=== PATIENT | female | born 1995 | race Caucasian/White ===

== ENCOUNTER 2019-04-30 20:29 | Emergency (ER) | payer OTHER, SELFPAY ==
[2019-04-30 20:30] VITALS: BP 142/99; PULSE 90; RESP 18; TEMP 36.8; O2SAT 100; BMI 36.8
--- NOTE | 2019-04-30 20:47 | RAD_ITS ---
STUDY: X-RAY - PELVIS AND LEFT HIP REASON FOR EXAM: Female, 23 years old. Left-sided pain. TECHNIQUE: 3 views of the pelvis and hip. COMPARISON: None. FINDINGS: No visible fracture. No osseous destruction. Alignment anatomic. No significant degenerative changes. Soft tissues unremarkable. RAD/HIP, UNI W/ Pelvis 2-3 Views IMPRESSION: No acute osseous abnormality. Electronically Signed: Jamie Burns, at 21:17 EDT Tel , Service support ,
--- NOTE | 2019-04-30 20:47 | ED.VIS.GEN ---
History of Present Illness Chief Complaint: Lower Extremity Injury Informant: Patient Onset: Yesterday Context: Sudden Onset Timing: Continuous Quality: Burning, tearing, pulling aching sensation Location: Left lower back, greater trochanteric bursa region and anterior lateral thi Current Severity: Mild Maximum Severity: Moderate Worsened by: Walking, movement Relieved by: Nothing Associated Symptoms: Chills Narrative: Patient is a 23-year-old female who presents with a tearing, pulling burning pain that is predominantly in the area of the left greater trochanteric bursa and radiates anteriorly to the knee. There is also pain left lower back. She denies bowel bladder dysfunction. She denies saddle anesthesia. Denies buckling of her knees going up or down steps. She denies foot drop. She did get a flu shot this past Friday. She has no other symptoms or complaints Patient denies problems with balance. She denies falling. She states her right lower extremity is weaker than her left. Prior similar symptoms: No Recent Illness/Hospitalization: No - Past Medical History (1) No significant past medical history Status: Acute Past Medical History - Allergies and Home Meds Allergies/Adverse Reactions: Allergies lisinopril Allergy (Verified 04/30/19 20:32) Other orange Allergy (Verified 04/30/19 20:32) Angioedema Primary Care Physician: NOT,DEFINED [NON-STAFF] - Past Medical History: None Surgical History: no surgical history Lives: With Family Smoking Status: Never smoker Alcohol: None Review of Systems General: Reports: Chills. Denies: Fever, Malaise, Subjective, Sweats, Weight loss, - ENT: Denies: Bilateral ear pain, Rhinorrhea, Sore throat Cardiovascular: Denies: Chest pain, Palpitations Respiratory: Denies: Dyspnea, Cough, Dyspnea on exertion Gastrointestinal: Denies: Abdominal pain, Nausea, Vomiting, Diarrhea Musculoskeletal: Reports: Extremity Pain. Denies: Myalgias, Arthralgias, Neck pain, Back pain, Swelling Skin: Denies: Rash, Wounds Neurological: Denies: Headache, Weakness, Parasthesia, Numbness Hematologic: Denies: Easy bruising, Easy bleeding Physical Exam Vital Signs/Narrative: Vital Signs Temp Pulse Resp BP Pulse Ox 04/30/19 20:30 98.2 F 90 18 142/99 H 100 Inital Vital Signs reviewed: Yes General: Well nourished, Well developed, Obese, No Acute Distress Head: Normocephalic, Atraumatic Eyes: Perrl, EOMI. Negative for: Pale conjunctiva, Scleral icterus ENT: Moist mucous membranes, No rhinorrhea Neck: Supple, Nontender, No lymphadenopathy, No JVD Cardiovascular: Regular rate, Regular rhythm, No murmurs, Normal S1, Normal S2 Respiratory: No distress, CTA bilaterally, Chest nontender Rectal: Deferred Back: Normal Inspection, -. Negative for: Nontender - There is tenderness near the posterior iliac spine on the left. There is no pain the patient the pelvis., CVA tenderness, Spinal tenderness Extremities: No edema, Tenderness - Straight leg test is negative. Femoral stretch test is negative. Patella and ankle reflexes are 2+ and symmetric. DP and PT pulses are symmetric.. Negative for: Nontender Skin: Normal color, No rash Neurological: Alert, Oriented x3, Cranial nerves II-XII grossly intact, Normal Strength, Normal Sensation, Normal DTR - There is no clonus or Babinski sign., Normal Gait - Gait was observed there is no foot drop. Able to walk on her heels and toes. Is able to perform a 1 legged squat without bracing herself for balance purposes. Psychological: Normal affect, Normal Mood Diagnostic/Tx/Re-eval Chest X-Ray - ED: Read by ED Physician, - - Three-view x-ray of the left hip was obtained. There is no abnormality of the pelvis. There is no abnormality of the acetabular joint. There is no other Dasha noted of the femoral head, femoral neck or greater/lesser stroke. There is no arthritic changes noted. - Medical Decision Making With complaint of pain described as burning need to consider L3 radicular pain however with a negative femoral stretch no neurologic findings and pain only to the knee and not distal doubt cause. This may represent a greater trochanteric bursitis. There may also be arthritic changes in the hip. And specifically osteoarthritis. Need to entertain possibility of autoimmune specifically polymyalgia rheumatica however with her symptoms being unilateral this would not be a consideration. Also doubt thyroid disease since symptoms are unilateral and there is no associated weakness. Patient was prescribed oral analgesic and referred to PCP for follow-up. ED Disposition - Plan for ED Patient: Disposition: Home or Assisted Living Diagnosis: Left hip pain Prescriptions: Naproxen [Naprosyn] 500 mg PO BID #14 tab Prescription Printed Hydrocodone Bitart/Apap 5-325 [[place] 5MG-325MG] 1 tab PO Q6H PRN PRN 3 Days #10 tab PRN Reason: Pain Prescription Printed Referrals: NOT,DEFINED [NON-STAFF] - Mercedez Campbell, [STAFF PHYSICIAN] - 5-7 Days Additional Instructions: Since you do not have a physician you were referred to Dr. Mercedez Campbell
--- NOTE | 2019-04-30 21:12 | ED.VISSUMM ---
- ER Visit Summary Date of Service: 04/30/19 Chief Complaint: [] History of Present Illness: The patient is a 23 F [] Physical Examination: [] Test Results: [] Emergency Department Course and Treatment: [] Treatment Plan: [] Disposition: [] Impression: [] This note was generated with [employer] dictation software. It may contain incorrect words, spelling, and punctuation that were not noted in review of the chart prior to signing ED Disposition - Plan for ED Patient: Disposition: Home or Assisted Living Diagnosis: Left hip pain Instructions: Bursitis Prescriptions: Naproxen [Naprosyn] 500 mg PO BID #14 tab Prescription Printed Hydrocodone Bitart/Apap 5-325 [[place] 5MG-325MG] 1 tab PO Q6H PRN PRN 3 Days #10 tab PRN Reason: Pain Prescription Printed Referrals: Mercedez Campbell DO [STAFF PHYSICIAN] - 5-7 Days NOT,DEFINED [NON-STAFF] - Additional Instructions: Since you do not have a physician you were referred to Dr. Mercedez Campbell
[2019-04-30 21:16] VITALS: BP 138/74; PULSE 75; RESP 16; O2SAT 98
== END 2019-04-30 21:17 | disposition home or self-care (01) ==
PROVIDERS: Emergency Provider Emergency Medicine; Family Provider Family Medicine; PCP Family Medicine
DX: M25.552 Pain in left hip (principal)
CPT/HCPCS: 73502; 99282

== ENCOUNTER 2019-07-10 00:16 | Emergency (ER) | payer OTHER, SELFPAY ==
[2019-07-10] VITALS (7 sets, daily range): BP systolic 117–142; BP diastolic 71–75; PULSE 82–95; RESP 14–18; TEMP 36.4; O2SAT 97–100; BMI 38.1
[2019-07-10 01:04] LABS: Absolute Neutrophil Count 3.4 X10^3/uL (2.0-7.7); Basophil# 0.05 X10^3/uL; Basophil% 0.6 % (0-1); Eosinophil# 0.11 X10^3/uL; Eosinophils% 1.4 % (0-5); Hematocrit 39.4 % (37-47); Hemoglobin 13.4 g/dL (12.0-15.0); Lymphocyte % 46.6 % (19-41); Mean Corpuscular Hgb 31.8 pg (27.0-32.0); Mean Corpuscular Volume 93.4 fL (81-99); Mean Platelet Vol. 12.2 fl (6.2-12.0); Monocyte# 0.53 X10^3/uL; Monocyte% 6.9 % (0-10); NRBC Flagged by Analyzer 0 % (0-5); Neutrophil # 3.42 X10^3/uL (2.7-7.7); Neutrophil % 44.4 % (47-70); Platelet Count 211 K/mm3 (150-450); RBC Distribution Width CV 11.7 % (11.6-14.6); RBC Distribution Width SD 39.7 fl (35.1-43.9); Red Blood Count 4.22 M/mm3 (4.2-5.4); White Blood Count 7.7 K/mm3 (4.4-11.0)
[2019-07-10 01:14] LABS: Amphetamine Urine VISTA NEGATIVE (<1000 ng/mL); Barbiturate Urine VISTA NEGATIVE (< 200 ng/mL); Benzodiazepine Urine VISTA NEGATIVE (< 200 ng/mL); Cocaine Urine VISTA NEGATIVE (< 300 ng/mL); Ecstacy Urine VISTA NEGATIVE (< 500 ng/mL); Methadone Urine VISTA NEGATIVE (< 300 ng/mL); PCP Urine VISTA NEGATIVE (< 25 ng/mL); THC Urine VISTA NEGATIVE (< 50 ng/mL); Vista UDS pH Range 6
[2019-07-10 01:15] LABS: Internal QC Validated? YES +Cl - CLEAR BKGD; Pregnancy, Serum, hCG Quali. NEGATIVE Negative
[2019-07-10 01:19] LABS: Anion Gap 6 (5-15); BUN 13 mg/dL (7-18); BUN/Creat Ratio 20.6 RATIO (10-20); Chloride 109 mmol/L (98-107); Creatinine, Serum 0.63 mg/dL (0.55-1.02); EST Glomerular Filtration Rate 125 mL/min (>60); Est Glom Filt Rate - Afr Amer 151 mL/min (>60); Estimated Creatinine Clearance 120.95 ml/min; Glucose 147 mg/dL (74-106); Potassium 3.3 mmol/L (3.5-5.1); Sodium Level 142 mmol/L (136-145)
[2019-07-10 01:23] LABS: Alcohol, Blood (Medical)-Serum < 3.0 mg/dL
--- NOTE | 2019-07-10 01:38 | ED.DCSUM_ITS ---
- ER Visit Summary Date of Service: 07/10/19 Chief Complaint: Anxiety History of Present Illness: The patient is a 24 F presenting with anxiety. Patient states that she had what she believes was a panic attack earlier today. She is in the process of studying for finals. She does not know of any other increase stress in her life. She denies suicidal thoughts or plan. She states at the end of her finals her doctor is going to wean her off Zoloft and start her on a new medication. This medication has not been started yet. She talked to crisis and was advised to come to the ED. Physical Examination: Vitals are stable. Patient is afebrile. Alert no acute distress. HEENT exam is unremarkable. Neck is supple. Lungs are clear and equal bilaterally. Heart is regular rate and rhythm. Abdomen is soft nontender nondistended. Extremities are unremarkable. Skin is warm and dry. No focal neurologic deficit. Anxious, denies suicidal ideation or homicidal ideation Remainder of exam is unremarkable. Emergency Department Course and Treatment: CBC, chemistries unremarkable. hCG negative. Tox and alcohol are negative. Discussed with counseling center for evaluation. Disposition: Per counseling center Impression: Anxiety This note was generated with [employer] dictation software. It may contain incorrect words, spelling, and punctuation that were not noted in review of the chart paula or to signing ED Disposition - Plan for ED Patient: Referrals: Danya Mcnally DO [Primary Care Provider] -
--- NOTE | 2019-07-10 07:32 | ED.DEP ---
ED Disposition - Plan for ED Patient: Instructions: Anxiety Reaction Referrals: Danya Mcnally DO [Primary Care Provider] - Counseling,Center [GROUP OF PHYSICIANS] -
== END 2019-07-10 07:55 | disposition home or self-care (01) ==
LOC: ED 00:40
PROVIDERS: Emergency Provider Emergency Medicine; Family Provider Family Medicine; PCP Family Medicine
DX: F41.9 Anxiety disorder, unspecified (principal)
CPT/HCPCS: 36415; 80048; 80307; 80320; 84703; 85025; 99284; G0480

== ENCOUNTER 2019-11-30 19:42 | Emergency (ER) | payer OTHER, SELFPAY ==
[2019-07-10 00:17] VITALS: BMI 38.1
[2019-11-30 19:43] VITALS: BP 136/95; PULSE 118; RESP 20; TEMP 37.3; O2SAT 99; BMI 37.2
[2019-11-30] MEDS: Acetaminophen 500 MG Tablet 1000 MG PO (20:31)
--- NOTE | 2019-11-30 20:36 | RAD_ITS ---
STUDY: X-RAY CHEST REASON FOR EXAM: Female, 24 years old. fever, cold symptoms TECHNIQUE: AP portable COMPARISON: None. FINDINGS: The lungs are clear and expanded. There is no demonstrated pleural abnormality. Normal size heart. Normal mediastinum and clari. Normal visualized pulmonary arteries. Normal visualized aortic arch and descending thoracic aorta. Dorsal spine demonstrates scoliosis possibly due to muscle spasm Normal visualized ribs, clavicles, and shoulders. There is no demonstrated abnormality of the visualized soft tissue structures of the upper abdomen. RAD/Chest 1 View (Portable) IMPRESSION: No acute cardiopulmonary pathology Electronically Signed: Rebel Lawrence MD at 20:57 EDT , Service support ,
[2019-11-30 20:37] LABS: Absolute Lymphocyte Count 2.76 X10^3/uL (0.83-4.51); Absolute Neutrophil Count 4.9 X10^3/uL (2.0-7.7); Basophil# 0.06 X10^3/uL; Basophil% 0.7 % (0-1); Eosinophil# 0.06 X10^3/uL; Eosinophils% 0.7 % (0-5); Hematocrit 43.6 % (37-47); Hemoglobin 14.8 g/dL (12.0-15.0); Lymphocyte # 2.76 X10^3/ul (4.0); Lymphocyte % 32.8 % (19-41); Mean Corp Hgb Conc 33.9 g/dL (32-36); Mean Corpuscular Hgb 31.6 pg (27.0-32.0); Mean Platelet Vol. 11.8 fl (6.2-12.0); Monocyte# 0.64 X10^3/uL; Monocyte% 7.6 % (0-10); NRBC Flagged by Analyzer 0 % (0-5); Neutrophil # 4.87 X10^3/uL (2.7-7.7); Platelet Count 250 K/mm3 (150-450); RBC Distribution Width CV 11.6 % (11.6-14.6); RBC Distribution Width SD 38.9 fl (35.1-43.9); Red Blood Count 4.69 M/mm3 (4.2-5.4); White Blood Count 8.4 K/mm3 (4.4-11.0)
[2019-11-30 20:49] LABS: Red Blood Cells-Urine 0 SEEN /hpf (0-5)
[2019-11-30 20:50] LABS: Color, Urine Yellow (Yellow); Glucose, Dipstick Normal (Normal); Ketone-Dipstick 50 mg/dl (Negative); Leukocyte Esterase-Dipstick 100 /ul (Negative); Nitrite-Dipstick Negative (Negative); Occult Blood-Urine Negative /ul (Negative); Protein-Dipstick 15 mg/dl (Negative); Urine Bilirubin Dipstick Negative (Negative); Urine Clarity Cloudy (Clear); Urine Urobilinogen Normal (Normal)
[2019-11-30 20:53] LABS: AST(SGOT) 12 U/L (15-37); Alanine Aminotransfer ALT/SGPT 19 U/L (13-56); Albumin, Serum 3.8 g/dL (3.2-5.0); Alkaline Phosphatase 108 U/L (45-117); Anion Gap 8 (5-15); BUN 10 mg/dL (7-18); BUN/Creat Ratio 15.2 RATIO (10-20); Calcium,Total 9.2 mg/dL (8.5-10.1); Chloride 108 mmol/L (98-107); Creatinine, Serum 0.66 mg/dL (0.55-1.02); EST Glomerular Filtration Rate 119 mL/min (>60); Est Glom Filt Rate - Afr Amer 144 mL/min (>60); Estimated Creatinine Clearance 115.45 ml/min; Glucose 89 mg/dL (74-106); Lipase 65 U/L (73-393); Potassium 3.1 mmol/L (3.5-5.1); Protein, Total 7.8 g/dL (6.4-8.2); Sodium Level 140 mmol/L (136-145)
[2019-11-30 20:57] LABS: Mucous, Urine 3+ /hpf (<or=2+)
[2019-11-30 20:58] LABS: Bacteria 2+ /hpf (None Seen); White Blood Cells 0-5 SEEN /hpf (0-5)
[2019-11-30 21:00] LABS: Squamous Epithelial Cells - UA 5-10 SEEN /hpf (5-10)
--- NOTE | 2019-11-30 21:14 | ED.DCSUM_ITS ---
- ER Visit Summary Date of Service: 11/30/19 Chief Complaint: Fever, cough, sore throat History of Present Illness: The patient is a 24 F who presents with fever, cough, and sore throat that is been getting worse over the past 4 days. Patient states this is gradually gotten worse. Patient states her temperature is 100.2 at home. Patient admits to some shortness of breath and cough. Patient admits to some abdominal pain, nausea, and vomiting. Patient also admits to some back pain. Patient denies any dysuria or hematuria. Patient admits to a mild headache. Patient denies any sick contacts. Patient denies any exposures to anyone diagnosed with COVID-19. Physical Examination: Vital signs are stable except for mild tachycardia of 118. Patient is afebrile. Patient is in no acute distress. Oral mucosa is pink and moist. Oropharynx shows some mild erythema. Neck is supple. Trachea is midline. There is no JVD noted. Heart was regular rate and rhythm. Lungs are clear and equal bilaterally. Abdomen is soft. Bowel sounds are normal. There is no tenderness. There is no rebound or guarding noted. Skin is warm dry. Cranial nerves II through XII are intact. There are no focal motor or sensory deficits noted. Extremities are intact. There is no calf tenderness or edema. Test Results: CBC, comprehensive metabolic profile, and lipase were obtained and were essentially within normal limits. Urinalysis does not show any evidence of urinary tract infection. Potable chest x-ray was obtained. There is no acute cardiopulmonary process. This was interpreted by the radiologist and reviewed by myself. Emergency Department Course and Treatment: She was given a dose of Tylenol here. Patient was feeling better on reevaluation. Patient was advised that this most likely a viral upper respiratory infection. Patient was instructed to quarantine herself until she follows up with her primary care physician. Patient was advised that she does not meet testing for COVID-19 at this time. Patient was instructed to return if worse in any way. Patient understood and was agreeable with the plan. All questions were answered. Disposition: Discharge home Impression: Viral upper respiratory infection This note was generated with [employer] dictation software. It may contain incorrect words, spelling, and punctuation that were not noted in review of the chart prior to signing ED Disposition - Plan for ED Patient: Disposition: Home or Assisted Living Diagnosis: Viral upper respiratory infection Instructions: ED URI Viral Referrals: Danya Mcnally DO [Primary Care Provider] - 5-7 Days
[2019-11-30 22:54] VITALS: BP 126/97; PULSE 92; RESP 18; TEMP 37.3; O2SAT 97
== END 2019-11-30 22:55 | disposition home or self-care (01) ==
PROVIDERS: Emergency Provider Emergency Medicine; PCP Family Medicine
DX: J06.9 Acute upper respiratory infection, unspecified (principal); I10 Essential (primary) hypertension; J45.909 Unspecified asthma, uncomplicated
CPT/HCPCS: 71045; 80053; 81001; 83690; 85025; 87804; 87807; 87880; 99284; A4216

== ENCOUNTER 2020-01-08 22:44 | Emergency (ER) | payer OTHER, SELFPAY ==
[2020-01-08 22:44] VITALS: BP 142/98; PULSE 100; RESP 15; TEMP 36.9; O2SAT 98; BMI 36.3
--- NOTE | 2020-01-08 23:19 | ED.VIS.GI ---
History of Present Illness Chief Complaint: Abd Pain Informant: Patient - Abdominal Pain/Flank Pain Onset: Today Context: Gradual Onset Timing: Continuous Quality: Aching Location: Epigastric - without radiation Current Severity: Mild Maximum Severity: Mild Worsened by: - - unknown Relieved by: - - nothing - Nausea/Vomiting/Emesis GI Symptom: Nausea, Vomiting Onset: Weeks - 2 Quality: Nonbilious - but looked green only the last time I vomited today; I called the nurse line and told them that, so they said I needed to be seen. Severity: Moderate - several times per day, most days, occasionally becomes cyclical for 10-20 minutes - Diarrhea/Melena/Hematochezia GI Symptom: Diarrhea. Negative for: Melena, Hematochezia Onset: Weeks - 2 Stool Quality: Loose Severity: Mild Episodes: 3 - per day Associated Symptoms: Negative for: Dysuria, Frequency, Hematuria, Urgency Narrative: Patient states she has had some of the symptoms in the past, and tells me that I was diagnosed with a cold. For the past 2 weeks she has had vomiting and diarrhea. She developed some epigastric discomfort only today. She has had no prior abdominal surgeries. She states since it was green-robin colored today, she was advised to come to the ER for evaluation since it is the weekend. She has not seen her doctor about the symptoms yet in the past 2 weeks. She denies any fevers. No chest pain, cough, dysuria, urinary frequency, she denies . - Past Medical History (1) Hypertension Status: Chronic (2) Hyperlipidemia Status: Chronic (3) Depression Status: Chronic (4) Anxiety Status: Chronic (5) Asthma Status: Chronic Past Medical History - Allergies and Home Meds Allergies/Adverse Reactions: Allergies lisinopril Allergy (Verified 01/08/20 22:47) Other orange Allergy (Verified 01/08/20 22:47) Angioedema Primary Care Physician: Danya Mcnally DO [Primary Care Provider] - Surgical History: no surgical history Smoking Status: Never smoker Review of Systems General: Denies: Chills, Fever, Sweats Eyes: Denies: Visual changes - bilaterally, Diplopia ENT: Denies: Rhinorrhea, Sore throat Cardiovascular: Denies: Chest pain, Palpitations Respiratory: Denies: Dyspnea, Cough, Dyspnea on exertion Gastrointestinal: Reports: Abdominal pain, Nausea, Vomiting, Diarrhea. Denies: Melena, Hematochezia Genitourinary: Denies: Dysuria, Hematuria, Frequency Musculoskeletal: Denies: Neck pain, Back pain, Swelling, Extremity Pain Skin: Denies: Rash, Wounds Neurological: Denies: Headache, Weakness, Numbness Physical Exam Vital Signs/Narrative: Vital Signs Temp Pulse Resp BP Pulse Ox 01/08/20 22:44 98.5 F 100 15 142/98 H 98 Inital Vital Signs reviewed: Yes General: Well nourished, Well developed, Obese, No Acute Distress - Well-appearing. Head: Normocephalic, Atraumatic Eyes: Perrl, EOMI ENT: Moist mucous membranes, No rhinorrhea Neck: Supple, Nontender Cardiovascular: Regular rate, Regular rhythm, No murmurs Respiratory: No distress, CTA bilaterally, Chest nontender Abdomen: Soft, Nondistended, Normal bowel sounds, No masses, Tender - Mild, epigastrium only. Negative for: Guarding, Rebound tenderness, Ceron's sign Back: Nontender, Normal Inspection. Negative for: CVA tenderness Extremities: Nontender, No edema. Negative for: Calf Tenderness Skin: Normal color, No rash, No Trauma Neurological: Alert, Oriented x3, Cranial nerves II-XII grossly intact, Normal Strength, Normal Sensation, Normal Gait Psychological: Normal affect, Normal Mood Diagnostic/Tx/Re-eval Laboratory Results 01/08/20 01/08/20 01/08/20 23:05 23:35 23:35 WBC 7.2 RBC 4.41 Hgb 13.9 Hct 42.2 MCV 95.7 MCH 31.5 MCHC 32.9 RDW Std Deviation 41.6 RDW Coeff of Alex 11.9 Plt Count 236 MPV 12.5 H Immature Gran % (Auto) 0.100 Neut % (Auto) 50.1 Lymph % (Auto) 38.6 [place] % (Auto) 9.7 Eos % (Auto) 0.8 Baso % (Auto) 0.7 Absolute Neuts (auto) 3.6 Absolute Lymphs (auto) 2.76 Nucleated RBC % 0 Sodium 143 Potassium 4.2 Chloride 111 H Carbon Dioxide 25.0 Anion Gap 7 BUN 9 Creatinine 0.61 Estim Creat Clear Calc 124.92 Est GFR (MDRD) Af Amer 156 Est GFR (MDRD) Non-Af 129 BUN/Creatinine Ratio 14.7 Glucose 102 Calcium 9.1 Total Bilirubin 0.40 AST 20 ALT 16 Alkaline Phosphatase 97 Total Protein 7.0 Albumin 3.4 Globulin 3.6 Albumin/Globulin Ratio 0.9 Lipase 64 L Urine Test Negative - Medical Decision Making After Reglan and a GI cocktail, patient feels much better is drinking fluids without difficulty, and her discomfort is resolved. I do not think she has a bowel obstruction or needs a CT scan tonight. Her labs are unremarkable. Her urinalysis specimen was provided to us over 1.5 hours ago but the lab still has not returned a result although her is negative. I will watch for this, I think it results are unlikely to change my treatment for her, which is a PPI, antiemetic, and outpatient follow-up. She is comfortable with that plan. ED Disposition - Plan for ED Patient: Disposition: Home or Assisted Living Diagnosis: Nausea vomiting and diarrhea, Epigastric pain Instructions: ED Epigastric Pain [facility], ED Vomiting and Diarrhea Nonspecific Adult Prescriptions: proMETHazine tablet [Phenergan] 25 mg PO Q6H PRN PRN #10 tab PRN Reason: Nausea Transmission Status: Pending to [facility] Pantoprazole Sodium [Protonix] 40 mg PO DAILY #30 tab Transmission Status: Pending to [facility] Referrals: Danya Mcnally DO [Primary Care Provider] - 3-5 Days if not improving
[2020-01-08] MEDS: 0.9% Normal Saline 1,000 ML 1000 ML IV (23:37)
[2020-01-08] MEDS: Mag Hydrox/Al Hydrox/Simeth 30 ML UDC PO (23:47)
[2020-01-08] MEDS: Dicyclomine 10 MG Capsule 20 MG PO (23:48)
[2020-01-08] MEDS: Metoclopramide 10 MG/2 ML Vial 5 MG IV (23:48)
[2020-01-09 00:01] LABS: Mucous, Urine 0 SEEN /hpf (<or=2+); Red Blood Cells-Urine 0 SEEN /hpf (0-5)
[2020-01-09 00:08] LABS: Absolute Lymphocyte Count 2.76 X10^3/uL (0.83-4.51); Absolute Neutrophil Count 3.6 X10^3/uL (2.0-7.7); Basophil# 0.05 X10^3/uL; Basophil% 0.7 % (0-1); Eosinophil# 0.06 X10^3/uL; Eosinophils% 0.8 % (0-5); Hematocrit 42.2 % (37-47); Hemoglobin 13.9 g/dL (12.0-15.0); Lymphocyte # 2.76 X10^3/ul (4.0); Lymphocyte % 38.6 % (19-41); Mean Corp Hgb Conc 32.9 g/dL (32-36); Mean Corpuscular Hgb 31.5 pg (27.0-32.0); Mean Corpuscular Volume 95.7 fL (81-99); Mean Platelet Vol. 12.5 fl (6.2-12.0); Monocyte# 0.69 X10^3/uL; Monocyte% 9.7 % (0-10); NRBC Flagged by Analyzer 0 % (0-5); Neutrophil # 3.58 X10^3/uL (2.7-7.7); Neutrophil % 50.1 % (47-70); Platelet Count 236 K/mm3 (150-450); RBC Distribution Width CV 11.9 % (11.6-14.6); RBC Distribution Width SD 41.6 fl (35.1-43.9); Red Blood Count 4.41 M/mm3 (4.2-5.4); White Blood Count 7.2 K/mm3 (4.4-11.0)
[2020-01-09 00:28] LABS: Internal QC Validated? YES +Cl - CLEAR BKGD; Pregnancy, Urine Negative Negative
[2020-01-09 00:39] LABS: Color, Urine Yellow (Yellow); Glucose, Dipstick Normal (Normal); Ketone-Dipstick Negative (Negative); Leukocyte Esterase-Dipstick 25 /ul (Negative); Nitrite-Dipstick Negative (Negative); Occult Blood-Urine Negative /ul (Negative); Protein-Dipstick 15 mg/dl (Negative); Urine Bilirubin Dipstick Negative (Negative); Urine Clarity Sl. Cloudy (Clear); Urine Urobilinogen Normal (Normal); Urine pH 6.5 (5.0 - 8.0)
[2020-01-09 00:40] LABS: ALB/GLOB Ratio 0.9 RATIO (0.9-2.4); AST(SGOT) 20 U/L (15-37); Alanine Aminotransfer ALT/SGPT 16 U/L (13-56); Albumin, Serum 3.4 g/dL (3.2-5.0); Alkaline Phosphatase 97 U/L (45-117); Anion Gap 7 (5-15); BUN 9 mg/dL (7-18); BUN/Creat Ratio 14.7 RATIO (10-20); Calcium,Total 9.1 mg/dL (8.5-10.1); Chloride 111 mmol/L (98-107); Creatinine, Serum 0.61 mg/dL (0.55-1.02); EST Glomerular Filtration Rate 129 mL/min (>60); Est Glom Filt Rate - Afr Amer 156 mL/min (>60); Estimated Creatinine Clearance 124.92 ml/min; Globulin 3.6 g/dL (2.2-4.2); Glucose 102 mg/dL (74-106); Lipase 64 U/L (73-393); Potassium 4.2 mmol/L (3.5-5.1); Sodium Level 143 mmol/L (136-145)
[2020-01-09 01:00] VITALS: BP 145/93; PULSE 67; RESP 18; O2SAT 95
[2020-01-09 01:03] LABS: Bacteria 2+ /hpf (None Seen); Squamous Epithelial Cells - UA 0-5 SEEN /hpf (5-10); White Blood Cells 0-5 SEEN /hpf (0-5)
[2020-01-09] MEDS: Pantoprazole Sodium 40 MG Tablet PO (01:06)
== END 2020-01-09 01:10 | disposition home or self-care (01) ==
PROVIDERS: Emergency Provider Emergency Medicine; PCP Family Medicine
DX: R10.13 Epigastric pain (principal); R11.2 Nausea with vomiting, unspecified; R19.7 Diarrhea, unspecified; E66.9 Obesity, unspecified; I10 Essential (primary) hypertension; E78.5 Hyperlipidemia, unspecified; F32.9 Major depressive disorder, single episode, unspecified; F41.9 Anxiety disorder, unspecified; J45.909 Unspecified asthma, uncomplicated; Z79.899 Other long term (current) drug therapy
CPT/HCPCS: 80053; 81001; 81025; 83690; 85025; 96360; 99285; J7030; A4216

== ENCOUNTER → 2020-01-31 15:24 | Outpatient (CLI) | payer OTHER, SELFPAY ==
[2020-01-08 22:44] VITALS: BMI 36.3
[2020-01-31 17:59] LABS: CRP 7.44 mg/L (0.0-3.0)
[2020-02-02 16:08] LABS: Endomysial Antibody IgA Negative (Negative); Immunoglobulin A 64 mg/dL (87-352)
[2020-02-05 17:46] LABS: t-Transglutaminase IgA <2 U/mL (0-3)
== END ==
PROVIDERS: PCP Family Medicine; Referring Provider Internal Medicine Gastroenterology; Visit Provider Internal Medicine Gastroenterology
DX: R19.7 Diarrhea, unspecified (principal)
CPT/HCPCS: 36415; 82784; 83516; 86140; 86255

== ENCOUNTER → 2020-02-07 09:41 | Outpatient (CLI) | payer OTHER, SELFPAY ==
[2020-01-08 22:44] VITALS: BMI 36.3
== END ==
PROVIDERS: PCP Family Medicine; Referring Provider Internal Medicine Gastroenterology; Visit Provider Internal Medicine Gastroenterology
DX: Z11.59 Encounter for screening for other viral diseases (principal)
CPT/HCPCS: 87635; G2023; U0003

== ENCOUNTER → 2020-02-08 14:07 | Outpatient (CLI) | payer OTHER, SELFPAY | PROVIDERS: PCP Family Medicine; Referring Provider Internal Medicine Gastroenterology; Visit Provider Internal Medicine Gastroenterology | DX: R19.7 Diarrhea, unspecified (principal) | CPT/HCPCS: 36415; 83516 ==

== ENCOUNTER → 2020-02-16 09:56 | Outpatient (CLI) | payer OTHER, SELFPAY ==
--- NOTE | 2020-02-16 09:59 | US_ITS ---
STUDY: ABDOMINAL ULTRASOUND REASON FOR EXAM: Female, 24 years old. ABD PAIN WITH VOMITING AND NAUSEA TECHNIQUE: Transabdominal ultrasound was performed with real-time and static bowie scale imaging. TECHNICAL QUALITY: Adequate. COMPARISON: None. FINDINGS: Liver: The liver measures 17.4 cm. There is increased echogenicity consistent with fatty infiltration. The bile ducts are within normal limits. There is hepatic color flow. The direction of portal flow is hepatopetal. There is no demonstrated mass lesion. Portal vein measurement: Gallbladder: Normal distended gallbladder. The gallbladder wall measures 2 mm. There is a negative sonographic Ceron''s sign. There is no pericholecystic fluid. There are no gallstones. Common Bile Duct (C.B.D.): The common bile duct measures 3 mm. Pancreas: Normal size of the head, body and tail of the pancreas. There is normal echogenicity of the pancreas. There is no demonstrated pancreatic mass or cyst. Spleen: Normal size of the spleen. The spleen measures 10.6 cm. Right Kidney: Normal size of the right kidney. The right kidney measures 12.1 x 4.2 x 4.5 cm. Normal renal cortex. The right cortex measures 1.5 cm. There is no demonstrated renal mass or cyst. There is no right hydronephrosis, there is a 7 mm hyperechogenicity, likely nonobstructing stone.. Left Kidney: Normal size of the left kidney. The left kidney measures 11.1 x 5.1 x 5.0 cm. Normal renal cortex. The left cortex measures 1.7 cm. There is no demonstrated renal mass or cyst. There is no left hydronephrosis. Aorta: Tapers normally I.V.C.: The IVC is patent. There is no ascites. US/Abdomen Complete IMPRESSION: Fatty infiltration of the liver, no discrete lesion Likely nonobstructing right nephrolithiasis Electronically Signed: Evangelista Lynne MD at 10:59 EDT , Service support ,
== END ==
PROVIDERS: PCP Family Medicine; Referring Provider Internal Medicine Gastroenterology; Visit Provider Internal Medicine Gastroenterology
DX: R11.2 Nausea with vomiting, unspecified (principal); R10.9 Unspecified abdominal pain
CPT/HCPCS: 76700

== ENCOUNTER 2020-06-16 16:04 | Emergency (ER) | payer MEDICAID, SELFPAY ==
[2020-06-16 16:05] VITALS: BP 140/99; PULSE 109; RESP 16; TEMP 36.3; O2SAT 99; BMI 34.3
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
[2020-06-16 17:08] VITALS: PULSE 99; RESP 16; O2SAT 98
== END 2020-06-16 17:00 | disposition home or self-care (01) ==
LOC: ED 16:45
PROVIDERS: Emergency Provider Physician Assistant; PCP Family Medicine
DX: S09.90XA Unspecified injury of head, initial encounter (principal); E78.5 Hyperlipidemia, unspecified; W19.XXXA Unspecified fall, initial encounter
CPT/HCPCS: 70450; 99282

== ENCOUNTER 2020-07-25 13:30 | Outpatient (RCR) | payer OTHER, MEDICAID, SELFPAY | END 2020-08-03 23:59 | LOC: NS 13:30 | PROVIDERS: PCP Family Medicine; Visit Provider Family Medicine | DX: Z71.3 Dietary counseling and surveillance (principal); K31.84 Gastroparesis; R11.15 Cyclical vomiting syndrome unrelated to migraine | CPT/HCPCS: 97802 ==

== ENCOUNTER 2020-08-04 20:01 | Emergency (ER) | payer MEDICAID, SELFPAY ==
[2020-08-04 20:02] VITALS: BP 148/90; PULSE 131; RESP 18; TEMP 36.3; O2SAT 98; BMI 34.0
--- NOTE | 2020-08-04 20:28 | EKG12_ITS ---
Test Reason : [facility] [place] Blood Pressure : / mmHG Vent. Rate : 114 BPM Atrial Rate : 114 BPM P-R Int : 138 ms QRS Dur : 090 ms QT Int : 356 ms P-R-T Axes : 047 033 044 degrees QTc Int : 490 ms Sinus tachycardia Otherwise normal ECG Confirmed by ANOOP WATT, EMELI ([id number]), newspaper managing editor LINDA MCCORMACK ([id number]) on 08/07/2020 8:57:16 AM Referred By: Confirmed By:EMELI DAVALOS MD
--- NOTE | 2020-08-04 20:31 | ED.VIS.GEN ---
History of Present Illness Chief Complaint: Suicidal Informant: Patient, Family Narrative: 25-year-old female with a history of bipolar disorder states that she has had a bad couple weeks. She states that she recently graduated from college and has school loan debt. Today she went into work and found coverage as she was not doing well from a mental health standpoint. She states that her boss yelled at her. She talked to crisis and it calmed herself down. Unfortunately she began to have suicidal ideation without plan and was referred to the emergency department by crisis. She denies any current drug or alcohol use. She does not cut. - Past Medical History (1) Anxiety Status: Chronic (2) Asthma Status: Chronic (3) Depression Status: Chronic (4) Hyperlipidemia Status: Chronic (5) Hypertension Status: Chronic Past Medical History - Allergies and Home Meds Allergies/Adverse Reactions: Allergies lisinopril Allergy (Verified 08/04/20 20:05) Other orange Allergy (Verified 08/04/20 20:05) Angioedema Primary Care Physician: Danya Mcnally DO [Primary Care Provider] - Past Medical History: - - Bipolar disorder Surgical History: no surgical history Lives: With Family Smoking Status: Never smoker Drugs: None Review of Systems General: Denies: Chills, Fever, Sweats Eyes: Denies: Visual changes - bilaterally, Diplopia ENT: Denies: Rhinorrhea, Sore throat Cardiovascular: Denies: Chest pain, Palpitations Respiratory: Denies: Dyspnea, Cough, Dyspnea on exertion Gastrointestinal: Denies: Abdominal pain, Nausea, Vomiting, Diarrhea, Melena, Hematochezia Genitourinary: Denies: Dysuria, Hematuria, Frequency Musculoskeletal: Denies: Back pain, Extremity Pain Skin: Denies: Rash, Wounds Neurological: Denies: Headache, Weakness, Numbness Psych: Reports: Depression, Anxiety, Suicidal thoughts, Suicidal ideations Physical Exam Vital Signs/Narrative: Vital Signs Temp Pulse Resp BP Pulse Ox 08/04/20 20:02 97.3 F L 131 H 18 148/90 H 98 Inital Vital Signs reviewed: Yes General: Well nourished, Well developed, No Acute Distress Head: Normocephalic, Atraumatic Eyes: Perrl, EOMI ENT: Moist mucous membranes, No rhinorrhea Neck: Supple, Nontender Cardiovascular: Regular rate, Regular rhythm, No murmurs Respiratory: No distress, CTA bilaterally, Chest nontender Abdomen: Soft, Nontender, Nondistended, Normal bowel sounds Back: Nontender, Normal Inspection Extremities: Nontender, No edema Skin: Normal color, No rash Neurological: Alert, Oriented x3, Cranial nerves II-XII grossly intact, Normal Strength, Normal Sensation Psychological: Depressed, - - Patient admits to suicidal ideation Diagnostic/Tx/Re-eval Laboratory Last Values WBC 11.3 K/mm3 (4.4-11.0) H 08/04/20 20:45 RBC 4.36 M/mm3 (4.2-5.4) 08/04/20 20:45 Hgb 14.1 g/dL (12.0-15.0) 08/04/20 20:45 Hct 40.9 % (37-47) 08/04/20 20:45 MCV 93.8 fL (81-99) 08/04/20 20:45 MCH 32.3 pg (27.0-32.0) H 08/04/20 20:45 MCHC 34.5 g/dL (32-36) 08/04/20 20:45 RDW Std Deviation 40.2 fl (35.1-43.9) 08/04/20 20:45 RDW Coeff of Alex 11.6 % (11.6-14.6) 08/04/20 20:45 Plt Count 241 K/mm3 (150-450) 08/04/20 20:45 MPV 12.1 fl (6.2-12.0) H 08/04/20 20:45 Immature Gran % (Auto) 0.400 % (0.0-0.9) 08/04/20 20:45 Neut % (Auto) 62.0 % (47-70) 08/04/20 20:45 Lymph % (Auto) 29.5 % (19-41) 08/04/20 20:45 [place] % (Auto) 6.4 % (0-10) 08/04/20 20:45 Eos % (Auto) 1.0 % (0-5) 08/04/20 20:45 Baso % (Auto) 0.7 % (0-1) 08/04/20 20:45 Absolute Neuts (auto) 7.0 X10^3/uL (2.0-7.7) 08/04/20 20:45 Absolute Lymphs (auto) 3.34 X10^3/uL (0.83-4.51) 08/04/20 20:45 Nucleated RBC % 0 % (0-5) 08/04/20 20:45 Sodium 141 mmol/L (136-145) 08/04/20 20:45 Potassium 3.5 mmol/L (3.5-5.1) 08/04/20 20:45 Chloride 109 mmol/L (98-107) H 08/04/20 20:45 Carbon Dioxide 25.0 mmol/L (21.0-32.0) 08/04/20 20:45 Anion Gap 7 (5-15) 08/04/20 20:45 BUN 10 mg/dL (7-18) 08/04/20 20:45 Creatinine 0.65 mg/dL (0.55-1.02) 08/04/20 20:45 Estim Creat Clear Calc 116.24 ml/min 08/04/20 20:45 Est GFR (MDRD) Af Amer 145 mL/min (>60) 08/04/20 20:45 Est GFR (MDRD) Non-Af 120 mL/min (>60) 08/04/20 20:45 BUN/Creatinine Ratio 15.4 RATIO (10-20) 08/04/20 20:45 Glucose 121 mg/dL (74-106) H 08/04/20 20:45 Calcium 9.2 mg/dL (8.5-10.1) 08/04/20 20:45 Total Bilirubin 0.40 mg/dL (0.20-1.00) 08/04/20 20:45 AST 7 U/L (15-37) L 08/04/20 20:45 ALT 13 U/L (13-56) 08/04/20 20:45 Alkaline Phosphatase 128 U/L (45-117) H 08/04/20 20:45 Total Protein 7.5 g/dL (6.4-8.2) 08/04/20 20:45 Albumin 3.7 g/dL (3.2-5.0) 08/04/20 20:45 Globulin 3.8 g/dL (2.2-4.2) 08/04/20 20:45 Albumin/Globulin Ratio 1.0 RATIO (0.9-2.4) 08/04/20 20:45 Serum , Qual NEGATIVE Negative 08/04/20 20:45 Urine Opiates Screen NEGATIVE (< 300 ng/mL) 08/04/20 20:17 Urine Methadone Screen NEGATIVE (< 300 ng/mL) 08/04/20 20:17 Ur Barbiturates Screen NEGATIVE (< 200 ng/mL) 08/04/20 20:17 Ur Phencyclidine Scrn NEGATIVE (< 25 ng/mL) 08/04/20 20:17 Ur Amphetamines Screen NEGATIVE (<1000 ng/mL) 08/04/20 20:17 U Methamphetamin-MDMA POSITIVE (< 500 ng/mL) H 08/04/20 20:17 U Benzodiazepines Scrn NEGATIVE (< 200 ng/mL) 08/04/20 20:17 [place] < 0.20 mmol/L (0.60-1.20) L 08/04/20 20:45 Urine Cocaine Screen NEGATIVE (< 300 ng/mL) 08/04/20 20:17 U Cannabinoids Screen NEGATIVE (< 50 ng/mL) 08/04/20 20:17 Ur Drug Screen Comment 08/04/20 20:17 Ethyl Alcohol < 3.0 mg/dL 08/04/20 20:45 - EKG Initial EKG Interpretation: Sinus Rhythm - EKG demonstrates a sinus tachycardia at a rate of 114. Normal intervals. No ectopy or concerning features of ACS noted - Medical Decision Making Patient was medically cleared. Covid test negative. She has been previously assessed by crisis tonight. It is our recommendation that the patient be hospitalized for psychiatric evaluation and treatment. ED Disposition - Plan for ED Patient: Disposition: Psychiatric Hospital or Unit Diagnosis: Bipolar disorder, Suicidal ideation Referrals: Danya Mcnally DO [Primary Care Provider] -
[2020-08-04 20:55] LABS: Absolute Lymphocyte Count 3.34 X10^3/uL (0.83-4.51); Basophil# 0.08 X10^3/uL; Basophil% 0.7 % (0-1); Eosinophil# 0.11 X10^3/uL; Hematocrit 40.9 % (37-47); Hemoglobin 14.1 g/dL (12.0-15.0); Lymphocyte # 3.34 X10^3/ul (4.0); Lymphocyte % 29.5 % (19-41); Mean Corp Hgb Conc 34.5 g/dL (32-36); Mean Corpuscular Hgb 32.3 pg (27.0-32.0); Mean Corpuscular Volume 93.8 fL (81-99); Mean Platelet Vol. 12.1 fl (6.2-12.0); Monocyte# 0.73 X10^3/uL; Monocyte% 6.4 % (0-10); NRBC Flagged by Analyzer 0 % (0-5); Neutrophil # 7.02 X10^3/uL (2.7-7.7); Platelet Count 241 K/mm3 (150-450); RBC Distribution Width CV 11.6 % (11.6-14.6); RBC Distribution Width SD 40.2 fl (35.1-43.9); Red Blood Count 4.36 M/mm3 (4.2-5.4); White Blood Count 11.3 K/mm3 (4.4-11.0)
[2020-08-04 21:02] VITALS: RESP 18
[2020-08-04 21:10] LABS: Internal QC Validated? YES +Cl - CLEAR BKGD; Pregnancy, Serum, hCG Quali. NEGATIVE Negative
[2020-08-04 21:11] LABS: AST(SGOT) 7 U/L (15-37); Alanine Aminotransfer ALT/SGPT 13 U/L (13-56); Albumin, Serum 3.7 g/dL (3.2-5.0); Alkaline Phosphatase 128 U/L (45-117); Anion Gap 7 (5-15); BUN 10 mg/dL (7-18); BUN/Creat Ratio 15.4 RATIO (10-20); Calcium,Total 9.2 mg/dL (8.5-10.1); Chloride 109 mmol/L (98-107); Creatinine, Serum 0.65 mg/dL (0.55-1.02); EST Glomerular Filtration Rate 120 mL/min (>60); Est Glom Filt Rate - Afr Amer 145 mL/min (>60); Estimated Creatinine Clearance 116.24 ml/min; Globulin 3.8 g/dL (2.2-4.2); Glucose 121 mg/dL (74-106); Potassium 3.5 mmol/L (3.5-5.1); Protein, Total 7.5 g/dL (6.4-8.2); Sodium Level 141 mmol/L (136-145)
[2020-08-04 21:24] LABS: Amphetamine Urine VISTA NEGATIVE (<1000 ng/mL); Barbiturate Urine VISTA NEGATIVE (< 200 ng/mL); Benzodiazepine Urine VISTA NEGATIVE (< 200 ng/mL); Cocaine Urine VISTA NEGATIVE (< 300 ng/mL); Ecstacy Urine VISTA POSITIVE (< 500 ng/mL); Methadone Urine VISTA NEGATIVE (< 300 ng/mL); PCP Urine VISTA NEGATIVE (< 25 ng/mL); THC Urine VISTA NEGATIVE (< 50 ng/mL); Vista UDS pH Range 5
[2020-08-04 21:31] LABS: Alcohol, Blood (Medical)-Serum < 3.0 mg/dL
[2020-08-04 22:32] LABS: Lithium < 0.20 mmol/L (0.60-1.20)
[2020-08-05 01:22] VITALS: RESP 16
[2020-08-05 02:00] VITALS: RESP 18
[2020-08-05 03:00] VITALS: RESP 16
--- NOTE | 2020-08-05 03:18 | ED.RN ---
patient has been referred to [facility]
--- NOTE | 2020-08-05 03:57 | NURSING ---
ACCEPTED TO [facility] [id number] [facility] [phone] REPORT
[2020-08-05 04:00] VITALS: RESP 14
[2020-08-05 06:00] VITALS: RESP 16
[2020-08-05 06:51] VITALS: BP 128/81; PULSE 97; RESP 15; TEMP 36.3; O2SAT 100
== END 2020-08-05 07:09 ==
PROVIDERS: Emergency Provider Emergency Medicine; PCP Family Medicine
DX: F31.9 Bipolar disorder, unspecified (principal); R45.851 Suicidal ideations
CPT/HCPCS: 80053; 80178; 80307; 82077; 84703; 85025; 87426; 93005; 99285

== ENCOUNTER 2020-08-29 11:02 | Outpatient (RCR) | payer MEDICAID, SELFPAY | END 2020-09-03 23:59 | LOC: NS 11:02 | PROVIDERS: PCP Family Medicine; Visit Provider Family Medicine | DX: Z71.3 Dietary counseling and surveillance (principal); K31.84 Gastroparesis; R11.15 Cyclical vomiting syndrome unrelated to migraine | CPT/HCPCS: 97803 ==

== ENCOUNTER 2020-09-26 11:17 | Outpatient (RCR) | payer MEDICAID, SELFPAY | END 2020-10-01 23:59 | LOC: NS 11:17 | PROVIDERS: PCP Family Medicine; Visit Provider Family Medicine | DX: Z71.3 Dietary counseling and surveillance (principal); K31.84 Gastroparesis; R11.15 Cyclical vomiting syndrome unrelated to migraine | CPT/HCPCS: 97803 ==

== ENCOUNTER 2020-10-10 13:56 | Outpatient (RCR) | payer MEDICAID, SELFPAY | END 2020-10-10 16:51 | disposition home or self-care (01) | LOC: NS 13:56 | PROVIDERS: PCP Family Medicine; Visit Provider Family Medicine | DX: Z71.3 Dietary counseling and surveillance (principal); K31.84 Gastroparesis; R11.15 Cyclical vomiting syndrome unrelated to migraine | CPT/HCPCS: 97803 ==

== ENCOUNTER 2020-10-13 08:07 | Outpatient (RCR) | payer MEDICAID, SELFPAY ==
[2020-10-13] MEDS: COVID-19 VACC, MRNA(PFIZER)/PF 30 MCG/0.3 ML SYRINGE IM (13:06)
[2020-11-03] MEDS: COVID-19 VACC, MRNA(PFIZER)/PF 30 MCG/0.3 ML SYRINGE IM (13:03)
== END 2021-01-09 23:59 ==
LOC: IMMUN 08:07
PROVIDERS: PCP Family Medicine; Visit Provider Family Medicine
DX: Z23 Encounter for immunization (principal)
CPT/HCPCS: 0001A; 0002A; 91300

== ENCOUNTER 2021-01-23 16:55 | Emergency (ER) | payer MEDICAID, SELFPAY ==
[2021-01-23 16:56] VITALS: BP 123/89; PULSE 98; PULSE 99; RESP 18; TEMP 36.7; O2SAT 98; BMI 35.2
--- NOTE | 2021-01-23 17:46 | EKG12_ITS ---
Test Reason : FLANK PAIN Blood Pressure : / mmHG Vent. Rate : 089 BPM Atrial Rate : 089 BPM P-R Int : 142 ms QRS Dur : 096 ms QT Int : 396 ms P-R-T Axes : 048 032 016 degrees QTc Int : 481 ms Normal sinus rhythm Prolonged QT Abnormal ECG Confirmed by OCTAVIANO WATT, MARCELLUS ([id number]), editor map LINDA MCCORMACK ([id number]) on 01/25/2021 12:30:11 PM Referred By: VIRGIL Confirmed By:MARCELLUS BRUMFIELD MD
--- NOTE | 2021-01-23 17:46 | EDS_ITS ---
HPI History of Present Illness Chief Complaint: Flank Pain Narrative Narrative: Patient presenting saying that she has felt her heart beating fast for the last week off and on, and in addition she had a single episode of a nonbloody black tarry stool today without eating any Pepto-Bismol or iron supplementation other than a multivitamin that she has been taking for the last 2 or 3 years, some mild lower abdominal discomfort, bilateral kidney pain, and she tried to give us a urine specimen here and she needs to go however she was unable to. [facility] Medical History (Updated 01/23/21 @ 19:[address] Arturo Whalen MD) Anxiety Asthma Bipolar disorder Depression Hypertension Home Medications atorvastatin 10 mg PO DAILY 04/30/19 [History Last Taken Unknown] losartan 50 mg PO DAILY 04/30/19 [History Last Taken Unknown] montelukast 10 mg PO DAILY 04/30/19 [History Last Taken Unknown] norethindrone-ethin estradiol 1 tab PO DAILY 04/30/19 [History Last Taken Unknown] omega-3 fatty acids-fish oil 1 ea PO DAILY 04/30/19 [History Last Taken Unknown] melatonin 3 mg PO QHS 07/10/19 [History Last Taken Unknown] bupropion HCl 75 mg DAILY 11/30/19 [History Last Taken Unknown] lamotrigine 200 mg PO DAILY 11/30/19 [History Last Taken Unknown] lurasidone 60 mg DAILY 11/30/19 [History Last Taken Unknown] pantoprazole 40 mg PO DAILY #30 tab 01/09/20 [Rx Last Taken Unknown] promethazine 25 mg PO Q6H PRN PRN #10 tab 01/09/20 [Rx Last Taken Unknown] lithium carbonate 300 mg PO DAILY 06/16/20 [History Last Taken Unknown] Allergy/AdvReac Type Severity Reaction Status Date / Time lisinopril Allergy Other Verified 08/04/20 20:05 orange Allergy Angioedema Verified 08/04/20 20:05 Social History Smoking Status: Never smoker ROS ROS ED Constitutional Constitutional ED: Denies chills or fever(s) Eyes Eyes: Denies change in vision or diplopia ENT ENT ED: Denies rhinorrhea or sore throat Cardiovascular Cardiovascular: Reports as per HPI and racing heartbeat; Denies chest pain Respiratory/Chest Respiratory/Chest: Denies cough or dyspnea Gastrointestinal Gastrointestinal: Reports abdominal pain and melena; Denies diarrhea, nausea or vomiting Genitourinary Genitourinary ED: Reports as per HPI; Denies dysuria, flank pain or hematuria Musculoskeletal Musculoskeletal: Reports back pain; Denies neck pain Integumentary Denies abscess or rash Neurologic Neurologic: Denies headache(s), paresthesias or weakness Psychiatric Psychiatric: Denies anxiety or suicidal thoughts EXAM Physical Exam Const Vital Signs: 01/23/21 16:56 01/23/21 17:17 Temperature 98.1 F Temperature Source Temporal Pulse Rate 99 Respiratory Rate 18 Respiratory Effort Normal Non-Labored Blood Pressure 123/89 H Blood Pressure Mean 100 Pulse Ox 98 Oxygen Delivery Method Room Air Positive well nourished, well developed and obese General Appearance ED: well developed and NAD Nutritional Appearance: obese HEENT Reports moist mucous membranes normocephalic and atraumatic Eyes PERRL and EOMs intact bilaterally Neck full ROM and supple Resp normal respiratory effort and clear to auscultation bilaterally Cardio regular rate, regular rhythm and no murmurs GI non-tender and non-distended Auscultation: normoactive bowel sounds Palpation: soft Back/Spine no CVA tenderness Back/Spine Narrative: Mild bilateral lumbosacral paraspinal tenderness. Normal inspection. General Back: other FROM Extremity normal to inspection General Extremety ED: Negative for edema, pulses abnormal or tenderness General Extremity: Negative for edema or pulses abnormal Neuro oriented x3, CN's II-XII intact bilaterally and no sensory deficits noted Sensorium / Orientation: awake and alert Motor Exam: strength 5/5 throughout Skin no rashes or lesions noted and no wounds MDM MDM MDM Narrative Medical decision making narrative: I did a rectal exam, the patient was resistant to the digital rectal exam, so it was limited but she consented to allowing it. There was no specimen, I sent what I had to the lab anyway and it returned negative. Furthermore her BUN is normal and she is not anemic, so I reassured her she very unlikely has an acute upper GI bleed especially without any nausea or vomiting. She was advised to take [id number] H2 saadia and follow-up if she has continued black stools which may have simply been related to something that she ate. Her EKG is normal, and her urinalysis is normal after she was able to urinate without any difficulty. With regards to her back pain, I reassured her that it is not kidney pain, her pain is much lower than where her kidneys are, and reproducible with superficial palpation of the paraspinal musculature. Supportive care advised. Patient was reassured, we discussed reasons to return. Lab Data Attestation: I reviewed the patient's lab results. Labs: Laboratory Results - last 24 hr 01/23/21 01/23/21 01/23/21 18:03 18:03 18:25 WBC 6.9 RBC 4.72 Hgb 14.8 Hct 47.0 MCV 99.6 H MCH 31.4 MCHC 31.5 L RDW Std Deviation 42.0 RDW Coeff of Alex 11.5 L Plt Count TNP MPV 12.5 H Immature Gran % (Auto) 0.100 Neut % (Auto) 55.0 Lymph % (Auto) 32.5 [place] % (Auto) 9.6 Eos % (Auto) 1.6 Baso % (Auto) 1.2 H Absolute Neuts (auto) 3.8 Absolute Lymphs (auto) 2.24 Nucleated RBC % 0 Differential Comment SEE COMMENT Platelet Estimate ADEQUATE RBC Morphology N CHROM Anisocytosis 1+ Macrocytosis 1+ Sodium 142 Potassium 3.7 Chloride 111 H Carbon Dioxide 23.0 Anion Gap 8 BUN 11 Creatinine 0.75 Estim Creat Clear Calc 100.74 Est GFR (MDRD) Af Amer 122 Est GFR (MDRD) Non-Af 101 BUN/Creatinine Ratio 14.6 Glucose 118 H Calcium 9.1 Urine Color Yellow Urine Clarity Clear Urine pH 6.5 Ur Specific [place] 1.015 Urine Protein 15 H Urine Glucose (UA) Normal Urine Ketones Negative Urine Occult Blood Negative Urine Nitrite Negative Urine Bilirubin Negative Urine Urobilinogen Normal Ur Leukocyte Esterase 25 H Urine RBC 0 SEEN Urine WBC 0-5 SEEN Ur Squamous Epith Cells 0-5 SEEN Urine Bacteria 1+ Urine Mucus RARE EKG Initial EKG: Attestation: I personally reviewed and interpreted this EKG as follows: Interpretation: Sinus Rhythm and No Acute Injury Pattern Comments: Normal except for prolonged QTc interval Prior EKG tracings: available for review Prior: Unchanged Discharge Plan Triage Chief Complaint: Flank Pain ED Provider: Arturo Whalen Dx/Rx/DC Orders Clinical Impression: Musculoskeletal back pain, Black stool, Palpitations Instructions: ED Back Pain (Acute or Chronic), ED Palpitations Prescriptions: No Action losartan 50 MG tablet 50 mg PO DAILY RF: 0 atorvastatin 10 MG tablet 10 mg PO DAILY RF: 0 montelukast 10 MG tablet 10 mg PO DAILY RF: 0 norethindrone-ethin estradiol 1 EACH tablet 1 tab PO DAILY RF: 0 omega-3 fatty acids-fish oil 1 EACH capsule,delayed release(DR/EC) 1 ea PO DAILY RF: 0 melatonin 3 MG capsule 3 mg PO QHS RF: 0 lamotrigine 25 MG tablet 200 mg PO DAILY RF: 0 bupropion HCl 75 MG tablet 75 mg DAILY RF: 0 lurasidone 60 mg tablet 60 mg DAILY RF: 0 pantoprazole 40 MG tablet 40 mg PO DAILY Qty: 30 RF: 0 promethazine 25 MG tablet 25 mg PO Q6H PRN PRN (Reason: Nausea) Qty: 10 RF: 0 lithium carbonate 300 MG tablet 300 mg PO DAILY RF: 0 Primary Care Provider: Danya Mcnally Referrals: Danya Mcnally DO [Primary Care Provider] - 3-5 Days if not improving Disposition Disposition: Home, Self Care
[2021-01-23 18:14] LABS: Absolute Lymphocyte Count 2.24 X10^3/uL (0.83-4.51); Absolute Neutrophil Count 3.8 X10^3/uL (2.0-7.7); Basophil# 0.08 X10^3/uL; Basophil% 1.2 % (0-1); Eosinophil# 0.11 X10^3/uL; Eosinophils% 1.6 % (0-5); Hemoglobin 14.8 g/dL (12.0-15.0); Lymphocyte # 2.24 X10^3/ul (0.83-4.51); Lymphocyte % 32.5 % (19-41); Mean Corp Hgb Conc 31.5 g/dL (32-36); Mean Corpuscular Hgb 31.4 pg (27.0-32.0); Mean Corpuscular Volume 99.6 fL (81-99); Mean Platelet Vol. 12.5 fl (6.2-12.0); Monocyte# 0.66 X10^3/uL; Monocyte% 9.6 % (0-10); NRBC Flagged by Analyzer 0 % (0-5); Neutrophil # 3.79 X10^3/uL (2.7-7.7); POSITIVE COUNT YES; RBC Distribution Width CV 11.5 % (11.6-14.6); Red Blood Count 4.72 M/mm3 (4.2-5.4); White Blood Count 6.9 K/mm3 (4.4-11.0)
[2021-01-23 18:27] LABS: Differential Indicated SCAN CRITERIA MET
[2021-01-23 18:32] LABS: Red Blood Cells-Urine 0 SEEN /hpf (0-5)
[2021-01-23 18:36] LABS: Anion Gap 8 (5-15); BUN 11 mg/dL (7-18); BUN/Creat Ratio 14.6 RATIO (10-20); Calcium,Total 9.1 mg/dL (8.5-10.1); Chloride 111 mmol/L (98-107); Creatinine, Serum 0.75 mg/dL (0.55-1.02); EST Glomerular Filtration Rate 101 mL/min (>60); Est Glom Filt Rate - Afr Amer 122 mL/min (>60); Estimated Creatinine Clearance 100.74 ml/min; Glucose 118 mg/dL (74-106); Potassium 3.7 mmol/L (3.5-5.1); Sodium Level 142 mmol/L (136-145)
[2021-01-23 18:40] LABS: Color, Urine Yellow (Yellow); Glucose, Dipstick Normal (Normal); Ketone-Dipstick Negative (Negative); Leukocyte Esterase-Dipstick 25 /ul (Negative); Nitrite-Dipstick Negative (Negative); Occult Blood-Urine Negative /ul (Negative); Protein-Dipstick 15 mg/dl (Negative); Specific Gravity, Urine 1.015 (1.002-1.030); Urine Bilirubin Dipstick Negative (Negative); Urine Clarity Clear (Clear); Urine Urobilinogen Normal (Normal); Urine pH 6.5 (5.0 - 8.0)
[2021-01-23 18:45] LABS: Anisocytosis 1+; Macrocytosis 1+; Platelet Estimate ADEQUATE (ADEQ); Red Cell Morphology N CHROM NORMAL (NORM C&C)
[2021-01-23 18:48] LABS: Bacteria 1+ /hpf (None Seen); Mucous, Urine RARE /hpf (<or=2+); Squamous Epithelial Cells - UA 0-5 SEEN /hpf (5-10); White Blood Cells 0-5 SEEN /hpf (0-5)
== END 2021-01-23 19:22 | disposition home or self-care (01) ==
PROVIDERS: Emergency Provider Emergency Medicine; PCP Family Medicine
DX: M54.9 Dorsalgia, unspecified (principal); K92.1 Melena; R00.2 Palpitations; E66.9 Obesity, unspecified
CPT/HCPCS: 80048; 81001; 82274; 85025; 93005; 99283

== ENCOUNTER 2021-08-03 08:57 | Emergency (ER) | payer MEDICAID, SELFPAY ==
[2021-08-03 08:59] VITALS: BP 117/83; PULSE 94; RESP 16; TEMP 35.8; O2SAT 99; BMI 30.7
--- NOTE | 2021-08-03 09:34 | EX.ED.DYSGE1 ---
HPI History of Present Illness Chief Complaint: Confusion Detail of Chief Complaint: Fatigue and confusion and not feeling well for about a week Informant: patient and parent Narrative Narrative: Patient presents to the emergency department with multiple vague complaints. Patient states that she has been feeling fatigued for about a week. Father states that she looks pale all and has had history of anemia. Patient just finished her menstrual period last week. She is slow to answer at times and today she spoke to a nurse but could not remember the conversation. Patient denies any change in medications. She is not had a fever. She denies cough. She denies abdominal pain. She denies urinary symptoms. She is not felt this way before. Prior similar symptoms: No PFSH PFSH Medical History (Updated 08/03/21 @ 14:[address] Boo Antunez, ) Anxiety Asthma Bipolar disorder Depression Hypertension Home Medications atorvastatin 10 mg PO DAILY 04/30/19 [History Last Taken Unknown] losartan 50 mg PO DAILY 04/30/19 [History Last Taken Unknown] montelukast 10 mg PO DAILY 04/30/19 [History Last Taken Unknown] norethindrone-ethin estradiol 1 tab PO DAILY 04/30/19 [History Last Taken Unknown] omega-3 fatty acids-fish oil 1 ea PO DAILY 04/30/19 [History Last Taken Unknown] melatonin 3 mg PO QHS 07/10/19 [History Last Taken Unknown] bupropion HCl 75 mg DAILY 11/30/19 [History Last Taken Unknown] lamotrigine 200 mg PO DAILY 11/30/19 [History Last Taken Unknown] lurasidone 60 mg DAILY 11/30/19 [History Last Taken Unknown] pantoprazole 40 mg PO DAILY #30 tab 01/09/20 [Rx Last Taken Unknown] promethazine 25 mg PO Q6H PRN PRN #10 tab 01/09/20 [Rx Last Taken Unknown] lithium carbonate 300 mg PO DAILY 06/16/20 [History Last Taken Unknown] Allergy/AdvReac Type Severity Reaction Status Date / Time lisinopril Allergy Other Verified 08/03/21 09:03 orange Allergy Angioedema Verified 08/03/21 09:03 Social History Smoking Status: Never smoker ROS ROS ED ROS Narrative Confusion Constitutional Constitutional ED: Reports systems reviewed and no addt'l complaints, except as documented; Denies body ache(s), change in weight or chills Eyes Eyes: Denies acute decrease in peripheral vision, change in vision, double vision or loss of vision ENT ENT ED: Reports none; Denies ear pain, lip swelling, loss taste/smell, neck pain, otalgia or sore throat Cardiovascular Cardiovascular: Reports none; Denies abdominal pain, chest pain with activity, leg edema, lightheadedness, palpitations, rapid heart rate or syncope Respiratory/Chest Respiratory/Chest: Reports none; Denies change in mental status, dry cough, dyspnea, hemoptysis, shortness of breath at rest or shortness of breath with exertion Gastrointestinal Gastrointestinal: Reports none; Denies abdominal pain, change in stool character, diarrhea, hematemesis, hematochezia, melena, rectal bleeding or vomiting Genitourinary Genitourinary ED: Reports none; Denies abdominal discomfort, anuria, dysuria, genital pain or polyuria Musculoskeletal Musculoskeletal: Reports none; Denies arthralgias, back pain, difficulty walking, extremity pain, muscle weakness or myalgias Integumentary Reports none; Denies abscess or rash Neurologic Neurologic: Reports none and weakness; Denies abnormal gait, confusion, focal weakness, frequent falls, headache(s), loss of vision, numbness, paresthesias, radicular pain or vertigo Psychiatric Psychiatric: Reports systems reviewed and no addt'l complaints, except as documented and none; Denies behavioral changes, confusion, difficulty concentrating, hallucinations, suicidal ideation, tactile hallucinations or visual hallucinations Endocrine Endocrinology: Denies none, cold intolerance, excessive sweating, fatigue or heat intolerance Hematologic/Lymphatic Hematologic/Lymphatic: Reports none; Denies anemia, easy bleeding or easy bruising Allergic/Immunologic Allergic/Immunologic ED: Denies as per HPI, none, lip swelling, mouth swelling, throat swelling, tongue swelling or hives EXAM Physical Exam Const Vital Signs: 08/03/21 08:59 08/03/21 13:39 Temperature 96.5 F L Temperature Source Temporal Pulse Rate 94 84 Respiratory Rate 16 14 Blood Pressure 117/83 H 100/64 Blood Pressure Mean 94 76 Pulse Ox 99 99 Oxygen Delivery Method Room Air Room Air Positive well nourished and well developed General Appearance ED: well developed and NAD HEENT Reports TM's clear and moist mucous membranes normocephalic and atraumatic; Negative for trauma or tenderness Tympanic Membrane ED: Yes TM's clear Eyes PERRL and EOMs intact bilaterally General Eye ED: Negative for pale conjunctiva or scleral icterus Neck no lymphadenopathy, supple and no JVD General: Negative for tenderness Chest Wall inspection of chest normal and palpation of chest normal Chest: Negative for tenderness Resp normal respiratory effort and clear to auscultation bilaterally Effort and Inspection: Negative for respiratory distress or pain with movement Auscultation: Negative for rhonchi, wheezes or diminished lung sounds Cardio regular rate, regular rhythm, S1 normal heart sound, S2 normal heart sound and no murmurs Peripheral Pulses: pulses 2+ throughout GI normal to inspection, nondistended, normoactive bowel sounds, soft to palpation, non-tender, non-distended and no masses Back/Spine no CVA tenderness and no thoracic nor lumbar tenderness Extremity normal to inspection General Extremety ED: Negative for edema General Extremity: Negative for edema Neuro oriented x3, CN's II-XII intact bilaterally, no sensory deficits noted and gait normal Sensorium / Orientation: awake, alert, oriented to person, oriented to place and oriented to time Motor Exam: strength 5/5 throughout and strength abnormal Psych mental status grossly normal Skin no rashes or lesions noted and no wounds MDM MDM MDM Narrative Medical decision making narrative: IV line established on arrival. Patient labs unremarkable. [place] level was unremarkable. COVID-19 test was negative. Etiology of patient's fatigue and symptoms unclear. Father states that she had been working 2 jobs up until a week or 2 ago. Patient has been under increased stress. Patient advised to follow-up with her primary care physician 3 to 5 days. Lab Data Attestation: I reviewed the patient's lab results. Labs: Laboratory Results - last 24 hr 08/03/21 08/03/21 08/03/21 09:39 09:39 09:51 WBC 6.2 RBC 4.40 Hgb 14.0 Hct 41.8 MCV 95.0 MCH 31.8 MCHC 33.5 RDW Std Deviation 38.9 RDW Coeff of Alex 11.1 L Plt Count 234 MPV 11.7 Immature Gran % (Auto) 0.200 Neut % (Auto) 52.4 Lymph % (Auto) 36.5 [place] % (Auto) 7.6 Eos % (Auto) 2.3 Baso % (Auto) 1.0 Absolute Neuts (auto) 3.2 Absolute Lymphs (auto) 2.25 Nucleated RBC % 0 Sodium Potassium Chloride Carbon Dioxide Anion Gap BUN Creatinine Estim Creat Clear Calc Est GFR (MDRD) Af Amer Est GFR (MDRD) Non-Af BUN/Creatinine Ratio Glucose Calcium Total Bilirubin AST ALT Alkaline Phosphatase Total Protein Albumin Globulin Albumin/Globulin Ratio Serum , Qual Urine Color Yellow Urine Clarity Clear Urine pH 7.0 Ur Specific [place] 1.010 Urine Protein Negative Urine Glucose (UA) Normal Urine Ketones Negative Urine Occult Blood Negative Urine Nitrite Negative Urine Bilirubin Negative Urine Urobilinogen Normal Ur Leukocyte Esterase Negative Urine RBC 0 SEEN Urine WBC 0 SEEN Ur Squamous Epith Cells 0-5 SEEN Urine Bacteria RARE Urine Mucus 0 SEEN Urine Opiates Screen NEGATIVE Urine Methadone Screen NEGATIVE Ur Barbiturates Screen NEGATIVE Ur Phencyclidine Scrn NEGATIVE Ur Amphetamines Screen NEGATIVE U Methamphetamin-MDMA NEGATIVE U Benzodiazepines Scrn NEGATIVE [place] Urine Cocaine Screen NEGATIVE U Cannabinoids Screen NEGATIVE Ur Drug Screen Comment 08/03/21 08/03/21 08/03/21 09:51 09:51 13:30 WBC RBC Hgb Hct MCV MCH MCHC RDW Std Deviation RDW Coeff of Alex Plt Count MPV Immature Gran % (Auto) Neut % (Auto) Lymph % (Auto) [place] % (Auto) Eos % (Auto) Baso % (Auto) Absolute Neuts (auto) Absolute Lymphs (auto) Nucleated RBC % Sodium 141 Potassium 4.0 Chloride 109 H Carbon Dioxide 27.0 Anion Gap 5 BUN 13 Creatinine 0.60 Estim Creat Clear Calc 130.10 Est GFR (MDRD) Af Amer 157 Est GFR (MDRD) Non-Af 130 BUN/Creatinine Ratio 21.6 H Glucose 97 Calcium 9.2 Total Bilirubin 0.60 AST 10 L ALT 16 Alkaline Phosphatase 105 Total Protein 6.8 Albumin 3.4 Globulin 3.4 Albumin/Globulin Ratio 1.0 Serum , Qual NEGATIVE Urine Color Urine Clarity Urine pH Ur Specific [place] Urine Protein Urine Glucose (UA) Urine Ketones Urine Occult Blood Urine Nitrite Urine Bilirubin Urine Urobilinogen Ur Leukocyte Esterase Urine RBC Urine WBC Ur Squamous Epith Cells Urine Bacteria Urine Mucus Urine Opiates Screen Urine Methadone Screen Ur Barbiturates Screen Ur Phencyclidine Scrn Ur Amphetamines Screen U Methamphetamin-MDMA U Benzodiazepines Scrn [place] 0.40 L Urine Cocaine Screen U Cannabinoids Screen Ur Drug Screen Comment Discharge Plan Triage Chief Complaint: Confusion ED Provider: Ungur,Remus Dx/Rx/DC Orders Clinical Impression: Weakness Instructions: ED Weakness (Uncertain Cause) Prescriptions: No Action losartan 50 MG tablet 50 mg PO DAILY RF: 0 atorvastatin 10 MG tablet 10 mg PO DAILY RF: 0 montelukast 10 MG tablet 10 mg PO DAILY RF: 0 norethindrone-ethin estradiol 1 EACH tablet 1 tab PO DAILY RF: 0 omega-3 fatty acids-fish oil 1 EACH capsule,delayed release(DR/EC) 1 ea PO DAILY RF: 0 melatonin 3 MG capsule 3 mg PO QHS RF: 0 lamotrigine 25 MG tablet 200 mg PO DAILY RF: 0 bupropion HCl 75 MG tablet 75 mg DAILY RF: 0 lurasidone 60 mg tablet 60 mg DAILY RF: 0 pantoprazole 40 MG tablet 40 mg PO DAILY Qty: 30 RF: 0 promethazine 25 MG tablet 25 mg PO Q6H PRN PRN (Reason: Nausea) Qty: 10 RF: 0 lithium carbonate 300 MG tablet 300 mg PO DAILY RF: 0 Primary Care Provider: Danya Mcnally Referrals: Danya Mcnally DO [Primary Care Provider] - 5-7 Days Disposition Disposition: Home, Self Care
[2021-08-03 09:53] LABS: Mucous, Urine 0 SEEN /hpf (<or=2+); Red Blood Cells-Urine 0 SEEN /hpf (0-5); White Blood Cells 0 SEEN /hpf (0-5)
[2021-08-03] MEDS: 0.9% Normal Saline 1,000 ML 1000 ML IV (09:58)
[2021-08-03 10:00] LABS: Color, Urine Yellow (Yellow); Glucose, Dipstick Normal (Normal); Ketone-Dipstick Negative (Negative); Leukocyte Esterase-Dipstick Negative /ul (Negative); Nitrite-Dipstick Negative (Negative); Occult Blood-Urine Negative /ul (Negative); Protein-Dipstick Negative (Negative); Urine Bilirubin Dipstick Negative (Negative); Urine Clarity Clear (Clear); Urine Urobilinogen Normal (Normal)
[2021-08-03 10:02] LABS: Absolute Lymphocyte Count 2.25 X10^3/uL (0.83-4.51); Absolute Neutrophil Count 3.2 X10^3/uL (2.0-7.7); Basophil# 0.06 X10^3/uL; Eosinophil# 0.14 X10^3/uL; Eosinophils% 2.3 % (0-5); Hematocrit 41.8 % (37-47); Lymphocyte # 2.25 X10^3/ul (0.83-4.51); Lymphocyte % 36.5 % (19-41); Mean Corp Hgb Conc 33.5 g/dL (32-36); Mean Corpuscular Hgb 31.8 pg (27.0-32.0); Mean Platelet Vol. 11.7 fl (6.2-12.0); Monocyte# 0.47 X10^3/uL; Monocyte% 7.6 % (0-10); NRBC Flagged by Analyzer 0 % (0-5); Neutrophil # 3.24 X10^3/uL (2.7-7.7); Neutrophil % 52.4 % (47-70); Platelet Count 234 K/mm3 (150-450); RBC Distribution Width CV 11.1 % (11.6-14.6); RBC Distribution Width SD 38.9 fl (35.1-43.9); White Blood Count 6.2 K/mm3 (4.4-11.0)
[2021-08-03 10:06] LABS: Bacteria RARE /hpf (None Seen); Squamous Epithelial Cells - UA 0-5 SEEN /hpf (5-10)
[2021-08-03 10:11] LABS: Internal QC Validated? YES +Cl - CLEAR BKGD; Pregnancy, Serum, hCG Quali. NEGATIVE Negative
[2021-08-03 10:13] LABS: Amphetamine Urine VISTA NEGATIVE (<1000 ng/mL); Barbiturate Urine VISTA NEGATIVE (< 200 ng/mL); Benzodiazepine Urine VISTA NEGATIVE (< 200 ng/mL); Cocaine Urine VISTA NEGATIVE (< 300 ng/mL); Ecstacy Urine VISTA NEGATIVE (< 500 ng/mL); Methadone Urine VISTA NEGATIVE (< 300 ng/mL); PCP Urine VISTA NEGATIVE (< 25 ng/mL); THC Urine VISTA NEGATIVE (< 50 ng/mL); Vista UDS pH Range 7
[2021-08-03 10:19] LABS: AST(SGOT) 10 U/L (15-37); Alanine Aminotransfer ALT/SGPT 16 U/L (13-56); Albumin, Serum 3.4 g/dL (3.2-5.0); Alkaline Phosphatase 105 U/L (45-117); Anion Gap 5 (5-15); BUN 13 mg/dL (7-18); BUN/Creat Ratio 21.6 RATIO (10-20); Calcium,Total 9.2 mg/dL (8.5-10.1); Chloride 109 mmol/L (98-107); EST Glomerular Filtration Rate 130 mL/min (>60); Est Glom Filt Rate - Afr Amer 157 mL/min (>60); Globulin 3.4 g/dL (2.2-4.2); Glucose 97 mg/dL (74-106); Protein, Total 6.8 g/dL (6.4-8.2); Sodium Level 141 mmol/L (136-145)
[2021-08-03 13:39] VITALS: BP 100/64; PULSE 84; RESP 14; O2SAT 99
== END 2021-08-03 14:20 | disposition home or self-care (01) ==
PROVIDERS: Emergency Provider Emergency Medicine; PCP Family Medicine
DX: R53.1 Weakness (principal); R41.0 Disorientation, unspecified; R53.83 Other fatigue; I10 Essential (primary) hypertension; F41.9 Anxiety disorder, unspecified; F31.9 Bipolar disorder, unspecified; J45.909 Unspecified asthma, uncomplicated; Z79.899 Other long term (current) drug therapy
CPT/HCPCS: 80053; 80178; 80307; 81001; 84703; 85025; 87426; 96360; 96361; 99283; J7030; A4216

== ENCOUNTER 2021-12-17 21:40 | Emergency (ER) | payer MEDICAID, SELFPAY ==
[2021-12-17 21:40] VITALS: BP 135/95; PULSE 92; RESP 15; TEMP 36.3; O2SAT 100; BMI 33.5
[2021-12-17 21:42] VITALS: BP 135/95; PULSE 92; RESP 15; TEMP 36.3; O2SAT 100
[2021-12-17 22:00] VITALS: BP 136/118; BP 139/94; BP 147/105; PULSE 107; PULSE 88; PULSE 94
--- NOTE | 2021-12-17 22:15 | EKG12_ITS ---
Test Reason : SYNCOPE Blood Pressure : / mmHG Vent. Rate : 088 BPM Atrial Rate : 088 BPM P-R Int : 136 ms QRS Dur : 094 ms QT Int : 448 ms P-R-T Axes : 043 014 010 degrees QTc Int : 542 ms Normal sinus rhythm Nonspecific ST and T wave abnormality Abnormal ECG Confirmed by OCTAVIANO WATT, MARCELLUS ([id number]), subeditor LINDA MCCORMACK ([id number]) on 12/19/2021 10:41:51 AM Referred By: TITO Confirmed By:MARCELLUS BRUMFIELD MD
--- NOTE | 2021-12-17 22:16 | EX.ED.DYSGE1 ---
HPI History of Present Illness Chief Complaint: Syncope Informant: patient Narrative Narrative: Patient is a 26 year old female with history of gastroparesis, anxiety, depression, hypertension and hyperlipidemia presenting after syncopal episode. Patient states she was getting out of the car and felt lightheaded. She tried to walk to her mother and then passed out. She came to quickly. No report of any seizure activity. Patient states he had another syncopal episode on , 4 days ago. At that time she was feeling lightheaded had been feeling well all day and then passed out while she was at work. Patient states she is had intermittent episodes of syncope for the past 10 years. She actually just had a 48-hour heart monitor that was returned on Friday, 2 days ago. She has not received those results. In addition she did have blood work last week but again she has not received those results. Patient admits to some mild left leg pain associated with her fall on but denies any leg swelling. Denies any chest pain or shortness of breath. Denies any history of DVT or PE but is on control pills. Does report family history of blood clots. No family history of sudden cardiac or heart problems at a young age. Her father reports that the patient's paternal grandfather had valve replacement in the 50s. No other complaints at this time. [facility] Medical History Anxiety Asthma Bipolar disorder Depression Hypertension Home Medications atorvastatin [Lipitor] 20 mg PO DAILY 04/30/19 [History Last Taken Unknown] losartan [Cozaar] 25 mg PO DAILY 04/30/19 [History Last Taken Unknown] montelukast [Singulair] 10 mg PO DAILY 04/30/19 [History Last Taken Unknown] norethindrone-ethin estradiol 1 tab PO DAILY 04/30/19 [History Last Taken Unknown] omega-3 fatty acids-fish oil 1 ea PO DAILY 04/30/19 [History Last Taken Unknown] melatonin 3 mg PO QHS 07/10/19 [History Last Taken Unknown] bupropion HCl 75 mg DAILY 11/30/19 [History Last Taken Unknown] lamotrigine [Lamictal] 200 mg PO DAILY 11/30/19 [History Last Taken Unknown] lurasidone [Latuda] 60 mg PO DAILY 11/30/19 [History Last Taken Unknown] promethazine 25 mg PO Q6H PRN PRN #10 tab 01/09/20 [Rx Last Taken Unknown] lithium carbonate 300 mg PO DAILY 06/16/20 [History Last Taken Unknown] pantoprazole [Protonix] 40 mg PO DAILY 12/17/21 [History Last Taken Unknown] Allergy/AdvReac Type Severity Reaction Status Date / Time lisinopril Allergy Other Verified 12/17/21 21:42 orange Allergy Angioedema Verified 12/17/21 21:42 Social History Smoking Status: Never smoker ROS ROS ED Review of Systems ROS Unobtainable: other Details: Syncope, lightheaded Constitutional Constitutional ED: Denies chills or fever(s) Eyes Eyes: Denies blurry vision or change in vision ENT ENT ED: Denies sore throat Cardiovascular Cardiovascular: Denies chest pain Respiratory/Chest Respiratory/Chest: Denies cough or dyspnea Gastrointestinal Gastrointestinal: Denies abdominal pain, diarrhea or vomiting Genitourinary Genitourinary ED: Denies dysuria or hematuria Musculoskeletal Musculoskeletal: Reports other Details: left leg pain ; Denies arthralgias or myalgias Integumentary Denies rash Neurologic Neurologic: Denies headache(s) or weakness EXAM Physical Exam Const Vital Signs: 12/17/21 21:40 12/17/21 21:42 12/17/21 21:51 Temperature 97.3 F L 97.3 F L Temperature Source Temporal Temporal Pulse Rate 92 92 Pulse Rate [Lying] Pulse Rate [Sitting (for 1 minute prior to obtaining)] Pulse Rate [Standing (for 1 minute prior to obtaining)] Respiratory Rate 15 15 Respiratory Pattern Normal Blood Pressure 135/95 H 135/95 H Blood Pressure [Lying] Blood Pressure [Sitting (for 1 minute prior to obtaining)] Blood Pressure [Standing (for 1 minute prior to obtaining)] Blood Pressure Mean 108 108 Blood Pressure Mean [Lying] Blood Pressure Mean [Sitting (for 1 minute prior to obtaining)] Blood Pressure Mean [Standing (for 1 minute prior to obtaining)] Pulse Ox 100 100 Oxygen Delivery Method Room Air Room Air 12/17/21 22:00 12/18/21 00:32 Temperature Temperature Source Pulse Rate 104 H Pulse Rate [Lying] 88 Pulse Rate [Sitting (for 1 minute prior to obtaining)] 94 Pulse Rate [Standing (for 1 minute prior to obtaining)] 107 H Respiratory Rate Respiratory Pattern Blood Pressure 123/87 H Blood Pressure [Lying] 139/94 H Blood Pressure [Sitting (for 1 minute prior to obtaining)] 147/105 H Blood Pressure [Standing (for 1 minute prior to obtaining)] 136/118 H Blood Pressure Mean Blood Pressure Mean [Lying] 109 Blood Pressure Mean [Sitting (for 1 minute prior to obtaining)] 119 Blood Pressure Mean [Standing (for 1 minute prior to obtaining)] 124 Pulse Ox Oxygen Delivery Method Positive well nourished and well developed General Appearance ED: well developed and NAD HEENT Reports moist mucous membranes Negative for trauma or tenderness Eyes PERRL and EOMs intact bilaterally Neck no lymphadenopathy, supple and no JVD Chest Wall inspection of chest normal Resp normal respiratory effort and clear to auscultation bilaterally Cardio regular rate, regular rhythm and no murmurs GI normal to inspection, nondistended, normoactive bowel sounds Neuro oriented x3 and CN's II-XII intact bilaterally Sensorium / Orientation: alert Motor Exam: Negative for general weakness Psych mental status grossly normal Skin no rashes or lesions noted Skin Narrative: Very superficial abrasion to the left lateral calf, no bleeding associated with it MDM MDM MDM Narrative Medical decision making narrative: Patient evaluated after syncopal episode. She has ongoing history of syncope was had increased episodes this week. Patient is intermittently tachycardic and is on control but otherwise does not have any risk for PE. D-dimer is obtained which is normal. EKG shows nonspecific T wave changes but is not consistent with any type of arrhythmia/conduction delay or pericarditis. CBC is normal. BMP shows a mildly low potassium of 3.2. Urinalysis is most consistent with contamination. [place] level is mildly elevated at 1.40. Urine test is negative. Patient is informed of lithium level and will follow up with her psychiatrist for this. She is given IV fluids. On repeat evaluation she states she feels better. Orthostatics are negative. Exact cause of her syncope is not clear however patient has close outpatient follow-up and if she does have a Holter monitor. I do not think she requires admission at this time. Patient and father agreeable with this plan of care. Patient discharged home in stable condition and is given return precautions. Lab Data Labs: Laboratory Results - last 24 hr 05/16/22 05/16/22 05/16/22 21:58 21:58 21:58 WBC 8.1 RBC 4.60 Hgb 14.8 Hct 43.1 MCV 93.7 MCH 32.2 H MCHC 34.3 RDW Std Deviation 40.4 RDW Coeff of Alex 11.8 Plt Count 257 MPV 12.1 H Immature Gran % (Auto) 0.100 Neut % (Auto) 39.1 L Lymph % (Auto) 48.7 H [place] % (Auto) 9.1 Eos % (Auto) 2.1 Baso % (Auto) 0.9 Absolute Neuts (auto) 3.2 Absolute Lymphs (auto) 3.94 Nucleated RBC % 0 D-Dimer Quant (PE/DVT) < 0.27 L Sodium 141 Potassium 3.2 L Chloride 108 H Carbon Dioxide 23.0 Anion Gap 10 BUN 11 Creatinine 0.64 Estim Creat Clear Calc 117.04 Est GFR (MDRD) Af Amer 145 Est GFR (MDRD) Non-Af 120 BUN/Creatinine Ratio 17.1 Glucose 101 Calcium 9.1 Urine Color Urine Clarity Urine pH Ur Specific [place] Urine Protein Urine Glucose (UA) Urine Ketones Urine Occult Blood Urine Nitrite Urine Bilirubin Urine Urobilinogen Ur Leukocyte Esterase Urine RBC Urine WBC Ur Squamous Epith Cells Urine Bacteria Urine Mucus Urine Test [place] 12/17/21 12/17/21 12/17/21 21:58 22:30 22:30 WBC RBC Hgb Hct MCV MCH MCHC RDW Std Deviation RDW Coeff of Alex Plt Count MPV Immature Gran % (Auto) Neut % (Auto) Lymph % (Auto) [place] % (Auto) Eos % (Auto) Baso % (Auto) Absolute Neuts (auto) Absolute Lymphs (auto) Nucleated RBC % D-Dimer Quant (PE/DVT) Sodium Potassium Chloride Carbon Dioxide Anion Gap BUN Creatinine Estim Creat Clear Calc Est GFR (MDRD) Af Amer Est GFR (MDRD) Non-Af BUN/Creatinine Ratio Glucose Calcium Urine Color Yellow Urine Clarity Sl. Cloudy Urine pH 6.0 Ur Specific [place] 1.020 Urine Protein 30 H Urine Glucose (UA) Normal Urine Ketones Negative Urine Occult Blood 25 H Urine Nitrite Negative Urine Bilirubin Negative Urine Urobilinogen 1 H Ur Leukocyte Esterase 25 H Urine RBC 0-5 SEEN Urine WBC 0-5 SEEN Ur Squamous Epith Cells 0-5 SEEN Urine Bacteria 2+ Urine Mucus 0 SEEN Urine Test Negative [place] 1.40 H* Rhythm Strip Rhythm Strip: Sinus Rhythm Rate: 88 Ectopy: None EKG Initial EKG: Attestation: I personally reviewed and interpreted this EKG as follows: Interpretation: Sinus Rhythm Comments: Normal sinus rhythm rate of 88 Normal axis Normal MS and QRS Prolonged QTC Nonspecific T wave changes Prior EKG tracings: available for review Prior: Unchanged Discharge Plan Triage Chief Complaint: Syncope ED Provider: Cuca Beckford Dx/Rx/DC Orders Clinical Impression: Syncope, High lithium level Instructions: ED Fainting, Uncertain Cause Prescriptions: No Action losartan [Cozaar] 50 MG tablet 25 mg PO DAILY RF: 0 atorvastatin [Lipitor] 10 MG tablet 20 mg PO DAILY RF: 0 montelukast [Singulair] 10 MG tablet 10 mg PO DAILY RF: 0 norethindrone-ethin estradiol 1 EACH tablet 1 tab PO DAILY RF: 0 omega-3 fatty acids-fish oil 1 EACH capsule,delayed release(DR/EC) 1 ea PO DAILY RF: 0 melatonin 3 MG capsule 3 mg PO QHS RF: 0 lamotrigine [Lamictal] 25 MG tablet 200 mg PO DAILY RF: 0 bupropion HCl 75 MG tablet 75 mg DAILY RF: 0 Latuda 60 mg tablet 60 mg PO DAILY RF: 0 promethazine 25 MG tablet 25 mg PO Q6H PRN PRN (Reason: Nausea) Qty: 10 RF: 0 lithium carbonate 300 MG tablet 300 mg PO DAILY RF: 0 pantoprazole [Protonix] 40 MG tablet,delayed release (DR/EC) 40 mg PO DAILY RF: 0 Primary Care Provider: Danya Mcnally Referrals: Danya Mcnally DO [Primary Care Provider] - Activity Restrictions/Additional Instructions: Your lithium level today is 1.4. Please discuss this with your doctor that prescribes your lithium. Disposition Disposition: Home, Self Care Discharge Date/Time: 12/18/21 00:33
[2021-12-17] MEDS: 0.9% Normal Saline 1,000 ML 1000 ML IV (22:30)
[2021-12-17 22:51] LABS: Mucous, Urine 0 SEEN /hpf (<or=2+)
[2021-12-17 22:57] LABS: Absolute Lymphocyte Count 3.94 X10^3/uL (0.83-4.51); Absolute Neutrophil Count 3.2 X10^3/uL (2.0-7.7); Basophil# 0.07 X10^3/uL; Basophil% 0.9 % (0-1); Eosinophil# 0.17 X10^3/uL; Eosinophils% 2.1 % (0-5); Hematocrit 43.1 % (37-47); Hemoglobin 14.8 g/dL (12.0-15.0); Lymphocyte # 3.94 X10^3/ul (0.83-4.51); Lymphocyte % 48.7 % (19-41); Mean Corp Hgb Conc 34.3 g/dL (32-36); Mean Corpuscular Hgb 32.2 pg (27.0-32.0); Mean Corpuscular Volume 93.7 fL (81-99); Mean Platelet Vol. 12.1 fl (6.2-12.0); Monocyte# 0.74 X10^3/uL; Monocyte% 9.1 % (0-10); NRBC Flagged by Analyzer 0 % (0-5); Neutrophil # 3.16 X10^3/uL (2.7-7.7); Neutrophil % 39.1 % (47-70); Platelet Count 257 K/mm3 (150-450); RBC Distribution Width CV 11.8 % (11.6-14.6); RBC Distribution Width SD 40.4 fl (35.1-43.9); White Blood Count 8.1 K/mm3 (4.4-11.0)
[2021-12-17 23:07] LABS: Anion Gap 10 (5-15); BUN 11 mg/dL (7-18); BUN/Creat Ratio 17.1 RATIO (10-20); Calcium,Total 9.1 mg/dL (8.5-10.1); Chloride 108 mmol/L (98-107); Creatinine, Serum 0.64 mg/dL (0.55-1.02); EST Glomerular Filtration Rate 120 mL/min (>60); Est Glom Filt Rate - Afr Amer 145 mL/min (>60); Estimated Creatinine Clearance 117.04 ml/min; Glucose 101 mg/dL (74-106); Potassium 3.2 mmol/L (3.5-5.1); Sodium Level 141 mmol/L (136-145)
[2021-12-17 23:15] LABS: Color, Urine Yellow (Yellow); Glucose, Dipstick Normal (Normal); Ketone-Dipstick Negative (Negative); Leukocyte Esterase-Dipstick 25 /ul (Negative); Nitrite-Dipstick Negative (Negative); Occult Blood-Urine 25 /ul (Negative); Protein-Dipstick 30 mg/dl (Negative); Urine Bilirubin Dipstick Negative (Negative); Urine Clarity Sl. Cloudy (Clear); Urine Urobilinogen 1 mg/dl (Normal)
[2021-12-17 23:16] LABS: D-Dimer Quantitative (DVT/PE) < 0.27 FEU/ug/m (0.27-0.49)
[2021-12-17 23:16] LABS: Internal QC Validated? YES +Cl - CLEAR BKGD; Pregnancy, Urine Negative Negative
[2021-12-17 23:31] LABS: Red Blood Cells-Urine 0-5 SEEN /hpf (0-5); Squamous Epithelial Cells - UA 0-5 SEEN /hpf (5-10); White Blood Cells 0-5 SEEN /hpf (0-5)
[2021-12-17 23:32] LABS: Bacteria 2+ /hpf (None Seen)
[2021-12-18 00:32] VITALS: BP 123/87; PULSE 104
== END 2021-12-18 00:33 | disposition home or self-care (01) ==
PROVIDERS: Emergency Provider Emergency Medicine; PCP Family Medicine; Visit Provider Emergency Medicine
DX: R55 Syncope and collapse (principal); F41.9 Anxiety disorder, unspecified; I10 Essential (primary) hypertension; Z79.899 Other long term (current) drug therapy
CPT/HCPCS: 80048; 80178; 81001; 81025; 85025; 85379; 93005; 96360; 99283; J7030; A4216

== ENCOUNTER 2022-11-24 19:27 | Emergency (ER) | payer MEDICAID, SELFPAY ==
[2022-11-24 19:28] VITALS: BP 143/117; PULSE 97; RESP 15; TEMP 36.6; O2SAT 100; BMI 34.1
--- NOTE | 2022-11-24 19:39 | CT_ITS ---
INDICATION: Pain EXAMINATION: CT Abdomen And Pelvis W/O Contrast Injection TECHNIQUE: Helically acquired images were obtained of the abdomen and pelvis without the use of IV contrast. A radiation dose optimization technique was used for this scan. Oral contrast: None. COMPARISON: None FINDINGS: Evaluation of the solid organs and vascular structures is limited without intravenous contrast. Visualized lung bases: Unremarkable Liver: Unremarkable Gallbladder: Unremarkable Spleen: Unremarkable Pancreas: Unremarkable Adrenal Glands: Unremarkable Kidneys: 4 mm obstructing stone in the proximal right ureter with associated mild right hydroureteronephrosis. Vasculature: Unremarkable GI Tract: Unremarkable Lymphadenopathy: None Peritoneum: No ascites. Bladder: Unremarkable Reproductive organs: Unremarkable Bones/Soft tissues: No suspicious osseous or soft tissue lesions CT/Abdomen/Pelvis without Cont IMPRESSION: 4 mm obstructing stone in the proximal right ureter with associated mild right hydroureteronephrosis. Electronically Signed: Ahsan Pantoja MD at 20:52 EDT ,
--- NOTE | 2022-11-24 19:40 | EDS_ITS ---
HPI HPI - GI History of Present Illness Chief Complaint: Abd Pain Detail of Chief Complaint: Right flank pain. Informant: patient and parent Abdominal Pain/Flank Pain Onset: Days Timing: Intermittent Quality: Aching Location: Right Flank Current Severity: Mild Maximum Severity: Moderate Worsened by: Nothing Relieved by: Nothing Nausea/Vomiting/Emesis GI Symptom: Positive for Nausea Onset: Month(s) Diarrhea/Melena/Hematochezia GI Symptom: Negative for Diarrhea, Melena or Hematochezia Associated Symptoms Associated Symptoms: Negative for Dysuria, Frequency, Hematuria or Urgency Narrative Narrative: 27-year-old female history of hypertension anxiety and depression. No prior abdominal or back surgeries. Also history of gastroparesis. States on evening she started having right flank pain took Tylenol and improved. Is been intermittent since then. Denies vomiting or diarrhea. She has constant nausea from her gastroparesis. Family tested her for COVID twice and both were negative. She denies any dysuria or hematuria. She denies any fever. She denies any back injury or trauma and no pain with movement. Prior similar symptoms: No Recent Illness/Hospitalization: No PFSH PFSH Medical History Anxiety Asthma Bipolar disorder Depression Hypertension Home Medications atorvastatin 10 mg tablet (Lipitor) 20 mg PO DAILY 04/30/19 [History Last Taken Unknown] losartan 50 mg tablet (Cozaar) 25 mg PO DAILY 04/30/19 [History Last Taken Unknown] montelukast 10 mg tablet (Singulair) 10 mg PO DAILY 04/30/19 [History Last Taken Unknown] norethindrone 1 mg-ethinyl estradiol 35 mcg tablet 1 tab PO DAILY 04/30/19 [History Last Taken Unknown] omega-3 fatty acids-fish oil 684 mg-1,200 mg capsule,delayed release 1 ea PO DAILY 04/30/19 [History Last Taken Unknown] melatonin 3 mg capsule 3 mg PO QHS 07/10/19 [History Last Taken Unknown] bupropion HCl 75 mg tablet 75 mg DAILY 11/30/19 [History Last Taken Unknown] lamotrigine 25 mg tablet (Lamictal) 200 mg PO DAILY 11/30/19 [History Last Taken Unknown] lurasidone 60 mg tablet (Latuda) 60 mg PO DAILY 11/30/19 [History Last Taken Unknown] promethazine 25 mg tablet 25 mg PO Q6H PRN PRN Nausea #10 tabs 01/09/20 [Rx Last Taken Unknown] lithium carbonate 300 mg tablet 300 mg PO DAILY 06/16/20 [History Last Taken Unknown] pantoprazole 40 mg tablet,delayed release (Protonix) 40 mg PO DAILY 12/17/21 [History Last Taken Unknown] ketorolac 10 mg tablet 10 mg PO Q6H PRN pain 3 days #10 tabs 11/24/22 [Rx Last Taken Unknown] Allergy/AdvReac Type Severity Reaction Status Date / Time lisinopril Allergy Other Verified 11/24/22 19:34 midodrine Allergy Hives Verified 11/24/22 19:34 orange Allergy Angioedema Verified 11/24/22 19:34 Social History Smoking Status: Never smoker ROS ROS ED ROS Narrative Right flank pain. Chronic nausea. Review of Systems ROS Unobtainable: Denies due to encephalopathy Constitutional Constitutional ED: Denies chills or fever(s) ENT ENT ED: Denies ear pain Cardiovascular Cardiovascular: Denies chest pain Respiratory/Chest Respiratory/Chest: Denies cough or dyspnea Gastrointestinal Gastrointestinal: Reports abdominal pain and nausea; Denies constipation, diarrhea, melena or vomiting Genitourinary Genitourinary ED: Denies dysuria or hematuria Musculoskeletal Musculoskeletal: Reports back pain; Denies arthralgias Integumentary Denies abscess Neurologic Neurologic: Denies headache(s) Psychiatric Psychiatric: Denies anxiety Endocrine Endocrinology: Denies polydipsia or polyphagia Hematologic/Lymphatic Hematologic/Lymphatic: Denies easy bleeding Allergic/Immunologic Allergic/Immunologic ED: Denies mouth swelling EXAM Physical Exam Narrative Exam Narrative: 27-year-old female no acute distress. Sitting upright in bed. Father bedside. Vital signs are stable. Afebrile. Initial blood pressure is elevated 143/117 be rechecked. H EENT exam unremarkable. Neck nontender no lymphadenopathy. Lungs clear to auscultation. Heart regular rhythm no murmur. Chest wall nontender. Abdomen soft, nontender, nondistended, normal bowel sounds no peritoneal signs. Absolutely no reproducible abdominal tenderness. Right upper and right lower quadrants are unremarkable. Back nontender. No reproducible back tenderness or any pain with movement. Moves all 4 extremities. Normal motor strength and sensation. Neurologically awake and alert with no acute neurological findings. Const Vital Signs: 11/24/22 19:28 Temperature 97.9 F Temperature Source Temporal Pulse Rate 97 Respiratory Rate 15 Blood Pressure 143/117 H Blood Pressure Mean 125 Pulse Ox 100 Oxygen Delivery Method Room Air Positive well nourished and well developed; Negative for cachectic, contractures or unkempt General Appearance ED: well developed and NAD; Negative for unkempt, cachectic, contractures or pallor Nutritional Appearance: Negative for cachectic HEENT Reports moist mucous membranes normocephalic and atraumatic; Negative for trauma or tenderness Eyes PERRL and EOMs intact bilaterally General Eye ED: Negative for pale conjunctiva Neck no lymphadenopathy, supple and no JVD General: Negative for tenderness Carotids: Negative for other Lymph Lymphatic: Negative for other Resp normal respiratory effort and clear to auscultation bilaterally Effort and Inspection: Negative for respiratory distress Auscultation: Negative for rales, rhonchi or wheezes Cardio regular rate, regular rhythm, S1 normal heart sound, S2 normal heart sound and no murmurs Rate: Negative for bradycardia or tachycardic Rhythm: Negative for abnormal rhythm GI non-tender, non-distended and no masses Inspection: Negative for abdominal distention Auscultation: normoactive bowel sounds Palpation: soft; Negative for tender or guarding Back/Spine no CVA tenderness General Back: Negative for CVA tenderness Cervical Spine: Negative for cervical spine tenderness Thoracic Spine / Upper Back: Negative for thoracic spinal tenderness Lumbar Spine / Lower Back: Negative for lumbar spinal tenderness Coccyx: Negative for other Extremity full ROM General Extremety ED: Negative for edema General Extremity: Negative for edema Neuro CN's II-XII intact bilaterally, moves all extremities and no sensory deficits noted Sensorium / Orientation: alert, oriented to person, oriented to place and oriented to time; Negative for orientation impaired or confused Motor Exam: strength 5/5 throughout Psych mental status grossly normal and thought process normal Appearance: Negative for unkempt Attitude: No agitated Mood & Affect: Negative for depressed, anxious or tearful Skin no wounds General Skin Exam: Negative for jaundice or pallor Lesions: no lesions Rashes: no rashes Trauma: Negative for abrasion Nails: Negative for discolored MDM MDM MDM Narrative Medical decision making narrative: He [id number] female with right flank pain. Benign exam. No reproducible pain. Differential would include kidney stone, UTI versus other etiologies. I do not think is musculoskeletal because not reproducible nor does get worse with movement. I do not think it is her appendix or gallbladder because her abdomen is completely nontender. CAT scan and labs are pending. She will be given IV Toradol for pain. She did not want a thing for nausea. Repeat exam doing well at 8:49 PM. and 9 PM. Pain resolved with Toradol alone. Patient be discharged home. She requested the Toradol because she thought it worked better than her [id number] medications. They know to return if intractable pain, intractable vomiting or fever or feeling worse. No urine culture was sent. History & Record Review Discussion w/independent historian: Patient and Family Additional record(s) reviewed:: Prior inpatient record, Prior outpatient record, Prior ED visit, Prior labs and Other Lab Data Attestation: I reviewed the patient's lab results. Lab results narrative: CBC normal. White count 8.9. H&H 14 and 43. Platelets 268. Chemistries potassium 3.0. Gap of 3. Normal BUN and creatinine. Liver enzymes are unremarkable. Serum test negative. Urinalysis 5-10 white cells. 2+ bacteria. No red cells. No nitrites. Urine culture sent. Not treated. CT flank shows a 4 mm right proximal third ureter stone with hydroureter nephrosis. Labs: Laboratory Results - last 24 hr 11/24/22 11/24/22 11/24/22 19:50 19:50 19:50 WBC 8.9 RBC 4.63 Hgb 14.5 Hct 43.8 MCV 94.6 MCH 31.3 MCHC 33.1 RDW Std Deviation 42.5 RDW Coeff of Alex 12.2 Plt Count 268 MPV 11.9 Immature Gran % (Auto) 0.100 Neut % (Auto) 44.8 L Lymph % (Auto) 42.2 H [place] % (Auto) 10.8 H Eos % (Auto) 1.2 Baso % (Auto) 0.9 Absolute Neuts (auto) 4.0 Absolute Lymphs (auto) 3.75 Nucleated RBC % 0 Sodium 140 Potassium 3.0 L Chloride 111 H Carbon Dioxide 26.0 Anion Gap 3 L BUN 9 Creatinine 0.71 Estim Creat Clear Calc 104.60 Est GFR (MDRD) Af Amer 128 Est GFR (MDRD) Non-Af 106 BUN/Creatinine Ratio 12.6 Glucose 102 Calcium 9.1 Total Bilirubin 0.30 AST 12 L ALT 19 Alkaline Phosphatase 118 H Total Protein 7.4 Albumin 3.5 Globulin 3.9 Albumin/Globulin Ratio 0.9 Serum , Qual NEGATIVE Urine Color Urine Clarity Urine pH Ur Specific [place] Urine Protein Urine Glucose (UA) Urine Ketones Urine Occult Blood Urine Nitrite Urine Bilirubin Urine Urobilinogen Ur Leukocyte Esterase Urine RBC Urine WBC Ur Squamous Epith Cells Urine Bacteria Urine Mucus 11/24/22 19:50 WBC RBC Hgb Hct MCV MCH MCHC RDW Std Deviation RDW Coeff of Alex Plt Count MPV Immature Gran % (Auto) Neut % (Auto) Lymph % (Auto) [place] % (Auto) Eos % (Auto) Baso % (Auto) Absolute Neuts (auto) Absolute Lymphs (auto) Nucleated RBC % Sodium Potassium Chloride Carbon Dioxide Anion Gap BUN Creatinine Estim Creat Clear Calc Est GFR (MDRD) Af Amer Est GFR (MDRD) Non-Af BUN/Creatinine Ratio Glucose Calcium Total Bilirubin AST ALT Alkaline Phosphatase Total Protein Albumin Globulin Albumin/Globulin Ratio Serum , Qual Urine Color Yellow Urine Clarity Clear Urine pH 6.0 Ur Specific [place] 1.020 Urine Protein 15 H Urine Glucose (UA) Normal Urine Ketones Negative Urine Occult Blood 25 H Urine Nitrite Negative Urine Bilirubin Negative Urine Urobilinogen Normal Ur Leukocyte Esterase 100 H Urine RBC 0 SEEN Urine WBC 5-10 SEEN Ur Squamous Epith Cells 0-5 SEEN Urine Bacteria 2+ Urine Mucus 0 SEEN Radiography Diagnostic Testing: Clinical Impression(s) from Imaging Studies Abdomen/Pelvis CT 11/24/22 19:39 IMPRESSION: 4 mm obstructing stone in the proximal right ureter with associated mild right hydroureteronephrosis. Electronically Signed: Ahsan Pantoja MD at 20:52 EDT , Discharge Plan Triage Chief Complaint: Abd Pain ED Provider: Umberto Ruvalcaba Dx/Rx/DC Orders Clinical Impression: Acute right flank pain, Kidney stone on right side Instructions: ED Kidney Stone w/ Colic Prescriptions: New ketorolac 10 mg tablet 10 mg PO Q6H PRN (Reason: pain) 3 Days Qty: 10 0RF No Action losartan [Cozaar] 50 MG tablet 25 mg PO DAILY Label Comments: TAKE 2 TABLETS BY MOUTH ONCE DAILY atorvastatin [Lipitor] 10 MG tablet 20 mg PO DAILY montelukast [Singulair] 10 MG tablet 10 mg PO DAILY norethindrone-ethin estradiol 1 EACH tablet 1 tab PO DAILY Label Comments: TAKE 1 TABLET BY MOUTH EVERY DAY omega-3 fatty acids-fish oil 1 EACH capsule,delayed release(DR/EC) 1 ea PO DAILY melatonin 3 MG capsule 3 mg PO QHS lamotrigine [Lamictal] 25 MG tablet 200 mg PO DAILY bupropion HCl 75 MG tablet 75 mg DAILY Latuda 60 mg tablet 60 mg PO DAILY Label Comments: Take 1 Tablet By Oral Route 1 time per day with food (at least 350 calories) promethazine 25 MG tablet 25 mg PO Q6H PRN PRN (Reason: Nausea) Qty: 10 0RF lithium carbonate 300 MG tablet 300 mg PO DAILY pantoprazole [Protonix] 40 MG tablet,delayed release (DR/EC) 40 mg PO DAILY Primary Care Provider: Danya Mcnally Referrals: Danya Mcnally, [Primary Care Provider] - 1 Week if not improving Activity Restrictions/Additional Instructions: Toradol for pain. If you are not having any pain you do not to take it. May also use Tylenol with it. Plenty of fluids to help flush out the stone. Return if intractable pain, intractable vomiting, fever or feeling worse. The stone is 4 mm and should pass. Disposition Disposition: Home, Self Care
[2022-11-24 19:55] LABS: Absolute Lymphocyte Count 3.75 X10^3/uL (0.83-4.51); Basophil# 0.08 X10^3/uL; Basophil% 0.9 % (0-1); Eosinophil# 0.11 X10^3/uL; Eosinophils% 1.2 % (0-5); Hematocrit 43.8 % (37-47); Hemoglobin 14.5 g/dL (12.0-15.0); Lymphocyte # 3.75 X10^3/ul (0.83-4.51); Lymphocyte % 42.2 % (19-41); Mean Corp Hgb Conc 33.1 g/dL (32-36); Mean Corpuscular Hgb 31.3 pg (27.0-32.0); Mean Corpuscular Volume 94.6 fL (81-99); Mean Platelet Vol. 11.9 fl (6.2-12.0); Monocyte# 0.96 X10^3/uL; Monocyte% 10.8 % (0-10); Mucous, Urine 0 SEEN /hpf (<or=2+); NRBC Flagged by Analyzer 0 % (0-5); Neutrophil # 3.98 X10^3/uL (2.7-7.7); Neutrophil % 44.8 % (47-70); Platelet Count 268 K/mm3 (150-450); RBC Distribution Width CV 12.2 % (11.6-14.6); RBC Distribution Width SD 42.5 fl (35.1-43.9); Red Blood Cells-Urine 0 SEEN /hpf (0-5); Red Blood Count 4.63 M/mm3 (4.2-5.4); White Blood Count 8.9 K/mm3 (4.4-11.0)
[2022-11-24 19:58] LABS: Color, Urine Yellow (Yellow); Glucose, Dipstick Normal (Normal); Ketone-Dipstick Negative (Negative); Leukocyte Esterase-Dipstick 100 /ul (Negative); Nitrite-Dipstick Negative (Negative); Occult Blood-Urine 25 /ul (Negative); Protein-Dipstick 15 mg/dl (Negative); Urine Bilirubin Dipstick Negative (Negative); Urine Clarity Clear (Clear); Urine Urobilinogen Normal (Normal)
[2022-11-24 20:05] LABS: Internal QC Validated? YES +Cl - CLEAR BKGD; Pregnancy, Serum, hCG Quali. NEGATIVE Negative
[2022-11-24 20:12] LABS: ALB/GLOB Ratio 0.9 RATIO (0.9-2.4); AST(SGOT) 12 U/L (15-37); Alanine Aminotransfer ALT/SGPT 19 U/L (13-56); Albumin, Serum 3.5 g/dL (3.2-5.0); Alkaline Phosphatase 118 U/L (45-117); Anion Gap 3 (5-15); BUN 9 mg/dL (7-18); BUN/Creat Ratio 12.6 RATIO (10-20); Calcium,Total 9.1 mg/dL (8.5-10.1); Chloride 111 mmol/L (98-107); Creatinine, Serum 0.71 mg/dL (0.55-1.02); EST Glomerular Filtration Rate 106 mL/min (>60); Est Glom Filt Rate - Afr Amer 128 mL/min (>60); Globulin 3.9 g/dL (2.2-4.2); Glucose 102 mg/dL (74-106); Protein, Total 7.4 g/dL (6.4-8.2); Sodium Level 140 mmol/L (136-145)
[2022-11-24] MEDS: Ketorolac 30 MG/ML Syringe IV (20:18)
[2022-11-24 20:19] LABS: White Blood Cells 5-10 SEEN /hpf (0-5)
[2022-11-24 20:20] LABS: Bacteria 2+ /hpf (None Seen); Squamous Epithelial Cells - UA 0-5 SEEN /hpf (5-10)
== END 2022-11-24 21:30 | disposition home or self-care (01) ==
PROVIDERS: Emergency Provider Emergency Medicine; PCP Family Medicine; Visit Provider Emergency Medicine
DX: R10.9 Unspecified abdominal pain (principal); N13.2 Hydronephrosis with renal and ureteral calculous obstruction
CPT/HCPCS: 74176; 80053; 81001; 84703; 85025; 87077; 87086; 87088; 87186; 96374; 99282; A4216

== ENCOUNTER 2022-12-01 21:38 | Emergency (ER) | payer MEDICAID, SELFPAY ==
[2022-12-01 21:39] VITALS: BP 141/111; PULSE 93; RESP 15; TEMP 36.8; O2SAT 100; BMI 34.0
--- NOTE | 2022-12-01 22:06 | EDS_ITS ---
HPI HPI - GI History of Present Illness Chief Complaint: Abd Pain Informant: patient Nausea/Vomiting/Emesis GI Symptom: Positive for Nausea Associated Symptoms Associated Symptoms: Positive for Hematuria (Briefly 3 days ago but none since); Negative for Dysuria Narrative Narrative: Patient has a kidney stone she was diagnosed with 1 week ago here, she was having pain in her right side/flank, and no urinary symptoms except for some mild hematuria couple days ago that was brief and just wants. No fevers or chills. She had a urinalysis that showed some white cells, the culture came back showing infection and she recently was prescribed amoxicillin based on that, she is taking that. In the last several hours, she states the pain is moved from her right flank down to the right groin, and she has a sensation after she urinates that she still needs to go and it is not going away. She denies any other new symptoms. [facility] Medical History (Updated 12/01/22 @ 22:[address] Arturo Whalen MD) Anxiety Asthma Bipolar disorder Depression Hypertension Kidney stone Home Medications atorvastatin 10 mg tablet (Lipitor) 20 mg PO DAILY 04/30/19 [History Last Taken Unknown] losartan 50 mg tablet (Cozaar) 25 mg PO DAILY 04/30/19 [History Last Taken Unknown] montelukast 10 mg tablet (Singulair) 10 mg PO DAILY 04/30/19 [History Last Taken Unknown] norethindrone 1 mg-ethinyl estradiol 35 mcg tablet 1 tab PO DAILY 04/30/19 [History Last Taken Unknown] omega-3 fatty acids-fish oil 684 mg-1,200 mg capsule,delayed release 1 ea PO DAILY 04/30/19 [History Last Taken Unknown] melatonin 3 mg capsule 3 mg PO QHS 07/10/19 [History Last Taken Unknown] bupropion HCl 75 mg tablet 75 mg DAILY 11/30/19 [History Last Taken Unknown] lamotrigine 25 mg tablet (Lamictal) 200 mg PO DAILY 11/30/19 [History Last Taken Unknown] lurasidone 60 mg tablet (Latuda) 60 mg PO DAILY 11/30/19 [History Last Taken Unknown] promethazine 25 mg tablet 25 mg PO Q6H PRN PRN Nausea #10 tabs 01/09/20 [Rx Last Taken Unknown] lithium carbonate 300 mg tablet 300 mg PO DAILY 06/16/20 [History Last Taken Unknown] pantoprazole 40 mg tablet,delayed release (Protonix) 40 mg PO DAILY 12/17/21 [History Last Taken Unknown] ketorolac 10 mg tablet 10 mg PO Q6H PRN pain 3 days #10 tabs 11/24/22 [Rx Last Taken Unknown] amoxicillin 500 mg tablet 500 mg PO TID #21 tabs 11/30/22 [Rx Last Taken Unknown] Allergy/AdvReac Type Severity Reaction Status Date / Time lisinopril Allergy Other Verified 12/01/22 21:42 midodrine Allergy Hives Verified 12/01/22 21:42 orange Allergy Angioedema Verified 12/01/22 21:42 Social History Smoking Status: Never smoker ROS ROS ED Constitutional Constitutional ED: Denies chills or fever(s) Eyes Eyes: Denies change in vision or diplopia ENT ENT ED: Denies rhinorrhea or sore throat Cardiovascular Cardiovascular: Denies chest pain or palpitations Respiratory/Chest Respiratory/Chest: Denies cough or dyspnea Gastrointestinal Gastrointestinal: Reports abdominal pain; Denies diarrhea, nausea or vomiting Genitourinary Genitourinary ED: Reports as per HPI; Denies dysuria or hematuria Musculoskeletal Musculoskeletal: Reports back pain; Denies neck pain Integumentary Denies abscess or rash Neurologic Neurologic: Denies headache(s), paresthesias or weakness Psychiatric Psychiatric: Denies anxiety or suicidal thoughts EXAM Physical Exam Const Vital Signs: 12/01/22 21:39 Temperature 98.2 F Temperature Source Temporal Pulse Rate 93 Respiratory Rate 15 Blood Pressure 141/111 H Blood Pressure Mean 121 Pulse Ox 100 Oxygen Delivery Method Room Air Positive well nourished, well developed and obese General Appearance ED: well developed and NAD Nutritional Appearance: obese HEENT Reports moist mucous membranes normocephalic and atraumatic Eyes PERRL and EOMs intact bilaterally Neck full ROM and supple Resp normal respiratory effort and clear to auscultation bilaterally Cardio regular rate, regular rhythm and no murmurs GI non-tender and non-distended Auscultation: normoactive bowel sounds Palpation: soft Back/Spine no CVA tenderness General Back: other FROM Extremity normal to inspection General Extremety ED: Negative for edema, pulses abnormal or tenderness General Extremity: Negative for edema or pulses abnormal Neuro oriented x3, CN's II-XII intact bilaterally and no sensory deficits noted Sensorium / Orientation: awake and alert Motor Exam: strength 5/5 throughout Skin no rashes or lesions noted and no wounds MDM MDM MDM Narrative Medical decision making narrative: Patient urinated about 60 mL, I had nursing do a bladder scan, there was a trace amount of urine left. This is all consistent with symptoms of a stone that is now UVJ, her stone is probably just progressing down the ureter. She is controlling her symptoms with Toradol and antiemetic at home, and she is not needing any acute symptom control right now. Expectant management indicated. Given more urine strainers to use at home, we strain her urine here but no stone passed. Lab Data Attestation: I reviewed the patient's lab results. Labs: Laboratory Results - last 24 hr 12/01/22 22:17 Urine Color Yellow Urine Clarity Sl. Cloudy Urine pH 5.0 Ur Specific [place] 1.025 Urine Protein 30 H Urine Glucose (UA) Normal Urine Ketones 5 H Urine Occult Blood 250 H Urine Nitrite Negative Urine Bilirubin Negative Urine Urobilinogen Normal Ur Leukocyte Esterase 25 H Urine RBC 10-25 SEEN Urine WBC 0-5 SEEN Ur Squamous Epith Cells 0-5 SEEN Amorphous Sediment 1+ URATE Urine Bacteria 0 SEEN Urine Mucus 0 SEEN Discharge Plan Triage Chief Complaint: Abd Pain ED Provider: Arturo Whalen Dx/Rx/DC Orders Clinical Impression: Kidney stone on right side Instructions: ED Urine Strainer, ED Kidney Stone w/ Colic Prescriptions: No Action losartan [Cozaar] 50 MG tablet 25 mg PO DAILY Label Comments: TAKE 2 TABLETS BY MOUTH ONCE DAILY atorvastatin [Lipitor] 10 MG tablet 20 mg PO DAILY montelukast [Singulair] 10 MG tablet 10 mg PO DAILY norethindrone-ethin estradiol 1 EACH tablet 1 tab PO DAILY Label Comments: TAKE 1 TABLET BY MOUTH EVERY DAY omega-3 fatty acids-fish oil 1 EACH capsule,delayed release(DR/EC) 1 ea PO DAILY melatonin 3 MG capsule 3 mg PO QHS lamotrigine [Lamictal] 25 MG tablet 200 mg PO DAILY bupropion HCl 75 MG tablet 75 mg DAILY lurasidone [Latuda] 60 mg tablet 60 mg PO DAILY Label Comments: Take 1 Tablet By Oral Route 1 time per day with food (at least 350 calories) promethazine 25 MG tablet 25 mg PO Q6H PRN PRN (Reason: Nausea) Qty: 10 0RF lithium carbonate 300 MG tablet 300 mg PO DAILY pantoprazole [Protonix] 40 MG tablet,delayed release (DR/EC) 40 mg PO DAILY ketorolac 10 mg tablet 10 mg PO Q6H PRN (Reason: pain) 3 Days Qty: 10 0RF amoxicillin 500 mg tablet 500 mg PO TID Qty: 21 0RF Primary Care Provider: Danya Mcnally Referrals: Natali Alvarado MD [Med Staff - Active Staff] - 1 Week if not improving Danya Mcnally DO [Primary Care Provider] - Disposition Disposition: Home, Self Care
[2022-12-01 22:24] LABS: Bacteria 0 SEEN /hpf (None Seen); Mucous, Urine 0 SEEN /hpf (<or=2+)
[2022-12-01 22:25] LABS: Color, Urine Yellow (Yellow); Glucose, Dipstick Normal (Normal); Ketone-Dipstick 5 mg/dl (Negative); Leukocyte Esterase-Dipstick 25 /ul (Negative); Nitrite-Dipstick Negative (Negative); Occult Blood-Urine 250 /ul (Negative); Protein-Dipstick 30 mg/dl (Negative); Specific Gravity, Urine 1.025 (1.002-1.030); Urine Bilirubin Dipstick Negative (Negative); Urine Clarity Sl. Cloudy (Clear); Urine Urobilinogen Normal (Normal)
[2022-12-01 22:48] LABS: Red Blood Cells-Urine 10-25 SEEN /hpf (0-5); White Blood Cells 0-5 SEEN /hpf (0-5)
[2022-12-01 22:49] LABS: Amorphous Sediment 1+ URATE; Squamous Epithelial Cells - UA 0-5 SEEN /hpf (5-10)
== END 2022-12-01 23:04 | disposition home or self-care (01) ==
PROVIDERS: Emergency Provider Emergency Medicine; PCP Family Medicine; Referring Provider Emergency Medicine; Visit Provider Emergency Medicine
DX: N20.0 Calculus of kidney (principal); F31.9 Bipolar disorder, unspecified; E66.9 Obesity, unspecified; F41.9 Anxiety disorder, unspecified; Z79.899 Other long term (current) drug therapy
CPT/HCPCS: 81001; 99282

== ENCOUNTER → 2023-01-07 | Outpatient (CLI) | payer MEDICAID, SELFPAY ==
[2023-01-05 20:32] LABS: Source Not Provided
== END | disposition home or self-care (01) ==
LOC: LABSPEC 15:37
PROVIDERS: PCP Family Medicine; Referring Provider Urology; Visit Provider Urology
DX: Z01.818 Encounter for other preprocedural examination (principal)
CPT/HCPCS: 82360

== ENCOUNTER 2023-01-20 21:47 | Emergency (ER) | payer MEDICAID, SELFPAY ==
[2023-01-20 21:49] VITALS: BP 139/104; PULSE 98; RESP 16; TEMP 36.1; O2SAT 100; BMI 34.0
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
== END 2023-01-20 23:33 | disposition home or self-care (01) ==
PROVIDERS: Emergency Provider Emergency Medicine; PCP Family Medicine; Visit Provider Emergency Medicine
DX: R04.0 Epistaxis (principal)
CPT/HCPCS: 99282

== ENCOUNTER 2023-06-07 19:32 | Emergency (ER) | payer MEDICAID, SELFPAY ==
[2023-06-07 19:33] VITALS: BP 141/116; PULSE 98; RESP 18; TEMP 36.8; O2SAT 97; BMI 35.4
[2023-06-07 19:37] VITALS: BP 139/110
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
--- NOTE | 2023-06-07 20:00 | RAD_ITS ---
INDICATION: Knee pain, cracking sound EXAMINATION/TECHNIQUE: X-RAY - RIGHT XR Knee Complete 4 Views or More 4 VIEWS COMPARISON: None. FINDINGS: SOFT TISSUES: No soft tissue swelling or gas. No radiopaque foreign body. BONES/JOINTS: No acute fracture. Joint spaces anatomically aligned. RAD/Knee 4 or More Views IMPRESSION: Unremarkable study. Electronically Signed: Abe Black MD at 20:24 EDT ,
== END 2023-06-07 20:48 | disposition home or self-care (01) ==
PROVIDERS: Emergency Provider Emergency Medicine; PCP Family Medicine; Visit Provider Emergency Medicine
DX: S83.91XA Sprain of unspecified site of right knee, initial encounter (principal); X58.XXXA Exposure to other specified factors, initial encounter
CPT/HCPCS: 73564; 99285

== ENCOUNTER 2023-06-30 17:35 | Emergency (ER) | payer MEDICAID, SELFPAY ==
[2023-06-30 17:37] VITALS: BP 165/111; PULSE 75; RESP 18; TEMP 36.2; O2SAT 100
--- NOTE | 2023-06-30 18:21 | EX.ED.DYSGE1 ---
HPI History of Present Illness Chief Complaint: Abd Pain Informant: patient and parent Narrative Narrative: Worsening sudden left lower quadrant pain rating to her back today. Week ago had severe cramps that were different than normal. History of kidney stone in the right side this past November. She saw Dr. Alvarado. Reported there was plans for surgery however on the day of surgery at the hospital she passed the stone. She states mild dysuria. Nausea without vomiting. She just finished her menstrual period. Denies fever states she has chills. States feels similar to her kidney stones however on the left side. Prior similar symptoms: Yes PFSH PFSH Medical History ADHD Anemia Anxiety Asthma Blackout Depression Dietary restriction Easy bruising Gastric reflux Gastroparesis High cholesterol History of Holter monitoring Hypertension Hypotension Injury of head and neck Kidney stone Marijuana use Migraine headache Non-smoker Open wound Passed out POTS (postural orthostatic tachycardia syndrome) Shortness of breath on exertion Syncope Thyroid disease Wears glasses Home Medications atorvastatin 10 mg tablet (Lipitor) 20 mg PO DAILY 04/30/19 [History Last Taken Unknown] montelukast 10 mg tablet (Singulair) 10 mg PO DAILY 04/30/19 [History Last Taken Unknown] norethindrone 1 mg-ethinyl estradiol 35 mcg tablet 1 tab PO DAILY 04/30/19 [History Last Taken Unknown] omega-3 fatty acids-fish oil 684 mg-1,200 mg capsule,delayed release 1 ea PO DAILY 04/30/19 [History Last Taken Unknown] melatonin 3 mg capsule 15 mg PO QHS 07/10/19 [History Last Taken Unknown] bupropion HCl 75 mg tablet 75 mg PO DAILY 11/30/19 [History Last Taken Unknown] promethazine 25 mg tablet 25 mg PO Q6H PRN PRN Nausea #10 tabs 01/09/20 [Rx Last Taken Unknown] pantoprazole 40 mg tablet,delayed release (Protonix) 40 mg PO DAILY 12/17/21 [History Last Taken Unknown] albuterol sulfate 90 mcg/actuation aerosol inhaler 1 inh inhalation Q6H PRN ASTHMA 12/16/22 [History Last Taken Unknown] fludrocortisone 0.1 mg tablet 0.1 mg PO DAILY 12/16/22 [History Last Taken Unknown] levothyroxine 50 mcg capsule 50 mcg PO DAILY 12/16/22 [History Last Taken Unknown] oxycodone-acetaminophen 5 mg-325 mg tablet (Percocet) 1 tab PO Q8H PRN Pain 12/16/22 [History Last Taken Unknown] ibuprofen 600 mg tablet 600 mg PO Q6H PRN PRN pain #20 TABLETS 06/30/23 [Rx Last Taken Unknown] ondansetron 4 mg disintegrating tablet 4 mg PO Q8H PRN PRN Nausea #10 tabs 06/30/23 [Rx Last Taken Unknown] oxycodone-acetaminophen 5 mg-325 mg tablet 1 tab PO Q6H PRN PRN Pain 3 days #12 TABLETS 06/30/23 [Rx Last Taken Unknown] Allergy/AdvReac Type Severity Reaction Status Date / Time lisinopril Allergy Other Verified 06/30/23 17:36 midodrine Allergy Hives Verified 06/30/23 17:36 orange Allergy Angioedema Verified 06/30/23 17:36 Surgical History History of myringotomy Hx of esophagogastroduodenoscopy Hx of tonsillectomy Social History Smoking Status: Never smoker ROS ROS ED Constitutional Constitutional ED: Reports chills; Denies fever(s) or sweats Eyes Eyes: Denies change in vision ENT ENT ED: Denies dysphagia or sore throat Cardiovascular Cardiovascular: Denies chest pain, leg edema, palpitations or racing heartbeat Respiratory/Chest Respiratory/Chest: Denies cough, dyspnea or dyspnea on exertion Gastrointestinal Gastrointestinal: Reports abdominal pain and nausea; Denies diarrhea or vomiting Genitourinary Genitourinary ED: Reports dysuria; Denies hematuria or urinary frequency Musculoskeletal Musculoskeletal: Reports back pain; Denies extremity pain or neck pain Integumentary Denies rash or wounds Neurologic Neurologic: Denies headache(s), paresthesias or weakness EXAM Physical Exam Const Vital Signs: 06/30/23 17:37 06/30/23 20:39 06/30/23 20:40 Temperature 97.2 F L Temperature Source Temporal Pulse Rate 75 100 100 Respiratory Rate 18 16 16 Blood Pressure 165/111 H 130/91 H 139/91 H Blood Pressure Mean 129 104 107 Pulse Ox 100 Oxygen Delivery Method Room Air Room Air Positive well nourished and well developed General Appearance ED: well developed and NAD HEENT Reports moist mucous membranes normocephalic and atraumatic Eyes PERRL, EOMs intact bilaterally and conjunctivae normal General Eye ED: Yes normal appearance of both eyes Neck no lymphadenopathy and supple General: Negative for tenderness Chest Wall Chest: Negative for tenderness Resp normal respiratory effort and normal air movement Effort and Inspection: symmetric chest movement; Negative for respiratory distress Cardio regular rate, regular rhythm and no murmurs Peripheral Pulses: pulses 2+ throughout GI normal to inspection, nondistended, normoactive bowel sounds and non-tender Palpation: Negative for guarding or rebound tenderness present Back/Spine no CVA tenderness and no thoracic nor lumbar tenderness Extremity normal to inspection General Extremety ED: Negative for edema or tenderness General Extremity: Negative for edema Neuro oriented x3 and no sensory deficits noted Sensorium / Orientation: awake and alert Skin no rashes or lesions noted and no wounds MDM MDM MDM Narrative Medical decision making narrative: Interventions / MDM: Differential diagnosis: Kidney stone, renal colic Diagnosis considered but do not suspect: UTI however urine negative My EKG interpretation: N/A Imaging independently reviewed and interpreted by myself: CT abdomen pelvis: 1 to 2 mm left distal UVJ stone with hydro-. External documents reviewed: CT scan from November 2022 4 mm proximal obstructing stone. No other stones report at that time. Test considered but not ordered:N/A ED course: Patient nontoxic. Symptoms subsided. History of kidney stones with similar presentation. Workup initiated. Started on fluids Toradol Zofran. Stable with normal room function. Urine negative for shunt. No hematuria. CT scan confirms a distal UVJ stone. Symptoms are controlled. Prescriptions for antiemetics pain medicine to her pharmacy. She will follow-up with her urologist. Return precautions. All questions were answered. Re-evaluation: stable Disposition discussed with patient/family/significant other: Patient and father Case discussed with consulting clinician: N/A This note was generated with [employer] dictation software. It may contain incorrect words, spelling, and punctuation that were not noted in checking the note before signing. Lab Data Attestation: I reviewed the patient's lab results. Labs: Laboratory Results - last 24 hr 06/30/23 06/30/23 18:15 19:27 WBC 10.6 RBC 4.83 Hgb 15.4 H Hct 45.0 MCV 93.2 MCH 31.9 MCHC 34.2 RDW Std Deviation 43.7 RDW Coeff of Alex 12.7 Plt Count 262 MPV 11.6 Immature Gran % (Auto) 0.300 Neut % (Auto) 85.5 H Lymph % (Auto) 10.6 L [place]ferro % (Auto) 2.9 Eos % (Auto) 0.1 Baso % (Auto) 0.6 Absolute Neuts (auto) 9.1 H Absolute Lymphs (auto) 1.12 Nucleated RBC % 0 Sodium 140 Potassium 2.8 L Chloride 109 H Carbon Dioxide 25.0 Anion Gap 6 BUN 15 Creatinine 1.03 H Est GFR (MDRD) Af Amer 83 Est GFR (MDRD) Non-Af 69 BUN/Creatinine Ratio 14.6 Glucose 137 H Calcium 9.8 Total Bilirubin 0.60 AST 23 ALT 26 Alkaline Phosphatase 103 Total Protein 7.8 Albumin 3.9 Globulin 3.9 Albumin/Globulin Ratio 1.0 Serum , Qual NEGATIVE Urine Color Yellow Urine Clarity Clear Urine pH 6.5 Ur Specific [place] 1.015 Urine Protein 15 H Urine Glucose (UA) Normal Urine Ketones Negative Urine Occult Blood 250 H Urine Nitrite Negative Urine Bilirubin Negative Urine Urobilinogen Normal Ur Leukocyte Esterase Negative Urine RBC 10-25 SEEN Urine WBC 0-5 SEEN Ur Squamous Epith Cells 5-10 SEEN Urine Bacteria 0 SEEN Urine Mucus 0 SEEN Radiography Diagnostic Testing: Clinical Impression(s) from Imaging Studies Abdomen/Pelvis CT 06/30/23 18:54 IMPRESSION: 1. Tiny (1 to 2 mm) obstructing stone at the left ureterovesical junction with mild ureteral dilatation and hydronephrosis. 2. Bilateral tiny nonobstructing renal stones. 3. Fatty infiltration of the liver. Electronically Signed: Gilberto Champion MD at 19:24 EST , Discharge Plan Triage Chief Complaint: Abd Pain ED Provider: Osvaldo Nagel Dx/Rx/DC Orders Clinical Impression: Hematuria, Renal colic on left side, Kidney stone on left side Instructions: ED Kidney Stone w/ Colic Prescriptions: New ibuprofen 600 mg tablet 600 mg PO Q6H PRN PRN (Reason: pain) Qty: 20 0RF oxycodone-acetaminophen [oxycodone-acetaminophen] 5-325 mg tablet 1 tab PO Q6H PRN PRN (Reason: Pain) 3 Days Qty: 12 0RF ondansetron [ondansetron] 4 mg tablet,disintegrating 4 mg PO Q8H PRN PRN (Reason: Nausea) Qty: 10 0RF No Action atorvastatin [Lipitor] 10 MG tablet 20 mg PO DAILY montelukast [Singulair] 10 MG tablet 10 mg PO DAILY norethindrone-ethin estradiol 1 EACH tablet 1 tab PO DAILY Patient Comments: TAKE 1 TABLET BY MOUTH EVERY DAY omega-3 fatty acids-fish oil 1 EACH capsule,delayed release(DR/EC) 1 ea PO DAILY melatonin 3 MG capsule 15 mg PO QHS bupropion HCl 75 MG tablet 75 mg PO DAILY promethazine 25 MG tablet 25 mg PO Q6H PRN PRN (Reason: Nausea) Qty: 10 0RF pantoprazole [Protonix] 40 MG tablet,delayed release (DR/EC) 40 mg PO DAILY oxycodone-acetaminophen [Percocet] 5-325 mg Tablet 1 tab PO Q8H PRN (Reason: Pain) fludrocortisone [Florinef] 0.1 mg Tablet 0.1 mg PO DAILY levothyroxine 50 mcg Capsule 50 mcg PO DAILY albuterol sulfate 90 mcg/actuation Hfa Aerosol Inhaler 1 inh INHALATION Q6H PRN (Reason: ASTHMA) Primary Care Provider: Danya Mcnally Referrals: Natali Alvarado MD [Med Staff - Active Staff] - 1 Week Danya Mcnally DO [Primary Care Provider] - Activity Restrictions/Additional Instructions: 1 to 2 mm left ureteral stone at the UVJ. No infection of the urine. Take medication as prescribed. Follow-up with your urologist. Disposition Disposition: Home, Self Care Discharge Date/Time: 06/30/23 20:42
[2023-06-30 18:24] LABS: Absolute Lymphocyte Count 1.12 X10^3/uL (0.83-4.51); Absolute Neutrophil Count 9.1 X10^3/uL (2.0-7.7); Basophil# 0.06 X10^3/uL; Basophil% 0.6 % (0-1); Eosinophil# 0.01 X10^3/uL; Eosinophils% 0.1 % (0-5); Hemoglobin 15.4 g/dL (12.0-15.0); Lymphocyte # 1.12 X10^3/ul (0.83-4.51); Lymphocyte % 10.6 % (19-41); Mean Corp Hgb Conc 34.2 g/dL (32-36); Mean Corpuscular Hgb 31.9 pg (27.0-32.0); Mean Corpuscular Volume 93.2 fL (81-99); Mean Platelet Vol. 11.6 fl (6.2-12.0); Monocyte# 0.31 X10^3/uL; Monocyte% 2.9 % (0-10); NRBC Flagged by Analyzer 0 % (0-5); Neutrophil # 9.07 X10^3/uL (2.7-7.7); Neutrophil % 85.5 % (47-70); Platelet Count 262 K/mm3 (150-450); RBC Distribution Width CV 12.7 % (11.6-14.6); RBC Distribution Width SD 43.7 fl (35.1-43.9); Red Blood Count 4.83 M/mm3 (4.2-5.4); White Blood Count 10.6 K/mm3 (4.4-11.0)
[2023-06-30] MEDS: Ketorolac 15 MG/ML Vial IV (18:25)
[2023-06-30] MEDS: Ondansetron 4 MG/2 ML Vial IV (18:25)
[2023-06-30] MEDS: 0.9% Normal Saline (500mL Bag) 500 ML 1000 ML IV (18:32)
[2023-06-30 18:45] LABS: AST(SGOT) 23 U/L (15-37); Alanine Aminotransfer ALT/SGPT 26 U/L (13-56); Albumin, Serum 3.9 g/dL (3.2-5.0); Alkaline Phosphatase 103 U/L (45-117); Anion Gap 6 (5-15); BUN 15 mg/dL (7-18); BUN/Creat Ratio 14.6 RATIO (10-20); Calcium,Total 9.8 mg/dL (8.5-10.1); Chloride 109 mmol/L (98-107); Creatinine, Serum 1.03 mg/dL (0.55-1.02); EST Glomerular Filtration Rate 69 mL/min (>60); Est Glom Filt Rate - Afr Amer 83 mL/min (>60); Globulin 3.9 g/dL (2.2-4.2); Glucose 137 mg/dL (74-106); Potassium 2.8 mmol/L (3.5-5.1); Protein, Total 7.8 g/dL (6.4-8.2); Sodium Level 140 mmol/L (136-145)
[2023-06-30 18:48] LABS: Internal QC Validated? YES +Cl - CLEAR BKGD; Pregnancy, Serum, hCG Quali. NEGATIVE Negative
--- NOTE | 2023-06-30 18:54 | CT_ITS ---
STUDY: CT ABDOMEN AND PELVIS WITHOUT CONTRAST REASON FOR EXAM: Female, 28 years old. flank pain RADIATION DOSAGE (If Supplied By Facility): CTDIvol = ( 11.17 ) mGy, DLP = ( 603.03 ) mGycm TECHNIQUE: Transaxial images were obtained from the dome of the diaphragm to the symphysis pubis without oral contrast, and without intravenous contrast. Sagittal and coronal images were reconstructed. Individualized dose optimization techniques were used for this CT. COMPARISON: 11/24/2022 FINDINGS: The visualized lung bases are unremarkable. The visualized portions of the heart are within normal limits. There is decreased attenuation of the liver consistent with steatosis. Normal gallbladder and extrahepatic biliary system. Normal spleen. Normal pancreas. Normal bilateral adrenal glands. Bilateral tiny nonobstructing renal stones. Tiny (1 to 2 mm) obstructing stone at the left ureterovesical junction with mild ureteral dilatation and hydronephrosis. Normal visualized stomach. Normal small intestine. Normal colon. The appendix is visualized and appears normal. Normal abdominal aorta. Normal inferior vena cava. Normal retroperitoneum. Normal urinary bladder. Normal abdominal wall. Mild dextroscoliosis of the thoracic lumbar spine. CT/Abdomen/Pelvis without Cont IMPRESSION: 1. Tiny (1 to 2 mm) obstructing stone at the left ureterovesical junction with mild ureteral dilatation and hydronephrosis. 2. Bilateral tiny nonobstructing renal stones. 3. Fatty infiltration of the liver. Electronically Signed: Gilberto Champion MD at 19:24 EST ,
[2023-06-30 19:37] LABS: Bacteria 0 SEEN /hpf (None Seen); Mucous, Urine 0 SEEN /hpf (<or=2+)
[2023-06-30 19:39] LABS: Color, Urine Yellow (Yellow); Glucose, Dipstick Normal (Normal); Ketone-Dipstick Negative (Negative); Leukocyte Esterase-Dipstick Negative /ul (Negative); Nitrite-Dipstick Negative (Negative); Occult Blood-Urine 250 /ul (Negative); Protein-Dipstick 15 mg/dl (Negative); Specific Gravity, Urine 1.015 (1.002-1.030); Urine Bilirubin Dipstick Negative (Negative); Urine Clarity Clear (Clear); Urine Urobilinogen Normal (Normal); Urine pH 6.5 (5.0 - 8.0)
[2023-06-30 19:49] LABS: Red Blood Cells-Urine 10-25 SEEN /hpf (0-5); Squamous Epithelial Cells - UA 5-10 SEEN /hpf (5-10); White Blood Cells 0-5 SEEN /hpf (0-5)
[2023-06-30 20:39] VITALS: BP 130/91; PULSE 100; RESP 16
[2023-06-30 20:40] VITALS: BP 139/91; PULSE 100; RESP 16
== END 2023-06-30 20:42 | disposition home or self-care (01) ==
PROVIDERS: Emergency Provider Emergency Medicine; PCP Family Medicine; Visit Provider Emergency Medicine
DX: R31.9 Hematuria, unspecified (principal); N13.2 Hydronephrosis with renal and ureteral calculous obstruction; N23 Unspecified renal colic
CPT/HCPCS: 74176; 80053; 81001; 84703; 85025; 96361; 96374; 96375; 99284; J7040; A4216; J2405

== ENCOUNTER → 2023-07-30 | Outpatient (CLI) | payer MEDICAID, SELFPAY ==
--- NOTE | 2023-07-30 07:02 | CT_ITS ---
INDICATION: STONES EXAMINATION: CT ABDOMEN AND PELVIS WITHOUT CONTRAST - CT Abdomen And Pelvis W/O Contrast Injection TECHNIQUE: Helically acquired images were obtained of the abdomen and pelvis without oral or IV contrast. A radiation dose optimization technique was used for this scan. IV Contrast dosage and agent: None. Oral contrast: None. RADIATION DOSAGE (If Supplied By Facility): CTDIvol = ( 10.34 ) mGy, DLP = ( 537.33 ) mGycm COMPARISON: Prior study dated: 06/30/2023. FINDINGS: LOWER CHEST: Lung bases are clear. No cardiomegaly or pericardial effusion. LIVER: Mild hepatic steatosis. Mild hepatomegaly. No focal mass is seen without contrast. GALLBLADDER AND BILIARY TREE: No calcified gallstones. No gallbladder distension or wall edema. No intra- or extrahepatic biliary ductal dilation. PANCREAS: No focal cystic or solid mass. SPLEEN: Normal size without focal cystic or solid mass. ADRENAL GLANDS: No nodules. KIDNEYS AND URETERS: Tiny 1 to 2 mm nonobstructing stone in the lower pole of the right kidney. Resolved left hydronephrosis. As the seen stone in the left ureterovesical junction not seen. PERITONEUM: No ascites or free air. No other fluid collection. BOWEL: No evidence of acute appendicitis. No stomach or bowel distension. No focal inflammatory change. LYMPH NODES: Few small mesenteric nodes in the right lower quadrant. No evidence of adenopathy. VESSELS: Aorta is non-dilated. URINARY BLADDER: The urinary bladder is not well distended. REPRODUCTIVE ORGANS: No pelvic masses. ABDOMINAL WALL: No discrete abdominal or pelvic wall hernia. BONES: No lytic or blastic abnormality. CT/Abdomen/Pelvis without Cont IMPRESSION: 1. Resolved left hydronephrosis and left ureterovesical junction stone. 2. Tiny nonobstructing stone in the right kidney without evidence of hydronephrosis. 3. Otherwise no focal acute inflammatory changes. 4. Mild hepatic steatosis and hepatomegaly. Electronically Signed: Maciel Harris MD at 11:34 EST ,
== END | disposition home or self-care (01) ==
LOC: CT 07:01
PROVIDERS: PCP Family Medicine; Referring Provider Urology; Visit Provider Urology
DX: N20.0 Calculus of kidney (principal)
CPT/HCPCS: 74176

== ENCOUNTER → 2023-10-21 | Outpatient (CLI) | payer MEDICAID, SELFPAY ==
--- NOTE | 2023-10-21 18:49 | US_ITS ---
STUDY: RENAL ULTRASOUND - COMPLETE REASON FOR EXAM: Female, 28 years old. RT FLANK PAIN TECHNIQUE: Ultrasound evaluation of the kidneys was performed with real-time and static pereyra-scale imaging. COMPARISON: None. FINDINGS: RIGHT KIDNEY: Normal location of the right kidney, which is normal in size. The right kidney measures 11.9 cm x 4.8 cm x 4.3 cm. There is a normal cortex of the right kidney. The renal cortex measures 1.5 cm. There is no right renal mass or cyst. There are no right renal calculi. There is no right hydronephrosis. DISTAL RIGHT URETER: There is non-visualization of the distal right ureter. There is no demonstrated right ureterovesical junction calculus. There is no demonstrated right ureteral jet. LEFT KIDNEY: Normal location of the left kidney, which is normal in size. The left kidney measures 11.4 cm x 5.5 cm x 4.8 cm. There is a normal cortex of the left kidney. The renal cortex measures 2.0 cm. There is no left renal mass or cyst. There are no left renal calculi. There is no left hydronephrosis. DISTAL LEFT URETER: There is non-visualization of the distal left ureter. There is no demonstrated left ureterovesical junction calculus. There is no demonstrated left ureteral jet. BLADDER: The distended urinary bladder has a volume of 38 ml. The empty urinary bladder has a volume of 1.5 ml. There is a normal wall thickness of the distended urinary bladder. There is no demonstrated mass within the urinary bladder. There are no demonstrated bladder calculi. US/Kidney and Bladder IMPRESSION: Normal ultrasound of the kidneys and urinary bladder. Electronically Signed: Rodrigue Nation MD at 12:13 EDT ,
== END | disposition home or self-care (01) ==
LOC: US 18:40
PROVIDERS: PCP Family Medicine; Referring Provider Urology; Visit Provider Urology
DX: N13.30 Unspecified hydronephrosis (principal); N20.0 Calculus of kidney; R10.9 Unspecified abdominal pain
CPT/HCPCS: 76770

== ENCOUNTER 2024-09-10 23:54 | Emergency (ER) | payer MEDICAID, SELFPAY ==
[2024-09-10 23:55] VITALS: BP 170/108; PULSE 98; RESP 16; TEMP 36.8; O2SAT 100; BMI 37.5
[2024-09-11 00:26] VITALS: BP 133/99; PULSE 67; RESP 16; O2SAT 98
--- NOTE | 2024-09-11 00:26 | EKG12_ITS ---
Test Reason : HTN Blood Pressure : */* mmHG Vent. Rate : 95 BPM Atrial Rate : 95 BPM P-R Int : 114 ms QRS Dur : 90 ms QT Int : 378 ms P-R-T Axes : 33 17 9 degrees QTcB Int : 475 ms Normal sinus rhythm Minimal voltage criteria for LVH, may be normal variant ( R in aVL ) Nonspecific ST abnormality Abnormal ECG Confirmed by ANOOP WATT, EMELI ([id number]), magazine editor MARY BARNES ([id number]) on 09/13/2024 7:29:21 AM Referred By: Confirmed By: EMELI DAVALOS MD
[2024-09-11 00:42] LABS: Absolute Lymphocyte Count 3.73 X10^3/uL (0.83-4.51); Absolute Neutrophil Count 2.8 X10^3/uL (2.0-7.7); Basophil# 0.07 X10^3/uL; Basophil% 0.9 % (0-1); Eosinophils% 1.3 % (0-5); Hematocrit 39.2 % (37-47); Hemoglobin 13.3 g/dL (12.0-15.0); Lymphocyte # 3.73 X10^3/ul (0.83-4.51); Lymphocyte % 49.8 % (19-41); Mean Corp Hgb Conc 33.9 g/dL (32-36); Mean Corpuscular Hgb 31.7 pg (27.0-32.0); Mean Corpuscular Volume 93.6 fL (81-99); Mean Platelet Vol. 11.7 fl (6.2-12.0); Monocyte# 0.79 X10^3/uL; Monocyte% 10.5 % (0-10); NRBC Flagged by Analyzer 0 % (0-5); Neutrophil # 2.79 X10^3/uL (2.7-7.7); Neutrophil % 37.4 % (47-70); Platelet Count 259 K/mm3 (150-450); RBC Distribution Width CV 12.1 % (11.6-14.6); Red Blood Count 4.19 M/mm3 (4.2-5.4); White Blood Count 7.5 K/mm3 (4.4-11.0)
[2024-09-11 00:55] LABS: Anion Gap 7 (5-15); BUN 13 mg/dL (7-18); BUN/Creat Ratio 19.5 RATIO (10-20); Calcium,Total 8.6 mg/dL (8.5-10.1); Chloride 112 mmol/L (98-107); Creatinine, Serum 0.67 mg/dL (0.55-1.02); EST Glomerular Filtration Rate 112 mL/min (>60); Est Glom Filt Rate - Afr Amer 136 mL/min (>60); Estimated Creatinine Clearance 145.58 ml/min; Glucose 140 mg/dL (74-106); Magnesium 1.7 mg/dL (1.6-2.6); Potassium 3.5 mmol/L (3.5-5.1); Sodium Level 140 mmol/L (136-145)
[2024-09-11 01:00] VITALS: BP 149/106; PULSE 101; RESP 18; O2SAT 100
[2024-09-11 01:02] LABS: BNP,B-Type NATRIURETIC PEPTIDE 4.6 pg/mL (0-100)
[2024-09-11 01:46] VITALS: BP 130/98; PULSE 108; RESP 16; TEMP 36.9; O2SAT 100
--- NOTE | 2024-09-11 01:54 | EX.ED.DYSGE1 ---
HPI History of Present Illness Chief Complaint: Hypertension Informant: patient and parent Narrative Narrative: Patient is a 29-year-old female with past medical history of dysautonomia and Omega-Danlos syndrome. She states secondary to the dysautonomia she typically runs low on her blood pressure even to the point where she is prescribed Florinef. She states that today she has been checking it and it has been running high. She states that there is no excessive caffeine use or illicit drug use or illicit stimulant use. She reports that she has noticed her legs have been more swollen over the last few days as well. Therefore this time she is unsure if this is all due to her elevated blood pressure or her history of dysautonomia and secondary to this comes in for evaluation She denies headache change in vision chest pain or shortness of breath associated with this [facility] Medical History POTS (postural orthostatic tachycardia syndrome) Wears glasses ADHD Marijuana use Open wound Thyroid disease Anemia High cholesterol Easy bruising Migraine headache Injury of head and neck Passed out Blackout Syncope Dietary restriction Gastroparesis Gastric reflux Non-smoker Shortness of breath on exertion History of Holter monitoring Hypotension Kidney stone Anxiety Depression Asthma Hypertension Home Medications ?Medication ?Instructions ?Recorded ?Last Taken ?Type atorvastatin 10 mg tablet (Lipitor) 20 mg PO DAILY 04/30/19 Unknown History montelukast 10 mg tablet 10 mg PO DAILY 04/30/19 Unknown History (Singulair) norethindrone 1 mg-ethinyl 1 tab PO DAILY 04/30/19 Unknown History estradiol 35 mcg tablet omega-3 fatty acids-fish oil 684 1 ea PO DAILY 04/30/19 Unknown History mg-1,200 mg capsule,delayed release melatonin 3 mg capsule 15 mg PO QHS 07/10/19 Unknown History bupropion HCl 75 mg tablet 75 mg PO DAILY 11/30/19 Unknown History promethazine 25 mg tablet 25 mg PO Q6H PRN PRN Nausea #10 01/09/20 Unknown Rx tabs pantoprazole 40 mg tablet,delayed 40 mg PO DAILY 12/17/21 Unknown History release (Protonix) albuterol sulfate 90 mcg/actuation 1 inh inhalation Q6H PRN ASTHMA 12/16/22 Unknown History aerosol inhaler fludrocortisone 0.1 mg tablet 0.1 mg PO DAILY 12/16/22 Unknown History levothyroxine 50 mcg capsule 50 mcg PO DAILY 12/16/22 Unknown History oxycodone-acetaminophen 5 mg-325 1 tab PO Q8H PRN Pain 12/16/22 Unknown History mg tablet (Percocet) ibuprofen 600 mg tablet 600 mg PO Q6H PRN PRN pain #20 06/30/23 Unknown Rx TABLETS ondansetron 4 mg disintegrating 4 mg PO Q8H PRN PRN Nausea #10 tabs 06/30/23 Unknown Rx tablet oxycodone-acetaminophen 5 mg-325 1 tab PO Q6H PRN PRN Pain 3 days 06/30/23 Unknown Rx mg tablet #12 TABLETS Allergy/AdvReac Type Severity Reaction Status Date / Time lisinopril Allergy Other Verified 09/10/24 23:56 midodrine Allergy Hives Verified 09/10/24 23:56 orange Allergy Angioedema Verified 09/10/24 23:56 Surgical History History of myringotomy Hx of esophagogastroduodenoscopy Hx of tonsillectomy Social History (Updated 09/11/24 @ 00:08 by Jody Pope) household members: family housing: house Smoking Status: Never smoker ROS ROS ED Constitutional Constitutional ED: Denies chills or fever(s) Eyes Eyes: Denies blurry vision or change in vision ENT ENT ED: Denies sore throat Cardiovascular Cardiovascular: Denies chest pain, palpitations or racing heartbeat Respiratory/Chest Respiratory/Chest: Denies cough or dyspnea Gastrointestinal Gastrointestinal: Denies abdominal pain, diarrhea, nausea or vomiting Genitourinary Genitourinary ED: Denies dysuria Musculoskeletal Musculoskeletal: Reports other Details: Positive leg swelling Integumentary Denies rash Neurologic Neurologic: Denies headache(s) Hematologic/Lymphatic Hematologic/Lymphatic: Denies easy bleeding or easy bruising EXAM Physical Exam Const Vital Signs: 09/10/24 23:55 09/11/24 00:08 09/11/24 00:26 Temperature 98.2 F Temperature Source Oral Pulse Rate 98 67 Respiratory Rate 16 16 Respiratory Effort Normal Non-Labored Respiratory Pattern Normal Blood Pressure 170/108 H 133/99 H Blood Pressure Mean 128 110 Pulse Ox 100 98 Oxygen Delivery Method Room Air Room Air 09/11/24 01:00 09/11/24 01:46 Temperature 98.5 F Temperature Source Pulse Rate 101 H 108 H Respiratory Rate 18 16 Respiratory Effort Respiratory Pattern Blood Pressure 149/106 H 130/98 H Blood Pressure Mean 119 108 Pulse Ox 100 100 Oxygen Delivery Method Room Air Positive well nourished, well developed and obese General Appearance ED: well developed; Negative for pallor Nutritional Appearance: obese HEENT HEENT Narrative: Normocephalic atraumatic Eyes PERRL and EOMs intact bilaterally General Eye ED: Negative for scleral icterus Neck supple Resp normal respiratory effort and clear to auscultation bilaterally Cardio regular rate and regular rhythm Rate: other Other Details: Heart is regular rate and rhythm without murmurs rubs or gallops Radial and carotid pulses are equal and symmetric GI normal to inspection, nondistended, normoactive bowel sounds, non-tender, non-distended and no masses GI Narrative: No pulsatile mass Auscultation: normoactive bowel sounds Palpation: soft Extremity Extremity Narrative: +1 pitting edema to the bilateral lower extremities Negative Homans' sign bilaterally Neuro oriented x3, CN's II-XII intact bilaterally and no sensory deficits noted Neuro Narrative: GCS of 15 Cranial nerves II through XII are grossly intact without focal neurologic deficit No pronator drift no dysmetria no truncal ataxia NIH stroke scale score of 0 Sensorium / Orientation: alert Motor Exam: strength 5/5 throughout Psych mental status grossly normal Skin no rashes or lesions noted and no wounds General Skin Exam: Negative for jaundice or pallor MDM MDM MDM Narrative Medical decision making narrative: Patient arrived to the ER hypertensive otherwise stable vitals. She denied headache or change in vision and my concern for a spontaneous subarachnoid or subdural hemorrhage is low and therefore do not feel the need for head CT. She is also awake alert and oriented with normal neurologic exam and therefore patient does not exhibit findings for hypertensive encephalopathy. In order to ensure she does not have acute coronary syndrome an EKG was obtained which showed no ischemic finding. In order to ensure she does not have acute kidney injury basic blood work was obtained which was normal. As she reported increased leg swelling a proBNP was added which was also normal going against CHF. Without medication of blood pressure reduced to 130/98. Her neurologic exam remained normal. Therefore at this time with workup showing no signs of endorgan damage and patient's blood pressure improving without medication I feel this is most likely related to her dysautonomia. And that her blood pressure will most likely stabilize as the dysautonomia symptoms improved. But at this time she is awake alert and oriented with normal neurologic exam and no signs of endorgan damage that she is otherwise safe for discharge History & Record Review Discussion w/independent historian: Patient and Family Lab Data Attestation: I reviewed the patient's lab results. Labs: Laboratory Results - last 24 hr 09/11/24 00:33 WBC 7.5 RBC 4.19 L Hgb 13.3 Hct 39.2 MCV 93.6 MCH 31.7 MCHC 33.9 RDW Std Deviation 42.0 RDW Coeff of Alex 12.1 Plt Count 259 MPV 11.7 Immature Gran % (Auto) 0.100 Neut % (Auto) 37.4 L Lymph % (Auto) 49.8 H [place] % (Auto) 10.5 H Eos % (Auto) 1.3 Baso % (Auto) 0.9 Absolute Neuts (auto) 2.8 Absolute Lymphs (auto) 3.73 Nucleated RBC % 0 Sodium 140 Potassium 3.5 Chloride 112 H Carbon Dioxide 21.0 Anion Gap 7 BUN 13 Creatinine 0.67 Estim Creat Clear Calc 145.58 Est GFR (MDRD) Af Amer 136 Est GFR (MDRD) Non-Af 112 BUN/Creatinine Ratio 19.5 Glucose 140 H Calcium 8.6 Magnesium 1.7 B-Natriuretic Peptide 4.6 Discharge Plan Triage Chief Complaint: Hypertension ED Provider: Leo Padilla Dx/Rx/DC Orders Clinical Impression: Hypertension, Peripheral edema, Dysautonomia Instructions: Blood Pressure Check Steps, ED Peripheral Edema, Bilateral, ED Hypertension, To Be Confirmed Prescriptions: No Action atorvastatin [Lipitor] 10 MG tablet 20 mg PO DAILY montelukast [Singulair] 10 MG tablet 10 mg PO DAILY norethindrone-ethin estradiol 1 EACH tablet 1 tab PO DAILY Patient Comments: TAKE 1 TABLET BY MOUTH EVERY DAY omega-3 fatty acids-fish oil 1 EACH capsule,delayed release(DR/EC) 1 ea PO DAILY melatonin 3 MG capsule 15 mg PO QHS bupropion HCl 75 MG tablet 75 mg PO DAILY promethazine 25 MG tablet 25 mg PO Q6H PRN PRN (Reason: Nausea) Qty: 10 0RF pantoprazole [Protonix] 40 MG tablet,delayed release (DR/EC) 40 mg PO DAILY oxycodone-acetaminophen [Percocet] 5-325 mg Tablet 1 tab PO Q8H PRN (Reason: Pain) fludrocortisone [Florinef] 0.1 mg Tablet 0.1 mg PO DAILY levothyroxine 50 mcg Capsule 50 mcg PO DAILY albuterol sulfate 90 mcg/actuation Hfa Aerosol Inhaler 1 inh INHALATION Q6H PRN (Reason: ASTHMA) ibuprofen 600 mg tablet 600 mg PO Q6H PRN PRN (Reason: pain) Qty: 20 0RF oxycodone-acetaminophen [oxycodone-acetaminophen] 5-325 mg tablet 1 tab PO Q6H PRN PRN (Reason: Pain) 3 Days Qty: 12 0RF ondansetron [ondansetron] 4 mg tablet,disintegrating 4 mg PO Q8H PRN PRN (Reason: Nausea) Qty: 10 0RF Primary Care Provider: Danya Mcnally Referrals: Danya Mcnally DO [Primary Care Provider] - Activity Restrictions/Additional Instructions: Please follow-up with your family doctor for repeat evaluation and continue all of your home medications as previously directed. Return to the ER should you have any further concerns Print Language: Iraqi Disposition Disposition: Home, Self Care Discharge Date/Time: 09/11/24 01:59
== END 2024-09-11 01:59 | disposition home or self-care (01) ==
PROVIDERS: Emergency Provider Emergency Medicine; PCP Family Medicine; Visit Provider Emergency Medicine
DX: I10 Essential (primary) hypertension (principal); G90.1 Familial dysautonomia [Riley-Day]; Q79.60 Ehlers-Danlos syndrome, unspecified; G90.A Postural orthostatic tachycardia syndrome [POTS]; R60.0 Localized edema; E66.9 Obesity, unspecified; E78.00 Pure hypercholesterolemia, unspecified; F90.9 Attention-deficit hyperactivity disorder, unspecified type; K21.9 Gastro-esophageal reflux disease without esophagitis; K31.84 Gastroparesis; F41.9 Anxiety disorder, unspecified; F32.A Depression, unspecified; J45.909 Unspecified asthma, uncomplicated; Z79.899 Other long term (current) drug therapy
CPT/HCPCS: 80048; 83735; 83880; 85025; 93005; 99284; A4216

== ENCOUNTER 2024-09-30 09:03 | Outpatient (RCR) | payer MEDICAID, SELFPAY ==
--- NOTE | 2024-10-01 10:22 | HP.OTFCE_ITS ---
Task Lift Floor (Occasional 1-33% of Day): 20# Floor (Frequent 34-66% of Day): 10# Floor (Constant 67-100% of Day): NA Floor PDL: Light Knee (Occasional 1-33% of Day): 20# Knee (Frequent 34-66% of Day): 10# Knee (Constant 67-100% of Day): NA Knee PDL: Light Waist (Occasional 1-33% of Day): 20# Waist (Frequent 34-66% of Day): 10# Waist (Constant 67-100% of Day): NA Waist PDL: Light Shoulder (Occasional 1-33% of Day): 20# Shoulder (Frequent 34-66% of Day): 10# Shoulder (Constant 67-100% of Day): NA Shoulder PDL: Light Overhead (Occasional 1-33% of Day): 10# Overhead (Frequent 34-66% of Day): NA Overhead (Constant 67-100% of Day): NA Overhead PDL: Sedentary Comments: Light Physical demand level for lifting at Floor, knee, waist and shoulder level lifts Sedentary Physical demand level for overhead lift Work Activity/Posture Bending: No Ablility (0% of day) Comments: cardiology restrictions to not bend past waist Squatting: Occasional Ability (1-33% of day) Comments: with external support LOW occasional ability Kneeling: Occasional Ability (1-33% of day) Comments: with external support LOW occasional ability Reaching out: Frequent Ability (34-66% of day) Comments: while sitting Reaching up: Frequent Ability (34-66% of day) Comments: while sitting Sitting: Frequent Ability (34-66% of day) Walking: Occasional Ability (1-33% of day) Standing: Frequent Ability (34-66% of day) Reference Reference: Duration Sedentary Sedentary Light Light Light Medium Medium Medium Heavy Very Heavy Heavy Occasional (0-33% of day) Frequent (34-66% of day) Constant (67-100% of day) 10 # Negligible Negligible 15 # 8 # Negligible 20 # 10# Negli. 35 # 18 # 7 # 50 # 25 # 10 # 75 # 100 # >100 # 38 # 50 # >50 # 15 # 20 # >20 # Patient Information Height: 1.63 m Weight:: 96.615 kg Hand Dominance: Right Medical History Medical History Including Restrictions: Pt states she was in good health until 2021. Pt states she had issues with passing out at work. After further testing her Manager Office dx with Dysautonomia. Pt states this is controlled with medication. 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 pt states she was dx with Omega-Danlos Syndrome by [facility] This is just being monitored for now. pt states she will wear knee braces (started wearing 2023) and wrist braces since Aug 2024. pt states when her heart rate gets high her hands will start to shake. pt states she cannot regulate her temperature. Was advised to get genetic testing pt states she does not exercise on a regular basis due to her heart condition. not quite sure what her body is capable of Diagnoses Diagnoses: dysautonomia ( dx February 2022) Controlled with Medication. Omega-Danlos syndrome ( 2024) Asthma (controlled with inhaler) Depression ( Meds and counselors every other week) Anxiety (medication) High cholesterol (medication controlled) Paralyzed stomach dx 2019 takes anti-nausea pills Symptoms Symptoms: Joint stiffness (Knees/Hips/Fingers) Joint pain (Knees/Hips/Fingers Dizziness passing out (last time in 6-7 months ago) Brain Fog Confusion with flare-up will slur words Pain Pain: pt states current pain 5-6/ pt states she did not take any pain medication prior to her apt. pt states she tries to hold off on taking pain meds (Tylenol) until later in the evening. Work History Work History: Pt states she has worked at [employer] since 2020. Pt states she works a number of different areas and some area. pt states is on a 20# lifting restriction per her Manager Office (2021). pt states [employer] does do a good job at keeping her on those lifting restrictions. pt states she works 10 ours a week. pt does not drive and her dad drives her to and from work. Behavioral Behavioral: pt cooperative throughout the assessment. ADLS ADLS: Pt states she lives with her parents in a two-story home. pt states [address] with a railing. pt states her bedroom is on main floor of split-level home. Pt states bathroom is across the breen with a walk-in shower. pt states she is IND with bathing and dressing. pt does do the laundry and washing dishes. Pt does not drive. pt states she feels she can mtg in her home- Pt states her dad is a disabled (Dad is home to assist her as needed) States her mom works in healthcare and is out of the house. Physical Examination Physical Examination: heart rate 96 ROM: pt demo with bilateral hyperextension of elbow/knees pt demo with bilateral finger hyper mobility (swan neck deformities on all digits) Strength: Fet2 Peak force strength testing Shoulder flexion right 7# left 8.5# Shoulder extension right 21# left 17.9# Biceps right 13# left 14# Triceps right 15# left 10# Hip flexion right 19# left 19# Quadriceps right 19# left 17.8# Hamstrings right 16# left 18# Right Construction Economist Strength Average: 31.66 Right Construction Economist Strength Percentile: 0% Left Construction Economist Strength Average: 40.00 Left Construction Economist Strength Percentile: 2% Right Lateral Pinch Average: 8.00 Right Lateral Pinch Percentile: <10% Left Lateral Pinch Average: 8.00 Left Lateral Pinch Percentile: <10% Right Tripod Pinch Average: 10.66 Right Tripod Pinch Percentile: 10% Left Tripod Pinch Average: 10.00 Left Tripod Pinch Percentile: 10% Sensation: denies issues Fine Motor: denies issues with FMS Balance: 11 for functional reach test. Non Material Handling Activities Bending: pt states her fertilizer supervisor has advised pt to not shoulders past her waist due to dizziness pt unable to bend past waist- No ability to bend due to fertilizer supervisor restrictions Squatting: pt demo the ability to squat 3/3x, 5/10x needing break followed with 5/10 pt states popping in bilateral knees- 6/10 pain right knee /left hip popping pt need of external support heart rate 124 pt can squat on low occasional ability Kneeling: pt demo the ability to kneel 3/3 x with external support pts heart rate 137 pt states knees 5/10 pt can kneel on low occasional ability Reaching out/up: pt was able to complete reaching up/out 3/3x, 10/10x and 10/10x rapidly pt heart rate was 103 pt reported bilateral shoulder and elbow pain 7/10 pt performed while sitting pt did state bilateral elbows did become painful (as pt hyper extends elbow with each motion) pt can reach up/out on frequent ability while sitting Walking: pt demo the ability to ambulate 6 min - heart rate 122 pt became read in face and states her body temperature is difficult for her to regulate pt demo a reciprocal gait pattern. pt can ambulate on occasional ability Standing: pt demo the ability to stand 10 min throughout assessment. pt demo ability to stand on frequent ability. Sitting: pt demo the ability to sit for 55 min with no apparent or expressed discomfort. pt demo the ability to sit on frequent ability Climbing Stairs: pt demo the ability to ascend and descent 10 steps with a reciprocal step pattern and use of bilateral handrails. Dynamic Occasional Lifting Capacity Floor Lift: pt on 20# lifting restriction Carrying: pt demo the ability to carry 10# 15 feet.
--- NOTE | 2024-10-01 10:23 | HP.OTFCE.D ---
FCE D/C Summary Discharge text: JORDYN BALL was seen for a one time visit for an FCE on 09/30/24 and is discharged.
== END 2024-09-30 19:00 | disposition home or self-care (01) ==
LOC: OT 09:03
PROVIDERS: PCP Family Medicine; Referring Provider Family Medicine; Visit Provider Family Medicine
DX: G90.1 Familial dysautonomia [Riley-Day] (principal)
CPT/HCPCS: 97750

== ENCOUNTER 2025-01-21 19:46 | Emergency (ER) | payer MEDICAID, SELFPAY ==
[2025-01-21 19:47] VITALS: BP 147/119; PULSE 100; RESP 20; TEMP 37; O2SAT 100; BMI 38.7
--- NOTE | 2025-01-21 20:11 | ED.VIS.LOWEX ---
HPI History of Present Illness HPI Narrative: Patient presents with right calf pain and swelling that became worse today. Patient went to urgent care and was referred to the emergency department for possible DVT. Patient describes her pain as stabbing. Patient states it is constant. Patient states it is worse with standing. Patient states it is better with rest. Patient admits to some subjective fevers and chills. Patient admits to some mild weakness to her right leg. Patient denies any trauma or injury. Chief Complaint: Lower Extremity Injury Informant: patient Onset/Context/Timing Onset: Today Context: Gradual Onset Timing: Continuous Quality of Pain: Stabbing Location: Right calf Worsened by: Standing Relieved by: Rest Associated Symptoms Associated Symptoms: Positive for Weakness; Negative for Parasthesia or Loss of Funtion [facility] History POTS (postural orthostatic tachycardia syndrome) Wears glasses ADHD Marijuana use Open wound Thyroid disease Anemia High cholesterol Easy bruising Migraine headache Injury of head and neck Passed out Blackout Syncope Dietary restriction Gastroparesis Gastric reflux Non-smoker Shortness of breath on exertion History of Holter monitoring Hypotension Kidney stone Anxiety Depression Asthma Hypertension Home Medications ?Medication ?Instructions ?Recorded ?Last Taken ?Type atorvastatin 10 mg tablet (Lipitor) 40 mg PO DAILY 04/30/19 Unknown History montelukast 10 mg tablet 10 mg PO DAILY 04/30/19 Unknown History (Singulair) omega-3 fatty acids-fish oil 684 1 ea PO DAILY 04/30/19 Unknown History mg-1,200 mg capsule,delayed release melatonin 3 mg capsule 15 mg PO QHS 07/10/19 Unknown History promethazine 25 mg tablet 25 mg PO Q6H PRN PRN Nausea #10 01/09/20 Unknown Rx tabs pantoprazole 40 mg tablet,delayed 40 mg PO DAILY 12/17/21 Unknown History release (Protonix) albuterol sulfate 90 mcg/actuation 1 inh inhalation Q6H PRN ASTHMA 12/16/22 Unknown History aerosol inhaler levothyroxine 50 mcg capsule 50 mcg PO DAILY 12/16/22 Unknown History ibuprofen 600 mg tablet 600 mg PO Q6H PRN PRN pain #20 06/30/23 Unknown Rx TABLETS apixaban 5 mg tablet (Eliquis) 5 mg PO BID #74 tabs 01/21/25 Unknown Rx bupropion HCl 300 mg 24 hr tablet, 300 mg PO DAILY 01/21/25 Unknown History extended release (Wellbutrin XL) cetirizine 10 mg tablet (24Hour 10 mg PO DAILY 01/21/25 Unknown History Allergy) diphenhydramine HCl 25 mg capsule 50 mg PO QHS 01/21/25 Unknown History (Banophen) fludrocortisone 0.1 mg tablet 0.1 mg PO DAILY 01/21/25 Unknown History hydroxyzine pamoate 25 mg capsule 25 mg PO TID PRN PRN anxiety 01/21/25 Unknown History lactase 3,000 unit tablet (Lactaid) 3,000 unit PO DAILY 01/21/25 Unknown History magnesium 250 mg tablet 250 mg PO DAILY 01/21/25 Unknown History norethindrone 1 mg-ethinyl 1 tab PO DAILY 01/21/25 Unknown History estradiol 35 mcg tablet (Alyacen) ondansetron HCl 4 mg tablet 4 mg PO Q6H 01/21/25 Unknown History propranolol 20 mg tablet 20 mg PO BID PRN PRN anxiety 01/21/25 Unknown History topiramate 25 mg tablet 25 mg PO QHS 01/21/25 Unknown History Allergy/AdvReac Type Severity Reaction Status Date / Time lisinopril Allergy Other Verified 01/21/25 19:47 midodrine Allergy Hives Verified 01/21/25 19:47 orange Allergy Angioedema Verified 01/21/25 19:47 Surgical History Hx of esophagogastroduodenoscopy History of myringotomy Hx of tonsillectomy Social History household members: family housing: house Smoking Status: Never smoker ROS ROS ED Constitutional Constitutional ED: Reports chills, fever(s) and subjective Eyes Eyes: Denies blurry vision or change in vision ENT ENT ED: Denies rhinorrhea or sore throat Cardiovascular Cardiovascular: Denies chest pain or palpitations Respiratory/Chest Respiratory/Chest: Denies cough or dyspnea Gastrointestinal Gastrointestinal: Denies nausea or vomiting Genitourinary Genitourinary ED: Denies dysuria or hematuria Musculoskeletal Musculoskeletal: Reports neck pain; Denies back pain Integumentary Reports rash; Denies abscess Neurologic Neurologic: Denies headache(s) or weakness Allergic/Immunologic Allergic/Immunologic ED: Denies mouth swelling or urticaria EXAM Physical Exam Const Vital Signs: 01/21/25 19:47 01/21/25 21:49 Temperature 98.6 F 98.3 F Temperature Source Oral Pulse Rate 100 98 Respiratory Rate 20 H 18 Blood Pressure 147/119 H 151/109 H Blood Pressure Mean 128 123 Pulse Ox 100 100 Oxygen Delivery Method Room Air Positive well nourished and well developed General Appearance ED: well developed and NAD HEENT Reports moist mucous membranes normocephalic and atraumatic Neck full ROM and supple Extremity Extremity Narrative: There is tenderness over the right calf. There is no erythema or warmth. There is some mild edema. There is no deformity noted. There is pain with dorsiflexion of the right ankle. There is good range of motion of the right lower leg. Pedal pulses are equal bilaterally. Sensation was intact to light touch in all digits. Capillary refill is less than 2 seconds in all digits. Strength is 5/5 bilaterally in the lower extremities. General Extremety ED: Yes edema General Extremity: edema Neuro oriented x3, CN's II-XII intact bilaterally, moves all extremities and no sensory deficits noted Sensorium / Orientation: alert Motor Exam: strength 5/5 throughout Psych mental status grossly normal MDM MDM MDM Narrative Medical decision making narrative: Differential diagnosis includes DVT, and calf strain. Venous duplex of the right lower extremity will be obtained to assess for DVT. Radiography Diagnostic Testing: Clinical Impression(s) from Imaging Studies Venous Duplex 01/21/25 20:28 IMPRESSION: Thrombus of the distal right superficial femoral vein. Reading Location: [facility] Venous duplex was obtained. There is a thrombus of the distal right superficial femoral vein. This was interpreted by the radiologist was also independently reviewed by myself. Treatment and Re-Evaluation Narrative: Patient was advised of her findings. Patient was given a dose of Eliquis here. Patient was given a prescription for Eliquis. Patient was instructed to follow-up with her primary care physician in 5 to 7 days. Patient was instructed to return if worse in any way. Patient and family understood and were agreeable with the plan. All questions were answered. Discharge Plan Triage Chief Complaint: Lower Extremity Injury ED Provider: Flash Vallecillo Dx/Rx/DC Orders Clinical Impression: Deep vein thrombosis (DVT) of femoral vein of right lower extremity, Hypertension Instructions: ED Deep Vein Thrombosis (DVT) Prescriptions: New Eliquis 5 mg tablet 5 mg PO BID Qty: 74 0RF Rx Instructions: 10 mg twice a day for the first week. Then 5 mg twice a day. No Action atorvastatin [Lipitor] 10 MG tablet 40 mg PO DAILY montelukast [Singulair] 10 MG tablet 10 mg PO DAILY omega-3 fatty acids-fish oil 1 EACH capsule,delayed release(DR/EC) 1 ea PO DAILY melatonin 3 MG capsule 15 mg PO QHS promethazine 25 MG tablet 25 mg PO Q6H PRN PRN (Reason: Nausea) Qty: 10 0RF pantoprazole [Protonix] 40 MG tablet,delayed release (DR/EC) 40 mg PO DAILY levothyroxine 50 mcg Capsule 50 mcg PO DAILY albuterol sulfate 90 mcg/actuation Hfa Aerosol Inhaler 1 inh INHALATION Q6H PRN (Reason: ASTHMA) ibuprofen 600 mg tablet 600 mg PO Q6H PRN PRN (Reason: pain) Qty: 20 0RF fludrocortisone 0.1 mg tablet 0.1 mg PO DAILY propranolol 20 mg tablet 20 mg PO BID PRN PRN (Reason: anxiety) Alyacen () 1-35 mg-mcg tablet 1 tab PO DAILY bupropion HCl [Wellbutrin XL] 300 mg tablet extended release 24 hr 300 mg PO DAILY topiramate 25 mg tablet 25 mg PO QHS cetirizine [24Hour Allergy] 10 mg tablet 10 mg PO DAILY diphenhydramine HCl [Banophen] 25 mg capsule 50 mg PO QHS ondansetron HCl 4 mg tablet 4 mg PO Q6H hydroxyzine pamoate 25 mg capsule 25 mg PO TID PRN PRN (Reason: anxiety) magnesium 250 mg tablet 250 mg PO DAILY lactase [Lactaid] 3,000 unit tablet 3,000 unit PO DAILY Primary Care Provider: Danya Mcnally Referrals: Danya Mcnally DO [Primary Care Provider] - 3-5 Days Print Language: French Disposition Disposition: Home, Self Care
--- NOTE | 2025-01-21 20:28 | US_ITS ---
EXAM: US Duplex Right Lower Extremity Veins CLINICAL INDICATION: TECHNIQUE: Real-time duplex ultrasound scan of the right lower extremity veins integrating B-mode two-dimensional vascular structure, Doppler spectral analysis, color flow Doppler imaging and compression. COMPARISON: No relevant prior studies available. FINDINGS: DEEP VEINS: Thrombus of the distal right superficial femoral vein. SUPERFICIAL VEINS: Unremarkable. No thrombus in the visualized great saphenous vein. SOFT TISSUES: No acute findings. No popliteal cyst. US/Venous Duplex Imag/Limited/Uni IMPRESSION: Thrombus of the distal right superficial femoral vein. Reading Location: [id number]
--- OUTSIDE RECORDS SUMMARY | 2025-01-21 21:12 | XMS RPT_ITS | CCD ---
Author Organization [facility] Care Team Providers Care Work Distributor Name Role Phone MADELINE MCNALLY DO Primary Care Physician [phone] Madeline Mcnally DO Primary Care Provider [phone] Madeline Mcnally DO Primary Care Provider [phone] MADELINE MCNALLY DO Primary Care Physician [phone] ULI DO MADELINE Attending Unavailable ULI DO, MADELINE Primary Care Unavailable MAHNAZ PIERCE MD Attending Unavail able ULI DO, MADELINE Primary Care Unavailable ULI DO, MADELINE Attending Unavailable ULI DO, MADELINE Primary Care Unavailable ULI DO, MADELINE Attending Unavailable ULI DO, MADELINE Primary Care Unavailable ULI DO, MADELINE Attending Unavailable ULI DO, MADELINE Primary Care Unavailable Uli DO, Madeline M Primary Care Provider NICHOLAS AUERSEAN Referring Unavailable ULI, MADELINE M Primary Care Unavailable SEFERINO MCNALLYISTIN M Primary Care Unavailable ULI, MADELINE M Primary Care Unavailable AUEMILY Attending Unavailable Uli, Madeline Primary Care Unavailable Leo Padilla Attending Unavailable Uli, Madeline Primary Care Unavailable Uli, Madeline Attending Unavailable Uli, Madeline Referring Unavailable Uli, Madeline Primary Care Unavailable Natali Alvarado Attending Unavailable Natali Alvarado Referring Unavailable ULI DO, MADELINE Attending Unavailable ULI DO, MADELINE Primary Care Unavailable ULI DO, MADELINE Attending Unavailable ULI DO, MADELINE Primary Care Unavailable ULI DO, MADELINE Attending Unavailable ULI DO, MADELINE Primary Care Unavailable ULI DO, MADELINE Primary Care Unavailable JORDON BARONE DO Attending Unavailable MADELINE MCNALLY DO Primary Care Unavailable MADELINE MCNALLY DO Attending Unavailable Allergies Allergy Classification Reported Allergen(s) Allergy Type Date of Onset Reaction(s) Facility (20 sources) Lisinopril; Translations: [lisinopril] Drug Allergy 1 Dry cough (finding), Other: See Comments [facility] (20 sources) Qulin Allergy to substance 9 Anaphylaxis (disorder) [facility] (8 sources) [place] - fruit Allergy to substance 2 Angioedema [facility] (20 sources) Midodrine; Translations: [midodrine] Drug Allergy 3 Weal (disorder) [facility] [place] (1 source) Lisinopril Drug Allergy 5 [facility] (1 source) Midodrine Drug Allergy 5 [facility] (1 source) [place] - fruit Drug allergy (disorder) 5 [facility] Medications Current Medications Medication Drug Class(es) Dates Sig (Normalized) Sig (Original) acetaminophen 325 mg / oxyCODONE hydrochloride 5 mg oral tablet (8 sources) Opioid Agonist Start: 06-30-2023 take 1 tablet by mouth every six hours as needed Oxycodone-Acetami nophen Active 1 TABLET PO EVERY 6 HOURS NEEDED 12 3 June 30, 2023 Start: 12-16-2022 take 1 tablet by jess th every eight hours Oxycodone-Acetaminophen (Percocet) 5-325 mg Tablet Active 1 TABLET PO Q8H December 16, 2022 12:00am [id number] 200 actuat albuterol 0.09 mg/actuat metered dose inhaler (20 sources) beta2-Adrenergic Agonist Start: 04-01-2023 take 2 puff(s) by inhalation every six hours as needed for wheezing ProAir HFA MDI (90 mcg/inh) inhalation aerosol 2 puff(s), Inhalation, q6hr, PRN as needed for wheezing, Formulary substitution bertram, # 1 EA, 5 Refill(s), Pharmacy: [facility], 166, cm, 03/28/23 15:03:00 EDT, Height, kg, 04/01/23 16:37:00 EDT, Dosing Weight Start Date: 04/01/23 Status: Ordered Quantity: 1.0 Unit: EA Repeat number: 6 Start: 12-16-2022 Albuterol Sulf ate Active 1 INH INHALATION EVERY 6 HOURS December 16, 2022 12:00am Start: 10-27-2021 End: 12-26-2021 take 1 dose by inhalation three times daily as needed albuterol 0.63 mg/3 mL (0.021%) inhalation solution Dose : 0.63 mg = 3 mL, Nebulized, TID, PRN wheezing, # 3 mL, 1 Refill(s), Pharmacy: [facility], Asthma, 167, cm, 10/27/21 8:45:00 EDT, Height, kg, 10/27/21 8:45:00 EDT, Dosing Weight Start Date: 10/27/21 Stop Date: 12/26/21 Status: Ordered Start: 03-20-2021 take 2 puff(s) by in halation every six hours as needed for wheezing ProAir HFA MDI (90 mcg/inh) inhalation aerosol 2 puff(s), Inhalation, q6hr, PRN as needed for wheezing, Formulary substitution okay, # 1 EA, 5 Refill(s), Pharmacy: [facility], 164, cm, 02/21/21 15:28:00 EDT, Height, kg, 02/21/21 15:28:00 EDT, Dosing Weight Start Date: 03/20/21 Status: Ordered Start: 03-20-2021 take 2 puff(s) by in halation every six hours as needed for wheezing ProAir HFA MDI (90 mcg/inh) inhalation aerosol 2 puff(s), Inhalation, q6hr, PRN as needed for wheezing, Formulary substitution okay, # 1 EA, 5 Refill(s), Pharmacy: [facility], 164, cm, 02/21/21 15:28:00 EDT, Height, kg, 02/21/21 15:28:00 EDT, Dosing Weight Start Date: 03/20/21 Status: Ordered Start: 06-18-2019 End: 12-15-2019 take 1 dose by inhalation three times daily albuterol 0.63 mg/3 mL (0.021%) inhalation solution Dose : 0.63 mg = 3 mL, Nebulized, TID, # 1 box(es), 5 Refill(s), Pharmacy: [facility], Asthma Start Date: 06/18/19 Stop Date: 12/15/19 Status: Ordered Alyacen 1/35 oral tablet (1 source) Start: 11-02-2020 take 1 tablet by mouth once daily Alyacen 1/35 oral tablet Dose = 1 tab(s), Oral, qDay, # 28 tab(s), 11 Refill(s), Pharmacy: [facility], Well female exam with routine gynecological exam Dysmenorrhea, 164, cm, 11/02/20 13:29:00 EDT, Height, kg, 11/02/20 13:29:00 EDT, Dosing Weight Start Date: 11/02/20 Status: Ordered amoxicillin 500 mg oral tablet (1 source) Penicillin-class Antibacterial Start: 11-30-2022 take 500 mg by mouth three times daily Amoxicillin Active 500 MG PO THREE TIMES A DAY November 30, 2022 12:00am atorvastatin 40 mg oral tablet (20 sources) HMG-CoA Reductase Inhibitor Start: 09-01-2024 atorvastatin 40 mg oral tablet Dose : 40 mg = 1 tab(s), Oral, qDay, Increased dose, # 90 tab(s), 1 Refill(s), Pharmacy: [facility], Hyperlipidemia, 167.5, cm, 09/01/24 10:59:00 EST, Height, kg, 09/01/24 10:59:00 EST, Dosing Weight Start Date: 09/01/24 Status: Ordered Quantity: 90.0 Unit: tab(s) Repeat number: 2 Indications: Hyperlipidemia, unspecified; Start: 03-31-2024 atorvastatin 4 0 mg oral tablet Dose : 40 mg = 1 tab(s), Oral, qDay, Increased dose, # 90 tab(s), 1 Refill(s), Pharmacy: [facility], Hyperlipidemia, 164, cm, 03/31/24 10:01:00 EDT, Height, kg, 03/31/24 10:01:00 EDT, Dosing Weight Start Date: 03/31/24 Status: Ordered Start: 08-21-2023 atorvastatin 2 0 mg oral tablet Dose : 20 mg = 1 tab(s), Oral, qDay, # 90 tab(s), 4 Refill(s), Pharmacy: [facility], Hyperlipidemia, 167, cm, 08/21/23 10:39:00 EST, Height, kg, 08/21/23 10:39:00 EST, Dosing Weight Start Date: 08/21/23 Status: Ordered Start: 11-20-2022 atorvastatin 2 0 mg oral tablet Dose : 20 mg = 1 tab(s), Oral, qDay, # 90 tab(s), 1 Refill(s), Pharmacy: [facility], Hyperlipidemia, 166, cm, 11/20/22 10:40:00 EDT, Height, kg, 11/20/22 10:40:00 EDT, Dosing Weight Start Date: 11/20/22 Status: Ordered Start: 05-22-2022 atorvastatin 2 0 mg oral tablet Dose : 20 mg = 1 tab(s), Oral, qDay, # 90 tab(s), 1 Refill(s), Pharmacy: [facility], Hyperlipidemia, 165.5, cm, 05/22/22 11:11:00 EDT, Height, kg, 05/22/22 11:11:00 EDT, Dosing Weight Start Date: 05/22/22 Status: Ordered Start: 11-28-2021 atorvastatin 2 0 mg oral tablet Dose : 20 mg = 1 tab(s), Oral, qDay, Increased dose, # 90 tab(s), 1 Refill(s), Pharmacy: [facility], Hyperlipidemia, 165, cm, 11/28/21 8:56:00 EDT, Height Start Date: 11/28/21 Status: Ordered Start: 08-06-2020 take 4 tablets by mo la[facility] once daily atorvastatin (LIPITOR) 10 mg tablet Take 40 mg by mouth once daily. 08/06/2020 Active Start: 08-06-2020 End: 02-25-2022 take 1 tablet by mouth once daily atorvastatin (LIPITOR) 10 mg tablet Take 10 mg by mouth once daily. 08/06/2020 Active Start: 04-30-2019 take 2 tablets by mo [facility] once daily Atorvastatin (Lipitor) 10 MG tablet Active 20 MG PO DAILY April 30, 2019 12:00am Comment on above: Take 10 mg by mouth once daily. benzonatate 100 mg oral capsule (1 source) Non-narcotic Antitussive Start: 4 End: 4 take 1 capsule by mouth once Tessalon Perles 100 mg oral capsule Dose : 100 mg = 1 cap(s), Oral, TID, may take up to 200mg per dose if needed, X 10 day(s), # 30 cap(s), 0 Refill(s), 09/02/23 10:02:00 AM EST, Pharmacy: [facility], Acute sinus infection, 167.5, cm, 08/23/23 9:32:00 EST, Height, kg, 08/23/23 9:32:00 EST, Dosing Weight Start Date: 08/23/23 Stop Date: 09/02/23 Status: Ordered 24 hr buPROPion hydrochloride 300 mg extended release oral tablet (20 sources) Aminoketone Start: 5 take 1 tablet by mouth every hour, then take 1 tablet by mouth once daily Wellbutrin XL 300 mg/24 hours oral tablet, extended release Dose : 300 mg = 1 tab(s), Oral, qDay, Okay to change to generic., # 90 tab(s), 4 Refill(s), Pharmacy: [facility], Recurrent major depression, 164, cm, 09/29/24 9:09:00 EST, Height, kg, 09/29/24 9:09:00 EST, Dosing Weight Start Date: 09/29/24 Status: Ordered Quantity: 90.0 Unit: tab(s) Repeat number: 5 Indications: Major depressive disorder, recurrent, unspecified; Start: 08-21-2023 [facility], then take 1 tablet by mouth once daily Wellbutrin XL 300 mg/24 hours oral tablet, extended release Dose : 300 mg = 1 tab(s), Oral, qDay, Okay to change to generic., # 90 tab(s), 4 Refill(s), Pharmacy: [facility], Recurrent major depression, 167, cm, 08/21/23 10:39:00 EST, Height, kg, 08/21/23 10:39:00 EST, Dosing Weight Start Date: 08/21/23 Status: Ordered Start: 03-28-2023 take 1 tablet by jess th every hour, then take 1 tablet by mouth once daily Wellbutrin XL 300 mg/24 hours oral tablet, extended release Dose : 300 mg = 1 tab(s), Oral, qDay, Okay to change to generic., # 90 tab(s), 1 Refill(s), Pharmacy: [facility], Recurrent major depression, 166, cm, 03/28/23 15:03:00 EDT, Height, kg, 03/28/23 15:03:00 EDT, Dosing Weight Start Date: 03/28/23 Status: Ordered Start: 11-20-2022 take 1 tablet by jess th every hour, then take 1 tablet by mouth once daily Wellbutrin XL 300 mg/24 hours oral tablet, extended release Dose : 300 mg = 1 tab(s), Oral, qDay, Okay to change to generic., # 90 tab(s), 1 Refill(s), Pharmacy: [facility], Anxiety Depression, 166, cm, 11/20/22 10:40:00 EDT, Height, kg, 11/20/22 10:40:00 EDT, Dosing Weight Start Date: 11/20/22 Status: Ordered Start: 05-22-2022 take 1 tablet by jess th every hour, then take 1 tablet by mouth once daily Wellbutrin XL 300 mg/24 hours oral tablet, extended release Dose : 300 mg = 1 tab(s), Oral, qDay, Okay to change to generic., # 90 tab(s), 1 Refill(s), Pharmacy: [facility], Anxiety Depression, 165.5, cm, 05/22/22 11:11:00 EDT, Height, kg, 05/22/22 11:11:00 EDT, Dosing Weight Start Date: 05/22/22 Status: Ordered Start: 11-28-2021 take 1 tablet by jess th every hour, then take 1 tablet by mouth once daily Wellbutrin XL 300 mg/24 hours oral tablet, extended release Dose : 300 mg = 1 tab(s), Oral, qDay, Okay to change to generic., # 90 tab(s), 1 Refill(s), Pharmacy: [facility], Anxiety Depression, 165, cm, 11/28/21 8:56:00 EDT, Height, kg, 11/28/21 8:56:00 EDT, Dosing Weight Start Date: 11/28/21 Status: Ordered Start: 08-29-2021 take 1 tablet by jess th every hour, then take 1 tablet by mouth once daily Wellbutrin XL 300 mg/24 hours oral tablet, extended release Dose : 300 mg = 1 tab(s), Oral, qDay, Okay to change to generic. Resending per pharmacy request, please cancel previous prescription, # 90 tab(s), 1 Refill(s), Pharmacy: [facility], Anxiety Depression, 166.5, cm, 08/29/21 9:03:00 ES... Start Date: 08/29/21 Status: Ordered Start: 07-17-2021 take 1 tablet by jess th every hour, then take 1 tablet by mouth once daily Wellbutrin XL 300 mg/24 hours oral tablet, extended release Dose : 300 mg = 1 tab(s), Oral, qDay, Increased dose, # 30 tab(s), 1 Refill(s), Pharmacy: [facility], Anxiety Depression, 163.6, cm, 05/23/21 15:38:00 EDT, Height, kg, 05/23/21 15:38:00 EDT, Dosing Weight Start Date: 07/17/21 Status: Ordered Start: 08-06-2020 take 1 tablet by jess th once daily buPROPion XL (WELLBUTRIN XL) 150 mg 24 hr tablet Take 300 mg by mouth once daily. 08/06/2020 Active Start: 08-06-2020 take 1 tablet by jess th once daily buPROPion XL (WELLBUTRIN XL) 150 mg 24 hr tablet Take 150 mg by mouth once daily. 08/06/2020 Active Start: 11-30-2019 take 75 mg by mouth once daily Bupropion Hcl Active 75 MG PO DAILY November 30, 2019 12:00am Comment on above: Take 150 mg by mouth once daily. Calcium Carbonate (1 source) Start: 09-29-19 Tums mg =, Chewed, qDay, as needed, 0 Refill(s) Start Date: 09/29/24 Status: Ordered Repeat number: 1 cetirizine hydrochloride 10 mg oral tablet (20 sources) Histamine-1 Receptor Antagonist Start: 05-27-20 Zyrtec 10 mg oral tablet Dose : 10 mg = 1 tab(s), Oral, qDay, 0 Refill(s) Start Date: 05/27/20 Status: Ordered Repeat number: 1 cyclobenzaprine hydrochloride 10 mg oral tablet (5 sources) Muscle Relaxant Start: 09-24-19 cyclobenzaprine 10 mg oral tablet Dose : 10 mg = 1 tab(s), Oral, TID, PRN for spasm, # 18 tab(s), 0 Refill(s), Pharmacy: [facility], Right shoulder pain, 167.5, cm, 09/24/23 9:28:00 EST, Height, kg, 09/24/23 9:28:00 EST, Dosing Weight Start Date: 09/24/23 Status: Ordered diphenhydrAMINE hydrochloride 25 mg oral capsule (20 sources) Histamine-1 Receptor Antagonist Start: 09-24-19 Benadryl 25 mg oral capsule See Instructions, 1 cap(s) mg Oral PRN, 0 Refill(s) Start Date: 09/24/21 Status: Ordered Repeat number: 1 {21 (Ethinyl Estradiol 0.035 MG / Norethindrone 1 MG Oral Tablet) / 7 (Inert Ingredients 1 MG Oral Tablet) } Pack [Dasetta ] (20 sources) Estrogen Start: 09-29-19 take 1 tablet by mouth once daily, then take 1 tablet by mouth once daily Dasetta oral tablet Dose = 1 tab(s), Oral, qDay, TAKE 1 TABLET BY MOUTH ONCE DAILY, # 90 tab(s), 3 Refill(s), Pharmacy: [facility], Dysmenorrhea Oral contraceptive pill surveillance, 164, cm, 09/29/24 9:09:00 EST, Height, kg, 09/29/24 9:09:00 EST, Dosing Weight Start Date: 09/29/24 Status: Ordered Quantity: 90.0 Unit: tab(s) Repeat number: 4 Indications: Encounter for surveillance of contraceptive pills; Dysmenorrhea, unspecified; Start: 05-26-2024 take 1 tablet by jess th once daily, then take 1 tablet by mouth once daily Dasetta 1/35 oral tablet Dose = 1 tab(s), Oral, qDay, TAKE 1 TABLET BY MOUTH ONCE DAILY, # 90 tab(s), 1 Refill(s), Pharmacy: [facility], 166.5, cm, 04/15/24 13:57:00 EDT, Height, kg, 04/15/24 13:57:00 EDT, Dosing Weight Start Date: 05/26/24 Status: Ordered Start: 06-24-2023 take 1 tablet by jess th once daily Alyacen 1/35 oral tablet Dose = 1 tab(s), Oral, qDay, # 90 tab(s), 3 Refill(s), Pharmacy: [facility], Well female exam with routine gynecological exam Dysmenorrhea, 162, cm, 06/12/23 10:43:00 EST, Height, kg, 06/12/23 10:43:00 EST, Dosing Weight Start Date: 06/24/23 Status: Ordered Start: 07-18-2022 take 1 tablet by jess th once daily Alyacen 1/35 oral tablet Dose = 1 tab(s), Oral, qDay, # 90 tab(s), 3 Refill(s), Pharmacy: [facility], Well female exam with routine gynecological exam Dysmenorrhea, 165, cm, 07/18/22 8:38:00 EST, Height, kg, 07/18/22 8:30:00 EST, Dosing Weight Start Date: 07/18/22 Status: Ordered Start: 08-29-2021 take 1 tablet by jess th once daily Alyacen 1/35 oral tablet Dose = 1 tab(s), Oral, qDay, # 28 tab(s), 11 Refill(s), Pharmacy: [facility], Well female exam with routine gynecological exam Dysmenorrhea, 166.5, cm, 08/29/21 9:03:00 EST, Height, kg, 08/29/21 9:03:00 EST, Dosing Weight Start Date: 08/29/21 Status: Ordered Start: 08-17-2020 take 1 tablet by jess th once daily ALYACEN 1/35, 28, 1-35 mg-mcg per tablet Take 1 tablet by mouth once daily. 08/17/2020 Active Start: 04-30-2019 take 1 tablet by jess th once daily Norethindrone-Ethin Estradiol Active 1 TABLET PO DAILY April 30, 2019 12:00am Comment on above: Take 1 tablet by jess th once daily. Fish Oils (17 sources) Start: 12-28-2021 [place]-3 Fish O il 1000 mg oral capsule Dose : 4,000 mg = 4 cap(s), Oral, qDay, 0 Refill(s) Start Date: 12/28/21 Status: Ordered Repeat number: 1 Start: 12-28-2021 [place]-3 Fish O il 1000 mg oral capsule Dose : 4,000 mg = 4 cap(s), Oral, qDay, 0 Refill(s) Start Date: 12/28/21 Status: Ordered fludrocortisone acetate 0.1 mg oral tablet (20 sources) Start: 12-14-2024 fludrocortison e 0.1 mg oral tablet Dose : 0.1 mg = 1 tab(s), Oral, Daily, # 90 tab(s), 3 Refill(s), Pharmacy: [facility], 162.6, cm, 12/14/24 10:17:00 EDT, Height, kg, 12/14/24 10:17:00 EDT, Dosing Weight Start Date: 12/14/24 Status: Ordered Quantity: 90.0 Unit: tab(s) Repeat number: 4 Start: 05-30-2022 End: 07-31-2023 fludrocortisone 0.1 mg oral tablet Dose : 0.1 mg = 1 tab(s), Oral, Daily, # 90 tab(s), 3 Refill(s), Pharmacy: [facility], 166.5, cm, 04/15/24 13:57:00 EDT, Height, kg, 04/15/24 13:57:00 EDT, Dosing Weight Start Date: 06/08/24 Status: Ordered 12 hr guaiFENesin 600 mg extended release oral tablet (1 source) Start: 08-23-2023 End: 08-30-2023 Mucinex 600 mg oral tablet, extended release Dose : 600 mg = 1 tab(s), Oral, q12h, X 7 day(s), # 14 tab(s), 0 Refill(s), 08/30/23 10:03:00 AM EST, Pharmacy: [facility], Acute sinus infection, 167.5, cm, 08/23/23 9:32:00 EST, Height, kg, 08/23/23 9:32:00 EST, Dosing Weight Start Date: 08/23/23 Stop Date: 08/30/23 Status: Ordered hydrocortisone 5 mg/ml topical cream (1 source) Corticosteroid Start: 04-10-2022 End: 04-24-2022 hydrocortisone 0.5% topical cream 1 application, Topical, BID, X 14 day(s), # 14 gram(s), 0 Refill(s), Pharmacy: [facility], 168.5, cm, 04/10/22 10:46:00 EDT, Height, 90.1 Start Date: 04/10/22 Stop Date: 04/24/22 Status: Ordered hydrOXYzine pamoate 50 mg oral capsule (20 sources) Antihistamine Start: 12-28-2021 Vistaril 50 mg oral capsule Dose : 50 mg = 1 cap(s), Oral, QID, PRN as needed for anxiety, # 40 cap(s), 0 Refill(s) Start Date: 12/28/21 Status: Ordered Quantity: 40.0 Unit: cap(s) Repeat number: 1 Start: 09-04-2020 take 1 capsule by [facility] three times daily as needed for anxiety hydrOXYzine pamoate (VISTARIL) 25 mg capsule Take 1 Capsule By Oral Route 3 time(s) per day As needed for anxiety or sleep 09/04/2020 Active Comment on above: Take 1 Capsule By Or al Route 3 time(s) per day As needed for anxiety or sleep ibuprofen 600 mg oral tablet (3 sources) Nonsteroidal Anti-inflammatory Drug Start: 06-30-20 take 600 mg by mouth every six hours as needed Ibuprofen Active 600 MG PO EVERY 6 HOURS NEEDED June 30, 2023 1:00am ketorolac tromethamine 10 mg oral tablet (2 sources) Nonsteroidal Anti-inflammatory Drug, Cyclooxygenase Inhibitor Start: 11-25-19 take 10 mg by mouth every six hours Ketorolac Active 10 MG PO EVERY 6 HOURS 05 06November 24, 2022 12:00am Lactaid (1 source) Start: 09-29-19 Lactaid as needed, 0 Refill(s) Start Date: 09/29/24 Status: Ordered Repeat number: 1 levothyroxine sodium 0.05 mg oral tablet (20 sources) l-Thyroxine Start: 09-01-19 Synthroid 50 mcg (0.05 mg) oral tablet Dose : 50 mcg = 1 tab(s), Oral, qDay, # 90 tab(s), 1 Refill(s), Pharmacy: [facility], Subclinical hypothyroidism, 167.5, cm, 09/01/24 10:59:00 EST, Height, kg, 09/01/24 10:59:00 EST, Dosing Weight Start Date: 09/01/24 Status: Ordered Quantity: 90.0 Unit: tab(s) Repeat number: 2 Indications: Hypothyroidism, unspecified; Start: 03-31-2024 Synthroid 50 m cg (0.05 mg) oral tablet Dose : 50 mcg = 1 tab(s), Oral, qDay, # 90 tab(s), 1 Refill(s), Pharmacy: [facility], Subclinical hypothyroidism, 164, cm, 03/31/24 10:01:00 EDT, Height, kg, 03/31/24 10:01:00 EDT, Dosing Weight Start Date: 03/31/24 Status: Ordered Start: 12-18-2023 Synthroid 50 m cg (0.05 mg) oral tablet Dose : 50 mcg = 1 tab(s), Oral, qDay, # 90 tab(s), 1 Refill(s), Pharmacy: [facility], Subclinical hypothyroidism, 167, cm, 12/18/23 11:02:00 EDT, Height, kg, 12/18/23 10:54:00 EDT, Dosing Weight Start Date: 12/18/23 Status: Ordered Start: 08-21-2023 Synthroid 50 m cg (0.05 mg) oral tablet Dose : 50 mcg = 1 tab(s), Oral, qDay, # 90 tab(s), 1 Refill(s), Pharmacy: [facility], Subclinical hypothyroidism, 167, cm, 08/21/23 10:39:00 EST, Height, kg, 08/21/23 10:39:00 EST, Dosing Weight Start Date: 08/21/23 Status: Ordered Start: 04-11-2023 Synthroid 50 m cg (0.05 mg) oral tablet Dose : 50 mcg = 1 tab(s), Oral, qDay, # 90 tab(s), 1 Refill(s), Pharmacy: [facility], Subclinical hypothyroidism, 166, cm, 03/28/23 15:03:00 EDT, Height, kg, 04/01/23 16:37:00 EDT, Dosing Weight Start Date: 04/11/23 Status: Ordered Start: 12-16-2022 take 50 ug by mouth once daily Levothyroxine Active 50 MCG PO DAILY December 16, 2022 12:00am Start: 11-20-2022 Synthroid 50 m cg (0.05 mg) oral tablet Dose : 50 mcg = 1 tab(s), Oral, qDay, # 90 tab(s), 1 Refill(s), Pharmacy: [facility], Subclinical hypothyroidism, 166, cm, 11/20/22 10:40:00 EDT, Height, kg, 11/20/22 10:40:00 EDT, Dosing Weight Start Date: 11/20/22 Status: Ordered Start: 05-22-2022 Synthroid 50 m cg (0.05 mg) oral tablet Dose : 50 mcg = 1 tab(s), Oral, qDay, # 90 tab(s), 1 Refill(s), Pharmacy: [facility], Subclinical hypothyroidism, 165.5, cm, 05/22/22 11:11:00 EDT, Height, kg, 05/22/22 11:11:00 EDT, Dosing Weight Start Date: 05/22/22 Status: Ordered Start: 11-28-2021 Synthroid 50 m cg (0.05 mg) oral tablet Dose : 50 mcg = 1 tab(s), Oral, qDay, # 90 tab(s), 1 Refill(s), Pharmacy: [facility], Subclinical hypothyroidism, 165, cm, 11/28/21 8:56:00 EDT, Height, kg, 11/28/21 8:56:00 EDT, Dosing Weight Start Date: 11/28/21 Status: Ordered Start: 05-29-2021 Synthroid 50 m cg (0.05 mg) oral tablet Dose : 50 mcg = 1 tab(s), Oral, qDay, Increased dose, # 30 tab(s), 5 Refill(s), Pharmacy: [facility], 163.6, cm, 05/23/21 15:38:00 EDT, Height, kg, 05/23/21 15:38:00 EDT, Dosing Weight Start Date: 05/29/21 Status: Ordered Start: 08-28-2020 take 1 tablet by jess th once daily levothyroxine (SYNTHROID) 50 mcg tablet Take 50 mcg by mouth once daily. 08/28/2020 Active Start: 08-28-2020 take 1 tablet by jess th once daily levothyroxine (SYNTHROID) 25 mcg tablet Take 25 mcg by mouth once daily. 08/28/2020 Active Comment on above: Take 25 mcg by mouth once daily. [place] (1 source) Start: 05-27-2020 lithium 300 mg oral tablet, extended release Dose : 600 mg = 2 tab(s), Oral, qHS, 0 Refill(s) Start Date: 05/27/20 Status: Ordered magnesium oxide 250 mg oral tablet (1 source) Start: 09-29-2024 Magnesium 250 mg tablet Dose : 250 mg = 1 tab(s), Oral, qDay, 0 Refill(s) Start Date: 09/29/24 Status: Ordered Repeat number: 1 melatonin 3 mg oral capsule (20 sources) Start: 07-10-2019 take 15 mg by mouth at bedtime Melatonin Active 15 MG PO AT BEDTIME July 10, 2019 1:00am Start: 07-10-2019 take 3 mg by mouth at bedtime Melatonin Active 3 MG PO AT BEDTIME July 10, 2019 1:00am Start: 05-03-2019 melatonin 10 m g oral capsule Dose : 15 mg = 1.5 cap(s), Oral, qHS, PRN for insomnia, # 90 cap(s), 0 Refill(s) Start Date: 05/03/19 Status: Ordered Quantity: 90.0 Unit: cap(s) Repeat number: 1 meloxicam 15 mg oral tablet (2 sources) Nonsteroidal Anti-inflammatory Drug Start: 08-29-2021 meloxicam 15 mg oral tablet Dose : 15 mg = 1 tab(s), Oral, qDay, # 30 tab(s), 0 Refill(s) Start Date: 08/29/21 Status: Ordered midodrine hydrochloride 2.5 mg oral tablet (1 source) alpha-Adrenergic Agonist Start: 04-15-2022 midodrine 2.5 mg oral tablet Dose : 1.25 mg = 0.5 tab(s), Oral, TID, # 45 tab(s), 11 Refill(s), Pharmacy: [facility], Dysautonomia, 165.1, cm, 04/15/22 11:06:00 EDT, Height Start Date: 04/15/22 Status: Ordered 30 actuat mometasone furoate 0.22 mg/actuat dry powder inhaler (20 sources) Corticosteroid Start: 10-19-2024 take 1 dose by inhalation once daily in the evening Asmanex Twisthaler 220 mcg/inh inhalation aerosol powder 30 Dose Dose = 1 puff(s), Inhalation, qPM, # 3 EA, 3 Refill(s), Pharmacy: [facility], Seasonal allergies Asthma, 164, cm, 10/19/24 8:31:00 EDT, Height, kg, 10/19/24 8:32:00 EDT, Dosing Weight Start Date: 10/19/24 Status: Ordered Quantity: 3.0 Unit: EA Repeat number: 4 Indications: Other seasonal allergic rhinitis; Unspecified asthma, uncomplicated; Start: 12-18-2023 take 1 dose by inhal ation once daily in the evening Asmanex Twisthaler 220 mcg/inh inhalation aerosol powder 30 Dose Dose = 1 puff(s), Inhalation, qPM, # 3 EA, 3 Refill(s), Pharmacy: [facility], Seasonal allergies, 167, cm, 12/18/23 11:02:00 EDT, Height, kg, 12/18/23 10:54:00 EDT, Dosing Weight Start Date: 12/18/23 Status: Ordered Start: 08-22-2023 take 1 puff(s) by mo uth once daily in the evening ASMANEX TWISTHALER 220 mcg/ actuation (30) inhaler INHALE 1 puff BY MOUTH EVERY evening. rinse mouth after using. 08/22/2023 Active Start: 08-21-2023 take 1 dose by inhal ation once daily in the evening Asmanex Twisthaler 220 mcg/inh inhalation aerosol powder 30 Dose Dose = 1 puff(s), Inhalation, qPM, # 3 EA, 1 Refill(s), Pharmacy: [facility], Seasonal allergies, 167, cm, 08/21/23 10:39:00 EST, Height, kg, 08/21/23 10:39:00 EST, Dosing Weight Start Date: 08/21/23 Status: Ordered Start: 04-01-2023 take 1 dose by inhal ation once daily in the evening Asmanex Twisthaler 220 mcg/inh inhalation aerosol powder 30 Dose Dose = 1 puff(s), Inhalation, qPM, # 1 EA, 0 Refill(s), Pharmacy: [facility], 166, cm, 03/28/23 15:03:00 EDT, Height, kg, 04/01/23 16:37:00 EDT, Dosing Weight Start Date: 04/01/23 Status: Ordered Start: 05-03-2019 take 1 dose by inhal ation once daily in the evening as needed Asmanex Twisthaler 220 mcg/inh inhalation aerosol powder 30 Dose Dose = 1 puff(s), Inhalation, qPM, PRN Allergy symptoms, 0 Refill(s) Start Date: 05/03/19 Status: Ordered Start: 05-03-2019 take 1 dose by inhal ation once daily in the evening as needed Asmanex Twisthaler 220 mcg/inh inhalation aerosol powder 30 Dose Dose = 1 puff(s), Inhalation, qPM, PRN Allergy symptoms, 0 Refill(s) Start Date: 05/03/19 Status: Ordered montelukast 10 mg oral tablet (20 sources) Leukotriene Receptor Antagonist Start: 09-29-2024 montelukast 10 mg or al tablet Dose : 10 mg = 1 tab(s), Oral, qDay, TAKE 1 TABLET EVERY DAY, # 90 tab(s), 3 Refill(s), Pharmacy: [facility], Asthma Seasonal allergies, 164, cm, 09/29/24 9:09:00 EST, Height, kg, 09/29/24 9:09:00 EST, Dosing Weight Start Date: 09/29/24 Status: Ordered Quantity: 90.0 Unit: tab(s) Repeat number: 4 Indications: Other seasonal allergic rhinitis; Unspecified asthma, uncomplicated; Start: 04-30-2019 take 1 tablet by jess th once daily montelukast (SINGULAIR) 10 mg tablet Take 10 mg by mouth once daily. 08/06/2020 Active Comment on above: Take 10 mg by mouth once daily. Multivitamin preparation (20 sources) Start: 05-03-2019 take 1 tablet by mouth once daily Multivitamin Dose = 1 tab(s), Oral, Daily, 0 Refill(s) Start Date: 05/03/19 Status: Ordered Repeat number: 1 Start: 05-03-2019 take 1 tablet by jess th once daily Multivitamin Dose = 1 tab(s), Oral, Daily, 0 Refill(s) Start Date: 05/03/19 Status: Ordered naproxen 250 mg oral tablet (1 source) Nonsteroidal Anti-inflammatory Drug Start: 08-17-2021 naproxen 250 mg o ral tablet Dose : 250 mg = 1 tab(s), Oral, BID, PRN as needed for pain, # 20 tab(s), 0 Refill(s), Neuralgia of twelfth thoracic nerve Start Date: 08/17/21 Status: Ordered [place]-3 Fatty Acids-Fish Oil (8 sources) Start: 04-30-2019 [place]-3 Fatty Acids-Fish Oil Active 1 EACH PO DAILY April 30, 2019 8:46pm Start: 04-30-2019 [place]-3 Fatty Acids-Fish Oil Active 1 EACH PO DAILY April 29, 2019 11:00pm Start: 04-30-2019 [place]-3 Fatty Acids-Fish Oil Active 1 EACH PO DAILY April 30, 2019 12:00am ondansetron 4 mg oral tablet (20 sources) Serotonin-3 Receptor Antagonist Start: 09-01-2024 Zofran 4 mg oral tablet Dose : 4 mg = 1 tab(s), Oral, q6hr, Take as needed, # 120 tab(s), 1 Refill(s), Pharmacy: [facility], Cyclic vomiting syndrome, 167.5, cm, 09/01/24 10:59:00 EST, Height, kg, 09/01/24 10:59:00 EST, Dosing Weight Start Date: 09/01/24 Status: Ordered Quantity: 120.0 Unit: tab(s) Repeat number: 2 Indications: Cyclical vomiting syndrome unrelated to migraine; Start: 08-03-2023 End: 12-28-2023 take 1 tablet by mouth every six hours as needed ondansetron (ZOFRAN) 4 mg tablet TAKE 1 TABLET BY MOUTH EVERY 6 HOURS NEEDED FOR 5 DAYS 08/03/2023 Active Start: 06-30-2023 take 4 mg by mouth e very eight hours as needed Ondansetron Active 4 MG PO EVERY 8 HOURS NEEDED June 30, 2023 1:00am Start: 11-20-2022 End: 11-30-2022 Zofran 4 mg oral tablet Dose : 4 mg = 1 tab(s), Oral, q6hr, Take as needed, # 20 tab(s), 1 Refill(s), Pharmacy: [facility], Cyclic vomiting syndrome, 166, cm, 11/20/22 10:40:00 EDT, Height, kg, 11/20/22 10:40:00 EDT, Dosing Weight Start Date: 11/20/22 Stop Date: 11/30/22 Status: Ordered Start: 09-28-2021 End: 09-28-2021 Zofran 4 mg oral tablet Dose : 4 mg = 1 tab(s), Oral, q6hr, Take as needed, # 10 tab(s), 1 Refill(s), Pharmacy: [facility], 165, cm, 09/28/21 14:30:00 EST, Height, kg, 09/28/21 14:30:00 EST, Dosing Weight Start Date: 09/28/21 Stop Date: 09/28/21 Status: Ordered oseltamivir 75 mg oral capsule (2 sources) Neuraminidase Inhibitor Start: 11-08-2021 End: 11-18-2021 Tamiflu 75 mg oral capsule Dose : 75 mg = 1 cap(s), Oral, qDay, X 10 day(s), # 10 cap(s), 0 Refill(s), 11/18/21 9:19:00 EDT, Pharmacy: [facility], 167, cm, 10/27/21 8:45:00 EDT, Height Start Date: 11/08/21 Stop Date: 11/18/21 Status: Ordered oxymetazoline hydrochloride 0.5 mg/ml nasal spray (1 source) Start: 08-23-2023 End: 08-26-2023 Afrin 0.05% nasal Mist Dose = 2 spray(s), Nasal, BID, MAX 3 days, do not use longer, X 3 day(s), # 15 mL, 0 Refill(s), Pharmacy: [facility], Acute sinus infection, 167.5, cm, 08/23/23 9:32:00 EST, Height, kg, 08/23/23 9:32:00 EST, Dosing Weight Start Date: 08/23/23 Stop Date: 08/26/23 Status: Ordered pantoprazole 40 mg delayed release oral tablet (20 sources) Proton Pump Inhibitor Start: 09-01-2024 pantopra zole 40 mg oral enteric coated tablet Dose : 40 mg = 1 tab(s), Oral, qDay, # 90 tab(s), 3 Refill(s), Pharmacy: [facility], GERD without esophagitis Gastroparesis, 167.5, cm, 09/01/24 10:59:00 EST, Height, kg, 09/01/24 10:59:00 EST, Dosing Weight Start Date: 09/01/24 Status: Ordered Quantity: 90.0 Unit: tab(s) Repeat number: 4 Indications: Gastroparesis; Gastro-esophageal reflux disease without esophagitis; Start: 01-09-2020 End: 12-17-2021 take 1 tablet by mouth once daily pantoprazole DR (PROTONIX) 40 mg tablet Take 40 mg by mouth once daily. 08/09/2020 Active Comment on above: Take 40 mg by mouth once daily. potassium chloride 20 meq oral tablet (5 sources) Start: 09-29-2024 End: 03-28-2025 Potassium Chloride (Eqv-K-Tab) 20 mEq oral tablet, extended release Dose : 20 mEq = 1 tab(s), Oral, qDay, Take with food., # 30 tab(s), 5 Refill(s), Pharmacy: [facility], Hypokalemia Hypertension, 164, cm, 09/29/24 9:09:00 EST, Height, kg, 09/29/24 9:09:00 EST, Dosing Weight Start Date: 09/29/24 Stop Date: 03/28/25 Status: Ordered Quantity: 30.0 Unit: tab(s) Repeat number: 6 Indications: Hypokalemia; Essential (primary) hypertension; Start: 03-25-2024 End: 06-29-2024 Potassium Chloride (Eqv-K-Ta b) 20 mEq oral tablet, extended release Dose : 20 mEq = 1 tab(s), Oral, qDay, Take with food., # 30 tab(s), 2 Refill(s), Pharmacy: [facility], Hypokalemia, 164, cm, 03/31/24 10:01:00 EDT, Height, kg, 03/31/24 10:01:00 EDT, Dosing Weight Start Date: 03/31/24 Stop Date: 06/29/24 Status: Ordered promethazine hydrochloride 25 mg oral tablet (20 sources) Phenothiazine Start: 08-06-2020 promethazine 2 5 mg oral tablet Dose : 25 mg = 1 tab(s), Oral, q8h, PRN, # 90 tab(s), 1 Refill(s), Pharmacy: [facility], 164, cm, 02/21/21 15:28:00 EDT, Height, kg, 02/21/21 15:28:00 EDT, Dosing Weight Start Date: 03/20/21 Status: Ordered Quantity: 90.0 Unit: tab(s) Repeat number: 2 Start: 01-09-2020 take 25 mg by mouth every six hours as needed Promethazine Active 25 MG PO EVERY 6 HOURS NEEDED January 09, 2020 12:00am Comment on above: 1 (one) Tablet by [facility] every eight hours, as needed Spacer, inhaler (5 sources) Start: 04-01-2023 Spacer, inhaler See Instructions, Use with Asmanex daily, # 1 EA, 0 Refill(s), Pharmacy: [facility], 166, cm, 03/28/23 15:03:00 EDT, Height, 91.4, kg, 04/01/23 16:37:00 EDT, Dosing Weight Start Date: 04/01/23 Status: Ordered topiramate 25 mg oral tablet (20 sources) Start: 10-09-2021 Topamax 25 mg oral tablet Dose : 25 mg = 1 tab(s), Oral, qHS, # 90 tab(s), 3 Refill(s), Pharmacy: [facility], Headache, 167.5, cm, 09/01/24 10:59:00 EST, Height, kg, 09/01/24 10:59:00 EST, Dosing Weight Start Date: 09/01/24 Status: Ordered Quantity: 90.0 Unit: tab(s) Repeat number: 4 Indications: Headache, unspecified; Completed/Discontinued Medications Medication Drug Class(es) Dates Sig (Normalized) Sig (Original) acetaminophen 325 mg / HYDROcodone bitartrate 5 mg oral tablet (8 sources) Opioid Agonist Start: 04-30-2019 End: 05-12-2019 take 1 tablet by mouth every six hours as needed Hydrocodone-Acetami nophen Discontinued 1 TABLET PO EVERY 6 HOURS NEEDED 10 April 30, 2019 May 12, 2019 12:07am fluticasone propionate 0.05 mg/actuat metered dose nasal spray (6 sources) Corticosteroid Start: 08-23-2023 End: 08-26-2024 take 1 spray(s) nasal route twice daily fluticasone (FLONASE) 50 mcg/actuation nasal spray Use 1 [place] in each nostril two times a day. 08/23/2023 08/26/2024 Discontinued (Course of therapy completed) Start: 08-23-2023 take 50 ug nasal rou te twice daily Flonase 50 mcg/inh nasal spray 50 mcg Dose = 1 spray(s), Nostril, each, BID, # 16 gram(s), 0 Refill(s), Pharmacy: [facility], Acute sinus infection, 167.5, cm, 08/23/23 9:32:00 EST, Height, kg, 08/23/23 9:32:00 EST, Dosing Weight Start Date: 08/23/23 Status: Ordered lamoTRIgine 200 mg oral tablet (20 sources) Mood Stabilizer, Anti-epileptic Agent Start: 09-04-2020 take 1 tablet by mouth once daily lamoTRIgine (LAMICTAL) 200 mg tablet Take 1 Tablet By Oral Route 1 time per day 0 09/04/2020 Active Start: 12-23-2019 lamoTRIgine 10 0 mg oral tablet Dose : 100 mg = 1 tab(s), Oral, qDay, increased in 2 weeks to 200mg, 0 Refill(s) Start Date: 12/23/19 Status: Ordered Start: 11-30-2019 Lamotrigine (L amictal) 25 MG tablet Active 200 MG PO DAILY November 30, 2019 12:00am Comment on above: Take 1 Tablet By Ora l Route 1 time per day lidocaine 0.05 mg/mg medicated patch (19 sources) Antiarrhythmic, Amide Local Anesthetic Start: 08-14-2021 End: 10-13-2021 lidocaine 5% topical patch Apply 2 patch(es), Transdermal, Daily, # 60 patch(es), 1 Refill(s), Pharmacy: [facility], 166.7, cm, 08/14/21 9:23:00 EST, Height, 88.5, kg, 08/14/21 9:23:00 EST, Dosing Weight Start Date: 08/14/21 Stop Date: 10/13/21 Status: Ordered lithium carbonate 300 mg extended release oral tablet (16 sources) Start: 09-04-2020 take 2 capsules by mouth once at bedtime lithium carbonate ER 300 mg CR tablet Take 2 Capsule By Oral Route Per at bedtime 0 09/04/2020 Active Start: 06-16-2020 take 300 mg by mouth once violeta y [place] Carbonate Active 300 MG PO DAILY June 16, 2020 1:00am Start: 05-27-2020 lithium 300 mg oral tablet, extended release Dose : 300 mg = 1 tab(s), Oral, qHS, 0 Refill(s) Start Date: 05/27/20 Status: Ordered Comment on above: Take 2 Capsule By Or al Route Per at bedtime losartan potassium 50 mg oral tablet (11 sources) Angiotensin 2 Receptor Lois Start: 09-04-2020 End: 06-11-2022 take 1 tablet by mouth once daily losartan (COZAAR) 50 mg tablet Take 50 mg by mouth once daily. 0 09/04/2020 Active Start: 04-30-2019 Losartan (Coza ar) 50 MG tablet Active 25 MG PO DAILY April 30, 2019 12:00am Comment on above: Take 50 mg by mouth once daily. lurasidone hydrochloride 60 mg oral tablet (18 sources) Atypical Antipsychotic Start: 11-30-19 take 1 tablet by mouth once daily at mealtime LATUDA 60 mg tab tablet Take 1 Tablet By Oral Route 1 time per day with food (at least 350 calories) 0 09/04/2020 Active Comment on above: Take 1 Tablet By Ora l Route 1 time per day with food (at least 350 calories) predniSONE 10 mg oral tablet (3 sources) Start: 08-17-19 take 3 tablets by mouth once daily predniSONE (DELTASONE) 10 mg tablet TAKE 3 TABLETS BY MOUTH EVERY DAY FOR 5 DAYS 0 08/17/2020 Active Comment on above: TAKE 3 TABLETS BY MO UTH EVERY DAY FOR 5 DAYS propranolol hydrochloride 20 mg oral tablet (20 sources) beta-Adrenergic Lois Start: 06-12-20 End: 06-06-20 take 0.5 tablet by mouth twice daily propranolol 20 mg oral tablet 0.5 tab, Oral, BID, # 90 tab(s), 3 Refill(s), Pharmacy: [facility], 162, cm, 06/12/23 10:43:00 EST, Height, kg, 06/12/23 10:43:00 EST, Dosing Weight Start Date: 06/12/23 Stop Date: 06/06/24 Status: Ordered Quantity: 90.0 Unit: tab(s) Repeat number: 4 Start: 08-11-2020 take 1 tablet by jess th twice daily propranolol (INDERAL) 20 mg tablet Take 1 Tablet By Oral Route 2 times per day 09/04/2020 Active Start: 08-11-2020 take 0.5 tablet by m outh twice daily propranolol 20 mg oral tablet 0.5 tab, Oral, BID, # 60 tab(s), 0 Refill(s) Start Date: 08/11/20 Status: Ordered Comment on above: Take 1 Tablet By Ora l Route 2 times per day Problems Active Problems Problem Classification Problem Date Documented Da te Episodic/Chronic Abdominal pain (15 sources) Epigastric pain; Translations: [Epigastric pain] 11-24-2022 Episodic Anxiety disorders (20 sources) Fear of flying; Translations: [Anxiety] Onset: 3 03-30-2020 Chronic Asthma (9 sources) Asthma; Translations: [Unspecified asthma, uncomplicated] 06-16-2020 Chronic Calculus of urinary tract (17 sources) Kidney stone; Translations: [Calculus of kidney] Onset: 4 11-24-2022 Episodic Cardiac dysrhythmias (20 sources) Palpitations; Translations: [Palpitations] 01-23-2021 Episodic Chronic obstructive pulmonary disease and bronchiectasis (20 sources) Bronchitis 10-27-2021 Episodic Coma; stupor; and brain damage (14 sources) Daytime somnolence 07-18-2022 Episodic Contraceptive and procreative management (3 sources) Oral contraception 09-29-2024 Episodic Delirium, dementia, and amnestic and other cognitive disorders (2 sources) Alzheimer's disease with late onset; Translations: [Alzheimer's disease with late onset] Onset: Chronic Disorders of lipid metabolism (20 sources) Hyperlipidemia; Translations: [Hyperlipidemia, unspecified] 06-18-2019 Chronic Disorders usually diagnosed in infancy, childhood, or adolescence (13 sources) Autistic disorder 09-17-2022 Chronic Esophageal disorders (20 sources) Gastroesophageal reflux disease without esophagitis 02-18-2020 Chronic Essential hypertension (20 sources) Hypertensive disorder; Translations: [Essential (primary) hypertension] Onset: 4 06-18-2019 Chronic Fluid and electrolyte disorders (5 sources) Hypokalemia 03-31-2024 Episodic Gastrointestinal hemorrhage (20 sources) Hematochezia; Translations: [Black feces] 01-23-2021 Episodic Genitourinary symptoms and ill-defined conditions (5 sources) Blood in urine; Translations: [Hematuria, unspecified] Onset: 5 06-30-2023 Episodic Headache; including migraine (20 sources) Cyclical vomiting syndrome 03-30-2020 Chronic Headache; including migraine (20 sources) Frequent headache; Translations: [Headache] 10-09-2021 Episodic Influenza (1 source) Influenza due to Influenza A virus 11-09-2024 Episodic Malaise and fatigue (8 sources) Asthenia; Translations: [Weakness] 08-11-2021 Episodic Menstrual disorders (14 sources) Dysmenorrhea 07-18-2022 Chronic Mood disorders (20 sources) Depressive disorder; Translations: [Bipolar disorder] 06-18-2019 Chronic Nausea and vomiting (20 sources) Nausea and vomiting; Translations: [Nausea, vomiting and diarrhea] 02-18-2020 Episodic Nervous system congenital anomalies (1 source) 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]; Translations: [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]] Onset: 5 Chronic Nutritional deficiencies (9 sources) Vitamin D deficiency; Translations: [Vitamin D deficiency, unspecified] Onset: 4 12-18-2023 Chronic Other aftercare (19 sources) Drug therapy status 12-21-2021 Episodic Other circulatory disease (19 sources) Low blood pressure 12-21-2021 Episodic Other circulatory disease (1 source) Elevated blood-pressure reading, without diagnosis of hypertension; Translations: [Elevated blood-pressure reading, without diagnosis of hypertension] Onset: 5 Episodic Other congenital anomalies (5 sources) Omega-Danlos syndrome; 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, unspecified] 08-26-2024 Chronic Other connective tissue disease (4 sources) Muscle pain 06-15-2024 Episodic Other disorders of stomach and duodenum (20 sources) Gastroparesis syndrome 03-30-2020 Episodic Other female genital disorders (2 sources) Other specified noninflammatory disorders of vagina; Translations: [Other specified noninflammatory disorders of vagina] Onset: 5 Episodic Other gastrointestinal disorders (14 sources) Diarrhea 08-17-2022 Episodic Other injuries and conditions due to external causes (20 sources) Concussion injury of body structure 06-28-2020 Episodic Other injuries and conditions due to external causes (20 sources) Motion sickness 05-23-2021 Episodic Other injuries and conditions due to external causes (8 sources) Closed injury of head; Translations: [Unspecified injury of head, initial encounter] 06-17-2020 Episodic Other lower respiratory disease (14 sources) Snoring 07-18-2022 Episodic Other nervous system disorders (1 source) Intercostal neuropathy; 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 Other nervous system disorders (16 sources) Disorder of autonomic nervous system; Translations: [Disorder of the autonomic nervous system, unspecified] 02-26-2022 Chronic Other non-traumatic joint disorders (8 sources) Hip pain; Translations: [Pain in left hip] 05-01-2019 Episodic Other non-traumatic joint disorders (5 sources) Multiple joint pain 04-15-2024 Episodic Other nutritional; endocrine; and metabolic disorders (20 sources) Body mass index 30+ - obesity 07-18-2022 Chronic Other nutritional; endocrine; and metabolic disorders (5 sources) Hypomagnesemia; Translations: [Hypomagnesemia] Onset: 4 06-15-2024 Chronic Other nutritional; endocrine; and metabolic disorders (1 source) Hypomagnesemia; Translations: [Hypomagnesemia] Onset: Chronic Other screening for suspected conditions (not mental disorders or infectious disease) (20 sources) [place] level high - toxic; Translations: [Other specified abnormal findings of blood chemistry] 07-18-2022 Episodic Other upper respiratory disease (20 sources) Seasonal allergy 10-14-2019 Chronic Other upper respiratory disease (5 sources) Bleeding from nose; Translations: [Epistaxis] 01-20-2023 Episodic Other upper respiratory infections (16 sources) Acute bacterial sinusitis; Translations: [Viral upper respiratory tract infection] 10-27-2021 Episodic Residual codes; unclassified (2 sources) Obstructive sleep apnea syndrome; Translations: [Obstructive sleep apnea (adult) (pediatric)] Chronic Residual codes; unclassified (1 source) Hypersomnia; Translations: [Hypersomnia, unspecified] 04-01-2023 Chronic Residual codes; unclassified (20 sources) Needs influenza immunization 05-23-2021 Episodic Residual codes; unclassified (20 sources) Requires diphtheria, tetanus and pertussis vaccination 11-02-2020 Episodic Residual codes; unclassified (20 sources) Insomnia 08-29-2021 Episodic Residual codes; unclassified (19 sources) Altered mental status 12-21-2021 Episodic Spondylosis; intervertebral disc disorders; other back problems (18 sources) Backache; Translations: [Dorsalgia, unspecified] 01-23-2021 Episodic Sprains and strains (4 sources) Sprain of knee; Translations: [Sprain of unspecified site of right knee, initial encounter] 06-07-2023 Episodic Suicide and intentional self-inflicted injury (8 sources) Suicidal thoughts; Translations: [Suicidal ideations] 08-06-2020 Episodic Syncope (20 sources) Syncope; Translations: [Syncope and collapse] 12-21-2021 Episodic Thyroid disorders (20 sources) Subclinical hypothyroidism 06-28-2020 Chronic Unclassified (20 sources) Cancer cervix screening status 11-02-2020 Unclassified (20 sources) Patient encounter status 11-02-2020 Unclassified (20 sources) Suspected disease caused by 2019-nCoV 08-11-2020 Unclassified (8 sources) No history of clinical finding in subject; Translations: [No significant past medical history] 04-30-2019 Unclassified (14 sources) Influenza vaccination status 07-18-2022 Unclassified (14 sources) Never used tobacco 07-18-2022 Unclassified (8 sources) Pain of right shoulder region 09-24-2023 Unclassified (1 source) Omega-Danlos syndrome, unspecified; 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] Onset: Past or Other Problems Problem Classification Problem Date Documented Date Episodic/Chronic Immunizations and screening for infectious disease (9 sources) Anti-nuclear factor positive; Translations: [Other specified abnormal immunological findings in serum] Onset: 06-15-2024 06-15-2024 Episodic Other connective tissue disease (2 sources) Myalgia, unspecified site; Translations: [Myalgia, unspecified site] Onset: 06-15-2024 Episodic Other diseases of kidney and ureters (1 source) Unspecified hydronephrosis; Translations: [Unspecified hydronephrosis] Onset: 10-27-2023 Episodic Other non-traumatic joint disorders (2 sources) Pain in unspecified joint; Translations: [Pain in unspecified joint] Onset: 06-15-2024 Episodic Results Test Name Value Interpretation Reference Range Facility BVPCRon 12-20-2024 Bacterial Vaginosis Negative Normal Negative [facility] Comment on above: Result Comment: Naila jung methodology performed on the [employer] System. Performed By: #### B VPCR, CVTV #### [place] [id number] CVTVon 12-20-2024 Janae glabrata Negative Normal Negative [facility] Comment on above: Performed By: #### B VPCR, CVTV #### [place] [id number] Janae Species Negative Normal Negative [facility] Comment on above: Result Comment: Mole cular methodology performed on the [employer] System. Performed By: #### B VPCR, CVTV #### [place] [id number] Trichomonas vaginalis Negative Normal Negative [facility] Comment on above: Performed By: #### B VPCR, CVTV #### [place] [id number] LABORATORYOrdered By: Evin Rodriguez on 12-17-2024 Bacterial Vaginosis Negative 2 (12/17/24 1:29 PM) Normal [facility] Comment on above: Interpretive Data: M olecular methodology performed on the [employer] System. Janae glabrata PCR Negative (12/17/24 1:29 PM) Normal AH Auto Viro/Sero SS Janae Species Negative 1 (12/17/24 1:29 PM) Normal [facility] Comment on above: Interpretive Data: M olecular methodology performed on the [employer] System. Trichomonas vaginalis Negative (12/17/24 1:29 PM) Normal AH Auto Viro/Sero SS No Panel Informationon 12-17 Culture Urine 50,000 - 100,000 cfu /ml Mixed growth consistent with normal urogenital edilberto. [facility] MALBRon 10-18-2024 U Ratio Alb/Cre 11 mg/G Normal 0-30 [facility] Comment on above: Result Comment: The units for the MALB test were changed, but the MALB ratio calculation was not initially adjusted to reflex this. The corrected ratio has now been recalculated using the appropriate conversion factor. BP Performed By: #### B VPCR, CVTV #### [place] [id number] General Activities Therapist Cytology Reporton 2024 General Activities Therapist Cytology Report . Pathology Reports Accession: Collected Date/Time: Received Date/Time: Pathologist: [id number] 09/29/2024 12:09 EST 09/29/2024 18:00 EST General Activities Therapist Cytology Report SPECIMEN: Specimen Description: Liquid Prep Reflex ASCUS+ Specimen: Cervical/Endocervical Screening or Diagnostic: Screening RELEVANT HISTORY: LMP: 09/15/24 SPECIMEN ADEQUACY: SATISFACTORY FOR EVALUATION Endocervical/Transformatio nal zone component present INTERPRETATION/RESULTS: NEGATIVE FOR INTRAEPITHELIAL LESION OR MALIGNANCY COMMENT: This Pap Test was successfully processed and evaluated with the assistance of the BrightkitPrep Test Imaging System. Verified by Pathology report verified by [facility] Screened by: IBRAHIMA Electronically signed by Marisol RUBIN (ASCP) Sign-Out Date: 10/07/2024 14:14 Performing Lab: [address] Pathology Dept Disclaimer The Pap test is a screening test for cervical cancer. As evidenced by published data, it is subject to both inherent false negative and false positive results. Your patient's results should be interpreted in context with pertinent clinical history including gynecological examination. Normal [facility] .Auto Diffon 10-06-2024 Basophil, Absolute 0.1 10 3/mcL Normal 0.0-0.2 [facility] Comment on above: Performed By: #### B VPCR, CVTV #### [place] [address] Basophils/100 WBC (Bld) 0.8 % Normal 0.0-2.5 [facility] Comment on above: Performed By: #### B VPCR, CVTV #### [place] [address] Eosinophil, Absolute 0.1 10 3/mcL Normal 0.0-0.7 [facility] Comment on above: Performed By: #### B VPCR, CVTV #### [place] [id number] Eosinophils/100 WBC (Bld) 1.8 % Normal 0.0-7.0 [facility] Comment on above: Performed By: #### B VPCR, CVTV #### [facility] [address] [place], [place] [address] Lymphocyte, Absolute 3.4 10 3/mcL Normal 0.9-4.3 [facility] Comment on above: Performed By: #### B VPCR, CVTV #### [facility] [address] [place] [address] Lymphocytes/100 WBC (Bld) 43.7 % High 20.0-40.0 [facility] Comment on above: Performed By: #### B VPCR, CVTV #### [address] [address] Monocyte, Absolute 0.6 10 3/mcL Normal 0.1-1.4 [facility] Comment on above: Performed By: #### B VPCR, CVTV #### [address] [address] Monocytes/100 WBC (Bld) 8.3 % Normal 2.0-13.0 [facility] Comment on above: Performed By: #### B VPCR, CVTV #### [address] [address] Neutrophils/100 WBC (Bld) 45.4 % Low 50.0-75.0 [facility] Comment on above: Performed By: #### B VPCR, CVTV #### [address] [address] .GFRon 10-06-2024 Estimated Glomerular Filtration Rate 116 ml/min/1.73sqm Normal [facility] Comment on above: Result Comment: Stages of Chronic Kidney Disease (CKD) Stage Description eGFR(ml/min/1.73 sq.m.) CKD 1 Normal kidney function or >=90 normal kindney function with possible kidney damage (ex. Proteinuria) CKD 2 Kidney damage with mild loss 60-89 of kidney function CKD 3a Mild to moderate loss of kidney 45-59 function CKD 3b Moderate to severe loss of 30-44 of kindey function CKD 4 Severe loss of kidney function 15-29 CKD 5 Kidney failure <15 Note: (go live 2024) the eGFR calculation was updated to the 2020 CKD-EPI creatinine equation without a race factor to calculate the eGFR results. Performed By: #### B VPCR, CVTV #### [address] [address] .NEUABSon 10-06-2024 Neutrophil, Absolute 3.5 10 3/mcL Normal 2.3-8.1 [facility] Comment on above: Performed By: #### B VPCR, CVTV #### [place] [id number] B12on 10-06-2024 Vitamin B12 Lvl >2000 High 211-911 [facility] Comment on above: Performed By: #### B VPCR, CVTV #### [place] [id number] CBCon 10-06-2024 Erythrocyte distribution width (RBC) [Ratio] 12.6 % Normal 11.5-15.5 [facility] Comment on above: Performed By: #### B VPCR, CVTV #### [place] [address] Hematocrit (Bld) [Volume fraction] 40.8 % Normal 34.0-46.0 [facility] Comment on above: Performed By: #### B VPCR, CVTV #### [place] [address] Hgb 13.7 G/dL Normal 12.0-16.0 [facility] Comment on above: Performed By: #### B VPCR, CVTV #### [place] [address] MCH (RBC) [Entitic mass] 31.3 pg Normal 27.0-33.0 [facility] Comment on above: Performed By: #### B VPCR, CVTV #### [place] [address] MCHC 33.6 G/dL Normal 32.0-36.0 [facility] Comment on above: Performed By: #### B VPCR, CVTV #### [place] [address] MCV (RBC) [Entitic vol] 93.4 fL Normal 80.0-99.0 [facility] Comment on above: Performed By: #### B VPCR, CVTV #### [address] [address] Platelet 220 10 3/mcL Normal 150-450 [facility] Comment on above: Performed By: #### B VPCR, CVTV #### [place] [id number] Platelet mean volume (Bld) [Entitic vol] 10.6 fL High 6.6-10.5 [facility] Comment on above: Performed By: #### B VPCR, CVTV #### [place] [id number] RBC 4.37 10 6/mcL Normal 4.10-5.30 [facility] Comment on above: Performed By: #### B VPCR, CVTV #### [place] [id number] WBC 7.7 10 3/mcL Normal 4.5-10.8 [facility] Comment on above: Performed By: #### B VPCR, CVTV #### [place] [id number] CMPon 10-06-2024 Albumin Level 3.1 G/dL Low 3.5-5.0 [facility] Comment on above: Performed By: #### B VPCR, CVTV #### [place] [id number] Albumin/Globulin [Mass ratio] 1.0 {ratio} Low 1.1-2.5 [facility] Comment on above: Performed By: #### B VPCR, CVTV #### [address] [address] ALP [Catalytic activity/Vol] 111 U/L Normal 40-135 [facility] Comment on above: Performed By: #### B VPCR, CVTV #### [place] [id number] ALT [Catalytic activity/Vol] 24 U/L Normal 14-59 [facility] Comment on above: Performed By: #### B VPCR, CVTV #### [address] [address] AST [Catalytic activity/Vol] 14 U/L Normal 10-40 [facility] Comment on above: Performed By: #### B VPCR, CVTV #### [address] [address] Bili Total 0.4 mg/dL Normal 0.2-1.0 [facility] Comment on above: Result Comment: Use of this assay is not recommended for patients undergoing treatment with eltrombopag due to the potential for falsely elevated results. Performed By: #### B VPCR, CVTV #### [place] [id number] BUN/Creatinine Ratio 18 ratio Normal 7-27 [facility] Comment on above: Performed By: #### B VPCR, CVTV #### [place] [id number] Calcium [Mass/Vol] 8.7 mg/dL Normal 8.4-10.2 [facility] Comment on above: Performed By: #### B VPCR, CVTV #### [address] [address] Chloride [Moles/Vol] 108 mmol/L High 98-107 [facility] Comment on above: Performed By: #### B VPCR, CVTV #### [place] [id number] CO2 [Moles/Vol] 25 mmol/L Normal 22-29 [facility] Comment on above: Performed By: #### B VPCR, CVTV #### [address] [address] Creatinine [Mass/Vol] 0.73 mg/dL Normal 0.55-1.[address] [facility] Comment on above: Result Comment: Test ing performed on Siemens Dimension EXL analyzer using a modified kinetic Ramoan technique. Performed By: #### B VPCR, CVTV #### [place] [id number] Electrolyte Balance 8.0 mEq/L Normal 4.0-15.0 [facility] Comment on above: Performed By: #### B VPCR, CVTV #### [address] [address] Globulin 3.2 G/dL Normal 1.5-3.8 [facility] Comment on above: Performed By: #### B VPCR, CVTV #### [address] [address] Glucose [Mass/Vol] 87 mg/dL Normal 70-105 [facility] Comment on above: Performed By: #### B VPCR, CVTV #### [address] [address] Potassium [Moles/Vol] 3.6 mmol/L Normal 3.5-5.[address] [facility] Comment on above: Performed By: #### B VPCR, CVTV #### [address] [address] Sodium [Moles/Vol] 141 mmol/L Normal 136-145 [facility] Comment on above: Performed By: #### B VPCR, CVTV #### [place] [address] Total Protein 6.3 G/dL Low 6.4-8.2 [facility] Comment on above: Performed By: #### B VPCR, CVTV #### [address] [address] Urea nitrogen [Mass/Vol] 13 mg/dL Normal 7-18 [facility] Comment on above: Performed By: #### B VPCR, CVTV #### [address] [address] LABORATORYOrdered By: SYSTEM SYSTEM on 10-06-2024 25-hydroxyvitamin D3 [Mass/Vol] 42.8 ng/mL Invalid Interpretation Code AO ADM SS Comment on above: Interpretive Data: I nterpretive Values Based on Total 25(OH) Vitamin D: Deficient <20 ng/mL Insufficient 20 - <30 ng/mL Sufficient 30-100 ng/mL Albumin BCP dye [Mass/Vol] 3.1 G/dL Low 3.5 - 5.0 G/dL AO ADM SS Albumin/Globulin [Mass ratio] 1.0 {ratio} Low 1.1 - 2.5 ratio AO ADM SS ALP [Catalytic activity/Vol] 111 U/L Normal 40 - 135 U/L AO ADM SS ALT With P-5'-P [Catalytic activity/Vol] 24 U/L Normal 14 - 59 U/L AO ADM SS AST With P-5'-P [Catalytic activity/Vol] 14 U/L Normal 10 - 40 U/L AO ADM SS Basophils (Bld) [#/Vol] 0.1 103/mcL Normal 0.0 - 0.2 10^3/mcL AO Workflow SS Basophils/100 WBC (Bld) 0.8 % Normal 0.0 - 2.5 % AO Workflow SS Bilirubin [Mass/Vol] 0.4 mg/dL Normal 0.2 - 1 .0 mg/dL AO ADM SS Comment on above: Interpretive Data: U se of this assay is not recommended for patients undergoing treatment with eltrombopag due to the potential for falsely elevated results. Calcium [Mass/Vol] 8.7 mg/dL Normal 8.4 - 10. 2 mg/dL AO ADM SS Chloride [Moles/Vol] 108 mmol/L High 98 - 10 7 mmol/L AO ADM SS CO2 [Moles/Vol] 25 mmol/L Normal 22 - 29 mmol/L AO ADM SS Cobalamin (Vitamin B12) [Mass/Vol] pg/mL High 211 - 911 pg/mL AH ADM SS Creatinine [Mass/Vol] 0.73 mg/dL Normal 0.55 - 1.02 mg/dL AO ADM SS Comment on above: Interpretive Data: T esting performed on Siemens Dimension EXL analyzer using a modified kinetic Ramona technique. Electrolyte Balance 8.0 mEq/L Normal 4.0 - 15 .0 mEq/L AO ADM SS Eosinophil, Absolute 0.1 103/mcL Normal 0.0 - 0 .7 10^3/mcL AO Workflow SS Eosinophils/100 WBC (Bld) 1.8 % Normal 0.0 - 7.0 % AO Workflow SS Erythrocyte distribution width (RBC) [Ratio] 12.6 % Normal 11.5 - 15.5 % AO Workflow SS Estimated Glomerular Filtration Rate 116 ml/min/1.73sqm Invalid Interpretation Code AO Chemistry S Comment on above: Interpretive Data: Stages of Chronic Kidney Disease (CKD) Stage Description eGFR(ml/min/1.73 sq.m.) CKD 1 Normal kidney function or >=90 normal kindney function with possible kidney damage (ex. Proteinuria) CKD 2 Kidney damage with mild loss 60-89 of kidney function CKD 3a Mild to moderate loss of kidney 45-59 function CKD 3b Moderate to severe loss of 30-44 of kindey function CKD 4 Severe loss of kidney function 15-29 CKD 5 Kidney failure <15 Note: (go live 2024) the eGFR calculation was updated to the 2020 CKD-EPI creatinine equation without a race factor to calculate the eGFR results. Globulin 3.2 G/dL Normal 1.5 - 3.8 G/dL AO ADM SS Glucose [Mass/Vol] 87 mg/dL Normal 70 - 105 mg/dL AO ADM SS Hematocrit (Bld) [Volume fraction] 40.8 % Normal 34.0 - 46.0 % AO Workflow SS Hemoglobin (Bld) [Mass/Vol] 13.7 G/dL Normal 12.0 - 16.0 G/dL AO Workflow SS Lymphocytes (Bld) [#/Vol] 3.4 103/mcL Normal 0.9 - 4.3 10^3/mcL AO Workflow SS Lymphocytes/100 WBC (Bld) 43.7 % High 20.0 - 40.0 % AO Workflow SS MCH (RBC) [Entitic mass] 31.3 pg Normal 27.0 - 33.0 pg AO Workflow SS MCHC 33.6 G/dL Normal 32.0 - 36.0 G/dL AO Workflow SS MCV (RBC) [Entitic vol] 93.4 fL Normal 80.0 - 99.0 fL AO Workflow SS Monocytes (Bld) [#/Vol] 0.6 103/mcL Normal 0.1 - 1.4 10^3/mcL AO Workflow SS Monocytes/100 WBC (Bld) 8.3 % Normal 2.0 - 13.0 % AO Workflow SS Neutrophils (Bld) [#/Vol] 3.5 103/mcL Normal 2.3 - 8.1 10^3/mcL AO Workflow SS Neutrophils/100 WBC (Bld) 45.4 % Low 50.0 - 75.0 % AO Workflow SS Platelet mean volume (Bld) [Entitic vol] 10.6 fL High 6.6 - 10.5 fL AO Workflow SS Platelets (Bld) [#/Vol] 220 103/mcL Normal 150 - 450 10^3/mcL AO Workflow SS Potassium [Moles/Vol] 3.6 mmol/L Normal 3.5 - 5.1 mmol/L AO ADM SS Protein [Mass/Vol] 6.3 G/dL Low 6.4 - 8.2 G/dL AO ADM SS RBC (Bld) [#/Vol] 4.37 106/mcL Normal 4.10 - 5.30 10^6/mcL AO Workflow SS Sodium [Moles/Vol] 141 mmol/L Normal 136 - 145 mmol/L AO ADM SS TSH Qn 3.11 m[IU]/L Normal 0.36 - 3.74 mcIU/mL AO ADM SS Urea nitrogen [Mass/Vol] 13 mg/dL Normal 7 - 18 mg/dL AO ADM SS Urea nitrogen/Creatinine [Mass ratio] 18 ratio Normal 7 - 27 ratio AO ADM SS WBC (Bld) [#/Vol] 7.7 103/mcL Normal 4.5 - 10.8 10^3/mcL AO Workflow SS LABORATORYOrdered By: Danae Hoang on 10-06-2024 Cholesterol [Mass/Vol] 193 mg/dL Normal 0 - 200 mg/dL AO ADM SS Comment on above: Interpretive Data: C holesterol Reference Interval: Less than 200 Desirable 200-239 Borderline high risk 240 and above High risk Cholesterol in HDL [Mass/Vol] 54 mg/dL Normal 40 - 60 mg/dL AO ADM SS Cholesterol in LDL [Mass/Vol] 121 mg/dL Normal 0 - 130 mg/dL AO ADM SS Triglyceride [Mass/Vol] 92 mg/dL Normal 0 - 150 mg/dL AO ADM SS Comment on above: Interpretive Data: T riglyceride Reference Interval: Less than 150 Normal 150-199 Borderline high risk 200-499 High risk 500 or higher Very high risk LIPIDon 10-06-2024 Cholesterol [Mass/Vol] 193 mg/dL Normal 0-200 [facility] Comment on above: Result Comment: Chol esterol Reference Interval: Less than 200 Desirable 200-239 Borderline high risk 240 and above High risk Performed By: #### B VPCR, CVTV #### [facility] [address] [place] [address] Cholesterol in HDL [Mass/Vol] 54 mg/dL Normal 40-60 [facility] Comment on above: Performed By: #### B VPCR, CVTV #### [address] [address] Cholesterol in LDL [Mass/Vol] 121 mg/dL Normal 0-130 [facility] Comment on above: Performed By: #### B VPCR, CVTV #### [address] [address] Triglyceride [Mass/Vol] 92 mg/dL Normal 0-150 [facility] Comment on above: Result Comment: Trig lyceride Reference Interval: Less than 150 Normal 150-199 Borderline high risk 200-499 High risk 500 or higher Very high risk Performed By: #### B VPCR, CVTV #### [place] [address] TSHRon 10-06-2024 TSH Qn 3.11 m[IU]/L Normal 0.36-3.74 [facility] Comment on above: Performed By: #### B VPCR, CVTV #### [address] [address] VIDHon 10-06-2024 Vit. D 25-Hydroxy 42.8 ng/mL Normal [facility] Comment on above: Result Comment: Inte rpretive Values Based on Total 25(OH) Vitamin D: Deficient <20 ng/mL Insufficient 20 - <30 ng/mL Sufficient 30-100 ng/mL Performed By: #### B VPCR, CVTV #### [place] [address] OT FCE D/C [facility] 025 OT FCE D/C Summary [facility] [address] [place] [address] / REHABILITATION SERVICES DISCHARGE SUMMARY MR#: [id number] Acct: [id number] Name: ROSE MARY CHRISTINE Rep #: [id number] : 1995 29 From: Shelby PILLAI/L, CHT Referring Dr.: Dr. Madeline Mcnally, DO Status: R EG RCR Eval Date: Discharge Date: FCE D/C Summary Discharge text: ROSE MARY CHRISTINE was seen for a one time visit for an FCE on 09/30/24 and is discharged. 10/01/24 1024 CC: Dr. Madeline Mcnally, DO MK Signed Normal [facility] OT Functional Capacity Evalo n 10-01-2024 OT Functional Capacity Eval [facility] Occupational Therapy [facility] [address] [place] [address] / REHABILITATION SERVICES INITIAL EVALUATION MR#: [id number] Acct: [id number] Name: ROSE MARY CHRISTINE Rep #: [id number] : 1995 29 From: Shelby Martin OTR/L, CHT Referring Dr.: Dr. Madeline Mcnally, DO Status: R EG RCR Insurance: [facility] Eval Date: SELF PAY INSURANCE Task Lift Floor (Occasional 1-33% of Day): 20# Floor (Frequent 34-66% of Day): 10# Floor (Constant 67-100% of Day): NA Floor PDL: Light Knee (Occasional 1-33% of Day): 20# Knee (Frequent 34-66% of Day): 10# Knee (Constant 67-100% of Day): NA Knee PDL: Light Waist (Occasional 1-33% of Day): 20# Waist (Frequent 34-66% of Day): 10# Waist (Constant 67-100% of Day): NA Waist PDL: Light Shoulder (Occasional 1-33% of Day): 20# Shoulder (Frequent 34-66% of Day): 10# Shoulder (Constant 67-100% of Day): NA Shoulder PDL: Light Overhead (Occasional 1-33% of Day): 10# Overhead (Frequent 34-66% of Day): NA Overhead (Constant 67-100% of Day): NA Overhead PDL: Sedentary Comments: Light Physical demand level for lifting at Floor, knee, waist and shoulder level lifts Sedentary Physical demand level for overhead lift Work Activity/Posture Bending: No Ablility (0% of day) Comments: cardiology restrictions to not bend past waist Squatting: Occasional Ability (1-33% of day) Comments: with external support LOW occasional ability Kneeling: Occasional Ability (1-33% of day) Comments: with external support LOW occasional ability Reaching out: Frequent Ability (34-66% of day) Comments: while sitting Reaching up: Frequent Ability (34-66% of day) Comments: while sitting Sitting: Frequent Ability (34-66% of day) Walking: Occasional Ability (1-33% of day) Standing: Frequent Ability (34-66% of day) Reference Reference: Duration Sedentary Sedentary Light Light Light Medium Medium Medium Heavy Very Heavy Heavy Occasional (0-33% of day) Frequent (34-66% of day) Constant (67-100% of day) 10 # Negligible Negligible 15 # 8 # Negligible 20 # 10# Negli. 35 # 18 # 7 # 50 # 25 # 10 # 75 # 100 # >100 # 38 # 50 # >50 # 15 # 20 # >20 # Patient Information Height: 1.63 m Weight:: 96.615 kg Hand Dominance: Right Medical History Medical History Including Restrictions: Pt states she was in good health until 2021. Pt states she had issues with passing out at work. After further testing her Certified Registered Nurse Practitioner dx with Dysautonomia. Pt states this is controlled with medication. pt states she last saw her express manager December of 2023. pt states she was dx with Omega-Danlos Syndrome Aug. by [facility] This is just being monitored for now. pt states she will wear knee braces (started wearing 2023) and wrist braces since Aug 2024. pt states when her heart rate gets high her hands will start to shake. pt states she cannot regulate her temperature. Was advised to get genetic testing pt states she does not exercise on a regular basis due to her heart condition. not quite sure what her body is capable of Diagnoses Diagnoses: dysautonomia ( dx February 2022) Controlled with Medication. Omega-Danlos syndrome ( 2024) Asthma (controlled with inhaler) Depression ( Meds and counselors every other week) Anxiety (medication) High cholesterol (medication controlled) Paralyzed stomach dx 2019 takes anti-nausea pills Symptoms Symptoms: Joint stiffness (Knees/Hips/Fingers) Joint pain (Knees/Hips/Fingers Dizziness passing out (last time in 6-7 months ago) Brain Fog Confusion with flare-up will slur words Pain Pain: pt states current pain 5-01/11 pt states she did not take any pain medication prior to her apt. pt states she tries to hold off on taking pain meds (Tylenol) until later in the evening. Work History Work History: Pt states she has worked at [employer] since 2020. Pt states she works a number of different areas and some area. pt states is on a 20# lifting restriction per her Certified Registered Nurse Practitioner (2021). pt states [employer] does do a good job at keeping her on those lifting restrictions. pt states she works 10 ours a week. pt does not drive and her dad drives her to and from work. Behavioral Behavioral: pt cooperative throughout the assessment. ADLS ADLS: Pt states she lives with her parents in a two-story home. pt states 5 entry steps with a railing. pt states her bedroom is on main floor of split-level home. Pt states bathroom is across the breen with a walk-in shower. pt states she is IND with bathing and dressing. pt does do the laundry and washing dishes. Pt does not drive. pt states she feels she can mtg in her home- Pt states her dad is a disabled (Dad is home to assist her as needed) States her mom works in healthcare and is out of the (more content not included)... Normal [facility] LABORATORYOrdered By: Marley Carter on 09-29-2024 Albumin DL <= 20 mg/L (U) [Mass/Vol] 11.1 mg/L Invalid Interpretation Code AO ADM SS Albumin/Creatinine DL <= 20 mg/L (U) [Mass ratio] 0 mcg/mg Normal 0 - 30 mcg/mg AO Chemistry S Creatinine (U) [Mass/Vol] 103.1 mg/dL Invalid Interpretation Code AO ADM SS MALBRon 09-29-2024 U Creatinine 103.1 mg/dL Normal [facility] Comment on above: Performed By: #### B VPCR, CVTV #### [facility] [address] [place] [address] U Microalb 11.1 mg/L Normal [facility] Comment on above: Performed By: #### B VPCR, CVTV #### [facility] [address] [place] [address] 12 Lead EKGon 09-11-2024 12 Lead EKG [facility] [address] [place] [address] 12 Lead EKG 09/11/24 0053 MR#: [id number] Acct: [id number] Name: ROSE MARY CHRISTINE Rep #: [id number] : 1995 29 From: Wes Azar MD Attending Dr: Status: DEP ER Ordering Dr: Leo Padilla DO Date: 09/11/24 Location: ED Sex: F C Admitted: Test Reason : HTN Blood Pressure : */* mmHG Vent. Rate : 95 BPM Atrial Rate : 95 BPM P-R Int : 114 ms QRS Dur : 90 ms QT Int : 378 ms P-R-T Axes : 33 17 9 degrees QTcB Int : 475 ms Normal sinus rhythm Minimal voltage criteria for LVH, may be normal variant ( R in aVL ) Nonspecific ST abnormality Abnormal ECG Confirmed by ANOOP WATT, WES ([id number]), editor greeting card MARY BARNES ([id number]) on 09/13/2024 7:29:21 AM Referred By: Confirmed By: WES AZAR MD 09/13/24 0729 Date Wes Azar MD CC: Dr. Madeline Mcnally DO; Leo Padilla DO Signed Normal [facility] BNP,B-Type NATRIURETIC PEPTI Timoteo 09-11-2024 Natriuretic peptide B (Bld) [Mass/Vol] 4.6 pg/mL Normal 0-100 [facility] Comment on above: Performed By: #### L 100.0100, L500.2500, L501.5200, L503.6620 #### [facility] Laboratory [address] [place], [address] Basic Metabolic Profile (BMP )on 09-11-2024 BUN/CRE 19.5 RATIO Normal 10-20 [facility] Comment on above: Performed By: #### L 100.0100, L500.2500, L501.5200, L503.6620 #### [facility] [address] [place], [address] CA,Total 8.6 mg/dL Normal 8.5-10.1 [facility] Comment on above: Performed By: #### L 100.0100, L500.2500, L501.5200, L503.6620 #### [facility] [address] [place], [address] Chloride [Moles/Vol] 112 mmol/L High 98-107 [facility] Comment on above: Performed By: #### L 100.0100, L500.2500, L501.5200, L503.6620 #### [facility] [address] [place], [address] CO2 [Moles/Vol] 21.0 mmol/L Normal 21.0-32.0 [facility] Comment on above: Performed By: #### L 100.0100, L500.2500, L501.5200, L503.6620 #### [facility] [address] [place], [address] Creatinine [Mass/Vol] 0.67 mg/dL Normal 0.55-1.02 [facility] Comment on above: Result Comment: The validity of the calculated GFR GFRAA in patients over 70 years has not been determined. Clinical correlation is essential. Performed By: #### L 100.0100, L500.2500, L501.5200, L503.6620 #### [facility] [address] [place], [address] ECRCL 145.58 ml/min Normal [facility] Comment on above: Performed By: #### L 100.0100, L500.2500, L501.5200, L503.6620 #### [facility] [address] [place], [address] EST GFR - AA 136 mL/min Normal >60 [facility] Comment on above: Result Comment: Afri can Palauan GFR Calc Performed By: #### L 100.0100, L500.2500, L501.5200, L503.6620 #### [facility] [address] [place], [address] GAP 7 Normal 5-15 [facility] Comment on above: Performed By: #### L 100.0100, L500.2500, L501.5200, L503.6620 #### [facility] [address] [place], [address] GFR/1.73 sq M.predicted among non-blacks MDRD (S/P/Bld) [Vol rate/Area] 112 mL/min/{1.73_m2} Normal >60 [facility] Comment on above: Result Comment: Non- GFR Calc Performed By: #### L 100.0100, L500.2500, L501.5200, L503.6620 #### [facility] [address] [place], [address] Glucose [Mass/Vol] 140 mg/dL High 74-106 [facility] Comment on above: Result Comment: Fast ing Glucose result greater than or equal to 126 mg/dL suggests DIABETES MELLITUS per A.D.A. criteria. Performed By: #### L 100.0100, L500.2500, L501.5200, L503.6620 #### [facility] [address] [place], [address] Potassium [Moles/Vol] 3.5 mmol/L Normal 3.5-5.1 [facility] Comment on above: Performed By: #### L 100.0100, L500.2500, L501.5200, L503.6620 #### [facility] [address] [place], [address] Sodium [Moles/Vol] 140 mmol/L Normal 136-145 [facility] Comment on above: Performed By: #### L 100.0100, L500.2500, L501.5200, L503.6620 #### [facility] [address] [place], [address] Urea nitrogen [Mass/Vol] 13 mg/dL Normal 7-18 [facility] Comment on above: Performed By: #### L 100.0100, L500.2500, L501.5200, L503.6620 #### [facility] [address] [place], [address] CBC W/Diff, Automatedon 02-0 8-2024 Absolute Lymph 3.73 X10 3/uL Normal 0.83-4.51 [facility] Comment on above: Performed By: #### L 100.0100, L500.2500, L501.5200, L503.6620 #### [facility] [address] [place], [address] Absolute Neut 2.8 X10 3/uL Normal 2.0-7.7 [facility] Comment on above: Performed By: #### L 100.0100, L500.2500, L501.5200, L503.6620 #### [facility] [address] [place], [address] Basophils/100 WBC (Bld) 0.9 % Normal 0-1 [facility] Comment on above: Performed By: #### L 100.0100, L500.2500, L501.5200, L503.6620 #### [facility] [address] [place], [address] Eosinophils/100 WBC (Bld) 1.3 % Normal 0-5 [facility] Comment on above: Performed By: #### L 100.0100, L500.2500, L501.5200, L503.6620 #### [facility] [address] [place], [address] Erythrocyte distribution width (RBC) [Ratio] 12.1 % Normal 11.6-14.6 [facility] Comment on above: Performed By: #### L 100.0100, L500.2500, L501.5200, L503.6620 #### [facility] [address] [place], [address] Hematocrit (Bld) [Volume fraction] 39.2 % Normal 37-47 [facility] Comment on above: Performed By: #### L 100.0100, L500.2500, L501.5200, L503.6620 #### [facility] [address] [place], [address] Hemoglobin (Bld) [Mass/Vol] 13.3 g/dL Normal 12.0-15.0 [facility] Comment on above: Performed By: #### L 100.0100, L500.2500, L501.5200, L503.6620 #### [facility] [address] [place], [address] IG% 0.100 Normal 0.0-0.9 [facility] Comment on above: Result Comment: IG% - Immature Granulocytes (promyelocytes, myelocytes and metamyelocytes) > 1% indicates that a LEFT SHIFT is Present. Performed By: #### L 100.0100, L500.2500, L501.5200, L503.6620 #### [facility] [address] [place], [address] Lymphocytes/100 WBC (Bld) 49.8 % High 19-41 [facility] Comment on above: Performed By: #### L 100.0100, L500.2500, L501.5200, L503.6620 #### [facility] [address] [place], [address] MCH (RBC) [Entitic mass] 31.7 pg Normal 27.0-32.0 [facility] Comment on above: Performed By: #### L 100.0100, L500.2500, L501.5200, L503.6620 #### [facility] [address] [place], [address] MCHC (RBC) [Mass/Vol] 33.9 g/dL Normal 32-36 [facility] Comment on above: Performed By: #### L 100.0100, L500.2500, L501.5200, L503.6620 #### [facility] [address] [place], [address] MCV (RBC) [Entitic vol] 93.6 fL Normal 81-99 [facility] Comment on above: Performed By: #### L 100.0100, L500.2500, L501.5200, L503.6620 #### [facility] [address] [place], [address] Monocytes/100 WBC (Bld) 10.5 % High 0-10 [facility] Comment on above: Performed By: #### L 100.0100, L500.2500, L501.5200, L503.6620 #### [facility] [address] [place], [address] Neutrophils/100 WBC (Bld) 37.4 % Low 47-70 [facility] Comment on above: Performed By: #### L 100.0100, L500.2500, L501.5200, L503.6620 #### [facility] [address] [place], [address] Nucleated RBC (Bld) [#/Vol] 0 10*3/uL Normal 0-5 [facility] Comment on above: Performed By: #### L 100.0100, L500.2500, L501.5200, L503.6620 #### [facility] [address] [place], [address] Platelet mean volume (Bld) [Entitic vol] 11.7 fL Normal 6.2-12.0 [facility] Comment on above: Performed By: #### L 100.0100, L500.2500, L501.5200, L503.6620 #### [facility] [address] [place], [address] Platelets (Bld) [#/Vol] 259 10*3/uL Normal 150-450 [facility] Comment on above: Performed By: #### L 100.0100, L500.2500, L501.5200, L503.6620 #### [facility] [address] [place], [address] RBC (Bld) [#/Vol] 4.19 10*6/uL Low 4.2-5.4 [facility] Comment on above: Performed By: #### L 100.0100, L500.2500, L501.5200, L503.6620 #### [facility] [address] [place], [address] RDW SD 42.0 fl Normal 35.1-43.9 [facility] Comment on above: Performed By: #### L 100.0100, L500.2500, L501.5200, L503.6620 #### [facility] [address] [place], [address] WBC (Bld) [#/Vol] 7.5 10*3/uL Normal 4.4-11.0 [facility] Comment on above: Performed By: #### L 100.0100, L500.2500, L501.5200, L503.6620 #### [facility] [address] [place], [address] Emergency Department Summary on 09-11-2024 Emergency Department Summary [facility] Medical Records Department [address] [place] [address] Emergency Department Summary 09/11/24 MR#: [id number] Acct: [id number] Name: ROSE MARY CHRISTINE Rep #: [id number] : 1995 29 From: Leo Padilla DO PCP: Dr. Madeline Mcnally DO Status:DEP ER Location: ED HPI History of Present Illness Chief Complaint: Hypertension Informant: patient and parent Narrative Narrative: Patient is a 29-year-old female with past medical history of dysautonomia and Omega-Danlos syndrome. She states secondary to the dysautonomia she typically runs low on her blood pressure even to the point where she is prescribed Florinef. She states that today she has been checking it and it has been running high. She states that there is no excessive caffeine use or illicit drug use or illicit stimulant use. She reports that she has noticed her legs have been more swollen over the last few days as well. Therefore this time she is unsure if this is all due to her elevated blood pressure or her history of dysautonomia and secondary to this comes in for evaluation She denies headache change in vision chest pain or shortness of breath associated with this [facility] Medical History POTS (postural orthostatic tachycardia syndrome) Wears glasses ADHD Marijuana use Open wound Thyroid disease Anemia High cholesterol Easy bruising Migraine headache Injury of head and neck Passed out Blackout Syncope Dietary restriction Gastroparesis Gastric reflux Non-smoker Shortness of breath on exertion History of Holter monitoring Hypotension Kidney stone Anxiety Depression Asthma Hypertension Home Medications ???Medication ???Instructions ???Recorded ???Last Taken ???Type atorvastatin 10 mg tablet (Lipitor) 20 mg PO DAILY 04/30/19 Unknown History montelukast 10 mg tablet 10 mg PO DAILY 04/30/19 Unknown Hi story (Singulair) norethindrone 1 mg-ethinyl 1 tab PO DAILY 04/30/19 Unknown Hi story estradiol 35 mcg tablet omega-3 fatty acids-fish oil 684 1 ea PO DAILY 04/30/19 Unknown His tory mg-1,200 mg capsule,delayed release melatonin 3 mg capsule 15 mg PO QHS 07/10/19 Unknown Hist ory bupropion HCl 75 mg tablet 75 mg PO DAILY 11/30/19 Unknown Hi story promethazine 25 mg tablet 25 mg PO Q6H PRN PRN Nausea #10 Unknown Rx tabs pantoprazole 40 mg tablet,delayed 40 mg PO DAILY 12/17/21 Unknown H istory release (Protonix) albuterol sulfate 90 mcg/actuation 1 inh inhalation Q6H PRN ASTHMA 12/16/22 Unknown History aerosol inhaler fludrocortisone 0.1 mg tablet 0.1 mg PO DAILY 12/16/22 Unknown H istory levothyroxine 50 mcg capsule 50 mcg PO DAILY 12/16/22 Unknown H istory oxycodone-acetaminophen 5 mg-325 1 tab PO Q8H PRN Pain 12/16/22 Unk nown History mg tablet (Percocet) ibuprofen 600 mg tablet 600 mg PO Q6H PRN PRN pain #20 Unknown Rx TABLETS ondansetron 4 mg disintegrating 4 mg PO Q8H PRN PRN Nausea #10 tab s 06/30/23 Unknown Rx tablet oxycodone-acetaminophen 5 mg-325 1 tab PO Q6H PRN PRN Pain 3 days 1 08/30/22 Unknown Rx mg tablet #12 TABLETS Allergy/AdvReac Type Severity Reaction Status Date / Time lisinopril Allergy Other Verified 09/10/24 23:56 midodrine Allergy Hives Verified 09/10/24 23:56 orange Allergy Angioedema Verified 09/10/24 23:56 Surgical History History of myringotomy Hx of esophagogastroduodenoscopy Hx of tonsillectomy Social History (Updated 09/11/24 @ 00:08 by Jody Ppoe) household members: family housing: house Smoking Status: Never smoker ROS ROS ED Constitutional Constitutional ED: Denies chills or fever(s) Eyes Eyes: Denies blurry vision or change in vision ENT ENT ED: Denies sore throat Cardiovascular Cardiovascular: Denies chest pain, palpitations or racing heartbeat Respiratory/Chest Respiratory/Chest: Denies cough or dyspnea Gastrointestinal Gastrointestinal: Denies abdominal pain, diarrhea, nausea or vomiting Genitourinary Genitourinary ED: Denies dysuria Musculoskeletal Musculoskeletal: Reports other Details: Positive leg swelling Integumentary Denies rash Neurologic Neurologic: Denies headache(s) Hematologic/Lymphatic Hematologic/Lymphatic: Denies easy bleeding or easy bruising EXAM Physical Exam Const Vital Signs: 09/10/24 23:55 09/11/24 00:08 09/11/24 00:26 Temperature 98.2 F Temperature Source Oral Pulse Rate 98 67 Respiratory Rate 16 16 Respiratory Effort Normal Non-Labored Respiratory Pattern Normal Blood Pressure 170/108 H 133/99 H Blood Pressure Mean 128 110 Pulse Ox 100 98 Oxygen Delivery Method Room Air Room Air (more content not included)... Normal [facility] Magnesiumon 09-11-2024 Magnesium [Mass/Vol] 1.7 mg/dL Normal 1.6-2.6 [facility] Comment on above: Performed By: #### L 100.0100, L500.2500, L501.5200, L503.6620 #### [facility] [address] [place], [address] BETA 2 GLYCOPROTEIN, IGGon 0 08-26-2024 Beta 2 glycoprotein 1 IgG IA Qn <9 Normal <20 [facility] Comment on above: Order Comment: Speci men Type: BLOOD SPECIMENOrdering Facility: [facility] Address: [address] [place] [address] Result Comment: <20 SGU Negative 20-80 SGU Low Positive >80 SGU High Positive These results were obtained with the [employer] QUANTA Lite B2 GPI IgG ROMEL. B2 GPI IgG values obtained with different manufacturers' assay methods may not be used interchangeably. The magnitude of the reported IgG levels cannot be correlated to an endpoint titer. Performed By: #### 5 076-5, BETA2G, BETA2M, 24122-9, CARDIG ####[facility] [id number] [facility] [id number] [place] [address] [place] BETA 2 GLYCOPROTEIN, IGMon 0 08-26-2024 Beta 2 glycoprotein 1 IgM IA Qn <9 Normal <20 [facility] Comment on above: Order Comment: Speci men Type: BLOOD SPECIMENOrdering Facility: [facility] Address: [address] [place] [address] Result Comment: <20 SMU Negative 20-80 SMU Low Positive >80 SMU High positive These results were obtained with the [employer] QUANTA Lite B2 GPI IgM ROMEL. B2 GPI IgM values obtained with different manufacturers' assay methods may not be used interchangeably. The magnitude of the reported IgM levels cannot be correlated to an endpoint titer. Performed By: #### 5 076-5, BETA2G, BETA2M, 71215-9, CARDIG ####[facility] [id number] [place] [address] [place] C3 SerPl-mCncon 08-26-2024 Complement C3 [Mass/Vol] 160 mg/dL Normal 86-166 [facility] Comment on above: Order Comment: Speci men Type: BLOOD SPECIMEN Ordering Facility: [facility] Address: [address] [place] [address] Performed By: #### 4 485-9, 4498-2 #### [facility] CLIA [id number] [address] [place] [address] [place] C4 SerPl-mCncon 08-26-2024 Complement C4 [Mass/Vol] 16 mg/dL Normal 13-46 [facility] Comment on above: Order Comment: Speci men Type: BLOOD SPECIMEN Ordering Facility: [facility] Address: [address] [place] [address] Performed By: #### 4 485-9, 4498-2 #### [facility] CLIA [id number] [address] [place] [address] [place] CARDIOLIPIN IGG ABSon 2024 Cardiolipin IgG IA Qn (S) <9.0 Normal <15.0 [facility] Comment on above: Order Comment: Speci men Type: BLOOD SPECIMENOrdering Facility: [facility] Address: [address] [place] [address] Result Comment: <15 GPL Negative 15-20 GPL Indeterminate >20 GPL Positive The following results were obtained with the [employer] QUANTA Lite BENNIE IgG III ROMEL. Cardiolipin IgG values obtained with the different manufacturers' assay methods may not be used interchangeably. The magnitude of the reported IgG levels cannot be correlated to an endpoint titer. Performed By: #### 5 076-5, BETA2G, BETA2M, 20554-6, JELENA ####[facility] [id number] [place] [address] [place] CARDIOLIPIN IGM ABSon 2024 Cardiolipin IgM IA Qn (S) <9.0 Normal <12.5 [facility] Comment on above: Order Comment: Speci men Type: BLOOD SPECIMEN Ordering Facility: [facility] Address: [address] [place] [address] Result Comment: <12. 5 MPL Negative 12.5-20 MPL Indeterminate >20 MPL Positive The following results were obtained with the [employer] QUANTA Lite BENNIE IgM III ROMEL. Cardiolipin IgM values obtained with the different manufacturers' assay methods may not be used interchangeably. The magnitude of the reported IgM levels cannot be correlated to an endpoint titer. ??? Performed By: #### C SHY #### [facility] CLIA [id number] [place] CNOVon 08-26-2024 CNOV Office Visit (KAREN ) -- ROSE MARY CHRISTINE ([id number]) 1995 F Date Time Provider Department 08/26/24 10:00 AM EMILY AU During your visit today, we recorded the following information about you: Temperature Pulse Blood pressure Weight 101.1 degrees 88/minute 157/88 96.4 kg Height 1.645 m Emily Au MD 09/03/2024 10:07 PM Addendum This note was created using NoteWriter. Subjective Rose Mary Christine is a 29 year old female. Jt pain Wants to see if EDS Has done research on this Also PHI positive Multiple other issue wants addressed Review of Systems Objective BP 157/88 Pulse 88 Temp (!) 38.4 ?C (101.1 ?F) Ht 164.5 cm (5' 4.75) Wt 96.4 kg (212 lb 8 oz) LMP 07/25/2023 (Exact Date) BMI 35.64 kg/m? Physical Exam Vitals reviewed. Constitutional: General: She is not in acute distress. Appearance: She is not ill-appearing or toxic-appearing. HENT: Right Ear: There is no impacted cerumen. Left Ear: There is no impacted cerumen. Nose: No congestion or rhinorrhea. Mouth/Throat: Pharynx: No oropharyngeal exudate or posterior oropharyngeal erythema. Eyes: General: Right eye: No discharge. Left eye: No discharge. Cardiovascular: Rate and Rhythm: Normal rate and regular rhythm. Heart sounds: Normal heart sounds. No murmur heard. No friction rub. No gallop. Pulmonary: Effort: No respiratory distress. Breath sounds: Normal breath sounds. No stridor. No wheezing or rhonchi. Abdominal: General: There is no distension. Palpations: Abdomen is soft. There is no mass. Tenderness: There is no abdominal tenderness. Hernia: No hernia is present. Musculoskeletal: Right shoulder: Normal. Left shoulder: Normal. Right elbow: Normal. Left elbow: Normal. Right wrist: Normal. Left wrist: Normal. Right hand: Normal. Left hand: Normal. Cervical back: No rigidity or tenderness. Thoracic back: Normal. Lumbar back: Normal. Right hip: Normal. Left hip: Normal. Right knee: Normal. Left knee: Normal. Right lower leg: No edema. Left lower leg: No edema. Right ankle: Normal. Left ankle: Normal. Right foot: Normal. Left foot: Normal. Comments: No synovitis Ashlyn present no abn stretch almanza Lymphadenopathy: Cervical: No cervical adenopathy. Assessment and Plan First visit 08/26/2024 rt handed 09/27 PCP note reviewed ( PHI + + abn labs and PCP wanted rheum fu ) PCP note scanned 04/2024 visit Polyarthralgia 2023 PHI 1:80 nuclear homo 2023 RF neg , uric 4.4 2024 DSDna DsDNA crithidia, TANKER DRIVER SSA SSB SCL Sm neg 2024 Anti-cardiolipin ab, anti b-2 GPI -1 ab, LA neg. 2024 IgA 69 IgA, Transglutaminase Ab: neg 2023 CK 47 2024 C3C4 normal 2023 esr 10 ( <20) crp 0.6 (<0.3 ) (( 2024 :: dry eye onset 2023, dry mouth age 17, no saliva gland swelling, face swelling ? Puffy red cheek Easy flushing child , hives forearm, and palms of hand 2021 onset, itch not burn, no scar ) ( photosensitive ) (( 2024 :: no Raynaud's Phenomenon or acrocyanosis, wears compression stocking ) (never DVT ) (( 2024 :: no serositis mucositis ) 2024 exam hand feet cold nail capillary normal, hand cold, dermatographism mild flushing present ) ( Dianne 35 mm ) 08/26/2024 get labs on her for now, doubt connective tissue disease 08/26/2024 08/27/2024 no connective tissue disease is noted. Drug and disease monitoring 2019 elect normal , LFT normal 2023 mar: cmp tsh cbc diff normal 2023 chol 215, trig 99 HDL 45 LDL 150 2023 folic 31 2018 Vit d 34 2023 vit d 45 psoriasis (( 2024 :: does not remember doctor name Kuldeep Morrow derm , was diagnosed age, scalp eye lids, at time michele weather will give flares arm, not active at present , arm like sand paper ) ( scalp is all clear ) (( 2024 :: COVID hand diagnosis 2020 ? Or atopic derm soap precipitated )) TT Head shoulder dandruff and present 08/26/2024 08/26/2024 no psoriasis and no Undifferentiated spondyloarthritis noted EDS ( mentioned PCP notes ) ?? No diagnosis ( easy bruising ) (rt knee 2022 nov knee patellar dislocation ) 2024 Knee extension is > 180 degrees, elbow extension is > 180 degrees, the thumb can passively appose the anterior surface of the forearm, the 5th MCP joints can be extended to beyond 90 degrees, patient is able to show truncal flexion so that the finger tips of the hands can be placed on the ground with knees in the extended position. Ankle joint hypermobility is there, patellar hypermobility is not there. Skin hyperextensibility is there. Translucent veins. Long philtrum, thin lips EDS III Hypermobile criteria : 1. Beighton score 8 1. Absence of other CTD, and RA / SLE ?? Yes. A. And five of the following features : Marfanoid : arachnodactyly (( wrist sign bilateral or thumb sign bilateral absent )) (( dental crowding present or high arch palate pre (more content not included)... Normal [facility] -- ROSE MARY CHRISTINE ([id number]) 1995 F Date Time Provider Department 08/26/24 EMILY AU During your visit today, we recorded the following information about you: Carmen Bone MA 08/26/2024 11:39 AM Signed Patient came back to the office after trying to make appointment via phone for Genetics referral through [facility] and she needs a referral. Can you place. Emily Au MD 08/26/2024 6:52 PM Signed Placed consult Emily Au MD Allergies As of Date: 08/26/2024 Noted Allergy Reaction LISINOPRIL 09/09/2020 14 - Other: See Comments Comments: cough Date Reviewed: 08/26/2024 Reviewed by: Carmen Bone MA - Fully Assessed Reason for Visit: Consult [502] Primary Visit Diagnosis:Omega-Danlos syndrome [Q79.60] Order(s):CONSULT TO MEDICAL GENETICS - CARDIOVASCULAR [[id number]] Order #: [id number]: 1 FUTURE Prescriptions as of 09/07/2024 - ASMANEX TWISTHALER 220 mcg/ actuation (30) inhaler INHALE 1 puff BY MOUTH EVERY evening. rinse mouth after using. - ondansetron (ZOFRAN) 4 mg tablet TAKE 1 TABLET BY MOUTH EVERY 6 HOURS NEEDED FOR 5 DAYS - topiramate (TOPAMAX) 25 mg tablet 25 mg. - fludrocortisone (FLORINEF) 0.1 mg tablet Take 1 tablet by mouth every afternoon. - atorvastatin (LIPITOR) 10 mg tablet Take 40 mg by mouth once daily. - buPROPion XL (WELLBUTRIN XL) 150 mg 24 hr tablet Take 300 mg by mouth once daily. - hydrOXYzine pamoate (VISTARIL) 25 mg capsule Take 1 Capsule By Oral Route 3 time(s) per day As needed for anxiety or sleep - levothyroxine (SYNTHROID) 50 mcg tablet Take 50 mcg by mouth once daily. - montelukast (SINGULAIR) 10 mg tablet Take 10 mg by mouth once daily. - ALYACEN 1/35, 28, 1-35 mg-mcg per tablet Take 1 tablet by mouth once daily. - pantoprazole DR (PROTONIX) 40 mg tablet Take 40 mg by mouth once daily. - promethazine (PHENERGAN) 25 mg tablet 1 (one) Tablet by mouth every eight hours, as needed - propranolol (INDERAL) 20 mg tablet Take 1 Tablet By Oral Route 2 times per day Problem List As Of Date: 08/26/2024 (None) Encounter Status:Closed by CARMEN BONE on 09/07/24 Normal [facility] Cardiolipin IgA Ser IA-aCnco n 08-26-2024 Cardiolipin IgA IA Qn (S) <9.0 Normal <12.0 [facility] Comment on above: Order Comment: Speci men Type: BLOOD SPECIMENOrdering Facility: [facility] Address: [address] [place] [address] Result Comment: <12 APL Negative 12-20 APL Indeterminate >20 APL Positive The following results were obtained with the [employer] QUANTA Lite BENNIE IgA III ROMEL. Cardiolipin IgA values obtained with the different manufacturers' assay methods may not be used interchangeably. The magnitude of the reported IgA levels cannot be correlated to an endpoint titer. Performed By: #### 5 076-5, BETA2G, BETA2M, 91523-1, CARDIG ####[facility] LABCLIA [id number] [place] [address] [place] DNA ANTIBODY DS BLDon 2024 DNA ANTIBODY 16 IU/mL Normal <=200 [facility] Comment on above: Order Comment: Speci men Type: BLOOD SPECIMENOrdering Facility: [facility] Address: [address] [place] [address] Result Comment: Nega tive: <200 IU/mL Equivocal: 201-300 IU/mL Moderate Positive: 301-800 IU/mL Strong Positive: >801 IU/mL Performed By: #### D NAAB ####[facility]CLIA [id number] [address] [place] DNA ANTIBODY QUALITATIVE INTERPRETATION Negative Normal Negative [facility] Comment on above: Order Comment: Speci men Type: BLOOD SPECIMENOrdering Facility: [facility] Address: [address] [place] [address] Performed By: #### D NAAB ####[facility] LABCLIA [id number] [place] [address] [place] PRO TANKER DRIVER Ab Ser-aCncon 2024 Ribonucleoprotein extractable nuclear Ab Qn (S) 0.3 AI Normal <1.0 [facility] Comment on above: Order Comment: Speci men Type: BLOOD SPECIMEN Ordering Facility: [facility] Address: [address] [place] [address] Performed By: #### 1 8323-6, XSSAB, 66603-1, 44403-9 #### [facility] CLIA [id number] [address] [place] [address] [place] PRO SM IgG Ser-aCncon 2024 Reyes extractable nuclear IgG Qn (S) <0.2 Normal <1.0 [facility] Comment on above: Order Comment: Speci men Type: BLOOD SPECIMEN Ordering Facility: [facility] Address: [address] [place] [address] Performed By: #### 1 8323-6, XSSAB, 66010-8, 65292-8 #### [facility] CLIA [id number] [address] [place] [address] [place] IgA SerPl-mCncon 08-26-2024 IgA [Mass/Vol] 69 mg/dL Low 70-400 [facility] Comment on above: Order Comment: Speci may Type: BLOOD SPECIMENOrdering Facility: [facility] Address: [address] [place] [address] Performed By: #### 2 458-8 ####[facility]IA [id number] [place] [address] [place] Ribonucleoprotein extractabl e nuclear Ab Qn (S)on 08-26-2024 ANTI-TANKER DRIVER QUAL Negative Normal Negative [facility] Comment on above: Order Comment: Speci men Type: BLOOD SPECIMEN Ordering Facility: [facility] Address: [address] [place] [address] Performed By: #### 1 8323-6, XSSAB, 69116-7, 80168-2 #### [facility] CLIA [id number] [address] [place] [address] [place] SCL-70 extractable nuclear I gG IA Qn (S)on 08-26-2024 SCLERODERMA AB QUAL Negative Normal Negative [facility] Comment on above: Order Comment: Haydeei men Type: BLOOD SPECIMEN Ordering Facility: [facility] Address: [address] [place] [address] Performed By: #### 1 8323-6, XSSAB, 98902-1, 92387-7 #### [facility] CLIA [id number] [address] [place] [address] [place] SCLERODERMA IGG AB <0.2 Normal <1.0 [facility] Comment on above: Order Comment: Haydeei men Type: BLOOD SPECIMEN Ordering Facility: [facility] Address: [address] [place] [address] Result Comment: Scl- 70/Scleroderma antibody test is used as an aid in diagnosis of systemic sclerosis especially the diffuse cutaneous form. A negative result cannot rule out systemic sclerosis. The final interpretation should consider clinical picture and other test results such as anti-centromere antibody. Test Methodology: Multiplex flow immunoassay. Performed By: #### 1 8323-6, XSSAB, 05149-0, 44260-6 #### [facility] CLIA [id number] [address] [place] [address] [place] SJOGREN ABS SSA/SSBon 2024 ANTI-SSB QUAL Negative Normal Negative [facility] Comment on above: Order Comment: Speci men Type: BLOOD SPECIMEN Ordering Facility: [facility] Address: [address] [place] [address] Result Comment: Anti -SSB (anti-La) antibody is used as an aid in diagnosis of a variety of systemic autoimmune diseases, especially for Sjogren's syndrome and systemic lupus erythematosus. Clinical correlation is required. Test Methodology: Multiplex flow immunoassay. Performed By: #### 1 8323-6, XSSAB, 88966-7, 89540-4 #### [facility] CLIA [id number] [address] [place] [address] [place] Sjogrens syndrome-A extractable nuclear Ab Qn (S) <0.2 Normal <1.0 [facility] Comment on above: Order Comment: Speci men Type: BLOOD SPECIMEN Ordering Facility: [facility] Address: [address] [place] [address] Performed By: #### 1 8323-6, XSSAB, 96436-7, 86416-9 #### [facility] CLIA [id number] [address] [place] [address] [place] Sjogrens syndrome-B extractable nuclear Ab Qn (S) <0.2 Normal <1.0 [facility] Comment on above: Order Comment: Speci men Type: BLOOD SPECIMEN Ordering Facility: [facility] Address: [address] [place] [address] Performed By: #### 1 8323-6, XSSAB, 83886-0, 73541-5 #### [facility] CLIA [id number] [address] [place] [address] [place] SSA ANTIBODY QUAL Negative Normal Negative [facility] Comment on above: Order Comment: Maico olvera Type: BLOOD SPECIMEN Ordering Facility: [facility] Address: [address] [place] [address] Result Comment: Anti -SSA (anti-Ro) antibody is used as an aid in diagnosis of a variety of systemic autoimmune diseases, Sjogren's syndrome among others. Clinical correlation is required. Test Methodology: Multiplex flow immunoassay. ??? \X09\ Performed By: #### 1 8323-6, XSSAB, 47973-5, 55858-8 #### [facility] CLIA [id number] [address] [place] [address] [place] Reyes extractable nuclear Ig G Qn (S)on 08-26-2024 SM ANTIBODY QUAL Negative Normal Negative [facility] Comment on above: Order Comment: Maico olvera Type: BLOOD SPECIMEN Ordering Facility: [facility] Address: [address] [place] [address] Result Comment: Anti -Sm (Reyes) antibody is used as an aid in diagnosis of systemic lupus erythematosus and its presence is associated with renal disease. A negative result cannot rule out systemic lupus erythematosus. Clinical correlation is required. Test Methodology: Multiplex flow immunoassay. Performed By: #### 1 8323-6, XSSAB, 68714-3, 43040-3 #### [facility] CLIA [id number] [address] [place] [address] [place] dsDNA Ab Ser Ql CLIFon 08-26 DNA double strand Ab IF Crithidia luciliae Ql (S) Negative Normal Negative [facility] Comment on above: Order Comment: Maico olvera Type: BLOOD SPECIMENOrdering Facility: [facility] Address: [address] [place] [address] Result Comment: Crit hidia luciliae assay is used as an aid in diagnosis of systemic lupus erythematosus (SLE). A negative result cannot rule out SLE. Low positive titers may be seen with other systemic autoimmune diseases. Clinical correlation is required. Performed By: #### 6 457-6 ####[facility] [id number] [address] [place] tTG IgA Qn (S)on 08-26-2024 TRANSGLUTAMINASE IGA ABS INTERPRETATION Negative Normal Negative [facility] Comment on above: Order Comment: Speci may Type: BLOOD SPECIMENOrdering Facility: [facility] Address: [address] [place] [address] Result Comment: The following results were obtained with Spoke QUANTA Lite R h-tTG IgA ROMEL.???R h-tTG IgA values obtained with different manufacturers' assay methods may not be used interchangeably. The magnitude of the reported IgA levels cannot be correlated to an endpoint???concentration. This is used as an aid in diagnosis of celiac disease. Clinical correlation is required. Performed By: #### 5 076-5, BETA2G, BETA2M, 98144-5, JELENA ####[id number] [place] [address] [place] tTG IgA Ser-aCncon tTG IgA Qn (S) <2 Normal <4 [facility] Comment on above: Order Comment: Maico olvera Type: BLOOD SPECIMENOrdering Facility: [facility] Address: [address] [place] [address] Performed By: #### 5 076-5, BETA2G, BETA2M, 82483-4, JELENA ####[facility] [id number] [place] [address] [place] .Auto Diffon 06-15-2024 Basophil, Absolute 0.1 10 3/mcL Normal 0.0-0.2 [facility] Comment on above: Performed By: #### B VPCR, CVTV #### [facility] [address] [place] [address] Basophils/100 WBC (Bld) 0.8 % Normal 0.0-2.5 [facility] Comment on above: Performed By: #### B VPCR, CVTV #### [facility] [address] [place] [address] Eosinophil, Absolute 0.1 10 3/mcL Normal 0.0-0.7 [facility] Comment on above: Performed By: #### B VPCR, CVTV #### [facility] [address] [place] [address] Eosinophils/100 WBC (Bld) 1.2 % Normal 0.0-7.0 [facility] Comment on above: Performed By: #### B VPCR, CVTV #### [address] [address] Lymphocyte, Absolute 2.8 10 3/mcL Normal 0.9-4.3 [facility] Comment on above: Performed By: #### B VPCR, CVTV #### [address] [address] Lymphocytes/100 WBC (Bld) 34.5 % Normal 20.0-40.0 [facility] Comment on above: Performed By: #### B VPCR, CVTV #### [address] [address] Monocyte, Absolute 0.6 10 3/mcL Normal 0.1-1.4 [facility] Comment on above: Performed By: #### B VPCR, CVTV #### [address] [address] Monocytes/100 WBC (Bld) 7.3 % Normal 2.0-13.0 [facility] Comment on above: Performed By: #### B VPCR, CVTV #### [address] [address] Neutrophils/100 WBC (Bld) 56.2 % Normal 50.0-75.0 [facility] Comment on above: Performed By: #### B VPCR, CVTV #### [place] [address] [place] [address] .GFRon 06-15-2024 GFR 122 ml/min/1.73sqm Normal [facility] Comment on above: Result Comment: GFR Population mean for , Non- Americans Ages 20-29 = 116 mL/min/1.73 sq.m. Ages 30-39 = 107 mL/min/1.73 sq.m. Ages 40-49 = 99 mL/min/1.73 sq.m. Ages 50-59 = 93 mL/min/1.73 sq.m. Ages 60-69 = 85 mL/min/1.73 sq.m. Ages 70+ = 75 mL/min/1.73 sq.m. Chronic Kidney Disease: Less than 60 mL/min/1.73 square meters End Stage Renal Disease: Less than 15 mL/min/1.73 square meters Performed By: #### V IDH, CMP, MG, ESR, CBC, TSHR, ANEU, CRP, GFR, ADIFF ####[facility] [place], [place] [address] GFR Non- 100 ml/min/1.73sqm Normal [facility] Comment on above: Result Comment: GFR Population mean for , Non- Americans Ages 20-29 = 116 mL/min/1.73 sq.m. Ages 30-39 = 107 mL/min/1.73 sq.m. Ages 40-49 = 99 mL/min/1.73 sq.m. Ages 50-59 = 93 mL/min/1.73 sq.m. Ages 60-69 = 85 mL/min/1.73 sq.m. Ages 70+ = 75 mL/min/1.73 sq.m. Chronic Kidney Disease: Less than 60 mL/min/1.73 square meters End Stage Renal Disease: Less than 15 mL/min/1.73 square meters Performed By: #### V IDH, CMP, MG, ESR, CBC, TSHR, ANEU, CRP, GFR, ADIFF ####[place] [address] [place], [place] [address] .NEUABSon 06-15-2024 Neutrophil, Absolute 4.6 10 3/mcL Normal 2.3-8.1 [facility] Comment on above: Performed By: #### B VPCR, CVTV #### [facility] [address] [place] [address] CBCon 06-15-2024 Erythrocyte distribution width (RBC) [Ratio] 12.4 % Normal 11.5-15.5 [facility] Comment on above: Performed By: #### B VPCR, CVTV #### [place] [id number] Hematocrit (Bld) [Volume fraction] 42.7 % Normal 34.0-46.0 [facility] Comment on above: Performed By: #### B VPCR, CVTV #### [place] [address] Hgb 14.5 G/dL Normal 12.0-16.0 [facility] Comment on above: Performed By: #### B VPCR, CVTV #### [place] [address] MCH (RBC) [Entitic mass] 32.5 pg Normal 27.0-33.0 [facility] Comment on above: Performed By: #### B VPCR, CVTV #### [place] [address] MCHC 34.0 G/dL Normal 32.0-36.0 [facility] Comment on above: Performed By: #### B VPCR, CVTV #### [place] [id number] MCV (RBC) [Entitic vol] 95.6 fL Normal 80.0-99.0 [facility] Comment on above: Performed By: #### B VPCR, CVTV #### [place] [id number] Platelet 242 10 3/mcL Normal 150-450 [facility] Comment on above: Performed By: #### B VPCR, CVTV #### [place] [id number] Platelet mean volume (Bld) [Entitic vol] 10.7 fL High 6.6-10.5 [facility] Comment on above: Performed By: #### B VPCR, CVTV #### [place] [id number] RBC 4.46 10 6/mcL Normal 4.10-5.30 [facility] Comment on above: Performed By: #### B VPCR, CVTV #### [address] [address] WBC 8.2 10 3/mcL Normal 4.5-10.8 [facility] Comment on above: Performed By: #### B VPCR, CVTV #### [address] [address] CMPon 06-15-2024 Albumin Level 3.4 G/dL Low 3.5-5.0 [facility] Comment on above: Performed By: #### V IDH, CMP, MG, ESR, CBC, TSHR, ANEU, CRP, GFR, ADIFF ####[facility] [place], [place] [address] Albumin/Globulin [Mass ratio] 1.1 {ratio} Normal 1.1-2.5 [facility] Comment on above: Performed By: #### V IDH, CMP, MG, ESR, CBC, TSHR, ANEU, CRP, GFR, ADIFF ####[place] [address] [place], [place] [address] ALP [Catalytic activity/Vol] 113 U/L Normal 40-135 [facility] Comment on above: Performed By: #### V IDH, CMP, MG, ESR, CBC, TSHR, ANEU, CRP, GFR, ADIFF ####[place] [address] [place], [place] [address] ALT [Catalytic activity/Vol] 22 U/L Normal 14-59 [facility] Comment on above: Performed By: #### V IDH, CMP, MG, ESR, CBC, TSHR, ANEU, CRP, GFR, ADIFF ####[address] [address] AST [Catalytic activity/Vol] 13 U/L Normal 10-40 [facility] Comment on above: Performed By: #### V IDH, CMP, MG, ESR, CBC, TSHR, ANEU, CRP, GFR, ADIFF ####[address] [address] Bili Total 0.6 mg/dL Normal 0.2-1.0 [facility] Comment on above: Result Comment: Use of this assay is not recommended for patients undergoing treatment with eltrombopag due to the potential for falsely elevated results. Performed By: #### V IDH, CMP, MG, ESR, CBC, TSHR, ANEU, CRP, GFR, ADIFF ####[place] [id number] BUN/Creatinine Ratio 14 ratio Normal 7-27 [facility] Comment on above: Performed By: #### V IDH, CMP, MG, ESR, CBC, TSHR, ANEU, CRP, GFR, ADIFF ####[address] [address] Calcium [Mass/Vol] 9.1 mg/dL Normal 8.4-10.2 [facility] Comment on above: Performed By: #### V IDH, CMP, MG, ESR, CBC, TSHR, ANEU, CRP, GFR, ADIFF ####[address] [address] Chloride [Moles/Vol] 107 mmol/L Normal 98-107 [facility] Comment on above: Performed By: #### V IDH, CMP, MG, ESR, CBC, TSHR, ANEU, CRP, GFR, ADIFF ####[address] [address] CO2 [Moles/Vol] 25 mmol/L Normal 22-29 [facility] Comment on above: Performed By: #### V IDH, CMP, MG, ESR, CBC, TSHR, ANEU, CRP, GFR, ADIFF ####[address] [address] Creatinine [Mass/Vol] 0.70 mg/dL Normal 0.55-1.[address] [facility] Comment on above: Result Comment: Test ing performed on Siemens Dimension EXL analyzer using a modified kinetic Ramona technique. Performed By: #### V IDH, CMP, MG, ESR, CBC, TSHR, ANEU, CRP, GFR, ADIFF ####[address] [place], [place] [address] Electrolyte Balance 8.0 mEq/L Normal 4.0-15.0 [facility] Comment on above: Performed By: #### V IDH, CMP, MG, ESR, CBC, TSHR, ANEU, CRP, GFR, ADIFF ####[address] [place], [place] [address] Globulin 3.1 G/dL Normal [facility] Comment on above: Performed By: #### V IDH, CMP, MG, ESR, CBC, TSHR, ANEU, CRP, GFR, ADIFF ####[address] [place], [place] [address] Glucose [Mass/Vol] 92 mg/dL Normal 70-105 [facility] Comment on above: Performed By: #### V IDH, CMP, MG, ESR, CBC, TSHR, ANEU, CRP, GFR, ADIFF ####[address] [address] Potassium [Moles/Vol] 3.7 mmol/L Normal 3.5-5.[address] [facility] Comment on above: Performed By: #### V IDH, CMP, MG, ESR, CBC, TSHR, ANEU, CRP, GFR, ADIFF ####[address] [place], [place] [address] Sodium [Moles/Vol] 140 mmol/L Normal 136-145 [facility] Comment on above: Performed By: #### V IDH, CMP, MG, ESR, CBC, TSHR, ANEU, CRP, GFR, ADIFF ####[address] [place], [place] [address] Total Protein 6.5 G/dL Normal 6.4-8.2 [facility] Comment on above: Performed By: #### V IDH, CMP, MG, ESR, CBC, TSHR, ANEU, CRP, GFR, ADIFF ####[address] [place], [place] [address] Urea nitrogen [Mass/Vol] 10 mg/dL Normal 7-18 [facility] Comment on above: Performed By: #### V IDH, CMP, MG, ESR, CBC, TSHR, ANEU, CRP, GFR, ADIFF ###[address] [place], [place] [address] CRPon 06-15-2024 C-Reactive Protein 0.6 mg/dL High 0.0-0.3 [facility] Comment on above: Performed By: #### V IDH, CMP, MG, ESR, CBC, TSHR, ANEU, CRP, GFR, ADIFF ###[address] [place], [place] [address] ESRon 06-15-2024 Erythrocyte Sed Rate 5 mm/hr Normal 0-20 [facility] Comment on above: Performed By: #### V IDH, CMP, MG, ESR, CBC, TSHR, ANEU, CRP, GFR, ADIFF ####[address] [place], [place] [address] LABORATORYOrdered By: SYSTEM SYSTEM on 06-15-2024 25-hydroxyvitamin D3 [Mass/Vol] 48.6 ng/mL Invalid Interpretation Code AO ADM SS Comment on above: Interpretive Data: I nterpretive Values Based on Total 25(OH) Vitamin D: Deficient <20 ng/mL Insufficient 20 - <30 ng/mL Sufficient 30-100 ng/mL Albumin BCP dye [Mass/Vol] 3.4 G/dL Low 3.5 - 5.0 G/dL AO ADM SS Albumin/Globulin [Mass ratio] 1.1 {ratio} Normal 1.1 - 2.5 ratio AO ADM SS ALP [Catalytic activity/Vol] 113 U/L Normal 40 - 135 U/L AO ADM SS ALT With P-5'-P [Catalytic activity/Vol] 22 U/L Normal 14 - 59 U/L AO ADM SS AST With P-5'-P [Catalytic activity/Vol] 13 U/L Normal 10 - 40 U/L AO ADM SS Basophils (Bld) [#/Vol] 0.1 103/mcL Normal 0.0 - 0.2 10^3/mcL AO Workflow SS Basophils/100 WBC (Bld) 0.8 % Normal 0.0 - 2.5 % AO Workflow SS Bilirubin [Mass/Vol] 0.6 mg/dL Normal 0.2 - 1 .0 mg/dL AO ADM SS Comment on above: Interpretive Data: U se of this assay is not recommended for patients undergoing treatment with eltrombopag due to the potential for falsely elevated results. Calcium [Mass/Vol] 9.1 mg/dL Normal 8.4 - 10. 2 mg/dL AO ADM SS Chloride [Moles/Vol] 107 mmol/L Normal 98 - 10 7 mmol/L AO ADM SS CO2 [Moles/Vol] 25 mmol/L Normal 22 - 29 mmol/L AO ADM SS Creatinine [Mass/Vol] 0.70 mg/dL Normal 0.55 - 1.02 mg/dL AO ADM SS Comment on above: Interpretive Data: T esting performed on Siemens Dimension EXL analyzer using a modified kinetic Ramona technique. CRP [Mass/Vol] 0.6 mg/dL High 0.0 - 0.3 mg/dL AO ADM SS Electrolyte Balance 8.0 mEq/L Normal 4.0 - 15 .0 mEq/L AO ADM SS Eosinophil, Absolute 0.1 103/mcL Normal 0.0 - 0 .7 10^3/mcL AO Workflow SS Eosinophils/100 WBC (Bld) 1.2 % Normal 0.0 - 7.0 % AO Workflow SS Erythrocyte distribution width (RBC) [Ratio] 12.4 % Normal 11.5 - 15.5 % AO Workflow SS GFR/1.73 sq M.predicted among blacks MDRD (S/P/Bld) [Vol rate/Area] 122 ml/min/1.73sqm Invalid Interpretation Code AO Chemistry S Comment on above: Interpretive Data: GFR Population mean for , Non- Americans Ages 20-29 = 116 mL/min/1.73 sq.m. Ages 30-39 = 107 mL/min/1.73 sq.m. Ages 40-49 = 99 mL/min/1.73 sq.m. Ages 50-59 = 93 mL/min/1.73 sq.m. Ages 60-69 = 85 mL/min/1.73 sq.m. Ages 70+ = 75 mL/min/1.73 sq.m. Chronic Kidney Disease: Less than 60 mL/min/1.73 square meters End Stage Renal Disease: Less than 15 mL/min/1.73 square meters GFR/1.73 sq M.predicted among non-blacks MDRD (S/P/Bld) [Vol rate/Area] 100 ml/min/1.73sqm Invalid Interpretation Code AO Chemistry S Comment on above: Interpretive Data: GFR Population mean for , Non- Americans Ages 20-29 = 116 mL/min/1.73 sq.m. Ages 30-39 = 107 mL/min/1.73 sq.m. Ages 40-49 = 99 mL/min/1.73 sq.m. Ages 50-59 = 93 mL/min/1.73 sq.m. Ages 60-69 = 85 mL/min/1.73 sq.m. Ages 70+ = 75 mL/min/1.73 sq.m. Chronic Kidney Disease: Less than 60 mL/min/1.73 square meters End Stage Renal Disease: Less than 15 mL/min/1.73 square meters Globulin 3.1 G/dL Invalid Interpretation Code AO ADM SS Glucose [Mass/Vol] 92 mg/dL Normal 70 - 105 mg/dL AO ADM SS Hematocrit (Bld) [Volume fraction] 42.7 % Normal 34.0 - 46.0 % AO Workflow SS Hemoglobin (Bld) [Mass/Vol] 14.5 G/dL Normal 12.0 - 16.0 G/dL AO Workflow SS Lymphocytes (Bld) [#/Vol] 2.8 103/mcL Normal 0.9 - 4.3 10^3/mcL AO Workflow SS Lymphocytes/100 WBC (Bld) 34.5 % Normal 20.0 - 40.0 % AO Workflow SS Magnesium [Mass/Vol] 1.7 mg/dL Low 1.8 - 2 .4 mg/dL AO ADM SS MCH (RBC) [Entitic mass] 32.5 pg Normal 27.0 - 33.0 pg AO Workflow SS MCHC 34.0 G/dL Normal 32.0 - 36.0 G/dL AO Workflow SS MCV (RBC) [Entitic vol] 95.6 fL Normal 80.0 - 99.0 fL AO Workflow SS Monocytes (Bld) [#/Vol] 0.6 103/mcL Normal 0.1 - 1.4 10^3/mcL AO Workflow SS Monocytes/100 WBC (Bld) 7.3 % Normal 2.0 - 13.0 % AO Workflow SS Neutrophils (Bld) [#/Vol] 4.6 103/mcL Normal 2.3 - 8.1 10^3/mcL AO Workflow SS Neutrophils/100 WBC (Bld) 56.2 % Normal 50.0 - 75.0 % AO Workflow SS Platelet mean volume (Bld) [Entitic vol] 10.7 fL High 6.6 - 10.5 fL AO Workflow SS Platelets (Bld) [#/Vol] 242 103/mcL Normal 150 - 450 10^3/mcL AO Workflow SS Potassium [Moles/Vol] 3.7 mmol/L Normal 3.5 - 5.1 mmol/L AO ADM SS Protein [Mass/Vol] 6.5 G/dL Normal 6.4 - 8.2 G/dL AO ADM SS RBC (Bld) [#/Vol] 4.46 106/mcL Normal 4.10 - 5.30 10^6/mcL AO Workflow SS Sodium [Moles/Vol] 140 mmol/L Normal 136 - 145 mmol/L AO ADM SS TSH Qn 2.76 m[IU]/L Normal 0.36 - 3.74 mcIU/mL AO ADM SS Urea nitrogen [Mass/Vol] 10 mg/dL Normal 7 - 18 mg/dL AO ADM SS Urea nitrogen/Creatinine [Mass ratio] 14 ratio Normal 7 - 27 ratio AO ADM SS WBC (Bld) [#/Vol] 8.2 103/mcL Normal 4.5 - 10.8 10^3/mcL AO Workflow SS LABORATORYOrdered By: Viridiana Deshpande on 06-15-2024 ESR Photometric method (Bld) [Velocity] 5 mm/hr Normal 0 - 20 mm/hr AO Man Heme SS MGon 06-15-2024 Magnesium [Mass/Vol] 1.7 mg/dL Low 1.8-2.4 [facility] Comment on above: Performed By: #### V IDH, CMP, MG, ESR, CBC, TSHR, ANEU, CRP, GFR, ADIFF ####[address] [place], [place] [address] TSHRon 06-15-2024 TSH Qn 2.76 m[IU]/L Normal 0.36-3.74 [facility] Comment on above: Performed By: #### V IDH, CMP, MG, ESR, CBC, TSHR, ANEU, CRP, GFR, ADIFF ####[address] [place], [place] [address] VIDHon 06-15-2024 Vit. D 25-Hydroxy 48.6 ng/mL Normal [facility] Comment on above: Result Comment: Inte rpretive Values Based on Total 25(OH) Vitamin D: Deficient <20 ng/mL Insufficient 20 - <30 ng/mL Sufficient 30-100 ng/mL Performed By: #### V IDH, CMP, MG, ESR, CBC, TSHR, ANEU, CRP, GFR, ADIFF ####[address] [place], [place] [address] CNPNon 05-20-2024 JAVIERN Telephone (GABILAME) -- ROSE MARY CHRISTINE ([id number]) 1995 F Date Time Provider Department 05/20/24 OJ DUNLAP During your visit today, we recorded the following information about you: [facility] RFon 04-18-2024 Rheumatoid Factor <6.0 Normal <=5.9 [facility] Comment on above: Result Comment: RF I gM Antibody by Enzyme Immunoassay: Negative < or = 6 Positive > 6 A positive result indicates the presence of RF antibodies and suggests the possibility of rheumatoid arthritis. A negative result indicates no RF IgM antibody or levels below the negative cut-off of the assay. Results of this assay should be used in conjunction with clinical findings and other serological tests. These results were obtained with the [employer] QUANTA Lite RF IgM ROMEL. RF IgM values obtained with different manufacturers' assay methods may not be used interchangeably. The magnitude of the reported IgM levels cannot be correlated to an endpoint titer. Performed By: #### B VPCR, CVTV #### [facility] [address] [place] [address] .CCLANAIFSon 04-16-2024 Antinuclear Ab Pattern Nuclear homogeneous Normal [facility] Comment on above: Result Comment: Perf ormed By: [place] [address] Beater Operator: Rodrigo Olivera III, M.D. CLIA#: [id number] Performed By: #### B VPCR, CVTV #### [address] [address] Antinuclear Ab Screen Positive Abnormal Negative [facility] Comment on above: Result Comment: Anti -nuclear antibody test is used as an aid in diagnosis of systemic autoimmune diseases. Where positive and clinically warranted, follow-up using disease-specific testing is recommended. Low positive titers are not uncommon with advanced age, certain chronic infections, and malignancies among others. Test methodology: Indirect fluorescence immunoassay (IFA) using HEp-2 cells. Performed By: [place] [address] Beater Operator: Rodrigo Olivera III, M.D. CLIA#: [id number] Performed By: #### B VPCR, CVTV #### [place] [address] Antinuclear Ab Titer 1:80 Normal [facility] Comment on above: Result Comment: Perf ormed By: [place] [address] Beater Operator: Rodrigo Olivera III, M.D. CLIA#: [id number] Performed By: #### B VPCR, CVTV #### [address] [address] .Auto Diffon 04-15-2024 Basophil, Absolute 0.0 10 3/mcL Normal 0.0-0.2 [facility] Comment on above: Performed By: #### U KYA, CK, CRP, ADIFF, BMP, GFR, ANEU, ESR, MG, CBC #### [address] [address] #### RF, FOL #### [address] [address] Basophils/100 WBC (Bld) 0.6 % Normal 0.0-2.5 [facility] Comment on above: Performed By: #### U KYA, CK, CRP, ADIFF, BMP, GFR, ANEU, ESR, MG, CBC #### [address] [address] #### RF, FOL #### [address] [address] Eosinophil, Absolute 0.1 10 3/mcL Normal 0.0-0.4 [facility] Comment on above: Performed By: #### U KYA, CK, CRP, ADIFF, BMP, GFR, ANEU, ESR, MG, CBC #### [address] [address] #### RF, FOL #### [address] [address] Eosinophils/100 WBC (Bld) 1.4 % Normal 0.0-7.0 [facility] Comment on above: Performed By: #### U KYA, CK, CRP, ADIFF, BMP, GFR, ANEU, ESR, MG, CBC #### [place] [address] #### RF, FOL #### [address] [address] Lymphocyte, Absolute 2.9 10 3/mcL Normal 0.8-3.9 [facility] Comment on above: Performed By: #### U KYA, CK, CRP, ADIFF, BMP, GFR, ANEU, ESR, MG, CBC #### [address] [address] #### RF, FOL #### [address] [address] Lymphocytes/100 WBC (Bld) 36.5 % Normal 10.0-50.0 [facility] Comment on above: Performed By: #### U KYA, CK, CRP, ADIFF, BMP, GFR, ANEU, ESR, MG, CBC #### [address] [address] #### RF, FOL #### [address] [address] Monocyte, Absolute 0.6 10 3/mcL Normal 0.2-1.0 [facility] Comment on above: Performed By: #### U KYA, CK, CRP, ADIFF, BMP, GFR, ANEU, ESR, MG, CBC #### [address] [address] #### RF, FOL #### [address] [address] Monocytes/100 WBC (Bld) 7.5 % Normal 1.7-13.0 [facility] Comment on above: Performed By: #### U KYA, CK, CRP, ADIFF, BMP, GFR, ANEU, ESR, MG, CBC #### [address] [address] #### RF, FOL #### [address] [address] Neutrophils/100 WBC (Bld) 54.0 % Normal 37.0-80.0 [facility] Comment on above: Performed By: #### U KYA, CK, CRP, ADIFF, BMP, GFR, ANEU, ESR, MG, CBC #### [address] [address] #### RF, FOL #### [address] [address] .GFRon 04-15-2024 GFR 131 ml/min/1.73sqm Normal [facility] Comment on above: Result Comment: GFR Population mean for , Non- Americans Ages 20-29 = 116 mL/min/1.73 sq.m. Ages 30-39 = 107 mL/min/1.73 sq.m. Ages 40-49 = 99 mL/min/1.73 sq.m. Ages 50-59 = 93 mL/min/1.73 sq.m. Ages 60-69 = 85 mL/min/1.73 sq.m. Ages 70+ = 75 mL/min/1.73 sq.m. Chronic Kidney Disease: Less than 60 mL/min/1.73 square meters End Stage Renal Disease: Less than 15 mL/min/1.73 square meters Performed By: #### B VPCR, CVTV #### [address] [address] GFR Non- 108 ml/min/1.73sqm Normal [facility] Comment on above: Result Comment: GFR Population mean for , Non- Americans Ages 20-29 = 116 mL/min/1.73 sq.m. Ages 30-39 = 107 mL/min/1.73 sq.m. Ages 40-49 = 99 mL/min/1.73 sq.m. Ages 50-59 = 93 mL/min/1.73 sq.m. Ages 60-69 = 85 mL/min/1.73 sq.m. Ages 70+ = 75 mL/min/1.73 sq.m. Chronic Kidney Disease: Less than 60 mL/min/1.73 square meters End Stage Renal Disease: Less than 15 mL/min/1.73 square meters Performed By: #### B VPCR, CVTV #### [address] [address] .NEUABSon 04-15-2024 Neutrophil, Absolute 4.3 10 3/mcL Normal 2.9-6.2 [facility] Comment on above: Performed By: #### U KYA, CK, CRP, ADIFF, BMP, GFR, ANEU, ESR, MG, CBC #### [address] [address] #### RF, FOL #### [address] [address] BMPon 04-15-2024 BUN/Creatinine Ratio 14 ratio Normal 7-27 [facility] Comment on above: Performed By: #### U KYA, CK, CRP, ADIFF, BMP, GFR, ANEU, ESR, MG, CBC #### [address] [address] #### RF, FOL #### [address] [address] Calcium [Mass/Vol] 8.9 mg/dL Normal 8.4-10.2 [facility] Comment on above: Performed By: #### U KYA, CK, CRP, ADIFF, BMP, GFR, ANEU, ESR, MG, CBC #### [address] [address] #### RF, FOL #### [address] [address] Chloride [Moles/Vol] 106 mmol/L Normal 98-107 [facility] Comment on above: Performed By: #### U KYA, CK, CRP, ADIFF, BMP, GFR, ANEU, ESR, MG, CBC #### [address] [address] #### RF, FOL #### [address] [address] CO2 [Moles/Vol] 24 mmol/L Normal 22-29 [facility] Comment on above: Performed By: #### U KYA, CK, CRP, ADIFF, BMP, GFR, ANEU, ESR, MG, CBC #### [address] [address] #### RF, FOL #### [address] [address] Creatinine [Mass/Vol] 0.66 mg/dL Normal 0.55-1.[address] [facility] Comment on above: Result Comment: Test ing performed on Siemens Dimension EXL analyzer using a modified kinetic Ramona technique. Performed By: #### U KYA, CK, CRP, ADIFF, BMP, GFR, ANEU, ESR, MG, CBC #### [address] [address] #### RF, FOL #### [address] [address] Electrolyte Balance 8.0 mEq/L Normal 4.0-15.0 [facility] Comment on above: Performed By: #### U KYA, CK, CRP, ADIFF, BMP, GFR, ANEU, ESR, MG, CBC #### [place] [address] #### RF, FOL #### [address] [address] Glucose [Mass/Vol] 94 mg/dL Normal 70-105 [facility] Comment on above: Performed By: #### U KYA, CK, CRP, ADIFF, BMP, GFR, ANEU, ESR, MG, CBC #### [address] [address] #### RF, FOL #### [address] [address] Potassium [Moles/Vol] 3.8 mmol/L Normal 3.5-5.[address] [facility] Comment on above: Performed By: #### U KYA, CK, CRP, ADIFF, BMP, GFR, ANEU, ESR, MG, CBC #### [place] [address] #### RF, FOL #### [place] [address] Sodium [Moles/Vol] 138 mmol/L Normal 136-145 [facility] Comment on above: Performed By: #### U KYA, CK, CRP, ADIFF, BMP, GFR, ANEU, ESR, MG, CBC #### [place] [address] #### RF, FOL #### [place] [address] Urea nitrogen [Mass/Vol] 9 mg/dL Normal 7-18 [facility] Comment on above: Performed By: #### U KYA, CK, CRP, ADIFF, BMP, GFR, ANEU, ESR, MG, CBC #### [place] [address] #### RF, FOL #### [address] 04-15-2024 Erythrocyte distribution width (RBC) [Ratio] 12.6 % Normal 11.5-14.5 [facility] Comment on above: Performed By: #### U KYA, CK, CRP, ADIFF, BMP, GFR, ANEU, ESR, MG, CBC #### [place] [address] #### RF, FOL #### [place] [address] Hematocrit (Bld) [Volume fraction] 40.4 % Normal 37.0-47.0 [facility] Comment on above: Performed By: #### U KYA, CK, CRP, ADIFF, BMP, GFR, ANEU, ESR, MG, CBC #### [place] [address] #### RF, FOL #### [place] [address] Hgb 13.9 G/dL Normal 12.0-16.0 [facility] Comment on above: Performed By: #### U KYA, CK, CRP, ADIFF, BMP, GFR, ANEU, ESR, MG, CBC #### [place] [address] #### RF, FOL #### [place] [address] MCH (RBC) [Entitic mass] 32.8 pg High 27.0-31.2 [facility] Comment on above: Performed By: #### U KYA, CK, CRP, ADIFF, BMP, GFR, ANEU, ESR, MG, CBC #### [place] [address] #### RF, FOL #### [place] [address] MCHC 34.4 G/dL Normal 33.0-37.0 [facility] Comment on above: Performed By: #### U KYA, CK, CRP, ADIFF, BMP, GFR, ANEU, ESR, MG, CBC #### [place] [address] #### RF, FOL #### [place] [address] MCV (RBC) [Entitic vol] 95.5 fL High 80.0-94.0 [facility] Comment on above: Performed By: #### U KYA, CK, CRP, ADIFF, BMP, GFR, ANEU, ESR, MG, CBC #### [place] [address] #### RF, FOL #### [address] [address] Platelet 217 10 3/mcL Normal 130-400 [facility] Comment on above: Performed By: #### U KYA, CK, CRP, ADIFF, BMP, GFR, ANEU, ESR, MG, CBC #### [address] [address] #### RF, FOL #### [place] [address] Platelet mean volume (Bld) [Entitic vol] 10.6 fL High 7.4-10.4 [facility] Comment on above: Performed By: #### U KYA, CK, CRP, ADIFF, BMP, GFR, ANEU, ESR, MG, CBC #### [address] [address] #### RF, FOL #### [place] [address] RBC 4.23 10 6/mcL Normal 4.20-5.40 [facility] Comment on above: Performed By: #### U KYA, CK, CRP, ADIFF, BMP, GFR, ANEU, ESR, MG, CBC #### [address] [address] #### RF, FOL #### [place] [address] WBC 7.9 10 3/mcL Normal 4.6-10.8 [facility] Comment on above: Performed By: #### U KYA, CK, CRP, ADIFF, BMP, GFR, ANEU, ESR, MG, CBC #### [place] [address] #### RF, FOL #### [place] [address] CKon 04-15-2024 CK [Catalytic activity/Vol] 47 U/L Normal 26-192 [facility] Comment on above: Performed By: #### B VPCR, CVTV #### [place] [address] CRPon 04-15-2024 C-Reactive Protein 0.6 mg/dL High 0.0-0.3 [facility] Comment on above: Performed By: #### U KYA, CK, CRP, ADIFF, BMP, GFR, ANEU, ESR, MG, CBC #### [address] [address] #### RF, FOL #### [place] [id number] ESRon 04-15-2024 Erythrocyte Sed Rate 10 mm/hr Normal 0-20 [facility] Comment on above: Performed By: #### U KYA, CK, CRP, ADIFF, BMP, GFR, ANEU, ESR, MG, CBC #### [address] [address] #### RF, FOL #### [place] [address] FOLon 04-15-2024 Folate 31.32 ng/mL High 5.38-24.00 [facility] Comment on above: Performed By: #### B VPCR, CVTV #### [place] [address] LABORATORYOrdered By: SYSTEM SYSTEM on 04-15-2024 Basophils (Bld) [#/Vol] 0.0 103/mcL Normal 0.0 - 0.2 10^3/mcL AO Workflow SS Basophils/100 WBC (Bld) 0.6 % Normal 0.0 - 2.5 % AO Workflow SS Calcium [Mass/Vol] 8.9 mg/dL Normal 8.4 - 10. 2 mg/dL AO ADM SS Chloride [Moles/Vol] 106 mmol/L Normal 98 - 10 7 mmol/L AO ADM SS CK [Catalytic activity/Vol] 47 U/L Normal 26 - 192 U/L AO ADM SS CO2 [Moles/Vol] 24 mmol/L Normal 22 - 29 mmol/L AO ADM SS Creatinine [Mass/Vol] 0.66 mg/dL Normal 0.55 - 1.02 mg/dL AO ADM SS Comment on above: Interpretive Data: T esting performed on Siemens Dimension EXL analyzer using a modified kinetic Ramona technique. CRP [Mass/Vol] 0.6 mg/dL High 0.0 - 0.3 mg/dL AO ADM SS Electrolyte Balance 8.0 mEq/L Normal 4.0 - 15 .0 mEq/L AO ADM SS Eosinophil, Absolute 0.1 103/mcL Normal 0.0 - 0 .4 10^3/mcL AO Workflow SS Eosinophils/100 WBC (Bld) 1.4 % Normal 0.0 - 7.0 % AO Workflow SS Erythrocyte distribution width (RBC) [Ratio] 12.6 % Normal 11.5 - 14.5 % AO Workflow SS Folate [Mass/Vol] 31.32 ng/mL High 5.38 - 24.00 ng/mL AH ADM SS GFR/1.73 sq M.predicted among blacks MDRD (S/P/Bld) [Vol rate/Area] 131 ml/min/1.73sqm Invalid Interpretation Code AO Chemistry S Comment on above: Interpretive Data: GFR Population mean for , Non- Americans Ages 20-29 = 116 mL/min/1.73 sq.m. Ages 30-39 = 107 mL/min/1.73 sq.m. Ages 40-49 = 99 mL/min/1.73 sq.m. Ages 50-59 = 93 mL/min/1.73 sq.m. Ages 60-69 = 85 mL/min/1.73 sq.m. Ages 70+ = 75 mL/min/1.73 sq.m. Chronic Kidney Disease: Less than 60 mL/min/1.73 square meters End Stage Renal Disease: Less than 15 mL/min/1.73 square meters GFR/1.73 sq M.predicted among non-blacks MDRD (S/P/Bld) [Vol rate/Area] 108 ml/min/1.73sqm Invalid Interpretation Code AO Chemistry S Comment on above: Interpretive Data: GFR Population mean for , Non- Americans Ages 20-29 = 116 mL/min/1.73 sq.m. Ages 30-39 = 107 mL/min/1.73 sq.m. Ages 40-49 = 99 mL/min/1.73 sq.m. Ages 50-59 = 93 mL/min/1.73 sq.m. Ages 60-69 = 85 mL/min/1.73 sq.m. Ages 70+ = 75 mL/min/1.73 sq.m. Chronic Kidney Disease: Less than 60 mL/min/1.73 square meters End Stage Renal Disease: Less than 15 mL/min/1.73 square meters Glucose [Mass/Vol] 94 mg/dL Normal 70 - 105 mg/dL AO ADM SS Hematocrit (Bld) [Volume fraction] 40.4 % Normal 37.0 - 47.0 % AO Workflow SS Hemoglobin (Bld) [Mass/Vol] 13.9 G/dL Normal 12.0 - 16.0 G/dL AO Workflow SS Lymphocytes (Bld) [#/Vol] 2.9 103/mcL Normal 0.8 - 3.9 10^3/mcL AO Workflow SS Lymphocytes/100 WBC (Bld) 36.5 % Normal 10.0 - 50.0 % AO Workflow SS Magnesium [Mass/Vol] 1.7 mg/dL Low 1.8 - 2 .4 mg/dL AO ADM SS MCH (RBC) [Entitic mass] 32.8 pg High 27.0 - 31.2 pg AO Workflow SS MCHC 34.4 G/dL Normal 33.0 - 37.0 G/dL AO Workflow SS MCV (RBC) [Entitic vol] 95.5 fL High 80.0 - 94.0 fL AO Workflow SS Monocytes (Bld) [#/Vol] 0.6 103/mcL Normal 0.2 - 1.0 10^3/mcL AO Workflow SS Monocytes/100 WBC (Bld) 7.5 % Normal 1.7 - 13.0 % AO Workflow SS Neutrophils (Bld) [#/Vol] 4.3 103/mcL Normal 2.9 - 6.2 10^3/mcL AO Workflow SS Neutrophils/100 WBC (Bld) 54.0 % Normal 37.0 - 80.0 % AO Workflow SS Platelet mean volume (Bld) [Entitic vol] 10.6 fL High 7.4 - 10.4 fL AO Workflow SS Platelets (Bld) [#/Vol] 217 103/mcL Normal 130 - 400 10^3/mcL AO Workflow SS Potassium [Moles/Vol] 3.8 mmol/L Normal 3.5 - 5.1 mmol/L AO ADM SS RBC (Bld) [#/Vol] 4.23 106/mcL Normal 4.20 - 5.40 10^6/mcL AO Workflow SS Sodium [Moles/Vol] 138 mmol/L Normal 136 - 145 mmol/L AO ADM SS Urea nitrogen [Mass/Vol] 9 mg/dL Normal 7 - 18 mg/dL AO ADM SS Urea nitrogen/Creatinine [Mass ratio] 14 ratio Normal 7 - 27 ratio AO ADM SS Uric Acid Lvl 4.4 mg/dL Normal 2.6 - 6.2 mg/dL AO ADM SS WBC (Bld) [#/Vol] 7.9 103/mcL Normal 4.6 - 10.8 10^3/mcL AO Workflow SS LABORATORYOrdered By: Viridiana Deshpande on 04-15-2024 ESR Photometric method (Bld) [Velocity] 10 mm/hr Normal 0 - 20 mm/hr AO Man Heme SS MGon 04-15-2024 Magnesium [Mass/Vol] 1.7 mg/dL Low 1.8-2.4 [facility] Comment on above: Performed By: #### B VPCR, CVTV #### [place] [address] URICon 04-15-2024 Uric Acid Lvl 4.4 mg/dL Normal 2.6-6.2 [facility] Comment on above: Performed By: #### B VPCR, CVTV #### [address] [address] [place] 03-29-2024 Potassium [Moles/Vol] 3.8 mmol/L Normal 3.5-5.1 [facility] ([place]) Comment on above: Performed By: #### U A, UAMICAO, PREGU #### [facility] [address] [place] [id number] LABORATORYOrdered By: SYSTEM SYSTEM on 03-29-2024 Potassium [Moles/Vol] 3.8 mmol/L Normal 3.5 - 5.1 mmol/L AO ADM SS .GFRon 03-25-2024 GFR Non- 103 ml/min/1.73sqm Normal [facility] ([place]) Comment on above: Result Comment: GFR Population mean for , Non- Americans Ages 20-29 = 116 mL/min/1.73 sq.m. Ages 30-39 = 107 mL/min/1.73 sq.m. Ages 40-49 = 99 mL/min/1.73 sq.m. Ages 50-59 = 93 mL/min/1.73 sq.m. Ages 60-69 = 85 mL/min/1.73 sq.m. Ages 70+ = 75 mL/min/1.73 sq.m. Chronic Kidney Disease: Less than 60 mL/min/1.73 square meters End Stage Renal Disease: Less than 15 mL/min/1.73 square meters Performed By: #### KADE Butler PREGU #### [address] [address] GFR 125 ml/min/1.73sqm Normal [facility] ([place]) Comment on above: Result Comment: GFR Population mean for , Non- Americans Ages 20-29 = 116 mL/min/1.73 sq.m. Ages 30-39 = 107 mL/min/1.73 sq.m. Ages 40-49 = 99 mL/min/1.73 sq.m. Ages 50-59 = 93 mL/min/1.73 sq.m. Ages 60-69 = 85 mL/min/1.73 sq.m. Ages 70+ = 75 mL/min/1.73 sq.m. Chronic Kidney Disease: Less than 60 mL/min/1.73 square meters End Stage Renal Disease: Less than 15 mL/min/1.73 square meters Performed By: #### KADE Butler PREGU #### [address] [address] A1Con 03-25-2024 Glucose [Mass/Vol] 97 mg/dL Normal [facility] ([place]) Comment on above: Result Comment: Danita mated Average Glucose calculated by equation ((28.7xA1C)-46.7) Estimated average glucose (eAG) is a calculated value from Hemoglobin A1C and is sales account representative of the average blood glucose level in the last 2-3 month period. Normal range: less than 114 mg/dL Performed By: #### KADE Butler PREGU #### [address] [address] HbA1c (Bld) [Mass fraction] 5.0 % Normal 4.3-6.4 [facility] ([place]) Comment on above: Performed By: #### KADE Butler, PREGU #### [address] [address] CMPon 03-25-2024 Albumin Level 3.2 G/dL Low 3.5-5.0 [facility] ([place]) Comment on above: Performed By: #### U Jovita UAMICUMESH, PREGU #### [address] [address] Albumin/Globulin [Mass ratio] 1.0 {ratio} Low 1.1-2.5 [facility] ([place]) Comment on above: Performed By: #### U Jovita UAMICUMESH, PREGU #### [address] [address] ALP [Catalytic activity/Vol] 96 U/L Normal 40-135 [facility] ([place]) Comment on above: Performed By: #### U AGALEMICUMESH, PREGU #### [address] [address] ALT [Catalytic activity/Vol] 23 U/L Normal 14-59 [facility] ([place]) Comment on above: Performed By: #### GALE ButlerMICUMESH, PREGU #### [address] [address] AST [Catalytic activity/Vol] 13 U/L Normal 10-40 [facility] ([place]) Comment on above: Performed By: #### U GALE HusseinMICUMESH, PREGU #### [address] [address] Bili Total 0.6 mg/dL Normal 0.2-1.0 [facility] ([place]) Comment on above: Result Comment: Use of this assay is not recommended for patients undergoing treatment with eltrombopag due to the potential for falsely elevated results. Performed By: #### U Jovita UAMICUMESH, PREGU #### [address] [address] BUN/Creatinine Ratio 14 ratio Normal 7-27 [facility] ([place]) Comment on above: Performed By: #### U A UAMICUMESH, PREGU #### [address] [address] Calcium [Mass/Vol] 8.7 mg/dL Normal 8.4-10.2 [facility] ([place]) Comment on above: Performed By: #### U A, UAMICAO, PREGU #### [address] [address] Chloride [Moles/Vol] 108 mmol/L High 98-107 [facility] ([place]) Comment on above: Performed By: #### U A, UAMICAO, PREGU #### [address] [address] CO2 [Moles/Vol] 28 mmol/L Normal 22-29 [facility] ([place]) Comment on above: Performed By: #### U A, UAMICAO, PREGU #### [address] [address] Creatinine [Mass/Vol] 0.69 mg/dL Normal 0.55-1.02 [facility] ([place]) Comment on above: Performed By: #### U A, UAMICAO, PREGU #### [address] [address] Electrolyte Balance 8.0 mEq/L Normal 4.0-15.0 [facility] ([place]) Comment on above: Performed By: #### U A, UAMICAO, PREGU #### [address] [address] Globulin 3.1 G/dL Normal [facility] ([place]) Comment on above: Performed By: #### U A, UAMICAO, PREGU #### [address] [address] Glucose [Mass/Vol] 87 mg/dL Normal 70-105 [facility] ([place]) Comment on above: Performed By: #### U A, UAMICAO, PREGU #### [address] [address] Potassium [Moles/Vol] 2.8 mmol/L Low 3.5-5.1 [facility] ([place]) Comment on above: Performed By: #### U A, UAMICAO, PREGU #### [address] [address] Sodium [Moles/Vol] 144 mmol/L Normal 136-145 [facility] ([place]) Comment on above: Performed By: #### U A, UAMICAO, PREGU #### [address] [address] Total Protein 6.3 G/dL Low 6.4-8.2 [facility] ([place]) Comment on above: Performed By: #### U A, UAMICAO, PREGU #### [address] [address] Urea nitrogen [Mass/Vol] 10 mg/dL Normal 7-18 [facility] ([place]) Comment on above: Performed By: #### U A, UAMICAO, PREGU #### [place] [id number] LABORATORYOrdered By: SYSTEM SYSTEM on 03-25-2024 25-hydroxyvitamin D3 [Mass/Vol] 47.1 ng/mL Invalid Interpretation Code AO ADM SS Comment on above: Interpretive Data: I nterpretive Values Based on Total 25(OH) Vitamin D: Deficient <20 ng/mL Insufficient 20 - <30 ng/mL Sufficient 30-100 ng/mL Albumin BCP dye [Mass/Vol] 3.2 G/dL Low 3.5 - 5.0 G/dL AO ADM SS Albumin/Globulin [Mass ratio] 1.0 {ratio} Low 1.1 - 2.5 ratio AO ADM SS ALP [Catalytic activity/Vol] 96 U/L Normal 40 - 135 U/L AO ADM SS ALT With P-5'-P [Catalytic activity/Vol] 23 U/L Normal 14 - 59 U/L AO ADM SS AST With P-5'-P [Catalytic activity/Vol] 13 U/L Normal 10 - 40 U/L AO ADM SS Bilirubin [Mass/Vol] 0.6 mg/dL Normal 0.2 - 1 .0 mg/dL AO ADM SS Comment on above: Interpretive Data: U se of this assay is not recommended for patients undergoing treatment with eltrombopag due to the potential for falsely elevated results. Calcium [Mass/Vol] 8.7 mg/dL Normal 8.4 - 10. 2 mg/dL AO ADM SS Chloride [Moles/Vol] 108 mmol/L High 98 - 10 7 mmol/L AO ADM SS CO2 [Moles/Vol] 28 mmol/L Normal 22 - 29 mmol/L AO ADM SS Creatinine [Mass/Vol] 0.69 mg/dL Normal 0.55 - 1.02 mg/dL AO ADM SS Electrolyte Balance 8.0 mEq/L Normal 4.0 - 15 .0 mEq/L AO ADM SS GFR/1.73 sq M.predicted among blacks MDRD (S/P/Bld) [Vol rate/Area] 125 ml/min/1.73sqm Invalid Interpretation Code AO Chemistry S Comment on above: Interpretive Data: GFR Population mean for , Non- Americans Ages 20-29 = 116 mL/min/1.73 sq.m. Ages 30-39 = 107 mL/min/1.73 sq.m. Ages 40-49 = 99 mL/min/1.73 sq.m. Ages 50-59 = 93 mL/min/1.73 sq.m. Ages 60-69 = 85 mL/min/1.73 sq.m. Ages 70+ = 75 mL/min/1.73 sq.m. Chronic Kidney Disease: Less than 60 mL/min/1.73 square meters End Stage Renal Disease: Less than 15 mL/min/1.73 square meters GFR/1.73 sq M.predicted among non-blacks MDRD (S/P/Bld) [Vol rate/Area] 103 ml/min/1.73sqm Invalid Interpretation Code AO Chemistry S Comment on above: Interpretive Data: GFR Population mean for , Non- Americans Ages 20-29 = 116 mL/min/1.73 sq.m. Ages 30-39 = 107 mL/min/1.73 sq.m. Ages 40-49 = 99 mL/min/1.73 sq.m. Ages 50-59 = 93 mL/min/1.73 sq.m. Ages 60-69 = 85 mL/min/1.73 sq.m. Ages 70+ = 75 mL/min/1.73 sq.m. Chronic Kidney Disease: Less than 60 mL/min/1.73 square meters End Stage Renal Disease: Less than 15 mL/min/1.73 square meters Globulin 3.1 G/dL Invalid Interpretation Code AO ADM SS Glucose [Mass/Vol] 87 mg/dL Normal 70 - 105 mg/dL AO ADM SS Glucose [Mass/Vol] 97 mg/dL Invalid Interpretation Code AO Chemistry S Comment on above: Interpretive Data: E stimated average glucose (eAG) is a calculated value from Hemoglobin A1C and is sales account representative of the average blood glucose level in the last 2-3 month period. Normal range: less than 114 mg/dL HbA1c (Bld) [Mass fraction] 5.0 % Normal 4.3 - 6.4 % AO ADM SS Potassium [Moles/Vol] 2.8 mmol/L Low 3.5 - 5.1 mmol/L AO ADM SS Protein [Mass/Vol] 6.3 G/dL Low 6.4 - 8.2 G/dL AO ADM SS Sodium [Moles/Vol] 144 mmol/L Normal 136 - 145 mmol/L AO ADM SS TSH Qn 2.53 m[IU]/L Normal 0.36 - 3.74 mcIU/mL AO ADM SS Urea nitrogen [Mass/Vol] 10 mg/dL Normal 7 - 18 mg/dL AO ADM SS Urea nitrogen/Creatinine [Mass ratio] 14 ratio Normal 7 - 27 ratio AO ADM SS LABORATORYOrdered By: Viridiana Deshpande on 03-25-2024 Cholesterol [Mass/Vol] 215 mg/dL High 0 - 200 mg/dL AO ADM SS Comment on above: Interpretive Data: C holesterol Reference Interval: Less than 200 Desirable 200-239 Borderline high risk 240 and above High risk Cholesterol in HDL [Mass/Vol] 45 mg/dL Normal 40 - 60 mg/dL AO ADM SS Cholesterol in LDL [Mass/Vol] 150 mg/dL High 0 - 130 mg/dL AO ADM SS Triglyceride [Mass/Vol] 99 mg/dL Normal 0 - 150 mg/dL AO ADM SS Comment on above: Interpretive Data: T riglyceride Reference Interval: Less than 150 Normal 150-199 Borderline high risk 200-499 High risk 500 or higher Very high risk LIPIDon 03-25-2024 Cholesterol [Mass/Vol] 215 mg/dL High 0-200 [facility] ([place]) Comment on above: Result Comment: Chol esterol Reference Interval: Less than 200 Desirable 200-239 Borderline high risk 240 and above High risk Performed By: #### U A, UAMICAO, PREGU #### [address] [address] Cholesterol in HDL [Mass/Vol] 45 mg/dL Normal 40-60 [facility] ([place]) Comment on above: Performed By: #### U A, UAMICAO, PREGU #### [address] [address] Cholesterol in LDL [Mass/Vol] 150 mg/dL High 0-130 [facility] ([place]) Comment on above: Performed By: #### U A, UAMICAO, PREGU #### [address] [address] Triglyceride [Mass/Vol] 99 mg/dL Normal 0-150 [facility] ([place]) Comment on above: Result Comment: Trig lyceride Reference Interval: Less than 150 Normal 150-199 Borderline high risk 200-499 High risk 500 or higher Very high risk Performed By: #### U A, UAMICAO, PREGU #### [address] [address] TSHon 03-25-2024 TSH Qn 2.53 m[IU]/L Normal 0.36-3.74 [facility] ([place]) Comment on above: Performed By: #### U A, UAMICAO, PREGU #### [address] [address] VIDHon 03-25-2024 Vit. D 25-Hydroxy 47.1 ng/mL Normal [facility] ([place]) Comment on above: Result Comment: Inte rpretive Values Based on Total 25(OH) Vitamin D: Deficient <20 ng/mL Insufficient 20 - <30 ng/mL Sufficient 30-100 ng/mL Performed By: #### U A, UAMICAO, PREGU #### [address] [address] [facility] 024 Kidney and Bladder [facility] [address] [place] [address] Kidney and Bladder MR#: [id number] Acct: [id number] Name: ROSE MARY CHRISTINE Rep #: [id number] : 1995 F 28 From: Rodrigue nunez MD PCP: Dr. Madeline Mcnally, DO Status: REG CLI Study: Kidney and Bladder Date of Exam: 10/21/23 Exam# [id number] Ordering Dr: Natali Alvarado MD [id number] STUDY: RENAL ULTRASOUND - COMPLETE REASON FOR EXAM: Female, 28 years old. RT FLANK PAIN TECHNIQUE: Ultrasound evaluation of the kidneys was performed with real-time and static pereyra-scale imaging. COMPARISON: None. FINDINGS: RIGHT KIDNEY: Normal location of the right kidney, which is normal in size. The right kidney measures 11.9 cm x 4.8 cm x 4.3 cm. There is a normal cortex of the right kidney. The renal cortex measures 1.5 cm. There is no right renal mass or cyst. There are no right renal calculi. There is no right hydronephrosis. DISTAL RIGHT URETER: There is non-visualization of the distal right ureter. There is no demonstrated right ureterovesical junction calculus. There is no demonstrated right ureteral jet. LEFT KIDNEY: Normal location of the left kidney, which is normal in size. The left kidney measures 11.4 cm x 5.5 cm x 4.8 cm. There is a normal cortex of the left kidney. The renal cortex measures 2.0 cm. There is no left renal mass or cyst. There are no left renal calculi. There is no left hydronephrosis. DISTAL LEFT URETER: There is non-visualization of the distal left ureter. There is no demonstrated left ureterovesical junction calculus. There is no demonstrated left ureteral jet. BLADDER: The distended urinary bladder has a volume of 38 ml. The empty urinary bladder has a volume of 1.5 ml. There is a normal wall thickness of the distended urinary bladder. There is no demonstrated mass within the urinary bladder. There are no demonstrated bladder calculi. US/Kidney and Bladder IMPRESSION: Normal ultrasound of the kidneys and urinary bladder. Electronically Signed: Rodrigue Nation MD at 12:13 EDT , CC: Dr. Natali Alvarado MD; Dr. Madeline Mcnally DO Precise Winder: Signed Normal [facility] .Auto Diffon 10-10-2023 Basophil, Absolute 0.1 10 3/mcL Normal 0.0-0.2 [facility] ([place]) Comment on above: Performed By: #### U A, UAMICUMESH, PREGU #### [address] [address] Basophils/100 WBC (Bld) 0.7 % Normal 0.0-2.5 [facility] ([place]) Comment on above: Performed By: #### U A, UAMICAO, PREGU #### [address] [address] Eosinophil, Absolute 0.1 10 3/mcL Normal 0.0-0.4 [facility] ([place]) Comment on above: Performed By: #### U A, UAMICAO, PREGU #### [address] [address] Eosinophils/100 WBC (Bld) 0.9 % Normal 0.0-7.0 [facility] ([place] Comment on above: Performed By: #### U A, UAMICAO, PREGU #### [address] [address] Lymphocyte, Absolute 2.6 10 3/mcL Normal 0.8-3.9 [facility] ([place]) Comment on above: Performed By: #### U A, UAMICAO, PREGU #### [address] [address] Lymphocytes/100 WBC (Bld) 22.7 % Normal 10.0-50.0 [facility] ([place] Comment on above: Performed By: #### U KADE Hussein PREGU #### [address] [address] Monocyte, Absolute 1.0 10 3/mcL Normal 0.2-1.0 [facility] ([place] Comment on above: Performed By: #### U A UAMICUMESH PREGU #### [address] [address] Monocytes/100 WBC (Bld) 8.7 % Normal 1.7-13.0 [facility] ([place] Comment on above: Performed By: #### U KADE Hussein PREGU #### [address] [address] Neutrophils/100 WBC (Bld) 67.0 % Normal 37.0-80.0 [facility] ([place] Comment on above: Performed By: #### U KADE Hussein PREGU #### [address] [address] .GFRon 10-10-2023 GFR 131 ml/min/1.73sqm Normal [facility] ([place]) Comment on above: Result Comment: GFR Population mean for , Non- Americans Ages 20-29 = 116 mL/min/1.73 sq.m. Ages 30-39 = 107 mL/min/1.73 sq.m. Ages 40-49 = 99 mL/min/1.73 sq.m. Ages 50-59 = 93 mL/min/1.73 sq.m. Ages 60-69 = 85 mL/min/1.73 sq.m. Ages 70+ = 75 mL/min/1.73 sq.m. Chronic Kidney Disease: Less than 60 mL/min/1.73 square meters End Stage Renal Disease: Less than 15 mL/min/1.73 square meters Performed By: #### U A UAMICAO, PREGU #### [address] [address] GFR Non- 108 ml/min/1.73sqm Normal [facility] ([place]) Comment on above: Result Comment: GFR Population mean for , Non- Americans Ages 20-29 = 116 mL/min/1.73 sq.m. Ages 30-39 = 107 mL/min/1.73 sq.m. Ages 40-49 = 99 mL/min/1.73 sq.m. Ages 50-59 = 93 mL/min/1.73 sq.m. Ages 60-69 = 85 mL/min/1.73 sq.m. Ages 70+ = 75 mL/min/1.73 sq.m. Chronic Kidney Disease: Less than 60 mL/min/1.73 square meters End Stage Renal Disease: Less than 15 mL/min/1.73 square meters Performed By: #### U AKADE PREGU #### [place] [address] .MDWon 10-10-2023 Monocyte Distribution Width 18.55 Normal 0.00-20.00 [facility] ([place]) Comment on above: Result Comment: For ED adult patients suspected of sepsis, MDW<=20.0 does not rule out sepsis or risk of sepsis Performed By: #### U KADE Hussein PREGU #### [place] [address] .NEUABSon 10-10-2023 Neutrophil, Absolute 7.6 10 3/mcL High 2.9-6.2 [facility] ([place]) Comment on above: Performed By: #### U A UAMICUMESH PREGU #### [place] [address] .Urinalysis Microscopic (AO) on 10-10-2023 UA Bacteria 1+ /hpf Abnormal [facility] ([place]) Comment on above: Performed By: #### U A UAMICUMESH PREGU #### [place] [address] UA RBC 0-5 Abnormal None Seen [facility] ([place] Comment on above: Performed By: #### U A UAMICUMESH PREGU #### [place] [id number] UA Squam Epithelial 0-5 Abnormal None Seen [facility] ([place]) Comment on above: Performed By: #### U A UAMICAO, PREGU #### [address] [address] UA WBC 0-5 Abnormal None Seen [facility] ([place] Comment on above: Performed By: #### U A UAMICAO, PREGU #### [address] [address] BMPon 10-10-2023 BUN/Creatinine Ratio 21 ratio Normal 7-27 [facility] ([place] Comment on above: Performed By: #### U Jovita UAMICUMESH, PREGU #### [address] [address] Calcium [Mass/Vol] 8.8 mg/dL Normal 8.4-10.2 [facility] ([place]) Comment on above: Performed By: #### U A UAMICUMESH, PREGU #### [address] [address] Chloride [Moles/Vol] 107 mmol/L Normal 98-107 [facility] ([place] Comment on above: Performed By: #### U A UAMICUMESH, PREGU #### [address] [address] CO2 [Moles/Vol] 23 mmol/L Normal 22-29 [facility] ([place]) Comment on above: Performed By: #### U A UAMICAO, PREGU #### [address] [address] Creatinine [Mass/Vol] 0.66 mg/dL Normal 0.55-1.02 [facility] ([place]) Comment on above: Performed By: #### U A UAMICAO, PREGU #### [address] [address] Electrolyte Balance 11.0 mEq/L Normal 4.0-15.0 [facility] ([place]) Comment on above: Performed By: #### U A UAMICAO, PREGU #### [address] [address] Glucose [Mass/Vol] 92 mg/dL Normal 70-105 [facility] ([place]) Comment on above: Performed By: #### U A, UAMICAO, PREGU #### [address] [address] Potassium [Moles/Vol] 3.7 mmol/L Normal 3.5-5.1 [facility] ([place]) Comment on above: Performed By: #### U A, UAMICAO, PREGU #### [address] [address] Sodium [Moles/Vol] 141 mmol/L Normal 136-145 [facility] ([place]) Comment on above: Performed By: #### U A, UAMICAO, PREGU #### [address] [address] Urea nitrogen [Mass/Vol] 14 mg/dL Normal 7-18 [facility] ([place] Comment on above: Performed By: #### U A, UAMICAO, PREGU #### [address] [address] CBCon 10-10-2023 Erythrocyte distribution width (RBC) [Ratio] 12.3 % Normal 11.5-14.5 [facility] ([place] Comment on above: Performed By: #### U A, UAMICAO, PREGU #### [address] [address] Hematocrit (Bld) [Volume fraction] 41.2 % Normal 37.0-47.0 [facility] ([place] Comment on above: Performed By: #### U A, UAMICAO, PREGU #### [address] [address] Hgb 14.5 G/dL Normal 12.0-16.0 [facility] ([place] Comment on above: Performed By: #### U A, UAMICAO, PREGU #### [address] [address] MCH (RBC) [Entitic mass] 32.6 pg High 27.0-31.2 [facility] ([place]) Comment on above: Performed By: #### KADE Butler PREGU #### [address] [address] MCHC 35.1 G/dL Normal 33.0-37.0 [facility] ([place] Comment on above: Performed By: #### KADE Butler PREGU #### [address] [address] MCV (RBC) [Entitic vol] 92.9 fL Normal 80.0-94.0 [facility] ([place] Comment on above: Performed By: #### KADE Butler PREGU #### [address] [address] Platelet 224 10 3/mcL Normal 130-400 [facility] ([place]) Comment on above: Performed By: #### KADE Butler PREGU #### [address] [address] Platelet mean volume (Bld) [Entitic vol] 9.5 fL Normal 7.4-10.4 [facility] ([place]) Comment on above: Performed By: #### KADE Butler PREGU #### [address] [address] RBC 4.43 10 6/mcL Normal 4.20-5.40 [facility] ([place]) Comment on above: Performed By: #### KADE Butler PREGU #### [address] [address] WBC 11.4 10 3/mcL High 4.6-10.8 [facility] ([place] Comment on above: Performed By: #### KADE Butler PREGU #### [address] [address] [address] ABDOMEN/PELVIS W/O CONTRA [place] 10-10-2023 CT ABDOMEN/PELVIS W/O CONTRAST ORIGINAL HISTORY: Right-sided pain COMPARISON: No TECHNIQUE: CT of the abdomen and pelvis with sagittal and coronal reconstructions. This exam was performed according to our departmental dose optimization program, and includes the following measures where applicable: automated exposure control, adjustment of the mAs and/or kVp according to patient size and/or exam, and an iterative reconstruction algorithm. FINDINGS: There is mild right hydronephrosis. There are no renal or ureteral stones on either side. There is a punctate calcification in the bladder, near the right ureterovesical junction. The remaining abdominal organs are unremarkable in appearance. Bowel is poorly evaluated in the absence of oral contrast. The appendix is not identified. There is no free fluid. IMPRESSION: Punctate bladder calcification with signs of recent stone passage on the right. Interpreted by: Carmelo Goncalves MD Preliminary Report By: Carmelo Goncalves MD Electronically signed By Carmelo Goncalves MD Dictated Date: 10/10/2023 3:40:56 PM Prelim Date: 10/10/2023 3:43:31 PM Sign Date: 10/10/2023 3:43:31 PM Ordering Provider: MAHNAZ PIERCE [facility] ([place]) LABORATORYOrdered By: Viridiana Gonzalez on 10-10-2023 Appearance (U) Clear (10/10/23 2:26 PM) Normal Clear AO Auto Urine SS Bacteria LM.HPF (Urine sed) [#/Area] 1 /[HPF] Invalid Interpretation Code AO Auto Urine SS Bilirubin Ql (U) Negative (10/10/23 2:26 PM) Normal Negative AO Auto Urine SS Color (U) Yellow (10/10/23 2:26 PM) Normal AO Auto Urine SS Glucose Test strip (U) [Mass/Vol] Negative Normal Negative AO Auto Urine SS Hemoglobin Auto test strip (U) [Mass/Vol] Negative (10/10/23 2:26 PM) Normal Negative AO Auto Urine SS Ketones Ql (U) Negative Normal Negative AO Auto Ur ine SS UA Leuk Est Small *ABN* (10/10/23 2:26 PM) Invalid Interpretation Code Negative AO Auto Urine SS UA Nitrite Negative (10/10/23 2:26 PM) Normal Negative AO Auto Urine SS UA pH 6.5 (10/10/23 2:26 PM) Normal 5.0 - 8.0 AO Auto Urine SS UA Protein Negative Normal Negative AO Auto Urine SS UA RBC 0-5 /HPF Invalid Interpretation Code None Seen AO Auto Urine SS UA Spec Grav 1.020 (10/10/23 2:26 PM) Normal 1.015-1.02 5 AO Auto Urine SS UA Squam Epithelial 0-5 /HPF Invalid Interpretation Code None Seen AO Auto Urine SS UA Urobilinogen 0.2 E.U./dL Normal 0.2-1.0 AO Auto Urine SS WBC LM.HPF (Urine sed) [#/Area] 0-5 /HPF Invalid Interpretation Code None Seen AO Auto Urine SS LABORATORYOrdered By: SYSTEM SYSTEM on 10-10-2023 Basophil, Absolute 0.1 103/mcL Normal 0.0 - 0.2 10^3/mcL AO Workflow SS Basophils/100 WBC (Bld) 0.7 % Normal 0.0 - 2.5 % AO Workflow SS Calcium [Mass/Vol] 8.8 mg/dL Normal 8.4 - 10. 2 mg/dL AO ADM SS Chloride [Moles/Vol] 107 mmol/L Normal 98 - 10 7 mmol/L AO ADM SS CO2 [Moles/Vol] 23 mmol/L Normal 22 - 29 mmol/L AO ADM SS Creatinine [Mass/Vol] 0.66 mg/dL Normal 0.55 - 1.02 mg/dL AO ADM SS Electrolyte Balance 11.0 mEq/L Normal 4.0 - 15 .0 mEq/L AO ADM SS Eosinophil, Absolute 0.1 103/mcL Normal 0.0 - 0 .4 10^3/mcL AO Workflow SS Eosinophils/100 WBC (Bld) 0.9 % Normal 0.0 - 7.0 % AO Workflow SS Erythrocyte distribution width (RBC) [Ratio] 12.3 % Normal 11.5 - 14.5 % AO Workflow SS GFR/1.73 sq M.predicted among blacks MDRD (S/P/Bld) [Vol rate/Area] 131 ml/min/1.73sqm Invalid Interpretation Code AO Chemistry S Comment on above: Interpretive Data: GFR Population mean for , Non- Americans Ages 20-29 = 116 mL/min/1.73 sq.m. Ages 30-39 = 107 mL/min/1.73 sq.m. Ages 40-49 = 99 mL/min/1.73 sq.m. Ages 50-59 = 93 mL/min/1.73 sq.m. Ages 60-69 = 85 mL/min/1.73 sq.m. Ages 70+ = 75 mL/min/1.73 sq.m. Chronic Kidney Disease: Less than 60 mL/min/1.73 square meters End Stage Renal Disease: Less than 15 mL/min/1.73 square meters GFR/1.73 sq M.predicted among non-blacks MDRD (S/P/Bld) [Vol rate/Area] 108 ml/min/1.73sqm Invalid Interpretation Code AO Chemistry S Comment on above: Interpretive Data: GFR Population mean for , Non- Americans Ages 20-29 = 116 mL/min/1.73 sq.m. Ages 30-39 = 107 mL/min/1.73 sq.m. Ages 40-49 = 99 mL/min/1.73 sq.m. Ages 50-59 = 93 mL/min/1.73 sq.m. Ages 60-69 = 85 mL/min/1.73 sq.m. Ages 70+ = 75 mL/min/1.73 sq.m. Chronic Kidney Disease: Less than 60 mL/min/1.73 square meters End Stage Renal Disease: Less than 15 mL/min/1.73 square meters Glucose [Mass/Vol] 92 mg/dL Normal 70 - 105 mg/dL AO ADM SS Hematocrit (Bld) [Volume fraction] 41.2 % Normal 37.0 - 47.0 % AO Workflow SS Hemoglobin (Bld) [Mass/Vol] 14.5 G/dL Normal 12.0 - 16.0 G/dL AO Workflow SS Lymphocyte, Absolute 2.6 103/mcL Normal 0.8 - 3 .9 10^3/mcL AO Workflow SS Lymphocytes/100 WBC (Bld) 22.7 % Normal 10.0 - 50.0 % AO Workflow SS MCH (RBC) [Entitic mass] 32.6 pg High 27.0 - 31.2 pg AO Workflow SS MCHC 35.1 G/dL Normal 33.0 - 37.0 G/dL AO Workflow SS MCV (RBC) [Entitic vol] 92.9 fL Normal 80.0 - 94.0 fL AO Workflow SS Monocyte distribution width Auto (Bld) [Entitic vol] 18.55 1 Normal 0.00 - 20.00 AO Workflow SS Comment on above: Result Comment: For ED adult patients suspected of sepsis, MDW<=20.0 does not rule out sepsis or risk of sepsis Monocyte, Absolute 1.0 103/mcL Normal 0.2 - 1.0 10^3/mcL AO Workflow SS Monocytes/100 WBC (Bld) 8.7 % Normal 1.7 - 13.0 % AO Workflow SS Neutrophil, Absolute 7.6 103/mcL High 2.9 - 6 .2 10^3/mcL AO Workflow SS Neutrophils/100 WBC (Bld) 67.0 % Normal 37.0 - 80.0 % AO Workflow SS Platelet mean volume (Bld) [Entitic vol] 9.5 fL Normal 7.4 - 10.4 fL AO Workflow SS Platelets (Bld) [#/Vol] 224 103/mcL Normal 130 - 400 10^3/mcL AO Workflow SS Potassium [Moles/Vol] 3.7 mmol/L Normal 3.5 - 5.1 mmol/L AO ADM SS RBC (Bld) [#/Vol] 4.43 106/mcL Normal 4.20 - 5.40 10^6/mcL AO Workflow SS Sodium [Moles/Vol] 141 mmol/L Normal 136 - 145 mmol/L AO ADM SS Urea nitrogen [Mass/Vol] 14 mg/dL Normal 7 - 18 mg/dL AO ADM SS Urea nitrogen/Creatinine [Mass ratio] 21 ratio Normal 7 - 27 ratio AO ADM SS WBC (Bld) [#/Vol] 11.4 103/mcL High 4.6 - 10.8 10^3/mcL AO Workflow SS LABORATORYOrdered By: Woody morrison on 10-10-2023 HCG ( test) Ql Negative (10/10/23 2:26 PM) Normal AO Manual Urine SS test (u) int Not detected Invalid Interpretation Code AO Manual Urine SS UA Specimen Type Clean Catch (10/10/23 2:26 PM) Normal AO Auto Urine SS PREGUon 10-10-2023 HCG ( test) Ql (U) Negative Normal [facility] ([place]) Comment on above: Performed By: #### U KADE Hussein PREGU #### [place] [address] [address] test (u) int Not detected Invalid Interpretation Code [facility] ([place]) Comment on above: Performed By: #### U A, UAMICAO, PREGU #### [address] [address] UAon 10-10-2023 Color (U) Yellow Normal [facility] ([place]) Comment on above: Performed By: #### U A, UAMICAO, PREGU #### [place] [address] Glucose (U) [Mass/Vol] Negative Normal Negative [facility] ([place]) Comment on above: Performed By: #### U A, UAMICAO, PREGU #### [place] [address] Ketones Ql (U) Negative Normal Negative [facility] ([place]) Comment on above: Performed By: #### U A, UAMICAO, PREGU #### [place] [address] UA Appear Clear Normal Clear [facility] ([place]) Comment on above: Performed By: #### U A, UAMICAO, PREGU #### [place] [id number] UA Blood Negative Normal Negative [facility] ([place]) Comment on above: Performed By: #### U A, UAMICAO, PREGU #### [place] [address] UA Leuk Est Small Abnormal Negative [facility] ([place]) Comment on above: Performed By: #### U A, UAMICAO, PREGU #### [address] [address] UA Nitrite Negative Normal Negative [facility] ([place]) Comment on above: Performed By: #### U A, UAMICAO, PREGU #### [place] [address] UA pH 6.5 Normal 5.0 - 8.0 [facility] ([place]) Comment on above: Performed By: #### U A, UAMICAO, PREGU #### [place] [address] UA Protein Negative Normal Negative [facility] ([place]) Comment on above: Performed By: #### U A, UAMICAO, PREGU #### [address] [address] UA Spec Grav 1.020 Normal 1.015-1.02 5 [facility] ([place]) Comment on above: Performed By: #### U A, UAMICAO, PREGU #### [address] [address] UA Urobilinogen 0.2 E.U./dL Normal 0.2-1.0 [facility] ([place]) Comment on above: Performed By: #### U A, UAMICAO, PREGU #### [address] [address] Urobilinogen (U) [Mass/Vol] Negative Normal Negative [facility] ([place]) Comment on above: Performed By: #### U A, UAMICAO, PREGU #### [address] [address] UA Specimen Type Clean Catch Normal [facility] ([place]) Comment on above: Performed By: #### U A, UAMICAO, PREGU #### [address] [address] DANIELITOOVon 09-05-2023 CNOV Office Visit ([facility] -- ROSE MARY CHRISTINE ([id number]) 1995 F Date Time Provider Department 09/05/23 3:45 PM AQUILINO DOW [facility] During your visit today, we recorded the following information about you: Temperature Pulse Respiration Blood pressure 97.9 degrees 97/minute 24/minute 129/94 Weight 89.4 kg Aquilino Dow MD 09/08/2023 8:41 AM Signed Patient presents with: Cough: Head congestion x3 weeks HPI: Feeling sick for a few weeks. Worsened again the last 5 days. Sick co-workers. Positive symptoms: cough, Chest tightness, Nasal Congestion, Rhinorrhea, Diarrhea, Negative symptoms: Shortness of breath, Sore throat, Earache, Sinus pressure, Fever, Chills, Headache, Nausea, Vomiting, OTC: Mucinex, flonase, tessalon (from PCP) PAST MEDICAL HISTORY Diagnosis Date Anxiety Bipolar disorder with depression (HCC) Hypertension Migraine headache Obstructive sleep apnea Renal calculi MEDICATIONS: Current Outpatient Medications Medication Sig fluticasone (FLONASE) 50 mcg/actuation nasal spray Use 1 [place] in each nostril two times a day. ASMANEX TWISTHALER 220 mcg/ actuation (30) inhaler INHALE 1 puff BY MOUTH EVERY evening. rinse mouth after using. topiramate (TOPAMAX) 25 mg tablet 25 mg. fludrocortisone (FLORINEF) 0.1 mg tablet Take 1 tablet by mouth every afternoon. atorvastatin (LIPITOR) 10 mg tablet Take 10 mg by mouth once daily. buPROPion XL (WELLBUTRIN XL) 150 mg 24 hr tablet Take 150 mg by mouth once daily. hydrOXYzine pamoate (VISTARIL) 25 mg capsule Take 1 Capsule By Oral Route 3 time(s) per day As needed for anxiety or sleep levothyroxine (SYNTHROID) 25 mcg tablet Take 25 mcg by mouth once daily. montelukast (SINGULAIR) 10 mg tablet Take 10 mg by mouth once daily. ALYACEN 1/35, 28, 1-35 mg-mcg per tablet Take 1 tablet by mouth once daily. pantoprazole DR (PROTONIX) 40 mg tablet Take 40 mg by mouth once daily. promethazine (PHENERGAN) 25 mg tablet 1 (one) Tablet by mouth every eight hours, as needed propranolol (INDERAL) 20 mg tablet Take 1 Tablet By Oral Route 2 times per day ondansetron (ZOFRAN) 4 mg tablet TAKE 1 TABLET BY MOUTH EVERY 6 HOURS NEEDED FOR 5 DAYS No current facility-administered medications for this visit. ALLERGIES: ALLERGIES Allergen Reactions Lisinopril Other: See Comments cough VITALS: BP 129/94 Pulse 97 Temp 36.6 ?C (97.9 ?F) Resp 24 Wt 89.4 kg (197 lb) LMP 07/25/2023 (Exact Date) SpO2 99% PHYSICAL EXAM: GEN: mildly ill appearing HEENT: PERRL, EOMI, conjunctiva clear Ears: canals clear. TMs without erythema, bulge, or effusion Sinuses: non-tender frontal sinus, non-tender maxillary sinuses Throat: moist mucous membranes, mild erythema, no exudate Neck: supple, no thyromegaly, no lymphadenopathy HEART: regular rate and rhythm, no murmurs LUNGS: clear to auscultation, no wheezes or crackles, no increased WOB ASSESSMENT/PLAN: 1. URI, acute - ICD9: 465.9, ICD10: J06.9 Benign lung exam. Suspect new illness the last 5 days. - COVID AND INFLUENZA A/B AND RSV NAAT, ROUTINE - BENZONATATE 100 MG CAPSULE Aquilino Dow MD Allergies As of Date: 09/05/2023 Noted Allergy Reaction LISINOPRIL 09/09/2020 14 - Other: See Comments Comments: cough Date Reviewed: 09/05/2023 Reviewed by: Danuta Moya MA - Fully Assessed Reason for Visit: Cough [28] Cmt: Head congestion x3 weeks Primary Visit Diagnosis:URI, acute [J06.9] Order(s):COVID AND INFLUENZA A/B AND RSV NAAT, ROUTINE [SQCVFLRS] Order #: [id number]. #:[id number] benzonatate (TESSALON PERLE) 100 mg capsuleTake 1 capsule by mouth every 8 hours as needed for cough for up to 15 days.Disp: 30 capsuleRfl: 0 Prescriptions as of 09/08/2023 - fluticasone (FLONASE) 50 mcg/actuation nasal spray Use 1 [place] in each nostril two times a day. - ASMANEX TWISTHALER 220 mcg/ actuation (30) inhaler INHALE 1 puff BY MOUTH EVERY evening. rinse mouth after using. - ondansetron (ZOFRAN) 4 mg tablet TAKE 1 TABLET BY MOUTH EVERY 6 HOURS NEEDED FOR 5 DAYS - topiramate (TOPAMAX) 25 mg tablet 25 mg. - benzonatate (TESSALON PERLE) 100 mg capsule Take 1 capsule by mouth every 8 hours as needed for cough for up to 15 days. - fludrocortisone (FLORINEF) 0.1 mg tablet Take 1 tablet by mouth every afternoon. - atorvastatin (LIPITOR) 10 mg tablet Take 10 mg by mouth once daily. - buPROPion XL (WELLBUTRIN XL) 150 mg 24 hr tablet Take 150 mg by mouth once daily. - hydrOXYzine pamoate (VISTARIL) 25 mg capsule Take 1 Capsule By Oral Route 3 time(s) per day As needed for anxiety or sleep - levothyroxine (SYNTHROID) 25 mcg tablet Take 25 mcg by mouth once daily. - montelukast (SINGULAIR) 10 mg tablet Take 10 mg by mouth once daily. - ALYACEN 1/35, 28, 1-35 mg-mcg per tablet Take 1 tablet by mouth once daily. - pantoprazole DR (PROTONIX) 40 mg tablet (more content not included)... Normal [facility] COVID AND INFLUENZA A/B AND RSV NAAT, ROUTINEon 09-05-2023 SARS-CoV-2 (COVID-19) RNA BETTY+probe Ql (Unsp spec) COVID 19 RESULT: Not detected The method used is RT-PCR or an equivalent NAAT method. Reference Range (the expected result in uninfected individuals): Not detected INFLUENZA A PCR: Not detected INFLUENZA B PCR: Not detected RSV PCR: Not detected Normal [facility] Comment on above: Performed By: #### C VFS #### [facility] CLIA [id number] [address] [place] [address] [place] LABORATORYOrdered By: Nicolette Vallecillo on 08-21-2023 Albumin DL <= 20 mg/L (U) [Mass/Vol] [address] mcg/dL Invalid Interpretation Code AO ADM SS Albumin/Creatinine DL <= 20 mg/L (U) [Mass ratio] 95 mcg/mg High 0 - 30 mcg/mg AO ADM SS Creatinine (U) [Mass/Vol] 149.9 mg/dL High 28.0 - 117.0 mg/dL AO ADM SS MALBRon 08-21-2023 U Creatinine 149.9 mg/dL High 28.0-117.0 [facility] ([place]) Comment on above: Performed By: #### U KADE Hussein PREGU #### [place] [address] U Microalb [address] mcg/dL Normal [facility] ([place]) Comment on above: Performed By: #### U KADE Hussein PREGU #### [place] [address] [place], [place] [address] U Ratio Alb/Cre 95 mcg/mg High 0-30 [facility] ([place]) Comment on above: Performed By: #### U AGALEMICUMESH PREGU #### [place] [address] [place], [place] [address] Absolute lymphocyte countOrd ered By: Osvaldo Nagel on 06-30-2023 Lymphocytes Auto (Unsp spec) [#/Vol] 1.12 10*3/uL 0.83-4.51 [facility] Basophil percentageOrdered B y: Osvaldo Nagel on 06-30-2023 Basophil percentage 0-5 SEEN /hpf 0-5 [facility] Basophils/100 WBC (Bld) 0.6 % 0-1 [facility] Bilirubin [Mass/Vol] 0.60 mg/dL 0.20-1.00 [facility] Comment on above: For patients on eltr ombopag therapy, use of Dimension [place] TBIL is not recommended. Chloride [Moles/Vol] 109 mmol/L 98-107 [facility] Eosinophils/100 WBC (Bld) 0.1 % 0-5 [facility] [facility] Glucose [Mass/Vol] 137 mg/dL 74-106 [facility] Comment on above: Fasting Glucose resu lt greater than or equal to 126 mg/dL suggests DIABETES MELLITUS per A.D.A. criteria. Neutrophils (Bld) [#/Vol] 9.1 10*3/uL 2.0-7.7 [facility] Neutrophils/100 WBC (Bld) 85.5 % 47-70 [facility] Potassium [Moles/Vol] 2.8 mmol/L 3.5-5.1 [facility] Protein [Mass/Vol] 7.8 g/dL 6.4-8.2 [facility] Sodium [Moles/Vol] 140 mmol/L 136-145 [facility] WBC (Bld) [#/Vol] 10.6 10*3/uL 4.4-11.0 [facility] Beta hCG serum qualOrdered B y: Osvaldo Shona on 06-30-2023 Beta HCG ( test) Ql Negative [facility] Bilirubin Test strip Ql (U)O rdered By: Osvaldo Nagel on 06-30-2023 Bilirubin Ql (U) Negative Negative [facility] Blood erythrocytes count (nu mber/volume)Ordered By: Osvaldo Nagel on 06-30-2023 RBC (Bld) [#/Vol] 4.83 10*6/uL 4.2-5.4 [facility] Blood hemoglobin measurement (mass/volume)Ordered By: Osvaldo Nagel on 06-30-2023 Hemoglobin (Bld) [Mass/Vol] 15.4 g/dL 12.0-15.0 [facility] Blood lymphocytes/100 leukoc ytesOrdered By: Osvaldo Nagel on 06-30-2023 Lymphocytes/100 WBC (Bld) 10.6 % 19-41 [facility] Blood monocytes/100 leukocyt esOrdered By: Osvaldo Nagel on 06-30-2023 Monocytes/100 WBC (Bld) 2.9 % 0-10 [facility] Blood platelet mean volumeOr dered By: Osvaldo Nagel on 06-30-2023 Platelet mean volume (Bld) [Entitic vol] 11.6 fL 6.2-12.0 [facility] Determination of erythrocyte mean corpuscular volume (MCV)Ordered By: Osvaldo Nagel on 06-30-2023 MCV (RBC) [Entitic vol] 93.2 fL 81-99 [facility] Hematocrit Auto (Bld) [Volum e fraction]Ordered By: Osvaldo Nagle on 06-30-2023 Hematocrit (Bld) [Volume fraction] 45.0 % 37-47 [facility] Ketones Test strip Ql (U)Ord ered By: Osvaldo Nagel on 06-30-2023 Ketones Ql (U) Negative Negative [facility] Laboratory - Chemistry and C hemistry - challengeOrdered By: Osvaldo Nagel on 06-30-2023 ALP [Catalytic activity/Vol] 103 U/L 45-117 [facility] ALT [Catalytic activity/Vol] 26 U/L 13-56 [facility] CO2 [Moles/Vol] 25.0 mmol/L 21.0-32.0 [facility] Globulin (S) [Mass/Vol] 3.9 g/dL 2.2-4.2 [facility] Urea nitrogen/Creatinine [Mass ratio] 14.6 mg/mg 10-20 [facility] Laboratory - Hematology and Cell countsOrdered By: Osvaldo Nagel on 06-30-2023 Erythrocyte distribution width (RBC) [Entitic vol] 43.7 fL 35.1-43.9 [facility] Erythrocyte distribution width (RBC) [Ratio] 12.7 % 11.6-14.6 [facility] Immature granulocytes/100 WBC (Bld) 0.300 % 0.0-0.9 [facility] Comment on above: IG% - Immature Granu locytes (promyelocytes, myelocytes and metamyelocytes) > 1% indicates that a LEFT SHIFT is Present. MCH (RBC) [Entitic mass] 31.9 pg 27.0-32.0 [facility] Nucleated RBC/100 WBC (Bld) [Ratio] 0 % 0-5 [facility] MCHC Auto (RBC) [Mass/Vol]Or dered By: Osvaldo Nagel on 06-30-2023 MCHC (RBC) [Mass/Vol] 34.2 g/dL 32-36 [facility] Mucus LM Ql (Urine sed)Order ed By: Osvaldo Nagel on 06-30-2023 Mucus Ql (Urine sed) 0 SEEN /hpf [facility] Nitrite Test strip Ql (U)Ord ered By: Osvaldo Nagel on 06-30-2023 Nitrite Ql (U) Negative Negative [facility] No Panel InformationOrdered By: Osvaldo Nagel on 06-30-2023 Estimated GFR (MDRD) Amer 83 mL/min >60 [facility] Comment on above: GFR Calc Estimated GFR (MDRD) Non-Af Amer 69 mL/min >60 [facility] Comment on above: Non- GFR Calc Platelets bldOrdered By: Mahesh Nagel on 06-30-2023 Platelets (Bld) [#/Vol] 262 10*3/uL 150-450 [facility] Protein Test strip Ql (U)Ord ered By: Osvaldo Nagel on 06-30-2023 Protein Ql (U) 15 mg/dl Negative [facility] Serum or plasma albumin ivis urement (mass/volume)Ordered By: Osvaldo Nagel on 06-30-2023 Albumin [Mass/Vol] 3.9 g/dL 3.2-5.0 [facility] Serum or plasma albumin/glob ulin mass ratioOrdered By: Osvaldo Nagel on 06-30-2023 Albumin/Globulin [Mass ratio] 1.0 {ratio} 0.9-2.4 [facility] Serum or plasma calcium ivis urement (mass/volume)Ordered By: Osvaldo Nagel on 06-30-2023 Calcium [Mass/Vol] 9.8 mg/dL 8.5-10.1 [facility] Serum or plasma creatinine m easurement (mass/volume)Ordered By: Osvaldo Nagel on 06-30-2023 Creatinine [Mass/Vol] 1.03 mg/dL 0.55-1.02 [facility] Comment on above: The validity of the calculated GFR & GFRAA in patients over 70 years has not been determined. Clinical correlation is essential. Serum or plasma urea nitroge n measurement (mass/volume)Ordered By: Osvaldo Nagel on 06-30-2023 Urea nitrogen [Mass/Vol] 15 mg/dL 7-18 [facility] Squamous epithelial cells de tection in urine sediment by light microscopyOrdered By: Osvaldo Nagel on 06-30-2023 Epithelial cells.squamous LM Ql (Urine sed) 5-10 SEEN /hpf 5-10 [facility] Thin prep Papanicolaou smear with manual screeningOrdered By: Osvaldo Nagel on 06-30-2023 Thin prep Papanicolaou smear with manual screening 23 U/L 15-37 [facility] Thin prep Papanicolaou smear with manual screening 6 5-15 [facility] Urine blood detectionOrdered By: Osvaldo Nagel on 06-30-2023 RBC Ql (U) 250 /ul Negative [facility] RBC Ql (U) 10-25 SEEN /hpf 0-5 [facility] Urine clarityOrdered By: Mahesh Nagel on 06-30-2023 Clarity (U) Clear Clear [facility] Urine color determinationOrd ered By: Osvaldo Nagel on 06-30-2023 Color (U) Yellow Yellow [facility] Urine glucose detectionOrder ed By: Osvaldo Nagel on 06-30-2023 Glucose Ql (U) Normal mg/dl Normal [facility] Urine leukocyte esterase det ection by dipstickOrdered By: Osvaldo Nagel on 06-30-2023 Leukocyte esterase Test strip Ql (U) Negative Negative [facility] Urine pHOrdered By: Osvaldo Nagel on 06-30-2023 pH (U) 6.5 [pH] 5.0 - 8.0 [facility] Urine sediment bacteria coun t by microscopy (number/high power field)Ordered By: Osvaldo Nagel on 06-30-2023 Bacteria LM.HPF (Urine sed) [#/Area] 0 /[HPF] None Seen [facility] Urine specific gravity measu rementOrdered By: Osvaldo Nagel on 06-30-2023 Specific gravity (U) [Rel density] 1.015 1.002-1.03 0 [facility] Urobilinogen Auto test strip Ql (U)Ordered By: Osvaldo Nagel on 06-30-2023 Urobilinogen Ql (U) Normal mg/dl Normal [facility] .GFRon 04-11-2023 GFR 126 ml/min/1.73sqm Normal [facility] ([place]) Comment on above: Result Comment: GFR Population mean for , Non- Americans Ages 20-29 = 116 mL/min/1.73 sq.m. Ages 30-39 = 107 mL/min/1.73 sq.m. Ages 40-49 = 99 mL/min/1.73 sq.m. Ages 50-59 = 93 mL/min/1.73 sq.m. Ages 60-69 = 85 mL/min/1.73 sq.m. Ages 70+ = 75 mL/min/1.73 sq.m. Chronic Kidney Disease: Less than 60 mL/min/1.73 square meters End Stage Renal Disease: Less than 15 mL/min/1.73 square meters Performed By: #### H CV1, CMP, GFR, LIPID, A1C, TSH #### [place] [address] GFR Non- 104 ml/min/1.73sqm Normal [facility] ([place]) Comment on above: Result Comment: GFR Population mean for , Non- Americans Ages 20-29 = 116 mL/min/1.73 sq.m. Ages 30-39 = 107 mL/min/1.73 sq.m. Ages 40-49 = 99 mL/min/1.73 sq.m. Ages 50-59 = 93 mL/min/1.73 sq.m. Ages 60-69 = 85 mL/min/1.73 sq.m. Ages 70+ = 75 mL/min/1.73 sq.m. Chronic Kidney Disease: Less than 60 mL/min/1.73 square meters End Stage Renal Disease: Less than 15 mL/min/1.73 square meters Performed By: #### H CV1, CMP, GFR, LIPID, A1C, TSH #### [address] [address] A1Con 04-11-2023 HbA1c (Bld) [Mass fraction] 5.3 % Normal 4.3-6.4 [facility] ([place]) Comment on above: Performed By: #### H CV1, CMP, GFR, LIPID, A1C, TSH #### [address] [address] CMPon 04-11-2023 Albumin Level 3.5 G/dL Normal 3.5-5.0 [facility] ([place]) Comment on above: Performed By: #### H CV1, CMP, GFR, LIPID, A1C, TSH #### [address] [address] Albumin/Globulin [Mass ratio] 1.1 {ratio} Normal 1.1-2.5 [facility] ([place]) Comment on above: Performed By: #### H CV1, CMP, GFR, LIPID, A1C, TSH #### [address] [address] ALP [Catalytic activity/Vol] 119 U/L Normal 40-135 [facility] ([place]) Comment on above: Performed By: #### H CV1, CMP, GFR, LIPID, A1C, TSH #### [address] [address] ALT [Catalytic activity/Vol] 23 U/L Normal 14-59 [facility] ([place]) Comment on above: Performed By: #### H CV1, CMP, GFR, LIPID, A1C, TSH #### [address] [address] AST [Catalytic activity/Vol] 14 U/L Normal 10-40 [facility] ([place]) Comment on above: Performed By: #### H CV1, CMP, GFR, LIPID, A1C, TSH #### [address] [address] Bili Total 0.7 mg/dL Normal 0.2-1.0 [facility] ([place]) Comment on above: Result Comment: Use of this assay is not recommended for patients undergoing treatment with eltrombopag due to the potential for falsely elevated results. Performed By: #### H CV1, CMP, GFR, LIPID, A1C, TSH #### [address] [address] BUN/Creatinine Ratio 16 ratio Normal 7-27 [facility] ([place]) Comment on above: Performed By: #### H CV1, CMP, GFR, LIPID, A1C, TSH #### [address] [address] Calcium [Mass/Vol] 9.1 mg/dL Normal 8.4-10.2 [facility] ([place]) Comment on above: Performed By: #### H CV1, CMP, GFR, LIPID, A1C, TSH #### [address] [address] Chloride [Moles/Vol] 109 mmol/L High 98-107 [facility] ([place]) Comment on above: Performed By: #### H CV1, CMP, GFR, LIPID, A1C, TSH #### [address] [address] CO2 [Moles/Vol] 24 mmol/L Normal 22-29 [facility] ([place]) Comment on above: Performed By: #### H CV1, CMP, GFR, LIPID, A1C, TSH #### [address] [address] Creatinine [Mass/Vol] 0.69 mg/dL Normal 0.55-1.02 [facility] ([place]) Comment on above: Performed By: #### H CV1, CMP, GFR, LIPID, A1C, TSH #### [address] [address] Electrolyte Balance 12.0 mEq/L Normal 4.0-15.0 [facility] ([place]) Comment on above: Performed By: #### H CV1, CMP, GFR, LIPID, A1C, TSH #### [address] [address] Globulin 3.3 G/dL Normal [facility] ([place]) Comment on above: Performed By: #### H CV1, CMP, GFR, LIPID, A1C, TSH #### [address] [address] Glucose [Mass/Vol] 89 mg/dL Normal 70-105 [facility] ([place]) Comment on above: Performed By: #### H CV1, CMP, GFR, LIPID, A1C, TSH #### [address] [address] Potassium [Moles/Vol] 3.9 mmol/L Normal 3.5-5.1 [facility] ([place]) Comment on above: Performed By: #### H CV1, CMP, GFR, LIPID, A1C, TSH #### [address] [address] Sodium [Moles/Vol] 145 mmol/L Normal 136-145 [facility] ([place]) Comment on above: Performed By: #### H CV1, CMP, GFR, LIPID, A1C, TSH #### [address] [address] Total Protein 6.8 G/dL Normal 6.4-8.2 [facility] ([place]) Comment on above: Performed By: #### H CV1, CMP, GFR, LIPID, A1C, TSH #### [address] [address] Urea nitrogen [Mass/Vol] 11 mg/dL Normal 7-18 [facility] ([place]) Comment on above: Performed By: #### H CV1, CMP, GFR, LIPID, A1C, TSH #### [address] [address] HCVon 04-11-2023 Hep C Ab Non-Reactive Normal Non-Reacti ve [facility] ([place]) Comment on above: Performed By: #### H CV1, CMP, GFR, LIPID, A1C, TSH #### [address] [address] Hep C Ab Int Normal [facility] ([place]) Comment on above: Result Comment: Nonr eactive: Samples with a value < 0.80 are considered nonreactive (negative) for antibodies to HCV. A negative test result does not exclude the possibility of exposure to or infection with HCV. HCV antibodies may be undetectable in some stages of the infection and in some clinical conditions. See Interp Performed By: #### H CV1, CMP, GFR, LIPID, A1C, TSH #### [address] [address] LABORATORYOrdered By: SYSTEM SYSTEM on 04-11-2023 Albumin BCP dye [Mass/Vol] 3.5 G/dL Invalid Interpretation Code 3.5 - 5.0 G/dL AO ADM SS Albumin/Globulin [Mass ratio] 1.1 {ratio} Invalid Interpretation Code 1.1 - 2.5 ratio AO ADM SS ALP [Catalytic activity/Vol] 119 U/L Invalid Interpretation Code 40 - 135 U/L AO ADM SS ALT With P-5'-P [Catalytic activity/Vol] 23 U/L Invalid Interpretation Code 14 - 59 U/L AO ADM SS AST With P-5'-P [Catalytic activity/Vol] 14 U/L Invalid Interpretation Code 10 - 40 U/L AO ADM SS Bilirubin [Mass/Vol] 0.7 mg/dL Invalid Interpretation Code 0.2 - 1.0 mg/dL AO ADM SS Comment on above: Interpretive Data: U se of this assay is not recommended for patients undergoing treatment with eltrombopag due to the potential for falsely elevated results. Calcium [Mass/Vol] 9.1 mg/dL Invalid Interpretation Code 8.4 - 10.2 mg/dL AO ADM SS Chloride [Moles/Vol] 109 mmol/L Invalid Interpretation Code 98 - 107 mmol/L AO ADM SS CO2 [Moles/Vol] 24 mmol/L Invalid Interpretation Code 22 - 29 mmol/L AO ADM SS Creatinine [Mass/Vol] 0.69 mg/dL Invalid Interpretation Code 0.55 - 1.02 mg/dL AO ADM SS Electrolyte Balance 12.0 mEq/L Invalid Interpretation Code 4.0 - 15.0 mEq/L AO ADM SS GFR/1.73 sq M.predicted among blacks MDRD (S/P/Bld) [Vol rate/Area] 126 ml/min/1.73sqm Invalid Interpretation Code AO Chemistry S Comment on above: Interpretive Data: GFR Population mean for , Non- Americans Ages 20-29 = 116 mL/min/1.73 sq.m. Ages 30-39 = 107 mL/min/1.73 sq.m. Ages 40-49 = 99 mL/min/1.73 sq.m. Ages 50-59 = 93 mL/min/1.73 sq.m. Ages 60-69 = 85 mL/min/1.73 sq.m. Ages 70+ = 75 mL/min/1.73 sq.m. Chronic Kidney Disease: Less than 60 mL/min/1.73 square meters End Stage Renal Disease: Less than 15 mL/min/1.73 square meters GFR/1.73 sq M.predicted among non-blacks MDRD (S/P/Bld) [Vol rate/Area] 104 ml/min/1.73sqm Invalid Interpretation Code AO Chemistry S Comment on above: Interpretive Data: GFR Population mean for , Non- Americans Ages 20-29 = 116 mL/min/1.73 sq.m. Ages 30-39 = 107 mL/min/1.73 sq.m. Ages 40-49 = 99 mL/min/1.73 sq.m. Ages 50-59 = 93 mL/min/1.73 sq.m. Ages 60-69 = 85 mL/min/1.73 sq.m. Ages 70+ = 75 mL/min/1.73 sq.m. Chronic Kidney Disease: Less than 60 mL/min/1.73 square meters End Stage Renal Disease: Less than 15 mL/min/1.73 square meters Globulin 3.3 G/dL Invalid Interpretation Code AO ADM SS Glucose [Mass/Vol] 89 mg/dL Invalid Interpretation Code 70 - 105 mg/dL AO ADM SS HbA1c (Bld) [Mass fraction] 5.3 % Invalid Interpretation Code 4.3 - 6.4 % AO ADM SS Potassium [Moles/Vol] 3.9 mmol/L Invalid Interpretation Code 3.5 - 5.1 mmol/L AO ADM SS Protein [Mass/Vol] 6.8 G/dL Invalid Interpretation Code 6.4 - 8.2 G/dL AO ADM SS Sodium [Moles/Vol] 145 mmol/L Invalid Interpretation Code 136 - 145 mmol/L AO ADM SS TSH Qn 2.00 m[IU]/L Invalid Interpretation Code 0.36 - 3.74 mcIU/mL AO ADM SS Urea nitrogen [Mass/Vol] 11 mg/dL Invalid Interpretation Code 7 - 18 mg/dL AO ADM SS Urea nitrogen/Creatinine [Mass ratio] 16 ratio Invalid Interpretation Code 7 - 27 ratio AO ADM SS LABORATORYOrdered By: Margoth Montiel on 04-11-2023 Cholesterol [Mass/Vol] 214 mg/dL Invalid Interpretation Code 0 - 200 mg/dL AO ADM SS Comment on above: Interpretive Data: C holesterol Reference Interval: Less than 200 Desirable 200-239 Borderline high risk 240 and above High risk Cholesterol in HDL [Mass/Vol] 56 mg/dL Invalid Interpretation Code 40 - 60 mg/dL AO ADM SS Cholesterol in LDL [Mass/Vol] 139 mg/dL Invalid Interpretation Code 0 - 130 mg/dL AO ADM SS Triglyceride [Mass/Vol] 94 mg/dL Invalid Interpretation Code 0 - 150 mg/dL AO ADM SS Comment on above: Interpretive Data: T riglyceride Reference Interval: Less than 150 Normal 150-199 Borderline high risk 200-499 High risk 500 or higher Very high risk LABORATORYOrdered By: Marley Sykes on 04-11-2023 HCV Ab IA Ql Non-Reactive (04/11/23 10:49 AM) Invalid Interpretation Code Non-Reacti ve ADM SS HCV Ab IA Ql Nonreactive: Samples with a value < 0.80 are considered nonreactive (negative) for antibodies to HCV.A negative test result does not exclude the possibility of exposure to or infection with HCV. HCV antibodies may be undetectable in some stages of the infection and in some clinical conditions. Invalid Interpretation Code Chemistry S LIPIDon 04-11-2023 Cholesterol [Mass/Vol] 214 mg/dL High 0-200 [facility] ([place]) Comment on above: Result Comment: Chol esterol Reference Interval: Less than 200 Desirable 200-239 Borderline high risk 240 and above High risk Performed By: #### H CV1, CMP, GFR, LIPID, A1C, TSH #### [facility] [address] [place] [id number] Cholesterol in HDL [Mass/Vol] 56 mg/dL Normal 40-60 [facility] ([place]) Comment on above: Performed By: #### H CV1, CMP, GFR, LIPID, A1C, TSH #### [facility] [address] [place] [id number] Cholesterol in LDL [Mass/Vol] 139 mg/dL High 0-130 [facility] ([place]) Comment on above: Performed By: #### H CV1, CMP, GFR, LIPID, A1C, TSH #### [facility] [address] [place] [address] Triglyceride [Mass/Vol] 94 mg/dL Normal 0-150 [facility] ([place]) Comment on above: Result Comment: Trig lyceride Reference Interval: Less than 150 Normal 150-199 Borderline high risk 200-499 High risk 500 or higher Very high risk Performed By: #### H CV1, CMP, GFR, LIPID, A1C, TSH #### [address] [address] TSHon 04-11-2023 TSH Qn 2.00 m[IU]/L Normal 0.36-3.74 [facility] ([place]) Comment on above: Performed By: #### H CV1, CMP, GFR, LIPID, A1C, TSH #### [address] [address] Color of specimen determinat ionOrdered By: Dr. Alvarado on 12-19-2022 Color (Unsp spec) [facility] - Miscellaneous t estsOrdered By: Dr. Alvarado on 12-19-2022 Service comment (Unsp spec) [Interp] See [facility] Comment on above: Calculus received we t. Wet calculi must be dried beforeanalysis, which delays reporting of results. Leaving calculiwet (such as water, saline, blood, urine) may lead tochanges in composition. Physician questions regarding Calculi Analysis contactC[facility] Hospital[facility] at: [phone]. Calculi report will follow via computer, mail or courierdelivery. Measurement of weight of sto neOrdered By: Dr. Alvarado on 12-19-2022 Weight (Stone) 18 mg [facility] No Panel InformationOrdered By: Dr. Alvarado on 12-19-2022 Stone Analysis (T) See comment [facility] Comment on above: Percentage (Represen ts the % composition) Stone Calcium Oxalate Monohydrate 30 % [facility] Stone Calcium Phosphate 70 % [facility] Comment on above: Calcium phosphate (h ydroxyl form) includes hydroxyapatite,amorphous calcium phosphate, and whitlockite. Hydroxyapatiteis the most common of the calcium phosphate salts found inhuman kidney stones. Origin of StoneOrdered By: Ralph Alvarado on 12-19-2022 Origin Nom (Stone) Not Provided [facility] Size of stoneOrdered By: Dr. Alvarado on 12-19-2022 Size (Stone) [Entitic vol] 3x5 mm [facility] Comment on above: Single piece receive d Thin prep Papanicolaou smear with manual screeningOrdered By: Dr. Alvarado on 12-19-2022 Thin prep Papanicolaou smear with manual screening See comment [facility] Comment on above: Photograph will foll ow under a separate cover Amorphous sediment detection in urine sediment by light microscopyOrdered By: Dr. Whalen on 12-01-2022 Amorphous sediment LM Ql (Urine sed) 1+ URATE [facility] Basophil percentageOrdered B y: Dr. Whalen on 12-01-2022 Basophil percentage 0-5 SEEN /hpf 0-5 [facility] Bilirubin Test strip Ql (U)O rdered By: Dr. Whalen on 12-01-2022 Bilirubin Ql (U) Negative Negative [facility] Ketones Test strip Ql (U)Ord ered By: Dr. Whalen on 12-01-2022 Ketones Ql (U) 5 mg/dl Negative [facility] Mucus LM Ql (Urine sed)Order ed By: Dr. Whalen on 12-01-2022 Mucus Ql (Urine sed) 0 SEEN /hpf [facility] Nitrite Test strip Ql (U)Ord ered By: Dr. Whalen on 12-01-2022 Nitrite Ql (U) Negative Negative [facility] Protein Test strip Ql (U)Ord ered By: Dr. Whalen on 12-01-2022 Protein Ql (U) 30 mg/dl Negative [facility] Squamous epithelial cells de tection in urine sediment by light microscopyOrdered By: Dr. Whalen on 12-01-2022 Epithelial cells.squamous LM Ql (Urine sed) 0-5 SEEN /hpf 5-10 [facility] Urine blood detectionOrdered By: Dr. Whalen on 12-01-2022 RBC Ql (U) 250 /ul Negative [facility] RBC Ql (U) 10-25 SEEN /hpf 0-5 [facility] Urine clarityOrdered By: Dr. Whalen on 12-01-2022 Clarity (U) Sl. Cloudy Clear [facility] Urine color determinationOrd ered By: Dr. Whalen on 12-01-2022 Color (U) Yellow Yellow [facility] Urine glucose detectionOrder ed By: Dr. Whalen on 12-01-2022 Glucose Ql (U) Normal mg/dl Normal [facility] Urine leukocyte esterase det ection by dipstickOrdered By: Dr. Whalen on 12-01-2022 Leukocyte esterase Test strip Ql (U) 25 /ul Negative [facility] Urine pHOrdered By: Dr. Katlin anderson on 12-01-2022 pH (U) 5.0 [pH] 5.0 - 8.0 [facility] Urine sediment bacteria coun t by microscopy (number/high power field)Ordered By: Dr. Whalen on 12-01-2022 Bacteria LM.HPF (Urine sed) [#/Area] 0 /[HPF] None Seen [facility] Urine specific gravity measu rementOrdered By: Dr. Whalen on 12-01-2022 Specific gravity (U) [Rel density] 1.025 1.002-1.03 0 [facility] Urobilinogen Auto test strip Ql (U)Ordered By: Dr. Whalen on 12-01-2022 Urobilinogen Ql (U) Normal mg/dl Normal [facility] Culture, urineOrdered By: Dr Bryce Ruvalcaba on 11-30-2022 Bacteria identified Cx Nom (U) Streptococcus agalactiae (B) [facility] Bacteria identified Cx Nom (U) Negative [facility] Absolute lymphocyte countOrd ered By: Dr. Ruvalcaba on 11-24-2022 Lymphocytes Auto (Unsp spec) [#/Vol] 3.75 10*3/uL 0.83-4.51 [facility] Basophil percentageOrdered B y: Dr. Ruvalcaba on 11-24-2022 Basophil percentage 5-10 SEEN /hpf 0-5 [facility] Basophils/100 WBC (Bld) 0.9 % 0-1 [facility] Bilirubin [Mass/Vol] 0.30 mg/dL 0.20-1.00 [facility] Comment on above: For patients on eltr ombopag therapy, use of Dimension [place] TBIL is not recommended. Chloride [Moles/Vol] 111 mmol/L 98-107 [facility] Eosinophils/100 WBC (Bld) 1.2 % 0-5 [facility] Glucose [Mass/Vol] 102 mg/dL 74-106 [facility] Comment on above: Fasting Glucose resu lt from 100 to 125 mg/dL suggests IMPAIRED HOMEOSTASIS per A.D.A. criteria. Neutrophils (Bld) [#/Vol] 4.0 10*3/uL 2.0-7.7 [facility] [facility] Neutrophils/100 WBC (Bld) 44.8 % 47-70 [facility] Potassium [Moles/Vol] 3.0 mmol/L 3.5-5.1 [facility] Protein [Mass/Vol] 7.4 g/dL 6.4-8.2 [facility] Sodium [Moles/Vol] 140 mmol/L 136-145 [facility] WBC (Bld) [#/Vol] 8.9 10*3/uL 4.4-11.0 [facility] Beta hCG serum qualOrdered B y: Dr. Ruvalcaba on 11-24-2022 Beta HCG ( test) Ql Negative [facility] Bilirubin Test strip Ql (U)O rdered By: Dr. Ruvalcaba on 11-24-2022 Bilirubin Ql (U) Negative Negative [facility] Blood erythrocytes count (nu mber/volume)Ordered By: Dr. Ruvalcaba on 11-24-2022 RBC (Bld) [#/Vol] 4.63 10*6/uL 4.2-5.4 [facility] Blood hemoglobin measurement (mass/volume)Ordered By: Dr. Ruvalcaba on 11-24-2022 Hemoglobin (Bld) [Mass/Vol] 14.5 g/dL 12.0-15.0 [facility] Blood lymphocytes/100 leukoc ytesOrdered By: Dr. Ruvalcaba on 11-24-2022 Lymphocytes/100 WBC (Bld) 42.2 % 19-41 [facility] Blood monocytes/100 leukocyt esOrdered By: Dr. Ruvalcaba on 11-24-2022 Monocytes/100 WBC (Bld) 10.8 % 0-10 [facility] Blood platelet mean volumeOr dered By: Dr. Ruvalcaba on 11-24-2022 Platelet mean volume (Bld) [Entitic vol] 11.9 fL 6.2-12.0 [facility] Determination of erythrocyte mean corpuscular volume (MCV)Ordered By: Dr. Ruvalcaba on 11-24-2022 MCV (RBC) [Entitic vol] 94.6 fL 81-99 [facility] Hematocrit Auto (Bld) [Volum e fraction]Ordered By: Dr. Ruvalcaba on 11-24-2022 Hematocrit (Bld) [Volume fraction] 43.8 % 37-47 [facility] Ketones Test strip Ql (U)Ord ered By: Dr. Ruvalcaba on 11-24-2022 Ketones Ql (U) Negative Negative [facility] Laboratory - Chemistry and C hemistry - challengeOrdered By: Dr. Ruvalcaba on 11-24-2022 ALP [Catalytic activity/Vol] 118 U/L 45-117 [facility] ALT [Catalytic activity/Vol] 19 U/L 13-56 [facility] CO2 [Moles/Vol] 26.0 mmol/L 21.0-32.0 [facility] Globulin (S) [Mass/Vol] 3.9 g/dL 2.2-4.2 [facility] Urea nitrogen/Creatinine [Mass ratio] 12.6 mg/mg 10-20 [facility] Laboratory - Hematology and Cell countsOrdered By: Dr. Ruvalcaba on 11-24-2022 Erythrocyte distribution width (RBC) [Entitic vol] 42.5 fL 35.1-43.9 [facility] Erythrocyte distribution width (RBC) [Ratio] 12.2 % 11.6-14.6 [facility] Immature granulocytes/100 WBC (Bld) 0.100 % 0.0-0.9 [facility] Comment on above: IG% - Immature Granu locytes (promyelocytes, myelocytes and metamyelocytes) > 1% indicates that a LEFT SHIFT is Present. MCH (RBC) [Entitic mass] 31.3 pg 27.0-32.0 [facility] Nucleated RBC/100 WBC (Bld) [Ratio] 0 % 0-5 [facility] MCHC Auto (RBC) [Mass/Vol]Or dered By: Dr. Ruvalcaba on 11-24-2022 MCHC (RBC) [Mass/Vol] 33.1 g/dL 32-36 [facility] Mucus LM Ql (Urine sed)Order ed By: Dr. Ruvalcaba on 11-24-2022 Mucus Ql (Urine sed) 0 SEEN /hpf [facility] Nitrite Test strip Ql (U)Ord ered By: Dr. Ruvalcaba on 11-24-2022 Nitrite Ql (U) Negative Negative [facility] No Panel InformationOrdered By: Dr. Ruvalcaba on 11-24-2022 Estimated Creatinine Clearance Calc 104.60 ml/min [facility] Estimated GFR (MDRD) Amer 128 mL/min >60 [facility] Comment on above: GFR Calc Estimated GFR (MDRD) Non-Af Amer 106 mL/min >60 [facility] Comment on above: Non- GFR Calc Platelets bldOrdered By: Dr. Ruvalcaba on 11-24-2022 Platelets (Bld) [#/Vol] 268 10*3/uL 150-450 [facility] Protein Test strip Ql (U)Ord ered By: Dr. Ruvalcaba on 11-24-2022 Protein Ql (U) 15 mg/dl Negative [facility] Serum or plasma albumin ivis urement (mass/volume)Ordered By: Dr. Ruvalcaba on 11-24-2022 Albumin [Mass/Vol] 3.5 g/dL 3.2-5.0 [facility] Serum or plasma albumin/glob ulin mass ratioOrdered By: Dr. Ruvalcaba on 11-24-2022 Albumin/Globulin [Mass ratio] 0.9 {ratio} 0.9-2.4 [facility] Serum or plasma calcium ivis urement (mass/volume)Ordered By: Dr. Ruvalcaba on 11-24-2022 Calcium [Mass/Vol] 9.1 mg/dL 8.5-10.1 [facility] Serum or plasma creatinine m easurement (mass/volume)Ordered By: Dr. Ruvalcaba on 11-24-2022 Creatinine [Mass/Vol] 0.71 mg/dL 0.55-1.02 [facility] Comment on above: The validity of the calculated GFR & GFRAA in patients over 70 years has not been determined. Clinical correlation is essential. Serum or plasma urea nitroge n measurement (mass/volume)Ordered By: Dr. Ruvalcaba on 11-24-2022 Urea nitrogen [Mass/Vol] 9 mg/dL 7-18 [facility] Squamous epithelial cells de tection in urine sediment by light microscopyOrdered By: Dr. Ruvalcaba on 11-24-2022 Epithelial cells.squamous LM Ql (Urine sed) 0-5 SEEN /hpf 5-10 [facility] Thin prep Papanicolaou smear with manual screeningOrdered By: Dr. Ruvalcaba on 11-24-2022 Thin prep Papanicolaou smear with manual screening 12 U/L 15-37 [facility] Thin prep Papanicolaou smear with manual screening 3 5-15 [facility] Urine blood detectionOrdered By: Dr. Ruvalcaba on 11-24-2022 RBC Ql (U) 25 /ul Negative [facility] RBC Ql (U) 0 SEEN /hpf 0-5 [facility] Urine clarityOrdered By: Dr. Ruvalcaba on 11-24-2022 Clarity (U) Clear Clear [facility] Urine color determinationOrd ered By: Dr. Ruvalcaba on 11-24-2022 Color (U) Yellow Yellow [facility] Urine glucose detectionOrder ed By: Dr. Ruvalcaba on 11-24-2022 Glucose Ql (U) Normal mg/dl Normal [facility] Urine leukocyte esterase det ection by dipstickOrdered By: Dr. Ruvalcaba on 11-24-2022 Leukocyte esterase Test strip Ql (U) 100 /ul Negative [facility] Urine pHOrdered By: Dr. Darrell dawn on 11-24-2022 pH (U) 6.0 [pH] 5.0 - 8.0 [facility] Urine sediment bacteria coun t by microscopy (number/high power field)Ordered By: Dr. Ruvalcaba on 11-24-2022 Bacteria LM.HPF (Urine sed) [#/Area] 2 /[HPF] None Seen [facility] Urine specific gravity measu rementOrdered By: Dr. Ruvalcaba on 11-24-2022 Specific gravity (U) [Rel density] 1.020 1.002-1.03 0 [facility] Urobilinogen Auto test strip Ql (U)Ordered By: Dr. Ruvalcaba on 11-24-2022 Urobilinogen Ql (U) Normal mg/dl Normal [facility] LABORATORYOrdered By: Viridiana Gonzalez on 11-20-2022 Albumin DL <= 20 mg/L (U) [Mass/Vol] 1065 mcg/dL Invalid Interpretation Code AO ADM SS Albumin/Creatinine DL <= 20 mg/L (U) [Mass ratio] 14 mcg/mg Invalid Interpretation Code 0 - 30 mcg/mg AO ADM SS Creatinine (U) [Mass/Vol] 76.0 mg/dL Invalid Interpretation Code 28.0 - 117.0 mg/dL AO ADM SS LABORATORYOrdered By: [employer] on 11-07-2022 Albumin BCP dye [Mass/Vol] 3.4 G/dL Invalid Interpretation Code 3.5 - 5.0 G/dL AO ADM SS Albumin/Globulin [Mass ratio] 1.1 {ratio} Invalid Interpretation Code 1.1 - 2.5 ratio AO ADM SS ALP [Catalytic activity/Vol] 108 U/L Invalid Interpretation Code 40 - 135 U/L AO ADM SS ALT With P-5'-P [Catalytic activity/Vol] 17 U/L Invalid Interpretation Code 14 - 59 U/L AO ADM SS AST With P-5'-P [Catalytic activity/Vol] 11 U/L Invalid Interpretation Code 10 - 40 U/L AO ADM SS Bilirubin [Mass/Vol] 0.4 mg/dL Invalid Interpretation Code 0.2 - 1.0 mg/dL AO ADM SS Calcium [Mass/Vol] 9.0 mg/dL Invalid Interpretation Code 8.4 - 10.2 mg/dL AO ADM SS Chloride [Moles/Vol] 108 mmol/L Invalid Interpretation Code 98 - 107 mmol/L AO ADM SS CO2 [Moles/Vol] 26 mmol/L Invalid Interpretation Code 22 - 29 mmol/L AO ADM SS Creatinine [Mass/Vol] 0.59 mg/dL Invalid Interpretation Code 0.55 - 1.02 mg/dL AO ADM SS Electrolyte Balance 8.0 mEq/L Invalid Interpretation Code 4.0 - 15.0 mEq/L AO ADM SS GFR 151 ml/min/1.73sqm Invalid Interpretation Code AO Chemistry S GFR Non- 124 ml/min/1.73sqm Invalid Interpretation Code AO Chemistry S Globulin 3.1 G/dL Invalid Interpretation Code AO ADM SS Glucose [Mass/Vol] 111 mg/dL Invalid Interpretation Code 70 - 105 mg/dL AO ADM SS Magnesium [Mass/Vol] 1.8 mg/dL Invalid Interpretation Code 1.8 - 2.4 mg/dL AO ADM SS Potassium [Moles/Vol] 3.6 mmol/L Invalid Interpretation Code 3.5 - 5.1 mmol/L AO ADM SS Protein [Mass/Vol] 6.5 G/dL Invalid Interpretation Code 6.4 - 8.2 G/dL AO ADM SS Sodium [Moles/Vol] 142 mmol/L Invalid Interpretation Code 136 - 145 mmol/L AO ADM SS TSH Qn 1.30 m[IU]/L Invalid Interpretation Code 0.36 - 3.74 mcIU/mL AO ADM SS Urea nitrogen [Mass/Vol] 11 mg/dL Invalid Interpretation Code 7 - 18 mg/dL AO ADM SS Urea nitrogen/Creatinine [Mass ratio] 19 ratio Invalid Interpretation Code 7 - 27 ratio AO ADM SS Vit. D 25-Hydroxy 48.8 ng/mL Invalid Interpretation Code AO ADM SS LABORATORYOrdered By: Margoth Montiel on 11-07-2022 Basophil, Absolute 0.0 103/mcL Invalid Interpretation Code 0.0 - 0.2 10^3/mcL AO Workflow SS Basophils/100 WBC (Bld) 0.5 % Invalid Interpretation Code 0.0 - 2.5 % AO Workflow SS Eosinophil, Absolute 0.1 103/mcL Invalid Interpretation Code 0.0 - 0.4 10^3/mcL AO Workflow SS Eosinophils/100 WBC (Bld) 1.0 % Invalid Interpretation Code 0.0 - 7.0 % AO Workflow SS Erythrocyte distribution width (RBC) [Ratio] 12.7 % Invalid Interpretation Code 11.5 - 14.5 % AO Workflow SS Hematocrit (Bld) [Volume fraction] 41.2 % Invalid Interpretation Code 37.0 - 47.0 % AO Workflow SS Hemoglobin (Bld) [Mass/Vol] 13.8 G/dL Invalid Interpretation Code 12.0 - 16.0 G/dL AO Workflow SS Lymphocyte, Absolute 2.7 103/mcL Invalid Interpretation Code 0.8 - 3.9 10^3/mcL AO Workflow SS Lymphocytes/100 WBC (Bld) 30.4 % Invalid Interpretation Code 10.0 - 50.0 % AO Workflow SS MCH (RBC) [Entitic mass] 30.9 pg Invalid Interpretation Code 27.0 - 31.2 pg AO Workflow SS MCHC 33.4 G/dL Invalid Interpretation Code 33.0 - 37.0 G/dL AO Workflow SS MCV (RBC) [Entitic vol] 92.4 fL Invalid Interpretation Code 80.0 - 94.0 fL AO Workflow SS Monocyte, Absolute 0.8 103/mcL Invalid Interpretation Code 0.2 - 1.0 10^3/mcL AO Workflow SS Monocytes/100 WBC (Bld) 8.6 % Invalid Interpretation Code 1.7 - 13.0 % AO Workflow SS Neutrophil, Absolute 5.3 103/mcL Invalid Interpretation Code 2.9 - 6.2 10^3/mcL AO Workflow SS Neutrophils/100 WBC (Bld) 59.5 % Invalid Interpretation Code 37.0 - 80.0 % AO Workflow SS Platelet mean volume (Bld) [Entitic vol] 10.9 fL Invalid Interpretation Code 7.4 - 10.4 fL AO Workflow SS Platelets (Bld) [#/Vol] 247 103/mcL Invalid Interpretation Code 130 - 400 10^3/mcL AO Workflow SS RBC (Bld) [#/Vol] 4.46 106/mcL Invalid Interpretation Code 4.20 - 5.40 10^6/mcL AO Workflow SS WBC (Bld) [#/Vol] 8.9 103/mcL Invalid Interpretation Code 4.6 - 10.8 10^3/mcL AO Workflow SS LABORATORYOrdered By: Ca Ramirez on 09-19-2022 Basophil, Absolute 0.0 103/mcL Invalid Interpretation Code 0.0 - 0.2 10^3/mcL AO Workflow SS Basophils/100 WBC (Bld) 0.7 % Invalid Interpretation Code 0.0 - 2.5 % AO Workflow SS Eosinophil, Absolute 0.1 103/mcL Invalid Interpretation Code 0.0 - 0.4 10^3/mcL AO Workflow SS Eosinophils/100 WBC (Bld) 1.6 % Invalid Interpretation Code 0.0 - 7.0 % AO Workflow SS Erythrocyte distribution width (RBC) [Ratio] 12.5 % Invalid Interpretation Code 11.5 - 14.5 % AO Workflow SS Hematocrit (Bld) [Volume fraction] 41.9 % Invalid Interpretation Code 37.0 - 47.0 % AO Workflow SS Hemoglobin (Bld) [Mass/Vol] 14.0 G/dL Invalid Interpretation Code 12.0 - 16.0 G/dL AO Workflow SS Lymphocyte, Absolute 2.6 103/mcL Invalid Interpretation Code 0.8 - 3.9 10^3/mcL AO Workflow SS Lymphocytes/100 WBC (Bld) 41.4 % Invalid Interpretation Code 10.0 - 50.0 % AO Workflow SS MCH (RBC) [Entitic mass] 31.0 pg Invalid Interpretation Code 27.0 - 31.2 pg AO Workflow SS MCHC 33.3 G/dL Invalid Interpretation Code 33.0 - 37.0 G/dL AO Workflow SS MCV (RBC) [Entitic vol] 92.8 fL Invalid Interpretation Code 80.0 - 94.0 fL AO Workflow SS Monocyte, Absolute 0.6 103/mcL Invalid Interpretation Code 0.2 - 1.0 10^3/mcL AO Workflow SS Monocytes/100 WBC (Bld) 9.8 % Invalid Interpretation Code 1.7 - 13.0 % AO Workflow SS Neutrophil, Absolute 2.9 103/mcL Invalid Interpretation Code 2.9 - 6.2 10^3/mcL AO Workflow SS Neutrophils/100 WBC (Bld) 46.5 % Invalid Interpretation Code 37.0 - 80.0 % AO Workflow SS Platelet mean volume (Bld) [Entitic vol] 10.4 fL Invalid Interpretation Code 7.4 - 10.4 fL AO Workflow SS Platelets (Bld) [#/Vol] 253 103/mcL Invalid Interpretation Code 130 - 400 10^3/mcL AO Workflow SS RBC (Bld) [#/Vol] 4.52 106/mcL Invalid Interpretation Code 4.20 - 5.40 10^6/mcL AO Workflow SS WBC (Bld) [#/Vol] 6.3 103/mcL Invalid Interpretation Code 4.6 - 10.8 10^3/mcL AO Workflow SS LABORATORYOrdered By: SYSTEM SYSTEM on 09-19-2022 Bili Indirect 0.3 mg/dL Invalid Interpretation Code AO Chemistry S Bilirubin.direct [Mass/Vol] 0.1 mg/dL Invalid Interpretation Code 0.0 - 0.2 mg/dL AO ADM SS Calcium [Mass/Vol] 9.0 mg/dL Invalid Interpretation Code 8.4 - 10.2 mg/dL AO ADM SS Chloride [Moles/Vol] 107 mmol/L Invalid Interpretation Code 98 - 107 mmol/L AO ADM SS CO2 [Moles/Vol] 26 mmol/L Invalid Interpretation Code 22 - 29 mmol/L AO ADM SS Creatinine [Mass/Vol] 0.64 mg/dL Invalid Interpretation Code 0.55 - 1.02 mg/dL AO ADM SS Electrolyte Balance 9.0 mEq/L Invalid Interpretation Code 4.0 - 15.0 mEq/L AO ADM SS Free T3 [Mass/Vol] 2.68 pg/mL Invalid Interpretation Code 2.30 - 4.00 pg/mL AO ADM SS Free T4 [Mass/Vol] 1.02 ng/dL Invalid Interpretation Code 0.76 - 1.46 ng/dL AO ADM SS GFR 137 ml/min/1.73sqm Invalid Interpretation Code AO Chemistry S GFR Non- 113 ml/min/1.73sqm Invalid Interpretation Code AO Chemistry S Glucose [Mass/Vol] 88 mg/dL Invalid Interpretation Code 70 - 105 mg/dL AO ADM SS HbA1c (Bld) [Mass fraction] 5.3 % Invalid Interpretation Code 4.3 - 6.4 % AO ADM SS Potassium [Moles/Vol] 3.7 mmol/L Invalid Interpretation Code 3.5 - 5.1 mmol/L AO ADM SS Sodium [Moles/Vol] 142 mmol/L Invalid Interpretation Code 136 - 145 mmol/L AO ADM SS TSH Qn 1.58 m[IU]/L Invalid Interpretation Code 0.36 - 3.74 mcIU/mL AO ADM SS Urea nitrogen [Mass/Vol] 12 mg/dL Invalid Interpretation Code 7 - 18 mg/dL AO ADM SS Urea nitrogen/Creatinine [Mass ratio] 19 ratio Invalid Interpretation Code 7 - 27 ratio AO ADM SS Vit. D 25-Hydroxy 50.3 ng/mL Invalid Interpretation Code AO ADM SS LABORATORYOrdered By: Viridiana Deshpande on 09-19-2022 Cholesterol [Mass/Vol] 225 mg/dL Invalid Interpretation Code 0 - 200 mg/dL AO ADM SS Cholesterol in HDL [Mass/Vol] 51 mg/dL Invalid Interpretation Code 40 - 60 mg/dL AO ADM SS Cholesterol in LDL [Mass/Vol] 163 mg/dL Invalid Interpretation Code 0 - 130 mg/dL AO ADM SS Triglyceride [Mass/Vol] 53 mg/dL Invalid Interpretation Code 0 - 150 mg/dL AO ADM SS Laboratory - Chemistry and C hemistry - challengeOrdered By: [employer] on 09-19-2022 Albumin BCP dye [Mass/Vol] 3.5 G/dL Invalid Interpretation Code 3.5 - 5.0 G/dL AO ADM SS Albumin/Globulin [Mass ratio] 1.1 {ratio} Invalid Interpretation Code 1.1 - 2.5 ratio AO ADM SS ALP [Catalytic activity/Vol] 116 U/L Invalid Interpretation Code 40 - 135 U/L AO ADM SS ALT With P-5'-P [Catalytic activity/Vol] 21 U/L Invalid Interpretation Code 14 - 59 U/L AO ADM SS AST With P-5'-P [Catalytic activity/Vol] 18 U/L Invalid Interpretation Code 10 - 40 U/L AO ADM SS Bilirubin [Mass/Vol] 0.4 mg/dL Invalid Interpretation Code 0.2 - 1.0 mg/dL AO ADM SS Protein [Mass/Vol] 6.6 G/dL Invalid Interpretation Code 6.4 - 8.2 G/dL AO ADM SS No Panel InformationOrdered By: [employer] on 09-19-2022 Globulin 3.1 G/dL Invalid Interpretation Code AO ADM SS LABORATORYOrdered By: No esteban on 08-17-2022 Adenovirus 40+41 DNA BETTY+non-probe Ql (Stl) Not Detected *NA* (08/17/22 12:17 PM) Invalid Interpretation Code Not Detected AH Auto Microbiology GL SS Astrovirus subtypes 1-8 RNA BETTY+non-probe Ql (Stl) Not Detected *NA* (08/17/22 12:17 PM) Invalid Interpretation Code Not Detected AH Auto Microbiology GL SS C. cayetanensis DNA BETTY+non-probe Ql (Stl) Not Detected *NA* (08/17/22 12:17 PM) Invalid Interpretation Code Not Detected AH Auto Microbiology GL SS C. coli+jejuni+upsaliens is DNA BETTY+non-probe Ql (Stl) Not Detected *NA* (08/17/22 12:17 PM) Invalid Interpretation Code Not Detected AH Auto Microbiology GL SS Cryptosporidium sp DNA BETTY+non-probe Ql (Stl) Not Detected *NA* (08/17/22 12:17 PM) Invalid Interpretation Code Not Detected AH Auto Microbiology GL SS E. coli enteroaggregative Jade plasmid aggR+aatA genes BETTY+non-probe Ql (Stl) Not Detected *NA* (08/17/22 12:17 PM) Invalid Interpretation Code Not Detected AH Auto Microbiology GL SS E. coli enteropathogenic eae gene BETTY+non-probe Ql (Stl) Not Detected *NA* (08/17/22 12:17 PM) Invalid Interpretation Code Not Detected AH Auto Microbiology GL SS E. coli enterotoxigenic ltA+st1a+st1b genes BETTY+non-probe Ql (Stl) Not Detected *NA* (08/17/22 12:17 PM) Invalid Interpretation Code Not Detected AH Auto Microbiology GL SS E. coli O157 DNA BETTY+non-probe Ql (Stl) Not Applicable (08/17/22 12:17 PM) Invalid Interpretation Code Not Detected AH Auto Microbiology GL SS E. coli stx1+stx2 genes BETTY+non-probe Ql (Stl) Not Detected *NA* (08/17/22 12:17 PM) Invalid Interpretation Code Not Detected AH Auto Microbiology GL SS E. histolytica DNA BETTY+non-probe Ql (Stl) Not Detected *NA* (08/17/22 12:17 PM) Invalid Interpretation Code Not Detected AH Auto Microbiology GL SS G. lamblia DNA BETTY+non-probe Ql (Stl) Not Detected *NA* (08/17/22 12:17 PM) Invalid Interpretation Code Not Detected AH Auto Microbiology GL SS Norovirus genogroup I+II RNA BETTY+non-probe Ql (Stl) Not Detected *NA* (08/17/22 12:17 PM) Invalid Interpretation Code Not Detected AH Auto Microbiology GL SS Plesiomonas shigelloides Not Detected *NA* (08/17/22 12:17 PM) Invalid Interpretation Code Not Detected AH Auto Microbiology GL SS Rotavirus A RNA BETTY+non-probe Ql (Stl) Not Detected *NA* (08/17/22 12:17 PM) Invalid Interpretation Code Not Detected AH Auto Microbiology GL SS S. enterica+bongori DNA BETTY+non-probe Ql (Stl) Not Detected *NA* (08/17/22 12:17 PM) Invalid Interpretation Code Not Detected AH Auto Microbiology GL SS Sapovirus genogroups I+II+IV+V RNA BETTY+non-probe Ql (Stl) Not Detected *NA* (08/17/22 12:17 PM) Invalid Interpretation Code Not Detected AH Auto Microbiology GL SS Shigella species+EIEC invasion plasmid antigen H ipaH gene BETTY+non-probe Ql (Stl) Not Detected *NA* (08/17/22 12:17 PM) Invalid Interpretation Code Not Detected AH Auto Microbiology GL SS Stool GI Comment See Comment (08/17/22 12:17 PM) Invalid Interpretation Code AH Auto Microbiology GL SS V. cholerae DNA BETTY+non-probe Ql (Stl) Not Detected *NA* (08/17/22 12:17 PM) Invalid Interpretation Code Not Detected AH Auto Microbiology GL SS V. cholerae+parahaemolyt icus+vulnificus DNA BETTY+non-probe Ql (Stl) Not Detected *NA* (08/17/22 12:17 PM) Invalid Interpretation Code Not Detected AH Auto Microbiology GL SS Y. enterocolitica DNA BETTY+non-probe Ql (Stl) Not Detected *NA* (08/17/22 12:17 PM) Invalid Interpretation Code Not Detected Auto Microbiology GL SS LABORATORYOrdered By: Mali Murillo on 04-16-2022 Basophil, Absolute 0.1 103/mcL Invalid Interpretation Code 0.0 - 0.2 10^3/mcL AO Workflow SS Basophils/100 WBC (Bld) 0.8 % Invalid Interpretation Code 0.0 - 2.5 % AO Workflow SS Eosinophil, Absolute 0.2 103/mcL Invalid Interpretation Code 0.0 - 0.4 10^3/mcL AO Workflow SS Eosinophils/100 WBC (Bld) 2.5 % Invalid Interpretation Code 0.0 - 7.0 % AO Workflow SS Erythrocyte distribution width (RBC) [Ratio] 11.6 % Invalid Interpretation Code 11.5 - 14.5 % AO Workflow SS Hematocrit (Bld) [Volume fraction] 38.9 % Invalid Interpretation Code 37.0 - 47.0 % AO Workflow SS Hemoglobin (Bld) [Mass/Vol] 13.4 G/dL Invalid Interpretation Code 12.0 - 16.0 G/dL AO Workflow SS Lymphocyte, Absolute 3.0 103/mcL Invalid Interpretation Code 0.8 - 3.9 10^3/mcL AO Workflow SS Lymphocytes/100 WBC (Bld) 36.1 % Invalid Interpretation Code 10.0 - 50.0 % AO Workflow SS MCH (RBC) [Entitic mass] 31.8 pg Invalid Interpretation Code 27.0 - 31.2 pg AO Workflow SS MCHC 34.4 G/dL Invalid Interpretation Code 33.0 - 37.0 G/dL AO Workflow SS MCV (RBC) [Entitic vol] 92.7 fL Invalid Interpretation Code 80.0 - 94.0 fL AO Workflow SS Monocyte, Absolute 0.7 103/mcL Invalid Interpretation Code 0.2 - 1.0 10^3/mcL AO Workflow SS Monocytes/100 WBC (Bld) 7.9 % Invalid Interpretation Code 1.7 - 13.0 % AO Workflow SS Neutrophil, Absolute 4.3 103/mcL Invalid Interpretation Code 2.9 - 6.2 10^3/mcL AO Workflow SS Neutrophils/100 WBC (Bld) 52.7 % Invalid Interpretation Code 37.0 - 80.0 % AO Workflow SS Platelet mean volume (Bld) [Entitic vol] 10.4 fL Invalid Interpretation Code 7.4 - 10.4 fL AO Workflow SS Platelets (Bld) [#/Vol] 235 103/mcL Invalid Interpretation Code 130 - 400 10^3/mcL AO Workflow SS RBC (Bld) [#/Vol] 4.20 106/mcL Invalid Interpretation Code 4.20 - 5.40 10^6/mcL AO Workflow SS WBC (Bld) [#/Vol] 8.2 103/mcL Invalid Interpretation Code 4.6 - 10.8 10^3/mcL AO Workflow SS LABORATORYOrdered By: SYSTEM SYSTEM on 12-28-2021 Albumin BCP dye [Mass/Vol] 3.6 G/dL Invalid Interpretation Code 3.2 - 4.8 G/dL ADM SS Albumin/Globulin [Mass ratio] 1.3 {ratio} Invalid Interpretation Code 0.9 - 1.6 ratio ADM SS ALP [Catalytic activity/Vol] 102 U/L Invalid Interpretation Code 38 - 126 U/L ADM SS ALT No additional P-5'-P [Catalytic activity/Vol] 9 U/L Invalid Interpretation Code 10 - 49 U/L ADM SS AST [Catalytic activity/Vol] 12 U/L Invalid Interpretation Code 8 - 34 U/L ADM SS Bilirubin [Mass/Vol] 0.60 mg/dL Invalid Interpretation Code 0.20 - 1.20 mg/dL ADM SS Calcium [Mass/Vol] 9.7 mg/dL Invalid Interpretation Code 8.7 - 10.4 mg/dL ADM SS Chloride [Moles/Vol] 111 mmol/L Invalid Interpretation Code 98 - 110 mEq/L ADM SS CO2 [Moles/Vol] 24 mmol/L Invalid Interpretation Code 22 - 32 mEq/L ADM SS Creatinine [Mass/Vol] 0.63 mg/dL Invalid Interpretation Code 0.50 - 1.20 mg/dL ADM SS Electrolyte Balance 5.0 mEq/L Invalid Interpretation Code 4.0 - 15.0 mEq/L ADM SS GFR/1.73 sq M.predicted among blacks MDRD (S/P/Bld) [Vol rate/Area] ml/min/1.73sqm Invalid Interpretation Code AH Chemistry S GFR/1.73 sq M.predicted among non-blacks MDRD (S/P/Bld) [Vol rate/Area] ml/min/1.73sqm Invalid Interpretation Code Chemistry S Globulin 2.8 G/dL Invalid Interpretation Code 1.5 - 3.8 G/dL ADM SS Glucose [Mass/Vol] 91 mg/dL Invalid Interpretation Code 70 - 110 mg/dL ADM SS Potassium [Moles/Vol] 3.8 mmol/L Invalid Interpretation Code 3.5 - 5.0 mEq/L ADM SS Protein [Mass/Vol] 6.4 G/dL Invalid Interpretation Code 5.7 - 8.2 G/dL ADM SS Sodium [Moles/Vol] 140 mmol/L Invalid Interpretation Code 136 - 145 mEq/L ADM SS Urea nitrogen [Mass/Vol] 11.0 mg/dL Invalid Interpretation Code 8.0 - 22.0 mg/dL ADM SS Urea nitrogen/Creatinine [Mass ratio] 17.5 ratio Invalid Interpretation Code 10.0 - 22.0 ratio ADM SS Absolute lymphocyte counton 12-17-2021 Lymphocytes Auto (Unsp spec) [#/Vol] 3.94 10*3/uL 0.83-4.51 [facility] Work Phone: [phone] Basophil percentageon 2021 Basophil percentage 0-5 SEEN /hpf [facility] Work Phone: [phone] Basophils/100 WBC (Bld) 0.9 % 0-1 [facility] Work Phone: [phone] Chloride [Moles/Vol] 108 mmol/L 98-107 [facility] Work Phone: Eosinophils/100 WBC (Bld) 2.1 % 0-5 [facility] Work Phone: Glucose [Mass/Vol] 101 mg/dL 74-106 [place] [facility] Work Phone: Comment on above: Fasting Glucose resu lt from 100 to 125 mg/dL suggests IMPAIRED HOMEOSTASIS per A.D.A. criteria. Neutrophils (Bld) [#/Vol] 3.2 10*3/uL 2.0-7.7 [facility] Work Phone: Neutrophils/100 WBC (Bld) 39.1 % 47-70 [facility] Work Phone: Potassium [Moles/Vol] 3.2 mmol/L 3.5-5.1 [facility] Work Phone: Sodium [Moles/Vol] 141 mmol/L 136-145 [facility] Work Phone: WBC (Bld) [#/Vol] 8.1 10*3/uL 4.4-11.0 [facility] Work Phone: Bilirubin Test strip Ql (U)o n 12-17-2021 Bilirubin Ql (U) Negative Negative [facility] Work Phone: Blood erythrocytes count (nu mber/volume)on 12-17-2021 RBC (Bld) [#/Vol] 4.60 10*6/uL 4.2-5.4 [facility] Work Phone: Blood hemoglobin measurement (mass/volume)on 12-17-2021 Hemoglobin (Bld) [Mass/Vol] 14.8 g/dL 12.0-15.0 [facility] Work Phone: Blood lymphocytes/100 leukoc yteson 12-17-2021 Lymphocytes/100 WBC (Bld) 48.7 % 19-41 [facility] Work Phone: Blood monocytes/100 leukocyt eson 12-17-2021 Monocytes/100 WBC (Bld) 9.1 % 0-10 [facility] Work Phone: Blood platelet mean volumeon 12-17-2021 Platelet mean volume (Bld) [Entitic vol] 12.1 fL 6.2-12.0 [facility] Work Phone: Determination of erythrocyte mean corpuscular volume (MCV)on 12-17-2021 MCV (RBC) [Entitic vol] 93.7 fL 81-99 [facility] Work Phone: Hematocrit Auto (Bld) [Volum e fraction]on 12-17-2021 Hematocrit (Bld) [Volume fraction] 43.1 % 37-47 [facility] Work Phone: Ketones Test strip Ql (U)on 12-17-2021 Ketones Ql (U) Negative Negative [facility] Work Phone: Laboratory - Chemistry and C hemistry - challengeon 12-17-2021 HCG ( test) Ql (U) Negative [facility] Work Phone: Comment on above: Very dilute urine sp ecimens, as indicated by a low specificgravity, may not contain sales account representative levels of hCG. If is still suspected, a first morning urinespecimen should be collected 48 hours later and tested. CO2 [Moles/Vol] 23.0 mmol/L 21.0-32.0 [facility] Work Phone: Urea nitrogen/Creatinine [Mass ratio] 17.1 mg/mg 10-20 [facility] Work Phone: Laboratory - Hematology and Cell countson 12-17-2021 Erythrocyte distribution width (RBC) [Entitic vol] 40.4 fL 35.1-43.9 [facility] Work Phone: Erythrocyte distribution width (RBC) [Ratio] 11.8 % 11.6-14.6 [facility] Work Phone: Immature granulocytes/100 WBC (Bld) 0.100 % 0.0-0.9 [facility] Work Phone: Comment on above: IG% - Immature Granu locytes (promyelocytes, myelocytes and metamyelocytes) > 1% indicates that a LEFT SHIFT is Present. MCH (RBC) [Entitic mass] 32.2 pg 27.0-32.0 [facility] Work Phone: Nucleated RBC/100 WBC (Bld) [Ratio] 0 % 0-5 [facility] Work Phone: MCHC Auto (RBC) [Mass/Vol]on 12-17-2021 MCHC (RBC) [Mass/Vol] 34.3 g/dL 32-36 [facility] Work Phone: Mucus LM Ql (Urine sed)on Mucus Ql (Urine sed) 0 SEEN /hpf [facility] Work Phone: Nitrite Test strip Ql (U)on 12-17-2021 Nitrite Ql (U) Negative Negative [facility] Work Phone: No Panel Informationon 12-17 D-Dimer Quantitative (PE/DVT) < 0.27 FEU/ug/m 0.27-0.49 [facility] Work Phone: Comment on above: NORMAL D-Dimer level (<0.50) indicates no DVT or PE. Estimated Creatinine Clearance Calc 117.04 ml/min [facility] Work Phone: Estimated GFR (MDRD) Amer 145 mL/min >60 [facility] Work Phone: Comment on above: GFR Calc Estimated GFR (MDRD) Non-Af Amer 120 mL/min >60 [facility] Work Phone: Comment on above: Non- GFR Calc [place] Level 1.40 mmol/L 0.60-1.20 [facility] Work Phone: Platelets bldon 12-17-2021 Platelets (Bld) [#/Vol] 257 10*3/uL 150-450 [facility] Work Phone: Protein Test strip Ql (U)on 12-17-2021 Protein Ql (U) 30 mg/dl Negative [facility] Work Phone: Serum or plasma calcium ivis urement (mass/volume)on 12-17-2021 Calcium [Mass/Vol] 9.1 mg/dL 8.5-10.1 [facility] Work Phone: Serum or plasma creatinine m easurement (mass/volume)on 12-17-2021 Creatinine [Mass/Vol] 0.64 mg/dL 0.55-1.02 [facility] Work Phone: Comment on above: The validity of the calculated GFR & GFRAA in patients over 70 years has not been determined. Clinical correlation is essential. Serum or plasma urea nitroge n measurement (mass/volume)on 12-17-2021 Urea nitrogen [Mass/Vol] 11 mg/dL 7-18 [facility] Work Phone: Squamous epithelial cells de tection in urine sediment by light microscopyon 12-17-2021 Epithelial cells.squamous LM Ql (Urine sed) 0-5 SEEN /hpf [facility] Work Phone: Thin prep Papanicolaou smear with manual screeningon 12-17-2021 Thin prep Papanicolaou smear with manual screening 10 5-15 [facility] Work Phone: Urine blood detectionon 12-02 RBC Ql (U) 25 /ul Negative [facility] Work Phone: RBC Ql (U) 0-5 SEEN /hpf [facility] Work Phone: Urine clarityon 12-17-2021 Clarity (U) Sl. Cloudy Clear [facility] Work Phone: Urine color determinationon 12-17-2021 Color (U) Yellow Yellow [facility] Work Phone: Urine glucose detectionon Glucose Ql (U) Normal mg/dl Normal [facility] Work Phone: Urine leukocyte esterase det ection by dipstickon 12-17-2021 Leukocyte esterase Test strip Ql (U) 25 /ul Negative [facility] Work Phone: Urine pHon 12-17-2021 pH (U) 6.0 [pH] [facility] Work Phone: Urine sediment bacteria coun t by microscopy (number/high power field)on 12-17-2021 Bacteria LM.HPF (Urine sed) [#/Area] 2 /[HPF] None Seen [facility] Work Phone: Urine specific gravity measu rementon 12-17-2021 Specific gravity (U) [Rel density] 1.020 [facility] Work Phone: Urobilinogen Auto test strip Ql (U)on 12-17-2021 Urobilinogen Ql (U) 1 mg/dl Normal [facility] Work Phone: LABORATORYOrdered By: Margoth Montiel on 12-13-2021 Albumin BCP dye [Mass/Vol] 3.7 G/dL Invalid Interpretation Code 3.5 - 5.0 G/dL AO ADM SS Albumin/Globulin [Mass ratio] 1.1 {ratio} Invalid Interpretation Code 1.1 - 2.5 ratio AO ADM SS ALP [Catalytic activity/Vol] 116 U/L Invalid Interpretation Code 40 - 135 U/L AO ADM SS ALT With P-5'-P [Catalytic activity/Vol] 18 U/L Invalid Interpretation Code 14 - 59 U/L AO ADM SS AST With P-5'-P [Catalytic activity/Vol] 13 U/L Invalid Interpretation Code 10 - 40 U/L AO ADM SS Bilirubin [Mass/Vol] 0.5 mg/dL Invalid Interpretation Code 0.2 - 1.0 mg/dL AO ADM SS Calcium [Mass/Vol] 9.2 mg/dL Invalid Interpretation Code 8.4 - 10.2 mg/dL AO ADM SS Chloride [Moles/Vol] 105 mmol/L Invalid Interpretation Code 98 - 107 mmol/L AO ADM SS CO2 [Moles/Vol] 21 mmol/L Invalid Interpretation Code 22 - 29 mmol/L AO ADM SS Creatinine [Mass/Vol] 0.78 mg/dL Invalid Interpretation Code 0.55 - 1.02 mg/dL AO ADM SS Electrolyte Balance 14.0 mEq/L Invalid Interpretation Code 4.0 - 15.0 mEq/L AO ADM SS Globulin 3.3 G/dL Invalid Interpretation Code AO ADM SS Glucose [Mass/Vol] 81 mg/dL Invalid Interpretation Code 70 - 105 mg/dL AO ADM SS Potassium [Moles/Vol] 3.7 mmol/L Invalid Interpretation Code 3.5 - 5.1 mmol/L AO ADM SS Protein [Mass/Vol] 7.0 G/dL Invalid Interpretation Code 6.4 - 8.2 G/dL AO ADM SS Sodium [Moles/Vol] 140 mmol/L Invalid Interpretation Code 136 - 145 mmol/L AO ADM SS TSH Qn 1.52 m[IU]/L Invalid Interpretation Code 0.36 - 3.74 mcIU/mL AO ADM SS Urea nitrogen [Mass/Vol] 12 mg/dL Invalid Interpretation Code 7 - 18 mg/dL AO ADM SS Urea nitrogen/Creatinine [Mass ratio] 15 ratio Invalid Interpretation Code 7 - 27 ratio AO ADM SS LABORATORYOrdered By: Viridiana Deshpande on 12-13-2021 Basophil, Absolute 0.00 103/mcL Invalid Interpretation Code 0.00 - 0.19 10^3/mcL AO Auto Heme SS Basophils/100 WBC (Bld) 0.5 % Invalid Interpretation Code 0.0 - 2.5 % AO Auto Heme SS Eosinophil, Absolute 0.10 103/mcL Invalid Interpretation Code 0.00 - 0.40 10^3/mcL AO Auto Heme SS Eosinophils/100 WBC (Bld) 1.2 % Invalid Interpretation Code 0.0 - 7.0 % AO Auto Heme SS Erythrocyte distribution width (RBC) [Ratio] 12.1 % Invalid Interpretation Code 11.5 - 14.5 % AO Auto Heme SS Hematocrit (Bld) [Volume fraction] 43.4 % Invalid Interpretation Code 37.0 - 47.0 % AO Auto Heme SS Hemoglobin (Bld) [Mass/Vol] 15.0 G/dL Invalid Interpretation Code 12.0 - 16.0 G/dL AO Auto Heme SS Lymphocyte, Absolute 1.70 103/mcL Invalid Interpretation Code 0.77 - 3.85 10^3/mcL AO Auto Heme SS Lymphocytes/100 WBC (Bld) 18.0 % Invalid Interpretation Code 10.0 - 50.0 % AO Auto Heme SS MCH (RBC) [Entitic mass] 32.1 pg Invalid Interpretation Code 27.0 - 31.2 pg AO Auto Heme SS MCHC (RBC) [Mass/Vol] 34.5 G/dL Invalid Interpretation Code 33.0 - 37.0 G/dL AO Auto Heme SS MCV (RBC) [Entitic vol] 93.1 fL Invalid Interpretation Code 80.0 - 94.0 fL AO Auto Heme SS Monocyte, Absolute 0.80 103/mcL Invalid Interpretation Code 0.15 - 1.00 10^3/mcL AO Auto Heme SS Monocytes/100 WBC (Bld) 8.0 % Invalid Interpretation Code 1.7 - 13.0 % AO Auto Heme SS Neutrophil, Absolute 6.90 103/mcL Invalid Interpretation Code 2.85 - 6.16 10^3/mcL AO Auto Heme SS Neutrophils/100 WBC (Bld) 72.3 % Invalid Interpretation Code 37.0 - 80.0 % AO Auto Heme SS Platelet mean volume (Bld) [Entitic vol] 10.6 fL Invalid Interpretation Code 7.4 - 10.4 fL AO Auto Heme SS Platelets (Bld) [#/Vol] 259 103/mcL Invalid Interpretation Code 130 - 400 10^3/mcL AO Auto Heme SS RBC (Bld) [#/Vol] 4.66 106/mcL Invalid Interpretation Code 4.20 - 5.40 10^6/mcL AO Auto Heme SS WBC (Bld) [#/Vol] 9.50 103/mcL Invalid Interpretation Code 4.60 - 10.80 10^3/mcL AO Auto Heme SS LABORATORYOrdered By: SYSTEM SYSTEM on 12-13-2021 GFR 110 ml/min/1.73sqm Invalid Interpretation Code AO Chemistry S GFR Non- 91 ml/min/1.73sqm Invalid Interpretation Code AO Chemistry S LABORATORYOrdered By: Severo Gomez on 11-13-2021 Albumin BCP dye [Mass/Vol] 3.4 G/dL Invalid Interpretation Code 3.5 - 5.0 G/dL AO ADM SS Albumin/Globulin [Mass ratio] 1.1 {ratio} Invalid Interpretation Code 1.1 - 2.5 ratio AO ADM SS ALP [Catalytic activity/Vol] 78 U/L Invalid Interpretation Code 40 - 135 U/L AO ADM SS ALT With P-5'-P [Catalytic activity/Vol] 14 U/L Invalid Interpretation Code 14 - 59 U/L AO ADM SS AST With P-5'-P [Catalytic activity/Vol] 10 U/L Invalid Interpretation Code 10 - 40 U/L AO ADM SS Bilirubin [Mass/Vol] 0.5 mg/dL Invalid Interpretation Code 0.2 - 1.0 mg/dL AO ADM SS Calcium [Mass/Vol] 9.3 mg/dL Invalid Interpretation Code 8.4 - 10.2 mg/dL AO ADM SS Chloride [Moles/Vol] 107 mmol/L Invalid Interpretation Code 98 - 107 mmol/L AO ADM SS Cholesterol [Mass/Vol] 213 mg/dL Invalid Interpretation Code 0 - 200 mg/dL AO ADM SS Cholesterol in HDL [Mass/Vol] 42 mg/dL Invalid Interpretation Code 40 - 60 mg/dL AO ADM SS Cholesterol in LDL [Mass/Vol] 149 mg/dL Invalid Interpretation Code 0 - 130 mg/dL AO ADM SS CO2 [Moles/Vol] 26 mmol/L Invalid Interpretation Code 22 - 29 mmol/L AO ADM SS Creatinine [Mass/Vol] 0.70 mg/dL Invalid Interpretation Code 0.55 - 1.02 mg/dL AO ADM SS Electrolyte Balance 8.0 mEq/L Invalid Interpretation Code 4.0 - 15.0 mEq/L AO ADM SS Globulin 3.1 G/dL Invalid Interpretation Code AO ADM SS Glucose [Mass/Vol] 78 mg/dL Invalid Interpretation Code 70 - 105 mg/dL AO ADM SS Potassium [Moles/Vol] 3.9 mmol/L Invalid Interpretation Code 3.5 - 5.1 mmol/L AO ADM SS Protein [Mass/Vol] 6.5 G/dL Invalid Interpretation Code 6.4 - 8.2 G/dL AO ADM SS Sodium [Moles/Vol] 141 mmol/L Invalid Interpretation Code 136 - 145 mmol/L AO ADM SS Triglyceride [Mass/Vol] 109 mg/dL Invalid Interpretation Code 0 - 150 mg/dL AO ADM SS TSH Qn 2.36 m[IU]/L Invalid Interpretation Code 0.36 - 3.74 mcIU/mL AO ADM SS Urea nitrogen [Mass/Vol] 12 mg/dL Invalid Interpretation Code 7 - 18 mg/dL AO ADM SS Urea nitrogen/Creatinine [Mass ratio] 17 ratio Invalid Interpretation Code 7 - 27 ratio AO ADM SS Vit. D 25-Hydroxy 48.3 ng/mL Invalid Interpretation Code AO ADM SS LABORATORYOrdered By: SYSTEM SYSTEM on 11-13-2021 GFR 125 ml/min/1.73sqm Invalid Interpretation Code AO Chemistry S GFR Non- 103 ml/min/1.73sqm Invalid Interpretation Code AO Chemistry S LABORATORYOrdered By: Viridiana Gonzalez on 11-08-2021 ADMITTED TO INTENSIVE CARE UNIT FOR CONDITION OF INTEREST:FIND:PT:^PAT IENT:ORD: No (11/08/21 8:31 AM) Invalid Interpretation Code AO Auto Urine SS EMPLOYED IN A HEALTHCARE SETTING:FIND:PT:^TALON ENT:ORD: No (11/08/21 8:31 AM) Invalid Interpretation Code AO Auto Urine SS FIRST TEST FOR CONDITION OF INTEREST:FIND:PT:^PAT IENT:ORD: No (11/08/21 8:31 AM) Invalid Interpretation Code AO Auto Urine SS HAS SYMPTOMS RELATED TO CONDITION OF INTEREST:FIND:PT:^PAT IENT:ORD: Yes (11/08/21 8:31 AM) Invalid Interpretation Code AO Auto Urine SS Illness or injury onset date and time [id number] Invalid Interpretation Code AO Auto Urine SS Patient was hospitalized because of this condition No (11/08/21 8:31 AM) Invalid Interpretation Code AO Auto Urine SS status Not (11/08/21 8:31 AM) Invalid Interpretation Code AO Auto Urine SS RESIDES IN A CONGREGATE CARE SETTING:FIND:PT:^TALON ENT:ORD: No (11/08/21 8:31 AM) Invalid Interpretation Code AO Auto Urine SS SARS-CoV-2 (COVID-19) RNA BETTY+probe Ql (Resp) Negative (11/08/21 8:31 AM) Invalid Interpretation Code Negative AO Auto Urine SS SARS-CoV-2 (COVID-19) RNA BETTY+probe Ql (Unsp spec) Negative results do not preclude SARS-CoV-2 infection and should not be used as the sole basis for patient management decisions. Negative results must be combined with clinical observations, patient history, and epidemiological information.There is a risk of false negative values resulting from improperly collected, transported, or handled specimens.There is a risk of false negative values due to the presence of sequence variants in the pathogen targets of the assay, procedural errors, amplification inhibitors in specimens, or inadequate numbers of organisms for amplification.THOM SARS-CoV-2 Assay is a Real-Time reverse-transcriptase polymerase chain reaction (RT-PCR) based qualitative in vitro diagnostic test intended for the qualitative detection of nucleic acid from the SARS-CoV-2 in nasopharyngeal swab specimens collected from individuals suspected of COVID-19 by their healthcare provider. Testing is limited to laboratories certified under the Clinical Laboratory Improvement Amendments of 1988 (CLIA), 42 U.S.C. 263a, to perform moderate and high complexity tests. Invalid Interpretation Code AO Auto Urine SS Vitamin D 25 OHon 02-18-2019 25 OH Vitamin D 34 ng/mL Normal 30-100 [facility] Comment on above: Result Comment: Refe rence ranges provided by [facility] are based on Endocrine Society Guidelines: Level Characterization <21 ng/mL Vitamin D deficiency 21-29 ng/mL Suboptimal Vitamin D status 30-100 ng/mL Optimal Vitamin D status >100 ng/mL Potentially toxic Vitamin D effects NOTE: New Reference Ranges effective 18 Performed By: #### V 25DH #### [address] [address] Lipid Panelon 02-17-2019 Cholesterol [Mass/Vol] 214 mg/dL High 0-189 [facility] Comment on above: Result Comment: Acceptable <190 mg/dL Borderline 190-224 mg/dL Abnormal >224 mg/dL NOTE: Reference Range change effective 07/07/18 Performed By: #### L IPID #### [address] [address] Cholesterol in HDL [Mass/Vol] 52 mg/dL Normal [facility] Comment on above: Result Comment: Acceptable >45 mg/dL Borderline 40-44 mg/dL Abnormal <40 mg/dL NOTE: Reference Range change effective 07/07/18 Performed By: #### L IPID #### [address] [address] Cholesterol in LDL [Mass/Vol] 128 mg/dL High 0-119 [facility] Comment on above: Result Comment: Acceptable <120 mg/dL Borderline 120-159 mg/dL Abnormal >159 mg/dl NOTE: Reference Range change effective 07/07/18 Performed By: #### L IPID #### [address] [address] Non-HDL Cholesterol 162 mg/dL High 0-149 [facility] Comment on above: Result Comment: Acceptable <150 mg/dL Borderline 150-189 mg/dL Abnormal >189 mg/dl Performed By: #### L IPID #### [facility] [address] [place] [address] Triglyceride [Mass/Vol] 170 mg/dL High 0-114 [facility] Comment on above: Result Comment: Acceptable <115 mg/dl Borderline 115-149 mg/dl Abnormal >149 mg/dl NOTE: Reference Range change effective 07/07/18 Result invalid if not a fasting specimen. Performed By: #### L IPID #### [facility] [address] [place] [address] Progress Noteon 02-17-2019 Student Services Vice President Authentication Interface Message Text Rose Mary was seen in renal clinic today to follow up on the status of her essential hypertension. Additional problems include vitamin D insufficiency and pituitary adenoma. Pertinent diagnostic studies include:normal doppler renal ultrasound at [facility] (07/31/11), elevated plasma renin (07/14) and normal echocardiogram at [facility] (07/14). She was evaluated for neurofibromatosis by genetics due to 3 cafe au lait spots, she does not meet criteria. They have instructed to the family to come back if she develops more spots. She does not have any more spots. She has been off of antihypertensive medications since 05/2013 and doing well. ECHO in 2012 was normal, renal US in 2014 was unremarkable. She had been monitoring her sodium and diet and exercising and lost significant weight. The entire family had succeeded on losing weight. She subsequently relaxed her diet, not exercising regularly ad as a result has gained 12 kg. She came back to see us and had developed HTN again. Her repeat eval revealed elevated aldosterone again, renin was cancelled. Thyroid studies were OK too. She does have a history of an isolated panic attack in school in the past and was evaluated at [facility] where a CT scan was stable. 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 These have been well controlled by topomax and only occasionally gets headaches now. She was weaned off of the topomax. She is aware of the risk of kidney stone with topomax. Per Dad in the past, on the last imaging study the adenoma was shrinking so they are going to follow this with serial imaging every few years. She is having regular menses now without any issues. Interval history: Since her last visit she has done well. Denies headache, dizziness,lightheadedness. She is trying to fit exercise into a busy school schedule, weight is stable since last visit, she has not lost any weight. She had joined [employer] at the last visit but has not gone for the last couple of weeks since she had an allergic reaction to a new tattoo and was not allowed physical activity. She denies any symptoms of a UTI. Additional findings are noted in the review of systems below. ROS: Constitutional: negative for malaise, fatigue, negative for fevers Eyes: negative for altered vision, discharge, or redness ENT: negative for altered hearing, ear ache, epistaxis, sore throat or oral lesions Respiratory: negative for tachypnea, wheezing, stridor, or chronic cough Cardiac: negative for SOB, syncope, palpitations, or chest pain GI: negative for vomiting, diarrhea, constipation, abdominal pain : negative for dysuria, gross hematuria, urinary frequency, urgency, edema or enuresis. No symptoms of renal colic on topomax Skin: negative for rash, pruritis, cellulitis. She has 3 cafe au lait spots. No change Musculoskeletal: negative for bone pain, joint swelling, muscle cramps Psychological: negative for depression, abnormalities in affect or attention Hematologic/lymphatic: negative for bruising, bleeding, pallor or lymphadenopathy Allergic/Immunologic: see allergy history in EMR; negative history for recurrent or unusual infections Neurologic: negative for muscle weakness, paresthesia, seizures or unusual headaches. Headaches are controlled on the topomax. Positive for lightheadedness, dizziness with prolonged standing Development: age appropriate ECHO 07/31/18: 1. Normal echocardiogram. 2. No left ventricular hypertrophy. 3. Normal left ventricular systolic and diastolic function. 4. LVMI 40 Current Outpatient Medications Medication Sig Dispense Refill losartan (COZAAR) 50 MG TABS tablet TAKE 2 TABLETS BY MOUTH ONCE DAILY 60 Tab 3 atorvastatin (LIPITOR) 10 MG tablet TAKE 1 TABLET BY MOUTH ONCE DAILY 30 Tab 3 [place]-3 Fatty Acids (FISH OIL) 1000 MG CAPS capsule Take 4 Caps (4,000 mg) by mouth daily 1 Cap 0 triamcinolone (KENALOG) 0.025 % cream 1 NECON , 28, 1-35 MG-MCG per tablet 12 loratadine (CLARITIN) 10 MG tablet Take by mouth rizatriptan benzoate (MAXALT) 5 MG TABS tablet Take one at onset of migraine. Repeat once if no better in 2 hours. 12 Tab 4 sertraline (ZOLOFT) 100 MG tablet Take 100 mg by mouth daily montelukast (SINGULAIR) 10 MG tablet 10 mg 4 mometasone (ASMANEX 120 METERED DOSES) 220 MCG/INH inhaler Inhale 1 puff into the lungs 2 times daily. melatonin 5 MG TABS tablet Take 5 mg by mouth At bedtime UNABLE TO FIND Allergy shots weekly Multiple Vitamin (MULTI-VITAMINS) tablet Take 1 Tab by mouth daily. 30 Tab 3 Albuterol Sulfate (PROAIR HFA IN) Inhale into the lungs as needed. No current facility-administered medications for this visit. On physical examination [place] BP 124/78 (BP Site: Right Arm, Patient Position: Sitting, BP Cuff Size: Lg Adult) Comment: manaul Pulse (!) 113 Resp 20 Ht 163 cm Wt 97.9 kg LMP 02/14/2019 BMI 36.85 kg/m Growth percentile [employer] can only be used for patients less than 20 years old.. In General, this is an alert, interactive female in no acute distress. HEENT exam is unremarkable. Cardiovascular rhythm and rate are regular. Chest is clear to auscultation bilaterally. Abdomen is soft, nondistended, nontender. There are no masses or organomegaly noted. Extremities are warm and well perfused without edema. CBC: Last Result Complete Blood Count Collection Time: 08/22/17 8:33 AM Result Value Ref Range WBC 6.9 4.5 - 11.0 10E9/L Nucleated RBC Percent 0.0 -1.0 - 0.0 % RBC 4.39 4.00 - 4.90 10E12/L Hemoglobin 11.8 (L) 12.0 - 15.0 g/dl Hematocrit 37.5 36.0 - 44.0 % MCV 85.4 80.0 - 100.0 fl MCH 26.9 26.0 - 34.0 pg MCHC 31.5 31.0 - 37.0 % RDW 15.6 (H) 0.0 - 14.4 % Platelets 261 150 - 450 10E9/L MPV 12.6 fl Comment: MPV is platelet range and age dependent Differential Complete Automated NA % Neutrophils 47.0 35.0 - 66.0 % % Lymphocytes 39.9 24.0 - 44.0 % % Monocytes 10.20 (H) 3.00 - 6.00 % % Eosinophils 1.90 0.00 - 3.00 % Basophils 0.90 0.00 - 1.00 % Neutrophil # 3.2 NA % Immature Granulocyte 0.10 % Comment: Immature Granulocyte Percent includes promyelocytes, myelocytes, and metamyelocytes. IG% > 1.0 indicates a left shift is present. With automated differentials, bands are included in the neutrophil count and not in the Immature Granulocyte Percent. Narrative Has the specimen been drawn from a line flushed with Heparin?->No Venous Blood only Lipid Panel: Last Result Lipid panel Collection Time: 07/20/18 1:36 PM Result Value Ref Range Cholesterol 206 (A) 0 - 189 mg/dL Comment: Acceptable <190 mg/dL Borderline 190-224 mg/dL Abnormal >224 mg/dL NOTE: Reference Range change effective 07/07/18 Triglyceride 121 0 - 114 mg/dL Comment: Acceptable <115 mg/dl Borderline 115-149 mg/dl Abnormal >149 mg/dl NOTE: Reference Range change effective 07/07/18 Result invalid if not a fasting specimen. HDL Cholesterol 43 mg/dL Comment: Acceptable >45 mg/dL Borderline 40-44 mg/dL Abnormal <40 mg/dL NOTE: Reference Range change effective 07/07/18 LDL Cholesterol 139 (H) 0 - 119 mg/dl Comment: Acceptable <120 mg/dL Borderline 120-159 mg/dL Abnormal >159 mg/dl NOTE: Reference Range change effective 07/07/18 Non-HDL Cholesterol 163 (H) 0 - 149 mg/dL Comment: Acceptable <150 mg/dL Borderline 150-189 mg/dL Abnormal >189 mg/dl POCT Urinalysis: Lab Results Component Value Date POCTLEUKOUR 1+ (Small) (A) 02/17/2019 POCTNITR Negative 02/17/2019 POCTPH 6.0 02/17/2019 POCTSPEGR 1.030 02/17/2019 POCTKETONEUR Negative 02/17/2019 POCTGLUUR Negative 02/17/2019 POCCOLORUR Yellow 02/17/2019 POCCHARACUR Slightly Cloudy 02/17/2019 RFP: Lab Results Component Value Date NA 137 02/17/2019 K 4.0 02/17/2019 CL 103 02/17/2019 CO2 22.4 02/17/2019 BUN 14 02/17/2019 GLU 81 02/17/2019 CREATININE 0.46 (L) 02/17/2019 ALB 3.8 02/17/2019 CALCIUM 8.9 02/17/2019 PHOS 3.1 02/17/2019 Assessment: 1. Hypertension BP controlled ABPM showed elevated BP on treatment. ECHO from Jul 2018 showed LVMI of 40 2. Weight gain signficant over the last year due to poor diet. 3. Headaches resolved, weaned off topomax. Was seen in neurology in Aug 2016 due to headaches, they improved with hydration. 4. Pitutary adenoma followed by neurology, recently seen in Aug 2016, and family was told no need for further imaging 5. Hyperlipidemia, strong family history. Taking lipitor, tolerating it well without side effects. Chol and triglycerides are a bit worse today. Plan: 1. continue cozaar 100 mg daily 2. Continue Fish oil 4 grams per day for hypercholestrolemia, stressed compliance. 3. Continue with dietary modifications, low salt and low fat diet. 4. Continue lipitor, stressed compliance 6 schedule exercise as part of the routine 7 discussed transition to adult provider now that she is 23 years of age. Her family physician willing to take over her care. Will transition her today. Normal [facility] Renal Panelon 02-17-2019 Albumin [Mass/Vol] 3.8 g/dL Normal 3.5-5.0 [facility] Comment on above: Performed By: #### R ENAL #### [address] [address] Calcium [Mass/Vol] 8.9 mg/dL Normal 7.6-11.0 [facility] Comment on above: Performed By: #### R ENAL #### [address] [place] [address] Chloride [Moles/Vol] 103 mmol/L Normal 96-108 [facility] Comment on above: Performed By: #### R ENAL #### [address] [address] CO2 [Moles/Vol] 22.4 mmol/L Normal 22.0-29.0 [facility] Comment on above: Performed By: #### R ENAL #### [address] [address] Creatinine [Mass/Vol] 0.46 mg/dL Low 0.50-1.00 [facility] Comment on above: Result Comment: Premature 0.3-1.0 mg/dL Performed By: #### R ENAL #### [address] [address] Glucose [Mass/Vol] 81 mg/dL Normal 70-99 [facility] Comment on above: Result Comment: Criteria for Diagnosis of Diabetes(Effective 01/07/11): Fasting specimen (no caloric intake for at least 8 hours). <100 mg/dl Normal 100-125 mg/dl Increased Risk for Diabetes >125 mg/dl Diagnostic for Diabetes Random Glucose (any time of day without regard to last meal). >=200 mg/dl plus Classic Symptoms of Diabetes Performed By: #### R ENAL #### [address] [address] Phosphate [Mass/Vol] 3.1 mg/dL Normal 2.7-4.5 [facility] Comment on above: Performed By: #### R ENAL #### [address] [address] Potassium [Moles/Vol] 4.0 mmol/L Normal 3.3-5.1 [facility] Comment on above: Performed By: #### R ENAL #### [address] [place] [address] Sodium [Moles/Vol] 137 mmol/L Normal 133-145 [facility] Comment on above: Performed By: #### R ENAL #### [facility] [address] [place] [address] Urea nitrogen [Mass/Vol] 14 mg/dL Normal 4-19 [facility] Comment on above: Performed By: #### R ENAL #### [facility] [address] [place] [address] Progress Noteon 11-16-2018 Student Services Vice President Authentication Interface Message Text Rose Mary was seen in renal clinic today to follow up on the status of her essential hypertension. Additional problems include vitamin D insufficiency and pituitary adenoma. Pertinent diagnostic studies include:normal doppler renal ultrasound at [facility] (07/31/11), elevated plasma renin (07/14) and normal echocardiogram at [facility] (07/14). She was evaluated for neurofibromatosis by genetics due to 3 cafe au lait spots, she does not meet criteria. They have instructed to the family to come back if she develops more spots. She does not have any more spots. She has been off of antihypertensive medications since 05/2013 and doing well. Last ECHO in 2012 was normal, renal US in 2014 was unremarkable. She had been monitoring her sodium and diet and exercising and lost significant weight. The entire family had succeeded on losing weight. She has since the last year relaxed her diet, not exercising regularly ad as a result has gained 12 kg. She denies any lightheadedness or dizziness, they have had no BP checks anywhere there's been no reason. She has felt well. She denies any fever, URI symptoms, nausea, diarrhea, sick contacts. She has had a good year in school. Review of systems is otherwise negative. She does have a history of an isolated panic attack in school a few years ago and was evaluated at [facility] where a CT scan was stable. 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 These have been well controlled by topomax and only occasionally gets headaches now. She was weaned off of the topomax. She is aware of the risk of kidney stone with topomax. Per Dad in the past, on the last imaging study the adenoma was shrinking so they are going to follow this with serial imaging every few years. She is having regular menses now without any issues. Her repeat eval revealed elevated aldosterone again, renin was cancelled. Thyroid studies were OK too. Interval history: Since her last visit she has done well. Denies headache, dizziness,lightheadedness. She is trying to fit exercise into a busy school schedule, weight is stable since last spring but she has not lost any weight. She monique joined [employer] and plans to exercise there regularly. She denies any symptoms of a UTI. LVMI on recent ECHO was 40. Additional findings are noted in the review of systems below. ROS: Constitutional: negative for malaise, fatigue, negative for fevers Eyes: negative for altered vision, discharge, or redness ENT: negative for altered hearing, ear ache, epistaxis, sore throat or oral lesions Respiratory: negative for tachypnea, wheezing, stridor, or chronic cough Cardiac: negative for SOB, syncope, palpitations, or chest pain GI: negative for vomiting, diarrhea, constipation, abdominal pain : negative for dysuria, gross hematuria, urinary frequency, urgency, edema or enuresis. No symptoms of renal colic on topomax Skin: negative for rash, pruritis, cellulitis. She has 3 cafe au lait spots. No change Musculoskeletal: negative for bone pain, joint swelling, muscle cramps Psychological: negative for depression, abnormalities in affect or attention Hematologic/lymphatic: negative for bruising, bleeding, pallor or lymphadenopathy Allergic/Immunologic: see allergy history in EMR; negative history for recurrent or unusual infections Neurologic: negative for muscle weakness, paresthesia, seizures or unusual headaches. Headaches are controlled on the topomax. Positive for lightheadedness, dizziness with prolonged standing Development: age appropriate ECHO 07/31/18: 1. Normal echocardiogram. 2. No left ventricular hypertrophy. 3. Normal left ventricular systolic and diastolic function. 4. LVMI 40 Current Outpatient Medications Medication Sig Dispense Refill losartan (COZAAR) 50 MG TABS tablet TAKE 2 TABLETS BY MOUTH ONCE DAILY 60 Tab 3 atorvastatin (LIPITOR) 10 MG tablet TAKE 1 TABLET BY MOUTH ONCE DAILY 30 Tab 3 [place]-3 Fatty Acids (FISH OIL) 1000 MG CAPS capsule Take 4 Caps (4,000 mg) by mouth daily 1 Cap 0 triamcinolone (KENALOG) 0.025 % cream 1 NECON 1/35, 28, 1-35 MG-MCG per tablet 12 loratadine (CLARITIN) 10 MG tablet Take by mouth rizatriptan benzoate (MAXALT) 5 MG TABS tablet Take one at onset of migraine. Repeat once if no better in 2 hours. 12 Tab 4 sertraline (ZOLOFT) 100 MG tablet Take 100 mg by mouth daily montelukast (SINGULAIR) 10 MG tablet 10 mg 4 mometasone (ASMANEX 120 METERED DOSES) 220 MCG/INH inhaler Inhale 1 puff into the lungs 2 times daily. melatonin 5 MG TABS tablet Take 5 mg by mouth At bedtime UNABLE TO FIND Allergy shots weekly Multiple Vitamin (MULTI-VITAMINS) tablet Take 1 Tab by mouth daily. 30 Tab 3 Albuterol Sulfate (PROAIR HFA IN) Inhale into the lungs as needed. No current facility-administered medications for this visit. On physical examination Rose Mary BP 112/82 (BP Site: Right Arm, Patient Position: Sitting, BP Cuff Size: Lg Adult) Comment: MANUAL Pulse (!) 119 Resp 20 Ht 163 cm Wt 97.9 kg LMP 11/16/2018 BMI 36.85 kg/m Growth percentile [employer] can only be used for patients less than 20 years old.. In General, this is an alert, interactive female in no acute distress. She is overweight. HEENT exam is unremarkable. Cardiovascular rhythm and rate are regular. Chest is clear to auscultation bilaterally. Abdomen is soft, nondistended, nontender. There are no masses or organomegaly noted. Extremities are warm and well perfused without edema. CBC: Last Result Complete Blood Count Collection Time: 08/22/17 8:33 AM Result Value Ref Range WBC 6.9 4.5 - 11.0 10E9/L Nucleated RBC Percent 0.0 -1.0 - 0.0 % RBC 4.39 4.00 - 4.90 10E12/L Hemoglobin 11.8 (L) 12.0 - 15.0 g/dl Hematocrit 37.5 36.0 - 44.0 % MCV 85.4 80.0 - 100.0 fl MCH 26.9 26.0 - 34.0 pg MCHC 31.5 31.0 - 37.0 % RDW 15.6 (H) 0.0 - 14.4 % Platelets 261 150 - 450 10E9/L MPV 12.6 fl Comment: MPV is platelet range and age dependent Differential Complete Automated NA % Neutrophils 47.0 35.0 - 66.0 % % Lymphocytes 39.9 24.0 - 44.0 % % Monocytes 10.20 (H) 3.00 - 6.00 % % Eosinophils 1.90 0.00 - 3.00 % Basophils 0.90 0.00 - 1.00 % Neutrophil # 3.2 NA % Immature Granulocyte 0.10 % Comment: Immature Granulocyte Percent includes promyelocytes, myelocytes, and metamyelocytes. IG% > 1.0 indicates a left shift is present. With automated differentials, bands are included in the neutrophil count and not in the Immature Granulocyte Percent. Narrative Has the specimen been drawn from a line flushed with Heparin?->No Venous Blood only Lipid Panel: Last Result Lipid panel Collection Time: 07/20/18 1:36 PM Result Value Ref Range Cholesterol 206 (A) 0 - 189 mg/dL Comment: Acceptable <190 mg/dL Borderline 190-224 mg/dL Abnormal >224 mg/dL NOTE: Reference Range change effective 07/07/18 Triglyceride 121 0 - 114 mg/dL Comment: Acceptable <115 mg/dl Borderline 115-149 mg/dl Abnormal >149 mg/dl NOTE: Reference Range change effective 07/07/18 Result invalid if not a fasting specimen. HDL Cholesterol 43 mg/dL Comment: Acceptable >45 mg/dL Borderline 40-44 mg/dL Abnormal <40 mg/dL NOTE: Reference Range change effective 07/07/18 LDL Cholesterol 139 (H) 0 - 119 mg/dl Comment: Acceptable <120 mg/dL Borderline 120-159 mg/dL Abnormal >159 mg/dl NOTE: Reference Range change effective 07/07/18 Non-HDL Cholesterol 163 (H) 0 - 149 mg/dL Comment: Acceptable <150 mg/dL Borderline 150-189 mg/dL Abnormal >189 mg/dl POCT Urinalysis: Lab Results Component Value Date POCTLEUKOUR 1+ (Small) (A) 07/20/2018 POCTNITR Negative 07/20/2018 POCTPH 6.0 07/20/2018 POCTSPEGR 1.025 07/20/2018 POCTKETONEUR Negative 07/20/2018 POCTGLUUR Negative 07/20/2018 POCCOLORUR Yellow 07/20/2018 POCCHARACUR Cloudy 07/20/2018 RFP: Lab Results Component Value Date NA 138 07/20/2018 K 3.7 07/20/2018 CL 106 07/20/2018 CO2 22.2 07/20/2018 BUN 10 07/20/2018 GLU 85 07/20/2018 CREATININE 0.48 (L) 07/20/2018 ALB 3.5 07/20/2018 CALCIUM 8.8 07/20/2018 PHOS 3.1 01/14/2018 Assessment: 1. Hypertension BP controlled ABPM showed elevated BP on treatment. ECHO from Jul 2018 showed LVMI of 40 2. Weight gain signficant over the last year due to poor diet. 3. Headaches resolved, weaned off topomax. Was seen in neurology in Aug 2016 due to headaches, they improved with hydration. 4. Pitutary adenoma followed by neurology, recently seen in Aug 2016, and family was told no need for further imaging 5. Hyperlipidemia, strong family history. Started lipitor, tolerating it well without side effects. Plan: 1. continue cozaar 100 mg daily 2. Continue Fish oil 4 grams per day for hypercholestrolemia 3. Continue with dietary modifications, low salt and low fat diet. 4. D/ C cholecaliferol, start multivtiamin 5. Continue lipitor 6 fasting lipids in the summer. 7 schedule exercise as part of the routine 8 discussed transition to adult provider now that she is 23 years of age. Her family physician willing to take over her care. Will transition after her next visit in the summer. Normal [facility] Vitamin D 25 OHon 07-21-2018 25 OH Vitamin D 46 ng/mL Normal 20-50 [facility] Comment on above: Result Comment: Reference ranges provided by [facility] are based on consensus conferences and expert opinion: Level Characterization 1-10 ng/mL Vitamin D deficiency 11-24 ng/mL Suboptimal Vitamin D status 25-80 ng/mL Optimal Vitamin D status >80 ng/mL Potentially toxic Vitamin D effects Performed By: #### V 25DH #### [place] [address] Comp Metabolic Panelon 07-20 Albumin [Mass/Vol] 3.5 g/dL Normal 3.5-5.0 [facility] Comment on above: Performed By: #### C MP #### [address] [id number] ALP [Catalytic activity/Vol] 102 U/L Normal 35-104 [facility] Comment on above: Performed By: #### C MP #### [address] [id number] ALT [Catalytic activity/Vol] 9 U/L Normal 0-31 [facility] Comment on above: Performed By: #### C MP #### [address] [id number] AST [Catalytic activity/Vol] 23 U/L Normal 0-31 [facility] Comment on above: Performed By: #### C MP #### [address] [id number] Bili,Total 0.7 mg/dl Normal 0.0-1.0 [facility] Comment on above: Result Comment: Premature : 1 Day 1.0-6.0 mg/dl 2 Day 6.0-8.0 mg/dl 3-5 Day 10.0-15.0 mg/dl Performed By: #### C MP #### [address] [address] Calcium [Mass/Vol] 8.8 mg/dL Normal 7.6-11.0 [facility] Comment on above: Performed By: #### C MP #### [address] [id number] Chloride [Moles/Vol] 106 mmol/L Normal 96-108 [facility] Comment on above: Performed By: #### C MP #### [address] [address] CO2 [Moles/Vol] 22.2 mmol/L Normal 22.0-29.0 [facility] Comment on above: Performed By: #### C MP #### [address] [address] Creatinine [Mass/Vol] 0.48 mg/dL Low 0.50-1.00 [facility] Comment on above: Result Comment: Premature 0.3-1.0 mg/dL Performed By: #### C MP #### [place] [address] Glucose [Mass/Vol] 85 mg/dL Normal 70-99 [facility] Comment on above: Result Comment: Criteria for Diagnosis of Diabetes(Effective 01/07/11): Fasting specimen (no caloric intake for at least 8 hours). <100 mg/dl Normal 100-125 mg/dl Increased Risk for Diabetes >125 mg/dl Diagnostic for Diabetes Random Glucose (any time of day without regard to last meal). >=200 mg/dl plus Classic Symptoms of Diabetes Performed By: #### C MP #### [address] [address] Potassium [Moles/Vol] 3.7 mmol/L Normal 3.3-5.1 [facility] Comment on above: Performed By: #### C MP #### [address] [address] Protein [Mass/Vol] 7.5 g/dL Normal 5.9-8.4 [facility] Comment on above: Performed By: #### C MP #### [address] [address] Sodium [Moles/Vol] 138 mmol/L Normal 133-145 [facility] Comment on above: Performed By: #### C MP #### [address] [id number] Urea nitrogen [Mass/Vol] 10 mg/dL Normal 4-19 [facility] Comment on above: Performed By: #### C MP #### [address] [address] Lipid Panelon 07-20-2018 Cholesterol [Mass/Vol] 206 mg/dL Abnormal 0-189 [facility] Comment on above: Result Comment: Acceptable <190 mg/dL Borderline 190-224 mg/dL Abnormal >224 mg/dL NOTE: Reference Range change effective 07/07/18 Performed By: #### L IPID #### [address] [id number] Cholesterol in HDL [Mass/Vol] 43 mg/dL Normal [facility] Comment on above: Result Comment: Acceptable >45 mg/dL Borderline 40-44 mg/dL Abnormal <40 mg/dL NOTE: Reference Range change effective 07/07/18 Performed By: #### L IPID #### [address] [address] Cholesterol in LDL [Mass/Vol] 139 mg/dL High 0-119 [facility] Comment on above: Result Comment: Acceptable <120 mg/dL Borderline 120-159 mg/dL Abnormal >159 mg/dl NOTE: Reference Range change effective 07/07/18 Performed By: #### L IPID #### [address] [address] Non-HDL Cholesterol 163 mg/dL High 0-149 [facility] Comment on above: Result Comment: Acceptable <150 mg/dL Borderline 150-189 mg/dL Abnormal >189 mg/dl Performed By: #### L IPID #### [address] [id number] Triglyceride [Mass/Vol] 121 mg/dL Normal 0-114 [facility] Comment on above: Result Comment: Acceptable <115 mg/dl Borderline 115-149 mg/dl Abnormal >149 mg/dl NOTE: Reference Range change effective 07/07/18 Result invalid if not a fasting specimen. Performed By: #### L IPID #### [facility] Jinny [address] [place] [id number] Progress Noteon 07-20-2018 Student Services Vice President Authentication Interface Message Text Rose Mary was seen in renal clinic today to follow up on the status of her essential hypertension. Additional problems include vitamin D insufficiency and pituitary adenoma. Pertinent diagnostic studies include:normal doppler renal ultrasound at [facility] (07/31/11), elevated plasma renin (07/14) and normal echocardiogram at [facility] (07/14). She was evaluated for neurofibromatosis by genetics due to 3 cafe au lait spots, she does not meet criteria. They have instructed to the family to come back if she develops more spots. She does not have any more spots. She has been off of antihypertensive medications since 05/2013 and doing well. Last ECHO in 2012 was normal, renal US in 2014 was unremarkable. She had been monitoring her sodium and diet and exercising and lost significant weight. The entire family had succeeded on losing weight. She has since the last year relaxed her diet, not exercising regularly ad as a result has gained 12 kg. She denies any lightheadedness or dizziness, they have had no BP checks anywhere there's been no reason. She has felt well. She denies any fever, URI symptoms, nausea, diarrhea, sick contacts. She has had a good year in school. Review of systems is otherwise negative. She does have a history of an isolated panic attack in school a few years ago and was evaluated at [facility] where a CT scan was stable. 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 These have been well controlled by topomax and only occasionally gets headaches now. She was weaned off of the topomax. She is aware of the risk of kidney stone with topomax. Per Dad in the past, on the last imaging study the adenoma was shrinking so they are going to follow this with serial imaging every few years. She is having regular menses now without any issues. Her repeat eval revealed elevated aldosterone again, renin was cancelled. Thyroid studies were OK too. Interval history: Cozaar was increased last visit, which she has tolerated well. Denies headache, dizziness,lightheadedness. She is trying to fit exercise into a busy school schedule, weight is stable since her last visit. She denies any symptoms of a UTI. LVMI on recent ECHO was 55. Additional findings are noted in the review of systems below. ROS: Constitutional: negative for malaise, fatigue, negative for fevers Eyes: negative for altered vision, discharge, or redness ENT: negative for altered hearing, ear ache, epistaxis, sore throat or oral lesions Respiratory: negative for tachypnea, wheezing, stridor, or chronic cough Cardiac: negative for SOB, syncope, palpitations, or chest pain GI: negative for vomiting, diarrhea, constipation, abdominal pain : negative for dysuria, gross hematuria, urinary frequency, urgency, edema or enuresis. No symptoms of renal colic on topomax Skin: negative for rash, pruritis, cellulitis. She has 3 cafe au lait spots. No change Musculoskeletal: negative for bone pain, joint swelling, muscle cramps Psychological: negative for depression, abnormalities in affect or attention Hematologic/lymphatic: negative for bruising, bleeding, pallor or lymphadenopathy Allergic/Immunologic: see allergy history in EMR; negative history for recurrent or unusual infections Neurologic: negative for muscle weakness, paresthesia, seizures or unusual headaches. Headaches are controlled on the topomax. Positive for lightheadedness, dizziness with prolonged standing Development: age appropriate ECHO 01/07/13: No LVH Current Outpatient Medications Medication Sig Dispense Refill losartan (COZAAR) 50 MG TABS tablet Take 2 Tabs (100 mg) by mouth daily 60 Tab 3 atorvastatin (LIPITOR) 10 MG tablet Take 1 Tab (10 mg) by mouth daily 30 Tab 3 [place]-3 Fatty Acids (FISH OIL) 1000 MG CAPS capsule Take 4 Caps (4,000 mg) by mouth daily 1 Cap 0 NECON 1/35, 28, 1-35 MG-MCG per tablet 12 loratadine (CLARITIN) 10 MG tablet Take by mouth rizatriptan benzoate (MAXALT) 5 MG TABS tablet Take one at onset of migraine. Repeat once if no better in 2 hours. 12 Tab 4 sertraline (ZOLOFT) 100 MG tablet Take 100 mg by mouth daily montelukast (SINGULAIR) 10 MG tablet 10 mg 4 mometasone (ASMANEX 120 METERED DOSES) 220 MCG/INH inhaler Inhale 1 puff into the lungs 2 times daily. melatonin 5 MG TABS tablet Take 5 mg by mouth At bedtime UNABLE TO FIND Allergy shots weekly Multiple Vitamin (MULTI-VITAMINS) tablet Take 1 Tab by mouth daily. 30 Tab 3 Albuterol Sulfate (PROAIR HFA IN) Inhale into the lungs as needed. triamcinolone (KENALOG) 0.025 % cream 1 No current facility-administered medications for this visit. On physical examination Rose Mary BP 102/78 (BP Site: Right Arm, Patient Position: Sitting, BP Cuff Size: Lg Adult) Comment: manual Pulse (!) 125 Resp 22 Ht 164 cm Wt 97.4 kg LMP 07/04/2018 (Exact Date) BMI 36.21 kg/m Growth percentile [employer] can only be used for patients less than 20 years old.. In General, this is an alert, interactive female in no acute distress. She is overweight. HEENT exam is unremarkable. Cardiovascular rhythm and rate are regular. Chest is clear to auscultation bilaterally. Abdomen is soft, nondistended, nontender. There are no masses or organomegaly noted. Extremities are warm and well perfused without edema. CBC: Last Result Complete Blood Count Collection Time: 08/22/17 8:33 AM Result Value Ref Range WBC 6.9 4.5 - 11.0 10E9/L Nucleated RBC Percent 0.0 -1.0 - 0.0 % RBC 4.39 4.00 - 4.90 10E12/L Hemoglobin 11.8 (L) 12.0 - 15.0 g/dl Hematocrit 37.5 36.0 - 44.0 % MCV 85.4 80.0 - 100.0 fl MCH 26.9 26.0 - 34.0 pg MCHC 31.5 31.0 - 37.0 % RDW 15.6 (H) 0.0 - 14.4 % Platelets 261 150 - 450 10E9/L MPV 12.6 fl Comment: MPV is platelet range and age dependent Differential Complete Automated NA % Neutrophils 47.0 35.0 - 66.0 % % Lymphocytes 39.9 24.0 - 44.0 % % Monocytes 10.20 (H) 3.00 - 6.00 % % Eosinophils 1.90 0.00 - 3.00 % Basophils 0.90 0.00 - 1.00 % Neutrophil # 3.2 NA % Immature Granulocyte 0.10 % Comment: Immature Granulocyte Percent includes promyelocytes, myelocytes, and metamyelocytes. IG% > 1.0 indicates a left shift is present. With automated differentials, bands are included in the neutrophil count and not in the Immature Granulocyte Percent. Narrative Has the specimen been drawn from a line flushed with Heparin?->No Venous Blood only Lipid Panel: Last Result Lipid panel Collection Time: 01/14/18 11:13 AM Result Value Ref Range Cholesterol 221 (A) 0 - 199 mg/dL Comment: Desirable <200 mg/dL Borderline 200-239 mg/dL High Risk >239 mg/dL Triglyceride 109 mg/dL Comment: Normal <150 mg/dl Borderline 150-199 mg/dl High 200-500 mg/dl Very High >500 mg/dl Result invalid if not a fasting specimen. HDL Cholesterol 50 mg/dL Comment: Male < 40mg/dL High Risk Female < 50mg/dL High Risk Male & Female > 60mg/dL Low Risk VLDL Cholesterol 22 mg/dl LDL Cholesterol 149 (H) 0 - 129 mg/dl Comment: Desirable <130 mg/dL Borderline 130-159 mg/dL High Risk >159 mg/dl POCT Urinalysis: Lab Results Component Value Date POCTLEUKOUR 1+ (Small) (A) 07/20/2018 POCTNITR Negative 07/20/2018 POCTPH 6.0 07/20/2018 POCTSPEGR 1.025 07/20/2018 POCTKETONEUR Negative 07/20/2018 POCTGLUUR Negative 07/20/2018 POCCOLORUR Yellow 07/20/2018 POCCHARACUR Cloudy 07/20/2018 RFP: Lab Results Component Value Date NA 137 01/14/2018 K 3.9 01/14/2018 CL 109 (H) 01/14/2018 CO2 19.6 (L) 01/14/2018 BUN 8 01/14/2018 GLU 82 01/14/2018 CREATININE 0.54 01/14/2018 ALB 3.7 01/14/2018 CALCIUM 8.6 01/14/2018 PHOS 3.1 01/14/2018 Assessment: 1. Hypertension BP controlled ABPM showed elevated BP on treatment. ECHO showed LVMI of 55 2. Weight gain signficant over the last year due to poor diet. 3. Headaches resolved, weaned off topomax. Was seen in neurology in Aug 2016 due to headaches, they improved with hydration. 4. Pitutary adenoma followed by neurology, recently seen in Aug 2016, and family was told no need for further imaging 5. Hyperlipidemia, strong family history. Started lipitor, tolerating it well without side effects. Plan: 1. continue cozaar 100 mg daily 2. Continue Fish oil 4 grams per day for hypercholestrolemia 3. Continue with dietary modifications, low salt and low fat diet. 4. D/ C cholecaliferol, start multivtiamin 5. Continue lipitor 6 repeat ECHO in 2018 7 fasting lipids and COMP, vit d today. 8 schedule exercise as part of the routine 9 discussed transition to adult provider now that she is 23 years of age. She will check with her family physician if they will manage her BP going forward. Normal [facility] Progress Noteon 04-22-2018 Student Services Vice President Authentication Interface Message Text Rose Mary was seen in renal clinic today to follow up on the status of her essential hypertension. Additional problems include vitamin D insufficiency and pituitary adenoma. Pertinent diagnostic studies include:normal doppler renal ultrasound at [facility] (07/31/11), elevated plasma renin (07/14) and normal echocardiogram at [facility] (07/14). She was evaluated for neurofibromatosis by genetics due to 3 cafe au lait spots, she does not meet criteria. They have instructed to the family to come back if she develops more spots. She does not have any more spots. She has been off of antihypertensive medications since 05/2013 and doing well. Last ECHO in 2012 was normal, renal US in 2014 was unremarkable. She had been monitoring her sodium and diet and exercising and lost significant weight. The entire family had succeeded on losing weight. She has since the last year relaxed her diet, not exercising regularly ad as a result has gained 12 kg. She denies any lightheadedness or dizziness, they have had no BP checks anywhere there's been no reason. She has felt well. She denies any fever, URI symptoms, nausea, diarrhea, sick contacts. She has had a good year in school. Review of systems is otherwise negative. She does have a history of an isolated panic attack in school a few years ago and was evaluated at [facility] where a CT scan was stable. 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 These have been well controlled by topomax and only occasionally gets headaches now. She was weaned off of the topomax. She is aware of the risk of kidney stone with topomax. Per Dad in the past, on the last imaging study the adenoma was shrinking so they are going to follow this with serial imaging every few years. She is having regular menses now without any issues. Interval history: She was started on cozaar, which she has tolerated well. Her repeat eval revealed elevated aldosterone again, renin was cancelled. Thyroid studies were OK too. BP were in the 150 systolic range before treatment.now they are in the 120 systolic range. Denies headache, dizziness,lightheadedness. She is trying to fit exercise into a busy school schedule, she ahs gained 1 kg since her last visit and almost 5 kg since last year. She denies any symptoms of a UTI. LVMI on recent ECHO was 55. Additional findings are noted in the review of systems below. ROS: Constitutional: negative for malaise, fatigue, negative for fevers Eyes: negative for altered vision, discharge, or redness ENT: negative for altered hearing, ear ache, epistaxis, sore throat or oral lesions Respiratory: negative for tachypnea, wheezing, stridor, or chronic cough Cardiac: negative for SOB, syncope, palpitations, or chest pain GI: negative for vomiting, diarrhea, constipation, abdominal pain : negative for dysuria, gross hematuria, urinary frequency, urgency, edema or enuresis. No symptoms of renal colic on topomax Skin: negative for rash, pruritis, cellulitis. She has 3 cafe au lait spots. No change Musculoskeletal: negative for bone pain, joint swelling, muscle cramps Psychological: negative for depression, abnormalities in affect or attention Hematologic/lymphatic: negative for bruising, bleeding, pallor or lymphadenopathy Allergic/Immunologic: see allergy history in EMR; negative history for recurrent or unusual infections Neurologic: negative for muscle weakness, paresthesia, seizures or unusual headaches. Headaches are controlled on the topomax. Positive for lightheadedness, dizziness with prolonged standing Development: age appropriate ECHO 01/07/13: No LVH Current Outpatient Prescriptions Medication Sig Dispense Refill losartan (COZAAR) 50 MG TABS tablet Take 1.5 Tabs (75 mg) by mouth daily 50 Tab 3 atorvastatin (LIPITOR) 10 MG tablet TAKE 1 TABLET BY MOUTH EVERY DAY 30 Tab 3 Cholecalciferol 2000 units CAPS Take 2,000 Units by mouth daily 30 Each 3 [place]-3 Fatty Acids (FISH OIL) 1000 MG CAPS capsule Take 4 Caps (4,000 mg) by mouth daily 1 Cap 0 NECON 1/35, 28, 1-35 MG-MCG per tablet 12 loratadine (CLARITIN) 10 MG tablet Take by mouth rizatriptan benzoate (MAXALT) 5 MG TABS tablet Take one at onset of migraine. Repeat once if no better in 2 hours. 12 Tab 4 sertraline (ZOLOFT) 100 MG tablet Take 100 mg by mouth daily montelukast (SINGULAIR) 10 MG tablet 10 mg 4 mometasone (ASMANEX 120 METERED DOSES) 220 MCG/INH inhaler Inhale 1 puff into the lungs 2 times daily. melatonin 5 MG TABS tablet Take 5 mg by mouth At bedtime UNABLE TO FIND Allergy shots weekly Multiple Vitamin (MULTI-VITAMINS) tablet Take 1 Tab by mouth daily. 30 Tab 3 Albuterol Sulfate (PROAIR HFA IN) Inhale into the lungs as needed. triamcinolone (KENALOG) 0.025 % cream 1 No current facility-administered medications for this visit. On physical examination Rose Mary BP 122/86 (BP Site: Right Arm, Patient Position: Sitting, BP Cuff Size: Lg Adult) Comment: manual Pulse 94 Resp 22 Ht 164 cm Wt 97.6 kg LMP 04/11/2018 (Exact Date) BMI 36.29 kg/m Growth percentile SmartLinks can only be used for patients less than 20 years old.. In General, this is an alert, interactive female in no acute distress. She is overweight. HEENT exam is unremarkable. Cardiovascular rhythm and rate are regular. Chest is clear to auscultation bilaterally. Abdomen is soft, nondistended, nontender. There are no masses or organomegaly noted. Extremities are warm and well perfused without edema. CBC: Last Result Complete Blood Count Collection Time: 08/22/17 8:33 AM Result Value Ref Range WBC 6.9 4.5 - 11.0 10E9/L Nucleated RBC Percent 0.0 -1.0 - 0.0 % RBC 4.39 4.00 - 4.90 10E12/L Hemoglobin 11.8 (L) 12.0 - 15.0 g/dl Hematocrit 37.5 36.0 - 44.0 % MCV 85.4 80.0 - 100.0 fl MCH 26.9 26.0 - 34.0 pg MCHC 31.5 31.0 - 37.0 % RDW 15.6 (H) 0.0 - 14.4 % Platelets 261 150 - 450 10E9/L MPV 12.6 fl Comment: MPV is platelet range and age dependent Differential Complete Automated NA % Neutrophils 47.0 35.0 - 66.0 % % Lymphocytes 39.9 24.0 - 44.0 % % Monocytes 10.20 (H) 3.00 - 6.00 % % Eosinophils 1.90 0.00 - 3.00 % Basophils 0.90 0.00 - 1.00 % Neutrophil # 3.2 NA % Immature Granulocyte 0.10 % Comment: Immature Granulocyte Percent includes promyelocytes, myelocytes, and metamyelocytes. IG% > 1.0 indicates a left shift is present. With automated differentials, bands are included in the neutrophil count and not in the Immature Granulocyte Percent. Narrative Has the specimen been drawn from a line flushed with Heparin?->No Venous Blood only Lipid Panel: Last Result Lipid panel Collection Time: 01/14/18 11:13 AM Result Value Ref Range Cholesterol 221 (A) 0 - 199 mg/dL Comment: Desirable <200 mg/dL Borderline 200-239 mg/dL High Risk >239 mg/dL Triglyceride 109 mg/dL Comment: Normal <150 mg/dl Borderline 150-199 mg/dl High 200-500 mg/dl Very High >500 mg/dl Result invalid if not a fasting specimen. HDL Cholesterol 50 mg/dL Comment: Male < 40mg/dL High Risk Female < 50mg/dL High Risk Male & Female > 60mg/dL Low Risk VLDL Cholesterol 22 mg/dl LDL Cholesterol 149 (H) 0 - 129 mg/dl Comment: Desirable <130 mg/dL Borderline 130-159 mg/dL High Risk >159 mg/dl POCT Urinalysis: Lab Results Component Value Date POCTLEUKOUR Negative 04/22/2018 POCTNITR Negative 04/22/2018 POCTPH 6.0 04/22/2018 POCTSPEGR 1.025 04/22/2018 POCTKETONEUR Negative 04/22/2018 POCTGLUUR Negative 04/22/2018 POCCOLORUR Yellow 04/22/2018 POCCHARACUR Cloudy 04/22/2018 RFP: Lab Results Component Value Date NA 137 01/14/2018 K 3.9 01/14/2018 CL 109 (H) 01/14/2018 CO2 19.6 (L) 01/14/2018 BUN 8 01/14/2018 GLU 82 01/14/2018 CREATININE 0.54 01/14/2018 ALB 3.7 01/14/2018 CALCIUM 8.6 01/14/2018 PHOS 3.1 01/14/2018 Assessment: 1. Hypertension BP controlled ABPM showed elevated BP on treatment. ECHO showed LVMI of 55 2. Weight gain signficant over the last year due to poor diet. 3. Headaches resolved, weaned off topomax. Was seen in neurology in Aug 2016 due to headaches, they improved with hydration. 4. Pitutary adenoma followed by neurology, recently seen in Aug 2016, and family was told no need for further imaging 5. Hyperlipidemia, strong family history. Started lipitor, tolerating it well without side effects. Plan: 1. increase cozaar 100 mg daily 2. Continue Fish oil 4 grams per day for hypercholestrolemia 3. Continue with dietary modifications, low salt and low fat diet. 4. D/ C cholecaliferol, start multivtiamin 5. Continue lipitor 6 repeat ECHO in 2018 7 fasting lipids and RFP in May 11 schedule exercise as part of the routine Normal [facility] Vital Signs Date Time Vital Sign Value Performing Clinician Facility 08-26-2024 09:54-0500 Body height 164.5 cm Emily Au MD Work Phone: [facility] 08-26-2024 09:54-0500 Body mass index (BMI) [Ratio] 35.64 kg/m2 Emily uA MD Work Phone: [facility] 08-26-2024 09:54-0500 Body temperature 101.1 [degF] Emily Au MD Work Phone: [facility] 08-26-2024 09:54-0500 Body weight 96.39 kg Emily Au MD Work Phone: [facility] 01-23-2025 09:54-0500 Diastolic blood pressure 88 mm[Hg] Emily Au MD Work Phone: [facility] 08-26-2024 09:54-0500 Heart rate 88 /min Emily Au MD Work Phone: [facility] 08-26-2024 09:54-0500 Systolic blood pressure 157 mm[Hg] Emily Au MD Work Phone: [facility] 10-10-2023 15:40-0500 Diastolic Blood Pressure Non-Invasive 100 mm[Hg] MAHNAZ PIECRE MD [facility] 10-10-2023 15:40-0500 Heart rate 93 /min MAHNAZ PIRECE MD [facility] 10-10-2023 15:40-0500 Respiratory rate 16 /min MAHNAZ PIERCE MD [facility] 10-10-2023 15:40-0500 Systolic Blood Pressure Non-Invasive 145 mm[Hg] MAHNAZ PIERCE MD [facility] 10-10-2023 14:07-0500 Body temperature 96.8 [degF] MAHNAZ PIERCE MD [facility] 10-10-2023 14:07-0500 Body weight 90.2 kg MAHNAZ PIERCE MD [facility] 10-10-2023 14:07-0500 Diastolic Blood Pressure Non-Invasive 75 mm[Hg] MAHNAZ PIERCE MD [facility] 10-10-2023 14:07-0500 Heart rate 116 /min MAHNAZ PIERCE MD [facility] 03-08-2024 14:07-0500 Respiratory rate 16 /min MAHNAZ PIERCE MD [facility] 10-10-2023 14:07-0500 Systolic Blood Pressure Non-Invasive 120 mm[Hg] MAHNAZ PIERCE MD [facility] 06-30-2023 20:40-0500 Diastolic blood pressure 91 mm[Hg] [facility] 06-30-2023 20:40-0500 Heart rate 100 /min [facility] 06-30-2023 20:40-0500 Respiratory rate 16 /min [facility] 06-30-2023 20:40-0500 Systolic blood pressure 139 mm[Hg] [facility] 06-30-2023 17:37-0500 Body height 163.83 cm [facility] 06-30-2023 17:37-0500 Body temperature 97.2 [degF] [facility] 06-30-2023 17:37-0500 SaO2% (BldA) [Mass fraction] 100 % [facility] 06-07-2023 19:37-0400 Diastolic blood pressure 110 mm[Hg] [facility] 06-07-2023 19:37-0400 Systolic blood pressure 139 mm[Hg] [facility] 06-07-2023 19:33-0400 Body height 162.56 cm [facility] 06-07-2023 19:33-0400 Body mass index (BMI) [Ratio] 35.4 kg/m2 [facility] 06-07-2023 19:33-0400 Body temperature 98.3 [degF] [facility] 06-07-2023 19:33-0400 Body weight 93.8 kg [facility] 06-07-2023 19:33-0400 Heart rate 98 /min [facility] 06-07-2023 19:33-0400 Respiratory rate 18 /min [facility] 06-07-2023 19:33-0400 SaO2% (BldA) [Mass fraction] 97 % [facility] 01-20-2023 21:49-0400 Body height 162.56 cm [facility] 01-20-2023 21:49-0400 Body mass index (BMI) [Ratio] 34 kg/m2 [facility] 01-20-2023 21:49-0400 Body temperature 97 [degF] [facility] 01-20-2023 21:49-0400 Body weight 89.99 kg [facility] 01-20-2023 21:49-0400 Diastolic blood pressure 104 mm[Hg] [facility] 01-20-2023 21:49-0400 Heart rate 98 /min [facility] 01-20-2023 21:49-0400 Respiratory rate 16 /min [facility] 01-20-2023 21:49-0400 SaO2% (BldA) [Mass fraction] 100 % [facility] 01-20-2023 21:49-0400 Systolic blood pressure 139 mm[Hg] [facility] 12-01-2022 21:39-0400 Body height 162.56 cm [facility] 12-01-2022 21:39-0400 Body mass index (BMI) [Ratio] 34 kg/m2 [facility] 12-01-2022 21:39-0400 Body temperature 98.2 [degF] [facility] 12-01-2022 21:39-0400 Body weight 90 kg [facility] 12-01-2022 21:39-0400 Diastolic blood pressure 111 mm[Hg] [facility] 12-01-2022 21:39-0400 Heart rate 93 /min [facility] 12-01-2022 21:39-0400 Respiratory rate 15 /min [facility] 12-01-2022 21:39-0400 SaO2% (BldA) [Mass fraction] 100 % [facility] 12-01-2022 21:39-0400 Systolic blood pressure 141 mm[Hg] [facility] 11-24-2022 19:28-0400 Body height 162.56 cm [facility] 11-24-2022 19:28-0400 Body mass index (BMI) [Ratio] 34.1 kg/m2 [facility] 11-24-2022 19:28-0400 Body temperature 97.9 [degF] [facility] 11-24-2022 19:28-0400 Body weight 90.26 kg [facility] 11-24-2022 19:28-0400 Diastolic blood pressure 117 mm[Hg] [facility] 11-24-2022 19:28-0400 Heart rate 97 /min [facility] 11-24-2022 19:28-0400 Respiratory rate 15 /min [facility] 11-24-2022 19:28-0400 SaO2% (BldA) [Mass fraction] 100 % [facility] 11-24-2022 19:28-0400 Systolic blood pressure 143 mm[Hg] [facility] 12-28-2021 12:22-0400 Diastolic blood pressure 82 mm[Hg] GABRIELLA MCNAIR MD [facility] 12-28-2021 12:22-0400 Heart rate 82 /min GABRIELLA MCNAIR MD [facility] 12-28-2021 12:22-0400 Respiratory rate 16 /min GABRIELLA MCNAIR MD [facility] 12-28-2021 12:22-0400 Systolic blood pressure 117 mm[Hg] GABRIELLA MCNAIR MD [facility] 12-28-2021 09:16-0400 Body height 162 cm GABRIELLA MCNAIR MD [facility] 12-28-2021 09:16-0400 Body temperature 97.7 [degF] GABRIELLA MCNAIR MD [facility] 12-28-2021 09:16-0400 Body weight 88 kg GABRIELLA MCNAIR MD [facility] 12-28-2021 09:16-0400 Body weight 33.53 kg/m2 GABRIELLA MCNAIR MD [facility] 12-28-2021 09:16-0400 Diastolic blood pressure 84 mm[Hg] GABRIELLA MCNAIR MD [facility] 12-28-2021 09:16-0400 Heart rate 84 /min GABRIELLA MCNAIR MD [facility] 12-28-2021 09:16-0400 Respiratory rate 16 /min GABRIELLA MCNAIR MD [facility] 12-28-2021 09:16-0400 Systolic blood pressure 122 mm[Hg] GABRIELLA MCNAIR MD [facility] 12-18-2021 00:32-0400 Diastolic blood pressure 87 mm[Hg] [facility] Work Phone: 12-18-2021 00:32-0400 Heart rate 104 /min [facility] Work Phone: 12-18-2021 00:32-0400 Systolic blood pressure 123 mm[Hg] [facility] Work Phone: 12-17-2021 21:42-0400 Body temperature 97.3 [degF] [facility] Work Phone: 12-17-2021 21:42-0400 Respiratory rate 15 /min [facility] Work Phone: 12-17-2021 21:42-0400 SaO2% (BldA) [Mass fraction] 100 % [facility] Work Phone: 12-17-2021 21:40-0400 Body height 162.56 cm [facility] Work Phone: 12-17-2021 21:40-0400 Body mass index (BMI) [Ratio] 33.5 kg/m2 [facility] Work Phone: 12-17-2021 21:40-0400 Body weight 88.45 kg [facility] Work Phone: 08-17-2021 14:32-0500 Body height 165 cm WINNIE GREWAL MD [facility] 08-17-2021 14:32-0500 Body temperature 98.24 [degF] WINNIE GREWAL MD [facility] 08-17-2021 14:32-0500 Body weight 82 kg WINNIE GREWAL MD [facility] 08-17-2021 14:32-0500 Diastolic blood pressure 82 mm[Hg] WINNIE GREWAL MD [facility] 08-17-2021 14:32-0500 Heart rate 91 /min WINNIE GREWAL MD [facility] 08-17-2021 14:32-0500 Respiratory rate 16 /min WINNIE GREWAL MD [facility] 08-17-2021 14:32-0500 Systolic blood pressure 118 mm[Hg] WINNIE GREWAL MD [facility] Encounters Encounter Date Encounter Type Care Provider Facility Start: 12-17-2024 End: 12-21-2024 ambulatory MADELINE MCNALLY DO Facility:[facility] [place] Start: 12-17-2024 End: 12-21-2024 Outreach Lab JORDON BARONE DO [facility] Start: 10-06-2024 End: 10-06-2024 ambulatory MADELINE ULI DO [facility] Start: 10-06-2024 End: 10-06-2024 Patient encounter procedure MADELINE MCNALLY DO [facility] Start: 09-30-2024 End: 09-30-2024 ambulatory Madeline Desaiy Facility:[facility] Start: 09-29-2024 End: 10-03-2024 ambulatory MADELINE DESAIGianna OSULLIVAN [facility] Start: 09-29-2024 End: 10-03-2024 Outreach Lab MADELINE MCNALLY DO [facility] Start: 09-10-2024 End: 09-11-2024 Emergency department patient visit Madeline Mcnally Facility:[facility] Start: 08-26-2024 End: 09-07-2024 Telephone encounter Emily Au MD Work Phone: [facility] Comment on above: Consult Start: 08-26-2024 End: 08-26-2024 ambulatory EMILY AU Facility:[facility] Start: 08-26-2024 End: 08-26-2024 Patient encounter procedure Emily Au MD Work Phone: [facility] [place] Comment on above: Omega-Danscotties syndro me (Primary Dx); Positive PHI (antinuclear antibody) Start: 08-26-2024 End: 08-26-2024 ambulatory MADELINE MCNALLY Facility:[facility] Start: 06-15-2024 End: 06-19-2024 ambulatory MADELINE DESAIGianna OSULLIVAN [facility] Start: 06-15-2024 End: 06-19-2024 Outreach Lab MADELINE MCNALLY DO [facility] Start: 05-20-2024 End: 05-20-2024 Telephone encounter Oj Dunlap [facility] Start: 04-15-2024 End: 04-15-2024 ambulatory MADELINE MCNALLY DO Facility:[facility] [place] Start: 04-15-2024 End: 04-15-2024 Patient encounter procedure MADELINE MCNALLY DO [facility] Start: 03-29-2024 End: 03-29-2024 ambulatory MADELINE MCNALLY DO Facility:[facility] Start: 03-29-2024 End: 03-29-2024 Patient encounter procedure MADELINE MCNALLY DO [facility] Start: 03-25-2024 End: 03-25-2024 ambulatory MADELINE MCNALLY DO Facility:[facility] Start: 03-25-2024 End: 03-25-2024 Patient encounter procedure MADELINE MCNALLY DO [facility] Start: 10-21-2023 End: 10-21-2023 ambulatory [facility] Work Phone: Start: 10-21-2023 End: 10-21-2023 Patient encounter procedure [facility] Work Phone: Start: 10-21-2023 End: 10-21-2023 ambulatory Madeline Mcnally Facility:[facility] Start: 10-10-2023 End: 10-10-2023 Emergency department patient visit MAHNAZ PIERCE MD [facility] Start: 09-05-2023 End: 09-05-2023 ambulatory MADELINE MCNALLY Facility:[facility] Start: 08-21-2023 End: 08-25-2023 ambulatory MADELINE MCNALLY DO Facility:[facility] Start: 08-21-2023 End: 08-25-2023 Outreach Lab MADELINE MCNALLY DO [facility] Start: 07-30-2023 End: 07-30-2023 ambulatory [facility] Work Phone: Start: 07-30-2023 End: 07-30-2023 Patient encounter procedure [facility], [facility] Work Phone: Start: 06-30-2023 End: 06-30-2023 Emergency department patient visit [facility] Work Phone: Start: 06-07-2023 End: 06-07-2023 Emergency department patient visit [facility] Work Phone: Start: 04-11-2023 End: 04-11-2023 ambulatory MADELINE MCNALLY DO Facility:[facility] Start: 04-11-2023 End: 04-11-2023 Patient encounter procedure MADELINE MCNALLY DO [facility] Start: 04-01-2023 End: 04-01-2023 Patient encounter procedure [facility] Work Phone: [facility] Comment on above: Hypersomnia, unspeci fied Start: 03-31-2023 End: 04-01-2023 Patient encounter procedure Psg Mslt Papnaps [facility] Work Phone: [facility] Comment on above: Obstructive sleep ap jacobo (Primary Dx) Start: 01-20-2023 End: 01-20-2023 Emergency department patient visit [facility] Start: 01-13-2023 End: 01-14-2023 Patient encounter procedure Psg Mslt Papnaps Neur [facility] Work Phone: [facility] Comment on above: STEPHANIE (obstructive sle ep apnea) Start: 01-07-2023 End: 01-07-2023 Patient encounter procedure [facility], Specimen Start: 12-01-2022 End: 12-01-2022 Emergency department patient visit [facility] Start: 11-24-2022 End: 11-24-2022 [facility] Start: 11-20-2022 End: 11-24-2022 Outreach Lab MADELINE MCNALLY DO [facility] Start: 11-07-2022 End: 11-07-2022 Patient encounter procedure MADELINE MCNALLY DO [facility] Start: 09-19-2022 End: 09-19-2022 Patient encounter procedure CHARLY KLEIN PMHNP-BC [facility] Start: 08-17-2022 End: 08-21-2022 Outreach Lab KAYLEIGH MCKINNEY DO [facility] Start: 04-16-2022 End: 04-16-2022 Patient encounter procedure GABRIELLA MCNAIR MD [facility] Start: 02-11-2022 End: 02-11-2022 Patient encounter procedure GABRIELLA MCNAIR MD [facility] Start: 01-24-2022 End: 01-24-2022 Patient encounter procedure GABRIELLA MCNAIR MD [facility] Start: 01-03-2022 End: 01-03-2022 Patient encounter procedure MADELINE MCNALLY DO [facility] Start: 12-28-2021 End: 12-28-2021 SAME DAY STAY GABRIELLA MCNAIR MD [facility] Start: 12-17-2021 End: 12-18-2021 [facility] Start: 12-13-2021 End: 12-13-2021 Patient encounter procedure YANNI EUBANKS 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 [facility] Start: 11-13-2021 End: 11-13-2021 Patient encounter procedure MADELINE MCNALLY DO [facility] Start: 11-08-2021 End: 11-12-[address] ALANNAH PHELPS DO [facility] Start: 08-17-2021 End: 08-17-2021 Emergency department patient visit WINNIE GREWAL MD [facility] Procedures Date Procedure Procedure Detail Performing Clinician Start: 10-21-2023 US urinary tract Start: 07-30-2023 CT of abdomen and pe lvis without contrast Start: 06-30-2023 CT of abdomen and pe lvis without contrast Start: 06-07-2023 Radiologic examination of knee Start: 11-24-2022 CT of abdomen and pe lvis without contrast Start: 02-11-2022 Tilt table test CHARLY KLEIN PMHNP-BC Start: 01-24-2022 Echocardiography CHARLY KLEIN PMHNP-BC Comment on above: Summary: 1. Left ventricle: The cavity size is normal. Wall thickness is normal. Systolic function is normal. The estimated ejection fraction is 55-65%. Wall motion is normal; there are no regional wall motion abnormalities. Normal diastolic function. 2. Mitral valve: There is mild regurgitation. 3. Right atrium: The estimated right atrial pressure is 3 mm Hg. Start: 01-02-2022 Echocardiography GABRIELLA BUITRAGO MD Comment on above: Summary: 1. Left ventricle: The cavity size is normal. Wall thickness is normal. Systolic function is normal. The estimated ejection fraction is 55-65%. Wall motion is normal; there are no regional wall motion abnormalities. Normal diastolic function. 2. Mitral valve: There is mild regurgitation. 3. Right atrium: The estimated right atrial pressure is 3 mm Hg. Start: 12-13-2021 Electrocardiographic monitor and recorder, device (physical object) CHARLY KLEIN PMHNP-BC Start: 07-04-2011 Tonsillectomy WINNIE PEARSON MD Tube (qualifier value) WINNIE GREWAL MD Comment on above: in ears Urine culture Plan of Treatment Date Care Activity Detail Author Start: 02-21-2031 Urine microalbumin profile DTaP,Tdap,Td Vaccine (3 - Td or Tdap) [facility] Start: 03-25-2025 End: 03-25-2025 Patient encounter procedure 03/25/2025 1:00 PM EDT Office Visit ALENA AGUILA [address] [phone] [facility] [address] [place] [address] Brian AGUILA Comment on above: Brian neal Start: 02-23-2025 End: 02-23-2025 Patient encounter procedure 02/23/2025 10:40 AM EDT Office Visit [facility] [place] [address] [phone] Emily Au MD [address] [place] [address] f/u [facility] [place] Comment on above: f/u Start: 08-26-2024 End: 11-25-2024 B 2 GPI IGG & IGM [facility] Comment on above: Expected: 08/26/2024, Expires: Start: 08-26-2024 End: 11-25-2024 Cardiolipin IgG and IgM panel - Serum [facility] Comment on above: Expected: 08/26/2024, Expires: Start: 08-26-2024 End: 11-25-2024 Complement C3 [Mass/volume] in Serum or Plasma [facility] Comment on above: Expected: 08/26/2024, Expires: Start: 08-26-2024 End: 11-25-2024 Complement C4 [Mass/volume] in Serum or Plasma [facility] Comment on above: Expected: 08/26/2024, Expires: Start: 08-26-2024 End: 11-25-2024 DNA ANTIBODY DS BLD [facility] Comment on above: Expected: 08/26/2024, Expires: Start: 08-26-2024 End: 11-25-2024 DNA double strand Ab [Presence] in Serum by Immunofluorescence (IF) Kahlil paez [facility] Comment on above: Expected: 08/26/2024, Expires: Start: 08-26-2024 End: 11-25-2024 IgA [Mass/volume] in Serum or Plasma [facility] Comment on above: Expected: 08/26/2024, Expires: Start: 08-26-2024 End: 11-25-2024 Ribonucleoprotein extractable nuclear Ab [Units/volume] in Serum [facility] Comment on above: Expected: 08/26/2024, Expires: Start: 08-26-2024 End: 11-25-2024 SCL-70 extractable nuclear IgG Ab [Units/volume] in Serum by Immunoassay [facility] Comment on above: Expected: 08/26/2024, Expires: Start: 08-26-2024 End: 11-25-2024 SJOGREN ABS SSA/SSB [facility] Comment on above: Expected: 08/26/2024, Expires: Start: 08-26-2024 End: 11-25-2024 Reyes extractable nuclear IgG Ab [Units/volume] in Serum [facility] Comment on above: Expected: 08/26/2024, Expires: Start: 08-26-2024 End: 11-25-2024 Tissue transglutaminase IgA Ab [Units/volume] in Serum [facility] Work Phone: Comment on above: Expected: 08/26/2024, Expires: Start: 08-26-2024 End: 08-26-2024 Patient encounter procedure 08/26/2024 10:00 AM EST Office Visit [facility] [place] [address] [place] [address] Emily Au MD [address] [place], [place] [phone] Postitive PHI, elevated CRP [facility] [place] Comment on above: Postitive PHI, elevated CRP Start: 04-04-2024 Covid-19 Vaccine ( season) Covid-19 Vaccine ( season) [facility] Start: 04-04-2024 Influenza vaccination Influenza Vaccine (#1) [facility] Start: 06-30-2023 [facility] Start: 04-04-2023 Covid-19 Vaccine ( season) Covid-19 Vaccine ( season) [facility] Start: 04-04-2023 Influenza vaccination [facility] Start: 11-24-2022 [facility] Start: 08-04-2022 DEPRESSION ASSESSMENT DEPRESSION ASSESSMENT [facility] Start: 2018 PAP TESTING PAP TESTING [facility] Start: 2018 Screening for malignant neoplasm of cervix [facility] Start: 2016 Urine microalbumin profile DTAP,TDAP,TD (1 - Tdap) [facility] Start: 2015 Anxiety Screening Anxiety Screening [facility] Start: 2015 Depression Screening Depression Screening [facility] Start: 2015 HEPATITIS C SCREENING HEPATITIS C SCREENING [facility] Start: 2015 Hepatitis C screening Hepatitis C Screening [facility] Start: 2015 HIV SCREENING HIV SCREENING [facility] Start: 2015 HIV screening HIV Screening [facility] Start: 2011 PEDS TO ADULT TRANSITION ANNUAL ASSESSMENT PEDS TO ADULT TRANSITION ANNUAL ASSESSMENT [facility] Start: 2009 PEDS TO ADULT TRANSITION INITIAL DISCUSSION PEDS TO ADULT TRANSITION INITIAL DISCUSSION [facility] Start: 2007 MENINGOCOCCAL B: Consider based on risk (1 of 2 - Risk Bexsero 2-dose series) MENINGOCOCCAL B: Consider based on risk (1 of 2 - Risk Bexsero 2-dose series) [facility] Start: 2006 HPV VACCINE (1 - 2-dose series) HPV VACCINE (1 - 2-dose series) [facility] Start: 1997 HEPATITIS B (1 of 3 - 3-dose series) HEPATITIS B (1 of 3 - 3-dose series) [facility] Bacteria identified in Urine by Culture Urine Culture [facility] Patient Education [facility] Work Phone: Patient referral [facility] Work Phone: Immunizations Immunization Date Immunization Notes Care Provider Gilberto real 05-03-2024 influenza, injectabl e, quadrivalent, contains preservative; Translations: [Fluarix PF Prefilled Syringe ] MADELINE MCNALLY DO [facility] 05-16-2023 influenza, injectabl e, quadrivalent, contains preservative; Translations: [Fluarix PF Quadrivalent ] MADELINE MCNALLY DO [facility] 05-16-2023 influenza virus vacc ine, unspecified formulation Oj SETHI [facility] 05-14-2022 COVID-19, mRNA, LNP- S, bivalent booster, PF, 30 mcg/0.3 mL dose; Translations: [Pfizer-BioNTech COVID-19 (12y+) Bivalent Booster Vaccine PF] KAYLEIGH MCKINNEY DO [facility] 05-14-2022 SARSCoV2 mRNA(suhguakoixo55y+)biv al vac; Translations: [Pfizer-BioNTech COVID-19 (12y+) Bivalent Booster Vaccine PF] MADELINE MCNALLY DO [facility] 05-06-2022 influenza, injectabl e, quadrivalent, contains preservative; Translations: [Fluarix PF Quadrivalent ] KAYLEIGH MCKINNEY DO [facility] 05-06-2022 influenza virus vacc ine, unspecified formulation Herrera Izquierdo Work Phone: [facility] 07-12-2021 SARS-CoV-2 mRNA (tozinameran) vaccine DR ALANNAH PHELPS DO [facility] Comment on above: Result Comment: 2021: TPVAL 06-01-2021 influenza virus vacc ine, unspecified formulation DR ALANNAH PHELPS DO [facility] 02-21-2021 tetanus toxoid, redu rajeev diphtheria toxoid, and acellular pertussis vaccine, adsorbed; Translations: [Boostrix (Tdap)] WINNIE GREWAL MD [facility] 11-03-2020 SARS-CoV-2 mRNA (tozinameran) vaccine WINNIE GREWAL MD [facility] 10-13-2020 SARS-CoV-2 mRNA (tozinameran) vaccine WINNIE GREWAL MD [facility] Comment on above: Result Comment: 2020: TPV5 2020 influenza virus vacc ine, unspecified formulation WINNIE GREWAL MD [facility] 04-27-2019 influenza, injectabl e, quadrivalent, preservative free; Translations: [Fluarix PF Quadrivalent ] WINNIE GREWAL MD [facility] 05-22-2018 influenza virus vacc ine, unspecified formulation WINNIE GREWAL MD [facility] 05-21-2017 influenza virus vacc ine, unspecified formulation WINNIE GREWAL MD [facility] 05-01-2016 influenza virus vacc ine, unspecified formulation WINNIE GREWAL MD [facility] 05-03-2015 influenza virus vacc ine, unspecified formulation WINNIE GREWAL MD [facility] 03-09-2015 meningococcal polysaccharide (groups A, C, Y and W-135) diphtheria toxoid conjugate vaccine (MCV4P) WINNIE GREWAL MD [facility] 06-22-2014 influenza virus vacc ine, unspecified formulation WINNIE GREWAL MD [facility] 05-10-2013 influenza virus vacc ine, unspecified formulation WINNIE GREWAL MD [facility] 03-05-2013 hepatitis A vaccine, pediatric dosage, unspecified formulation WINNIE GREWAL MD [facility] 04-28-2012 influenza virus vacc ine, unspecified formulation WINNIE GREWAL MD [facility] 09-06-2010 Human Papillomavirus Quadval WINNIE GREWAL MD [facility] 04-30-2010 Human Papillomavirus Quadval WINNIE GREWAL MD [facility] 02-27-2010 Human Papillomavirus Quadval WINNIE GREWAL MD [facility] 02-27-2010 meningococcal polysaccharide (groups A, C, Y and W-135) diphtheria toxoid conjugate vaccine (MCV4P) WINNIE GREWAL MD [facility] 02-27-2010 tetanus toxoid, redu rajeev diphtheria toxoid, and acellular pertussis vaccine, adsorbed WINNIE GREWAL MD [facility] 02-27-2010 varicella virus vaccine WINNIE GREWAL MD [facility] 09-27-2002 measles/mumps/rubell a virus vaccine WINNIE GREWAL MD [facility] 11-09-1998 haemophilus influenz ae type b vaccine, PRP-T conjugate WINNIE GREWAL MD [facility] 08-24-1998 measles/mumps/rubell a virus vaccine WINNIE GREWAL MD [facility] 05-26-1998 hepatitis B pediatri c vaccine WINNIE GREWAL MD [facility] 05-26-1998 varicella virus vaccine WINNIE GREWLA MD [facility] 1997 haemophilus influenz ae type b vaccine, PRP-T conjugate WINNIE GREWAL MD [facility] 1997 hepatitis B pediatri c vaccine WINNIE GREWAL MD [facility] 1997 poliovirus vaccine, live, trivalent WINNIE GREWAL MD [facility] 1997 haemophilus influenz ae type b vaccine, PRP-T conjugate WINNIE GREWAL MD [facility] 1997 poliovirus vaccine, live, trivalent WINNIE GREWAL MD [facility] 1997 haemophilus influenz ae type b vaccine, PRP-T conjugate WINNIE GREWAL MD [facility] 1997 poliovirus vaccine, live, trivalent WINNIE GREWAL MD [facility] 1997 hepatitis B pediatri c vaccine WINNIE GREWAL MD [facility] Payers Date Payer Category Payer Self-pay [id number] 2023 Private Health Insurance e [id number] 2022 [facility] [id number] 2021 Medicaid [id number] 1997 Unknown [id number] 1997 Unknown [id number] 1997 Unknown [id number] 1997 Unknown [id number] 1997 Unknown [id number] 1997 Unknown [id number] 1997 Unknown [id number] 1997 Unknown [id number] 1997 Unknown [id number] 1997 Unknown [id number] Unknown [id number] SELF PAY INSURANCE [id number] Unknown [id number] Unknown [id number] Unknown [id number] Social History Date Type Detail Facility Start: 03-30-2020 End: 10-19-2024 Never smoked tobacco (finding) [facility] Comment on above: tobacco/smoke exposu re: none No smoking Start: 1995 Sex Assigned At Female A [facility] Start: 12-17-2021 End: 06-30-2023 Tobacco smoking status NHIS Unknown if ever smoked [facility] Start: 04-30-2019 None [facility] Start: 08-04-2020 With Family [facility] Start: 09-09-2020 End: 07-25-2023 Tobacco use and exposure Smokeless tobacco non-user [facility] Work Phone: Start: 1995 Sex Assigned At Not on file [facility] Start: 09-09-2020 End: 01-13-2023 History of Social function [facility] Start: 09-09-2020 End: 01-13-2023 Tobacco use panel [facility] National Score (1-100), lower number is lower risk 75 [facility] Sexual O[facility] Start: 01-27-2019 Sex Female (finding) [facility] NEGATED: Highlighted row [facility] Goals Date Patient Goal Desired Activity /State Functional Status Date Assessment Result Facility 10-10-[address] [facility] 10-10-2023 Functional Status Standard Safet y ID band on, Call device within reach, Bed in low position, Wheels locked, Visitor at bedside [facility] 12-28-2021 Functional Status Awake, Repositions self, Resting, Up ad catia, Up to bathroom [facility] 12-28-2021 Functional Status Maintained [facility] Mental Status Date Assessment Result Facility 10-10-2023 Mental Status Orientation Oriented x 4 [facility] 10-10-2023 Mental Status [facility] 12-28-2021 Mental Status Oriented x 4, Follows simple commands [facility] 12-28-2021 Mental Status [facility] 12-17-2021 Cognitive function Level Of Cons ciousness Awake;Alert;Appropriate;Follow s Commands [facility] Work Phone: Clinical Notes 08-17-2021 to 12-18-2024 Telephone Encounter - Emily Au MD - 08/26/2024 6:52 PM ESTTelephone Encounter - Emily Au MD - 08/26/2024 6:52 PM ESTTelephone Encounter - Carmen Bone MA - 08/26/2024 11:38 AM EST Note Date & Type Note Facility 12-18-2024 Note . MICRO - Microbiology PROCEDURE: Urine Culture [*1] SOURCE: Urine, Clean Catch BODY SITE: COLLECTED DATE/TIME: 12/17/2024 16:28 EDT RECEIVED DATE/TIME: 12/17/2024 18:37 EDT START DATE/TIME: 12/17/2024 18:38 EDT FREE TEXT SOURCE: FINAL REPORTS Final Report [] Verified Date/Time/Personnel: 12/18/2024 14:51 EDT 50,000 - 100,000 cfu/ml Mixed growth consistent with normal urogenital edilberto. PRELIMINARY REPORTS Preliminary Report [] Verified Date/Time/Personnel: 12/17/2024 19:59 EDT Specimen received in lab. Performing Locations *1: This test was performed at: [facility], [address] [place] [address], [id number] , [facility] 08-26-2024 Telephone encounter Note Placed consult Emily Au MD [facility] 08-26-2024 Miscellaneous Notes Placed consult Emily Au MD Patient came back to the office after trying to make appointment via phone for Genetics referral through [facility] and she needs a referral. Can you place. documented in this encounter [facility] 08-26-2024 Telephone encounter Note Patient came back to the office after trying to make appointment via phone for Genetics referral through [facility] and she needs a referral. Can you place. [facility] 08-26-2024 Note HNO ID: [id number] Author: EMILY AU MD Service: ? Author Type: Physician Type: Progress Notes Filed: 09/03/2024 22:07 Note Text: This note was created using NoteWriter. Subjective Rose Mary Christine is a 29 year old female. Jt pain Wants to see if EDS Has done research on this Also PHI positive Multiple other issue wants addressed Review of Systems Objective BP 157/88 Pulse 88 Temp (!) 38.4 ?C (101.1 ?F) Ht 164.5 cm (5' 4.75) Wt 96.4 kg (212 lb 8 oz) LMP 07/25/2023 (Exact Date) BMI 35.64 kg/m? Physical Exam Vitals reviewed. Constitutional: General: She is not in acute distress. Appearance: She is not ill-appearing or toxic-appearing. HENT: Right Ear: There is no impacted cerumen. Left Ear: There is no impacted cerumen. Nose: No congestion or rhinorrhea. Mouth/Throat: Pharynx: No oropharyngeal exudate or posterior oropharyngeal erythema. Eyes: General: Right eye: No discharge. Left eye: No discharge. Cardiovascular: Rate and Rhythm: Normal rate and regular rhythm. Heart sounds: Normal heart sounds. No murmur heard. No friction rub. No gallop. Pulmonary: Effort: No respiratory distress. Breath sounds: Normal breath sounds. No stridor. No wheezing or rhonchi. Abdominal: General: There is no distension. Palpations: Abdomen is soft. There is no mass. Tenderness: There is no abdominal tenderness. Hernia: No hernia is present. Musculoskeletal: Right shoulder: Normal. Left shoulder: Normal. Right elbow: Normal. Left elbow: Normal. Right wrist: Normal. Left wrist: Normal. Right hand: Normal. Left hand: Normal. Cervical back: No rigidity or tenderness. Thoracic back: Normal. Lumbar back: Normal. Right hip: Normal. Left hip: Normal. Right knee: Normal. Left knee: Normal. Right lower leg: No edema. Left lower leg: No edema. Right ankle: Normal. Left ankle: Normal. Right foot: Normal. Left foot: Normal. Comments: No synovitis Ashlyn present no abn stretch almanza Lymphadenopathy: Cervical: No cervical adenopathy. Assessment and Plan First visit 08/26/2024 rt handed 09/27 PCP note reviewed ( PHI + + abn labs and PCP wanted rheum fu ) PCP note scanned 04/2024 visit Polyarthralgia 2023 PHI 1:80 nuclear homo 2023 RF neg , uric 4.4 2024 DSDna DsDNA crithidia, TANKER DRIVER SSA SSB SCL Sm neg 2024 Anti-cardiolipin ab, anti b-2 GPI -1 ab, LA neg. 2024 IgA 69 IgA, Transglutaminase Ab: neg 2023 CK 47 2024 C3C4 normal 2023 esr 10 ( <20) crp 0.6 (<0.3 ) (( 2024 :: dry eye onset 2023, dry mouth age 17, no saliva gland swelling, face swelling ? Puffy red cheek Easy flushing child , hives forearm, and palms of hand 2021 onset, itch not burn, no scar ) ( photosensitive ) (( 2024 :: no Raynaud's Phenomenon or acrocyanosis, wears compression stocking ) (never DVT ) (( 2024 :: no serositis mucositis ) 2024 exam hand feet cold nail capillary normal, hand cold, dermatographism mild flushing present ) ( Dianne 35 mm ) 08/26/2024 get labs on her for now, doubt connective tissue disease 08/26/2024 08/27/2024 no connective tissue disease is noted. Drug and disease monitoring 2019 elect normal , LFT normal 2024 mar: cmp tsh cbc diff normal 2023 chol 215, trig 99 HDL 45 LDL 150 2023 folic 31 2018 Vit d 34 2023 vit d 45 psoriasis (( 2024 :: does not remember doctor name Kuldeep Morrow derm , was diagnosed age, scalp eye lids, at time michele weather will give flares arm, not active at present , arm like sand paper ) ( scalp is all clear ) (( 2024 :: COVID hand diagnosis 2020 ? Or atopic derm soap precipitated )) TT Head shoulder dandruff and present 08/26/2024 08/26/2024 no psoriasis and no Undifferentiated spondyloarthritis noted EDS ( mentioned PCP notes ) ?? No diagnosis ( easy bruising ) (rt knee 2022 nov knee patellar dislocation ) 2024 Knee extension is > 180 degrees, elbow extension is > 180 degrees, the thumb can passively appose the anterior surface of the forearm, the 5th MCP joints can be extended to beyond 90 degrees, patient is able to show truncal flexion so that the finger tips of the hands can be placed on the ground with knees in the extended position. Ankle joint hypermobility is there, patellar hypermobility is not there. Skin hyperextensibility is there. Translucent veins. Long philtrum, thin lips EDS III Hypermobile criteria : 1. Beighton score 8 1. Absence of other CTD, and RA / SLE ?? Yes. A. And five of the following features : Marfanoid : arachnodactyly (( wrist sign bilateral or thumb sign bilateral absent )) (( dental crowding present or high arch palate present)) arm span to ht > 1/05 absent 165/163, ECHO with MVP or aortic root dilation absent EDS features : Soft skin present. Mild skin hyper extensibility present(( Unexplained striae ( not associated with wt gain/ loss absent, = use this in prepubertal pt and men only )) = Bilateral piezogenic (more content not included)... [place] [facility] History of Present illness Narrative This note was created using NoteWriter. Subjective Rose Mary Christine is a 29 year old female. Jt pain Wants to see if EDS Has done research on this Also PHI positive Multiple other issue wants addressed Review of Systems Objective BP 157/88 Pulse 88 Temp (!) 38.4 C (101.1 F) Ht 164.5 cm (5' 4.75) Wt 96.4 kg (212 lb 8 oz) LMP 07/25/2023 (Exact Date) BMI 35.64 kg/m Physical Exam Vitals reviewed. Constitutional: General: She is not in acute distress. Appearance: She is not ill-appearing or toxic-appearing. HENT: Right Ear: There is no impacted cerumen. Left Ear: There is no impacted cerumen. Nose: No congestion or rhinorrhea. Mouth/Throat: Pharynx: No oropharyngeal exudate or posterior oropharyngeal erythema. Eyes: General: Right eye: No discharge. Left eye: No discharge. Cardiovascular: Rate and Rhythm: Normal rate and regular rhythm. Heart sounds: Normal heart sounds. No murmur heard. No friction rub. No gallop. Pulmonary: Effort: No respiratory distress. Breath sounds: Normal breath sounds. No stridor. No wheezing or rhonchi. Abdominal: General: There is no distension. Palpations: Abdomen is soft. There is no mass. Tenderness: There is no abdominal tenderness. Hernia: No hernia is present. Musculoskeletal: Right shoulder: Normal. Left shoulder: Normal. Right elbow: Normal. Left elbow: Normal. Right wrist: Normal. Left wrist: Normal. Right hand: Normal. Left hand: Normal. Cervical back: No rigidity or tenderness. Thoracic back: Normal. Lumbar back: Normal. Right hip: Normal. Left hip: Normal. Right knee: Normal. Left knee: Normal. Right lower leg: No edema. Left lower leg: No edema. Right ankle: Normal. Left ankle: Normal. Right foot: Normal. Left foot: Normal. Comments: No synovitis Ashlyn present no abn stretch almanza Lymphadenopathy: Cervical: No cervical adenopathy. Assessment and Plan First visit 08/26/2024 rt handed 09/27 PCP note reviewed ( PHI + + abn labs and PCP wanted rheum fu ) PCP note scanned 04/2024 visit Polyarthralgia 2023 PHI 1:80 nuclear homo 2023 RF neg , uric 4.4 2023 CK 47 2023 esr 10 ( <20) crp 0.6 (<0.3 ) (( 2024 monika :: dry eye onset 2023, dry mouth age 17, no saliva gland swelling, face swelling ? Puffy red cheek Easy flushing child , hives forearm, and palms of hand 2021 onset, itch not burn, no scar ) ( photosensitive ) (( 2024 :: no Raynaud's Phenomenon or acrocyanosis, wears compression stocking ) (never DVT ) (( 2024 :: no serositis mucositis ) 2024 exam hand feet cold nail capillary normal, hand cold, dermatographism mild flushing present ) ( Dianne 35 mm ) 08/26/2024 get labs on her for now, doubt connective tissue disease 08/26/2024 Drug and disease monitoring 2019 elect normal , LFT normal 2023 mar: cmp tsh cbc diff normal 2023 chol 215, trig 99 HDL 45 LDL 150 2023 folic 31 2018 Vit d 34 2023 vit d 45 psoriasis (( 2024 :: does not remember doctor name Kuldeep Morrow derm , was diagnosed age, scalp eye lids, at time michele weather will give flares arm, not active at present , arm like sand paper ) ( scalp is all clear ) (( 2024 :: COVID hand diagnosis 2020 ? Or atopic derm soap precipitated )) TT Head shoulder dandruff and present 08/26/2024 08/26/2024 no psoriasis and no Undifferentiated spondyloarthritis noted EDS ( mentioned PCP notes ) ?? No diagnosis ( easy bruising ) (rt knee 2022 nov knee patellar dislocation ) 2024 Knee extension is > 180 degrees, elbow extension is > 180 degrees, the thumb can passively appose the anterior surface of the forearm, the 5th MCP joints can be extended to beyond 90 degrees, patient is able to show truncal flexion so that the finger tips of the hands can be placed on the ground with knees in the extended position. Ankle joint hypermobility is there, patellar hypermobility is not there. Skin hyperextensibility is there. Translucent veins. Long philtrum, thin lips EDS III Hypermobile criteria : 1. Beighton score 8 1. Absence of other CTD, and RA / SLE ?? Yes. A. And five of the following features : Marfanoid : arachnodactyly (( wrist sign bilateral or thumb sign bilateral absent )) (( dental crowding present or high arch palate present)) arm span to ht > 1/05 absent 165/163, ECHO with MVP or aortic root dilation absent EDS features : Soft skin present. Mild skin hyper extensibility present(( Unexplained striae ( not associated with wt gain/ loss absent, = use this in prepubertal pt and men only )) = Bilateral piezogenic papules present. Atrophic scars at two sites absent = knee surg scar excluded = Recurrent hernia (2 points) absent, pelvic floor or rectal prolapse (women with preg) excluded absent. ((( B. Family history of first degree relatives absent + C. daily pain in two or more ext > 3 months + recurrent joint dislocation + joint instability ))) (( ABC two of three need to be met )) (( Skin extensibility is > 1.5 cm at the dorsal surface of hand ) (( no surg scar ) 08/26/2024 08/26/2024 Go and see Genetic for ED IV 08/26/2024 [facility] ( missed by one criteria ) Neck pain (( 2024 :: age 17 intermittent, no jaw pains ) 08/26/2024 Low back pain (( 2024 :: ::: long standing, localized, worse with activity , spurts of pains ) Shoulder pain (( 2024 :: bilateral pain, 2018 onset pain, subluxation bilateral reported) ( pinched nerve? When reaches for overhead pain in the shoulder which she terms pinched nerve ) 08/26/2024 Elbow pain left (( (( 2024 :: never subluxated, onset 2021 ) Wrist hand pain (( 2024 :: played instrument vi anais and pains since then , fingers do not subluxate ) Hip pain (( 2024 :: left , none rt, left hip stabbing pain, radiates to knee , rare once or twice Q 6 mths , onset 2021) Knee pain (( 2024 :: rt only , has dislocated knee cap 2022 ( had fx the knee cap ) , no left knee pains ) Ankle pains (( 2024 :: swelling noted after 5 hour shift, this is onset at 12/2023 no Giving away ) Rt big toes pain (( (( 2024 :: 9.2023 onset ) HTN 2012 diagnosis Dysautonomia 2021 ( mentioned PCP notes ) ( on Jul 2022 started ) (2020 TILT inconclusive, cardio felt POTS ) 2012 renal doppler normal 2022 sleep study normal 2017 ECHO normal 2012 MRI brain : Slight decrease in the craniocaudal dimension of the previously seen enlarged anterior lobe of the pituitary gland. 2019 MRI brain : 1 x 0.6 cm low T1 signal intensity lesion of the pituitary gland which may represent an adenoma. 2014 renal US normal TT 2019 glue bone crusher seen . Cardio Dr Israel Gamino 08/26/2024 anxiety and depression / unspecified mood 08/26/2024 Psychologist / psychiatrist seen, counseling done. 08/26/2024 Mental fog (( (( 2024 monika :: brought on by sleep deprivation ) Migraines (( 08/26/2024 forehead, evening onset, teeth started, and then back in 2021 active again ) TT Topamax and better Allergic Rhinitis and Allergic Conjunctivitis Asthma Atopic derm TT Singulair age 15 GERD Gastroparesis ( Dr. Whitney ) last seen 2019 ( gastric emptying scan ) Constipation (( 2024 :: none at present, as child, at present goes daily, before Q 3 months, not on med no otc) TT PPI 2020 08/26/2024 Zofran prn 08/26/2024 ( for nausea ) Pain mgt Wellbutrin XL 2019 started ( for depression ) ( no help with pains ) Inderal 20 mg bid ( PTSD ?? Not in chart , but Psychologist / psychiatrist started ) 08/26/2024 Topamax 25 hs 2021 for migraines ( helps ) ( not for pains ) Personal & family history. 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, at present cannot do > 5 hour of work ) Not student 08/26/2024 Not on disability but applied 08/26/2024 No children 08/26/2024 No brother 08/26/2024 One sister ( cleft palate , ETOH issue, mental issue, congative delay (( same dad diff mom ) Alma syndrome ( Superior mesenteric artery issue ) 08/26/2024 Mom 49 Diabetes Mellitus II depress anxiety and depression 08/26/2024 Father PTSD bipolar thyroid HTN IBS arthritis 08/26/2024 ( his mother late 50 brain aneursym and her great uncle of aneurysm age 67 ) Lives with parents Strong fh breast cancer I spent a total of 60 minutes on the date of the service which included [id number] patient care. documented in this encounter [facility] 10-10-2023 Hospital Discharge instructions Patient Education 10/10/2023 15:52:59 Identifying Kidney Stones Identifying Kidney Stones Your kidneys filter your blood and release chemicals into the urine. If certain chemicals build up in the kidneys, they can form a stone. There are 4 general types of kidney stones. Your kidney stone s size and shape determine whether it is likely to pass by itself. Knowing what a stone is made of (its composition) helps your healthcare provider find its cause. Then he or she can suggest the best treatment. X-rays or scans can help show the stone's size and shape. Your healthcare provider may also give you a strainer. You can use this to catch the stone while passing urine, and the provider can then test the stone. Other urine and blood tests may be done to help identify the stone. These tests can also help identify causes for different types of stones. Size A stone may be as small as a grain of sand. Or it may be as large as a golf ball. Small stones may pass out of your body when you urinate. Shape Small, smooth, round stones may pass easily. Jagged-edged stones often lodge inside the kidney or ureter. Staghorn stones can fill the entire renal pelvis and calyces. Composition Most stones are made of calcium oxalate, a hard compound. Stones made of cystine or uric acid, or caused by infection (struvite stones), are less dense. Stones often contain more than one chemical. Treating your stones You and your healthcare provider will work together to form a treatment plan. Your provider may suggest that you let your stone pass naturally. Or you may manage it with medicines. Certain procedures may also help, such as SWL (shock wave lithotripsy) or using a camera inside the body to remove the stone (ureteroscopy). And you will be told how you can help prevent kidney stones in the future. [id number] The [employer]. [address] [place] [address]. All rights reserved. This information is not intended as a substitute for professional medical care. Always follow your healthcare professional's instructions. Follow Up Care 10/10/2023 14:07:59 With:your urologist Address: When:5 to 7 days [facility] 10-10-2023 Note Discharge Instructions Thank you for allowing [facility] to assist you with your healthcare needs. The following is important discharge information regarding your hospital visit. Diagnosis from Today's Visit Flank pain Kidney stone What to Do Next Instructions from Your Care Team No qualifying data available. Post Acute Orders No qualifying data available. You Need to Schedule the Following Appointments Follow Up with your urologist When Within 5 to 7 days Where: Allergies Qulin (Anaphylaxis) lisinopril (Dry cough) midodrine (Hives) Medications Please ask your primary doctor or pharmacist before taking any other medication not listed, including over the counter drugs, herbal medications, vitamins and or supplements as they may interact with your home medications. What How Much When Why Instructions Last Dose Unchanged albuterol (albuterol 0.63 mg/ 3 mL (0.021%) inhalation solution) 3 Milliliter Nebulized inhalation Three (3) times a day as needed for wheezing Asthma Duration: 30 Days Unchanged albuterol (ProAir HFA MDI (90 mcg/ inh) inhalation aerosol) 2 puff(s) by inhalation Every 6 hours as needed for as needed for wheezing Formulary substitution okay Unchanged atorvastatin (atorvastatin 20 mg oral tablet) 1 tab(s) by mouth Once a day Hyperlipidemia Unchanged buPROPion (Wellbutrin XL 300 mg/ 24 hours oral tablet, extended release) 1 tab(s) by mouth Once a day Recurrent major depression Okay to change to generic. Unchanged cetirizine (Zyrtec 10 mg oral tablet) 1 tab(s) by mouth Once a day Unchanged cyclobenzaprine (cyclobenzaprine 10 mg oral tablet) 1 tab(s) by mouth Three (3) times a day as needed for for spasm Right shoulder pain Unchanged diphenhydrAMINE (Benadryl 25 mg oral capsule) See instructions 1 cap(s) mg Oral PRN Unchanged DME (Spacer, inhaler) See instructions Use with Asmanex daily Unchanged ethinyl estradiol-norethindrone (Alyacen oral tablet) 1 tab(s) by mouth Once a day Well female exam with routine gynecological exam Dysmenorrhea Unchanged fludrocortisone (fludrocortisone 0.1 mg oral tablet) 1 tab(s) by mouth Every day Dysautonomia Unchanged fluticasone nasal (Flonase 50 mcg/ inh nasal spray) 1 spray(s) each nostril Two (2) times a day Acute sinus infection Unchanged hydrOXYzine (Vistaril 50 mg oral capsule) 1 cap by mouth Four (4) times a day as needed for as needed for anxiety Unchanged levothyroxine (Synthroid 50 mcg (0.05 mg) oral tablet) 1 tab(s) by mouth Once a day Subclinical hypothyroidism Unchanged lidocaine topical (lidocaine 5% topical patch) 2 patch(es) Transdermal Every day Duration: 30 Days Unchanged melatonin (melatonin 10 mg oral capsule) 1.5 cap by mouth Daily at bedtime as needed for for insomnia Unchanged mometasone (Asmanex Twisthaler 220 mcg/ inh inhalation aerosol powder 30 Dose) 1 puff(s) by inhalation Once a day (in the evening) Seasonal allergies Unchanged montelukast (montelukast 10 mg oral tablet) 1 tab(s) by mouth Once a day Asthma Seasonal allergies TAKE 1 TABLET EVERY DAY Unchanged multivitamin (Multivitamin) 1 tab(s) by mouth Every day Unchanged omega-3 polyunsaturated fatty acids ([place]-3 Fish Oil 1000 mg oral capsule) 4 cap by mouth Once a day Unchanged ondansetron (Zofran 4 mg oral tablet) 1 tab(s) by mouth Every 6 hours Cyclic vomiting syndrome Duration: 5 Days Take as needed Unchanged pantoprazole (pantoprazole 40 mg oral enteric coated tablet) 1 tab(s) by mouth Once a day GERD without esophagitis Gastroparesis Unchanged promethazine (promethazine 25 mg oral tablet) 1 tab(s) by mouth Every 8 hours PRN Unchanged propranolol (propranolol 20 mg oral tablet) 0.5 tab by mouth Two (2) times a day Duration: 90 Days Unchanged topiramate (Topamax 25 mg oral tablet) 1 tab(s) by mouth Daily at bedtime Headache Please take this list to your next doctor s visit. Bring all medications you take, including over the counter medications, herbals and other supplements with you to your doctor s visit. Patients and families are reminded to discard old lists and to update any records with all medication providers or retail pharmacies. Education Materials Identifying Kidney Stones Your kidneys filter your blood and release chemicals into the urine. If certain chemicals build up in the kidneys, they can form a stone. There are 4 general types of kidney stones. Your kidney stone s size and shape determine whether it is likely to pass by itself. Knowing what a stone is made of (its composition) helps your healthcare provider find its cause. Then he or she can suggest the best treatment. X-rays or scans can help show the stone's size and shape. Your healthcare provider may also give you a strainer. You can use this to catch the stone while passing urine, and the provider can then test the stone. Other urine and blood tests may be done to help identify the stone. These tests can also help identify causes for different types of stones. Size A stone may be as small as a grain of sand. Or it may be as large as a golf ball. Small stones may pass out of your body when you urinate. Shape Small, smooth, round stones may pass easily. Jagged-edged stones often lodge inside the kidney or ureter. Staghorn stones can fill the entire renal pelvis and calyces. Composition Most stones are made of calcium oxalate, a hard compound. Stones made of cystine or uric acid, or caused by infection (struvite stones), are less dense. Stones often contain more than one chemical. Treating your stones You and your healthcare provider will work together to form a treatment plan. Your provider may suggest that you let your stone pass naturally. Or you may manage it with medicines. Certain procedures may also help, such as SWL (shock wave lithotripsy) or using a camera inside the body to remove the stone (ureteroscopy). And you will be told how you can help prevent kidney stones in the future. [id number] The [employer]. [address] [place] [address], [place] [address]. All rights reserved. This information is not intended as a substitute for professional medical care. Always follow your healthcare professional's instructions. Additional Information VACCINATE! IT SAVES LIVES! Members of the community who have not yet received the COVID-19 vaccine and would like to receive it can visit one of [facility] vaccine clinics. There are many vaccine clinic locations within the State. For locations and available times, please visit www.gettheshot.coronavirus.[place].g [email or web address] It is important to note that some COVID mobile vaccine clinics are held outdoors and may be canceled in rainy or stormy conditions. To learn more about pediatric vaccinations (ages 5-11), we invite you to visit the [employer] webpage. https://www.myMedScores.org/pa [email or web address]-[email or web address]-Freque [email or web address].[email or web address] To learn more about the COVID-19 vaccine, we invite you to visit the CDC website for a list of frequently asked questions. https://www.cdc.gov/coronavirus/2 019-ncov/vaccines/faq.html [facility] Patient Portal Access Instructions: Stay connected with your healthcare team and access your personal medical information anytime with the [facility] Patient Portal. If you would like a full copy of your medical records please contact the [facility] Medical Records Department Friday through Friday between 8a.m. and 4:30p.m. Please follow the directions below to access the portal: 1.Access the email account you provided upon registration to the hospital.2.Look for an invitation email from [facility].3.Open the email and access the invitation link: Accept Invitation to [facility]4.Fill in the required sharp to create your account. Sign into [email or web address] with your username and password that you created in the above steps to stay up to date. You can then view a summary of results, a summary of your visits, and the ability to download your summaries to your computer or send the information securely to a physician. Remember that your healthcare information is confidential, so carefully consider who you will allow to register on the [facility] Patient Portal for access to your information. You can also access the [facility] Patient Portal on the [employer] nichol. Simply click on Health Records under Health Data and then click on the [facility] logo. HOW TO SAFELY DISPOSE OF PRESCRIPTION MEDICATIONS Please use one of the following methods to safely dispose of your unused medications. 1.Use a drug disposal kit: the drug disposal pouch allows you to safely discard your old and unused drugs. Ask your nurse to give you one when you are discharged.2.Visit a local take-back location: Many local pharmacies and police departments have programs that collect old and unwanted prescription drugs. Call your local pharmacy or go to http://Jackrabbit.flux - neutrinity/7W7Jp0a to find one close to you.3.Make use of household items: Use cat litter or old coffee grounds to dispose medications if other options are not available. Mix your drugs with these household products, seal them in an airtight container and throw it into the garbage. Call [facility]: [phone] to be sure your drugs can be disposed of in this way. Some medicines may require a different approach.4.Never flush your medications down the toilet. IF YOU HAVE BEEN PRESCRIBED AN OPIOIDS FOR PAIN If you have been prescribed an opioid (such as hydrocodone, oxycodone or morphine), it is critical to understand the possible side effects and risks of opioid pain medications. Even when taken as directed, opioids can have several side effects including: Tolerance, meaning you might need to take more of a medication for the same pain relief. Nausea, vomiting and/or constipation. Sleepiness, dizziness, dry mouth, confusion, depression or itching. Physical dependence, meaning you have withdrawal symptoms when a medication is stopped ? this can develop within a few days. KNOW YOUR RESPONSIBILITIES It is important to know exactly how much and how often to take the opioid pain medications you are prescribed. Never take opioids in higher amounts or more often than prescribed. Do not combine opioids with alcohol or other drugs that cause drowsiness, such as benzodiazepines, also known as benzos, including diazepam and alprazolam, muscle relaxants or sleep aids. Never sell or share prescription opioids. This is illegal. Store opioids in a secure place and out of reach of others (including children, family, friends and visitors). The last page(s) of this document has been signed and retained as a CHART COPY Signatures Patient Education Materials Identifying Kidney Stones Medication Leaflets My discharge plan and instructions have been reviewed and explained to me and IEMMETT SARAH E understand my current condition and have read and understand these discharge instructions. I have received a written copy of the plan/instructions. If I have questions, I am aware that I should contact my doctor. 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 This exam was performed according to our departmental dose optimization program, and includes the following measures where applicable: automated exposure control, adjustment of the mAs and/or kVp according to patient size and/or exam, and an iterative reconstruction algorithm. FINDINGS: There is mild right hydronephrosis. There are no renal or ureteral stones on either side. There is a punctate calcification in the bladder, near the right ureterovesical junction. The remaining abdominal organs are unremarkable in appearance. Bowel is poorly evaluated in the absence of oral contrast. The appendix is not identified. There is no free fluid. IMPRESSION: Punctate bladder calcification with signs of recent stone passage on the right. Interpreted by: Carmelo Goncalves MD Preliminary Report By: Carmelo Goncalves MD Electronically signed By Carmelo Goncalves MD Dictated Date: 10/10/2023 3:40:56 PM Prelim Date: 10/10/2023 3:43:31 PM Sign Date: 10/10/2023 3:43:31 PM Ordering Provider: MAHNAZ PIERCE [facility] 09-05-2023 Note HNO ID: [id number] Author: AQUILINO DOW MD Service: ? Author Type: Physician Type: Progress Notes Filed: 09/08/2023 08:41 Note Text: Patient presents with: Cough: Head congestion x3 weeks HPI: Feeling sick for a few weeks. Worsened again the last 5 days. Sick co-workers. Positive symptoms: cough, Chest tightness, Nasal Congestion, Rhinorrhea, Diarrhea, Negative symptoms: Shortness of breath, Sore throat, Earache, Sinus pressure, Fever, Chills, Headache, Nausea, Vomiting, OTC: Mucinex, flonase, tessalon (from PCP) PAST MEDICAL HISTORY Diagnosis Date Anxiety Bipolar disorder with depression (HCC) Hypertension Migraine headache Obstructive sleep apnea Renal calculi MEDICATIONS: Current Outpatient Medications Medication Sig fluticasone (FLONASE) 50 mcg/actuation nasal spray Use 1 [place] in each nostril two times a day. ASMANEX TWISTHALER 220 mcg/ actuation (30) inhaler INHALE 1 puff BY MOUTH EVERY evening. rinse mouth after using. topiramate (TOPAMAX) 25 mg tablet 25 mg. fludrocortisone (FLORINEF) 0.1 mg tablet Take 1 tablet by mouth every afternoon. atorvastatin (LIPITOR) 10 mg tablet Take 10 mg by mouth once daily. buPROPion XL (WELLBUTRIN XL) 150 mg 24 hr tablet Take 150 mg by mouth once daily. hydrOXYzine pamoate (VISTARIL) 25 mg capsule Take 1 Capsule By Oral Route 3 time(s) per day As needed for anxiety or sleep levothyroxine (SYNTHROID) 25 mcg tablet Take 25 mcg by mouth once daily. montelukast (SINGULAIR) 10 mg tablet Take 10 mg by mouth once daily. ALYACEN 1/35, 28, 1-35 mg-mcg per tablet Take 1 tablet by mouth once daily. pantoprazole DR (PROTONIX) 40 mg tablet Take 40 mg by mouth once daily. promethazine (PHENERGAN) 25 mg tablet 1 (one) Tablet by mouth every eight hours, as needed propranolol (INDERAL) 20 mg tablet Take 1 Tablet By Oral Route 2 times per day ondansetron (ZOFRAN) 4 mg tablet TAKE 1 TABLET BY MOUTH EVERY 6 HOURS NEEDED FOR 5 DAYS No current facility-administered medications for this visit. ALLERGIES: ALLERGIES Allergen Reactions Lisinopril Other: See Comments cough VITALS: BP 129/94 Pulse 97 Temp 36.6 ?C (97.9 ?F) Resp 24 Wt 89.4 kg (197 lb) LMP 07/25/2023 (Exact Date) SpO2 99% PHYSICAL EXAM: GEN: mildly ill appearing HEENT: PERRL, EOMI, conjunctiva clear Ears: canals clear. TMs without erythema, bulge, or effusion Sinuses: non-tender frontal sinus, non-tender maxillary sinuses Throat: moist mucous membranes, mild erythema, no exudate Neck: supple, no thyromegaly, no lymphadenopathy HEART: regular rate and rhythm, no murmurs LUNGS: clear to auscultation, no wheezes or crackles, no increased WOB ASSESSMENT/PLAN: 1. URI, acute - ICD9: 465.9, ICD10: J06.9 Benign lung exam. Suspect new illness the last 5 days. - COVID AND INFLUENZA A/B AND RSV NAAT, ROUTINE - BENZONATATE 100 MG CAPSULE Aquilino Dow MD [facility] 04-01-2023 History of Present illness Narrative Sleep Study Check-In Documentation Date: April 01, 2023 Name: Rose Mary Christine Patient was accompanied by Self. Location: [facility] Latex allergy: No Tape allergy: No Current medications were reviewed with the patient:Yes Sleep aid taken by patient for the sleep study: [place] of sleep aid: Not Applicable Procedure was explained to the patient and all questions were answered. Knowledge Program (KP): KP was not completed in [facility] by patient and accepted Study type: MSLT Adverse Event: No (If yes create a new abstract) Comments: None Maddie Conklin documented in this encounter [facility] 04-01-2023 History of Present illness Narrative Sleep Study Check-In Documentation Date: April 01, 2023 Name: Rose Mary Christine Patient was accompanied by Self. Location: [facility] Latex allergy: No Tape allergy: No Current medications were reviewed with the patient:Yes Sleep aid taken by patient for the sleep study: Yes Name of sleep aid: Melatonin Procedure was explained to the patient and all questions were answered. Knowledge Program (KP): KP completed in [employer] by patient and accepted Study type: Polysomnogram Adverse Event: No (If yes create a new abstract) Comments: Patient was advised to follow up with their ordering provider regarding test results Katy Bob documented in this encounter [facility] 01-14-2023 History of Present illness Narrative Sleep Study Check-In Documentation Date: January 14, 2023 Name: Rose Mary Yap Emmett Patient was accompanied by Self. Location: [facility] allergy: No Tape allergy: No Current medications were reviewed with the patient:Yes Sleep aid taken by patient for the sleep study: Yes Name of sleep aid: Melatonin Procedure was explained to the patient and all questions were answered. Knowledge Program (KP): KP completed in epic by patient and accepted Study type: Polysomnogram Adverse Event: No (If yes create a new abstract) Comments: Patient was advised to follow up with their ordering provider regarding test results Katy Bob documented in this encounter [facility] 12-01-2022 Discharge summary Note Date/Time December 01, 2022 10:08pm [facility] Medical Records Department [address] [place] [address] Emergency Department Summary 12/01/22 MR#: [id number] Acct: [id number] Name: ROSE MARY CHRISTINE Rep #:[id number] : 1995 27 From: Arturo Whalen MD PCP: Dr. Madeline Mcnally, DO Status:REG ER Location: ED HPI HPI - GI History of Present Illness Chief Complaint: Abd Pain Informant: patient Nausea/Vomiting/Emesis GI Symptom: Positive for Nausea Associated Symptoms Associated Symptoms: Positive for Hematuria (Briefly 3 days ago but none since);Negative for Dysuria Narrative Narrative: Patient has a kidney stone she was diagnosed with 1 week ago here, she was having pain in her right side/flank, and no urinary symptoms except for some mild hematuria couple days ago that was brief and just wants. No fevers or chills. She had a urinalysis that showed some white cells, the culture came back showing infection and she recently was prescribed amoxicillin based on that, she is taking that. In the last several hours, she states the pain is moved from her right flank down to the right groin, and she has a sensation after she urinates that she still needs to go and it is not going away. She denies any other new symptoms. [facility] Medical History (Updated 12/01/22 @ 22:[address] Arturo Whalen MD) Anxiety Asthma Bipolar disorder Depression Hypertension Kidney stone Home Medications atorvastatin 10 mg tablet (Lipitor) 20 mg PO DAILY 04/30/19 [History Last Taken Unknown] losartan 50 mg tablet (Cozaar) 25 mg PO DAILY 04/30/19 [History Last Taken Unknown] montelukast 10 mg tablet (Singulair) 10 mg PO DAILY 04/30/19 [History Last Taken Unknown] norethindrone 1 mg-ethinyl estradiol 35 mcg tablet 1 tab PO DAILY 04/30/19 [History Last Taken Unknown] omega-3 fatty acids-fish oil 684 mg-1,200 mg capsule,delayed release 1 ea PO DAILY 04/30/19 [History Last Taken Unknown] melatonin 3 mg capsule 3 mg PO QHS 07/10/19 [History Last Taken Unknown] bupropion HCl 75 mg tablet 75 mg DAILY 11/30/19 [History Last Taken Unknown] lamotrigine 25 mg tablet (Lamictal) 200 mg PO DAILY 11/30/19 [History Last Taken Unknown] lurasidone 60 mg tablet (Latuda) 60 mg PO DAILY 11/30/19 [History Last Taken Unknown] promethazine 25 mg tablet 25 mg PO Q6H PRN PRN Nausea #10 tabs 01/09/20 [Rx Last Taken Unknown] lithium carbonate 300 mg tablet 300 mg PO DAILY 06/16/20 [History Last Taken Unknown] pantoprazole 40 mg tablet,delayed release (Protonix) 40 mg PO DAILY 12/17/21 [History Last Taken Unknown] ketorolac 10 mg tablet 10 mg PO Q6H PRN pain 3 days #10 tabs 11/24/22 [Rx Last Taken Unknown] amoxicillin 500 mg tablet 500 mg PO TID #21 tabs 11/30/22 [Rx Last Taken Unknown] Allergy/AdvReac Type Severity Reaction Status Date / Time lisinopril Allergy Other Verified 12/01/22 21:42 midodrine Allergy Hives Verified 12/01/22 21:42 orange Allergy Angioedema Verified 12/01/22 21:42 Social History Smoking Status: Never smoker ROS ROS ED Constitutional Constitutional ED: Denies chills or fever(s) Eyes Eyes: Denies change in vision or diplopia ENT ENT ED: Denies rhinorrhea or sore throat Cardiovascular Cardiovascular: Denies chest pain or palpitations Respiratory/Chest Respiratory/Chest: Denies cough or dyspnea Gastrointestinal Gastrointestinal: Reports abdominal pain; Denies diarrhea, nausea or vomiting Genitourinary Genitourinary ED: Reports as per HPI; Denies dysuria or hematuria Musculoskeletal Musculoskeletal: Reports back pain; Denies neck pain Integumentary Denies abscess or rash Neurologic Neurologic: Denies headache(s), paresthesias or weakness Psychiatric Psychiatric: Denies anxiety or suicidal thoughts EXAM Physical Exam Const Vital Signs: 12/01/22 21:39 Temperature 98.2 F Temperature Source Temporal Pulse Rate 93 Respiratory Rate 15 Blood Pressure 141/111 H Blood Pressure Mean 121 Pulse Ox 100 Oxygen Delivery Method Room Air Positive well nourished, well developed and obese General Appearance ED: well developed and NAD Nutritional Appearance: obese HEENT Reports moist mucous membranes normocephalic and atraumatic Eyes PERRL and EOMs intact bilaterally Neck full ROM and supple Resp normal respiratory effort and clear to auscultation bilaterally Cardio regular rate, regular rhythm and no murmurs GI non-tender and non-distended Auscultation: normoactive bowel sounds Palpation: soft Back/Spine no CVA tenderness General Back: other FROM Extremity normal to inspection General Extremety ED: Negative for edema, pulses abnormal or tenderness General Extremity: Negative for edema or pulses abnormal Neuro oriented x3, CN's II-XII intact bilaterally and no sensory deficits noted Sensorium / Orientation: awake and alert Motor Exam: strength 5/5 throughout Skin no rashes or lesions noted and no wounds MDM MDM MDM Narrative Medical decision making narrative: Patient urinated about 60 mL, I had nursing do a bladder scan, there was a traceamount of urine left. This is all consistent with symptoms of a stone that is now UVJ, her stone is probably just progressing down the ureter. She is controlling her symptoms with Toradol and antiemetic at home, and she is not needing any acute symptom control right now. Expectant management indicated. Given more urine strainers to use at home, we strain her urine here but no stonepassed. Lab Data Attestation: I reviewed the patient's lab results. Labs: Laboratory Results - last 24 hr 12/01/22 22:17 Urine Color Yellow Urine Clarity Sl. Cloudy Urine pH 5.0 Ur Specific [place] 1.025 Urine Protein 30 H Urine Glucose (UA) Normal Urine Ketones 5 H Urine Occult Blood 250 H Urine Nitrite Negative Urine Bilirubin Negative Urine Urobilinogen Normal Ur Leukocyte Esterase 25 H Urine RBC 10-25 SEEN Urine WBC 0-5 SEEN Ur Squamous Epith Cells 0-5 SEEN Amorphous Sediment 1+ URATE Urine Bacteria 0 SEEN Urine Mucus 0 SEEN Discharge Plan Triage Chief Complaint: Abd Pain ED Provider: Arturo Whalen Dx/Rx/DC Orders Clinical Impression: Kidney stone on right side Instructions: ED Urine Strainer, ED Kidney Stone w/ Colic Prescriptions: No Action losartan [Cozaar] 50 MG tablet 25 mg PO DAILY Label Comments: TAKE 2 TABLETS BY MOUTH ONCE DAILY atorvastatin [Lipitor] 10 MG tablet 20 mg PO DAILY montelukast [Singulair] 10 MG tablet 10 mg PO DAILY norethindrone-ethin estradiol 1 EACH tablet 1 tab PO DAILY Label Comments: TAKE 1 TABLET BY MOUTH EVERY DAY omega-3 fatty acids-fish oil 1 EACH capsule,delayed release(DR/EC) 1 ea PO DAILY melatonin 3 MG capsule 3 mg PO QHS lamotrigine [Lamictal] 25 MG tablet 200 mg PO DAILY bupropion HCl 75 MG tablet 75 mg DAILY lurasidone [Latuda] 60 mg tablet 60 mg PO DAILY Label Comments: Take 1 Tablet By Oral Route 1 time per day with food (at least 350 calories) promethazine 25 MG tablet 25 mg PO Q6H PRN PRN (Reason: Nausea) Qty: 10 0RF lithium carbonate 300 MG tablet 300 mg PO DAILY pantoprazole [Protonix] 40 MG tablet,delayed release (DR/EC) 40 mg PO DAILY ketorolac 10 mg tablet 10 mg PO Q6H PRN (Reason: pain) 3 Days Qty: 10 0RF amoxicillin 500 mg tablet 500 mg PO TID Qty: 21 0RF Primary Care Provider: Madeline Mcnally Referrals: Natali Alvarado MD [Med Staff - Active Staff] - 1 Week if not improving Madeline Mcnally DO [Primary Care Provider] - Disposition Disposition: Home, Self Care What to do if you have Problems For any increased pain, shortness of breath, bleeding, nausea or vomiting, chestpain, or any unexpected problems, contact your Primary Care Provider. Call [facility] ([phone]) or report to the closest Emergency Room. Call 911 if necessary. 12/01/222256 <Electronically signed by Arturo Whalen MD> Cosigner Signature (if applicable): CC: Dr. Madelien Mcnally DO ~ Signed [facility] Work Phone: [phone]) 123-284604-23-[address] Ruvalcaba [facility] November 24, 2022 9:10pm Note Date/Time November 24, 2022 7:4 5pm [facility] Medical Records Department [address] [place] [id number] Emergency Department Summary 11/24/22 MR#: [id number] Acct: [id number] Name: ROSE MARY CHRISTINE Rep #:[id number] : 1995 27 From: Umberto Ruvalcaba MD PCP: Dr. Madeline Mcnally DO Status:REG ER Location: ED HPI HPI - GI History of Present Illness Chief Complaint: Abd Pain Detail of Chief Complaint: Right flank pain. Informant: patient and parent Abdominal Pain/Flank Pain Onset: Days Timing: Intermittent Quality: Aching Location: Right Flank Current Severity: Mild Maximum Severity: Moderate Worsened by: Nothing Relieved by: Nothing Nausea/Vomiting/Emesis GI Symptom: Positive for Nausea Onset: Month(s) Diarrhea/Melena/Hematochezia GI Symptom: Negative for Diarrhea, Melena or Hematochezia Associated Symptoms Associated Symptoms: Negative for Dysuria, Frequency, Hematuria or Urgency Narrative Narrative: 27-year-old female history of hypertension anxiety and depression. No prior abdominal or back surgeries. Also history of gastroparesis. States on she started having right flank pain took Tylenol and improved. Is been intermittent since then. Denies vomiting or diarrhea. She has constant nausea from her gastroparesis. Family tested her for COVID twice and both were negative. She denies any dysuria or hematuria. She denies any fever. She denies any back injury or trauma and no pain with movement. Prior similar symptoms: No Recent Illness/Hospitalization: No PFSH PFSH Medical History Anxiety Asthma Bipolar disorder Depression Hypertension Home Medications atorvastatin 10 mg tablet (Lipitor) 20 mg PO DAILY 04/30/19 [History Last Taken Unknown] losartan 50 mg tablet (Cozaar) 25 mg PO DAILY 04/30/19 [History Last Taken Unknown] montelukast 10 mg tablet (Singulair) 10 mg PO DAILY 04/30/19 [History Last Taken Unknown] norethindrone 1 mg-ethinyl estradiol 35 mcg tablet 1 tab PO DAILY 04/30/19 [History Last Taken Unknown] omega-3 fatty acids-fish oil 684 mg-1,200 mg capsule,delayed release 1 ea PO DAILY 04/30/19 [History Last Taken Unknown] melatonin 3 mg capsule 3 mg PO QHS 07/10/19 [History Last Taken Unknown] bupropion HCl 75 mg tablet 75 mg DAILY 11/30/19 [History Last Taken Unknown] lamotrigine 25 mg tablet (Lamictal) 200 mg PO DAILY 11/30/19 [History Last Taken Unknown] lurasidone 60 mg tablet (Latuda) 60 mg PO DAILY 11/30/19 [History Last Taken Unknown] promethazine 25 mg tablet 25 mg PO Q6H PRN PRN Nausea #10 tabs 01/09/20 [Rx Last Taken Unknown] lithium carbonate 300 mg tablet 300 mg PO DAILY 06/16/20 [History Last Taken Unknown] pantoprazole 40 mg tablet,delayed release (Protonix) 40 mg PO DAILY 12/17/21 [History Last Taken Unknown] ketorolac 10 mg tablet 10 mg PO Q6H PRN pain 3 days #10 tabs 11/24/22 [Rx Last Taken Unknown] Allergy/AdvReac Type Severity Reaction Status Date / Time lisinopril Allergy Other Verified 11/24/22 19:34 midodrine Allergy Hives Verified 11/24/22 19:34 orange Allergy Angioedema Verified 11/24/22 19:34 Social History Smoking Status: Never smoker ROS ROS ED ROS Narrative Right flank pain. Chronic nausea. Review of Systems ROS Unobtainable: Denies due to encephalopathy Constitutional Constitutional ED: Denies chills or fever(s) ENT ENT ED: Denies ear pain Cardiovascular Cardiovascular: Denies chest pain Respiratory/Chest Respiratory/Chest: Denies cough or dyspnea Gastrointestinal Gastrointestinal: Reports abdominal pain and nausea; Denies constipation, diarrhea, melena or vomiting Genitourinary Genitourinary ED: Denies dysuria or hematuria Musculoskeletal Musculoskeletal: Reports back pain; Denies arthralgias Integumentary Denies abscess Neurologic Neurologic: Denies headache(s) Psychiatric Psychiatric: Denies anxiety Endocrine Endocrinology: Denies polydipsia or polyphagia Hematologic/Lymphatic Hematologic/Lymphatic: Denies easy bleeding Allergic/Immunologic Allergic/Immunologic ED: Denies mouth swelling EXAM Physical Exam Narrative Exam Narrative: 27-year-old female no acute distress. Sitting upright in bed. Father bedside. Vital signs are stable. Afebrile. Initial blood pressure is elevated 143/117 be rechecked. H EENT exam unremarkable. Neck nontender no lymphadenopathy. Lungs clear to auscultation. Heart regular rhythm no murmur. Chest wall nontender. Abdomen soft, nontender, nondistended, normal bowel sounds no peritoneal signs. Absolutely no reproducible abdominal tenderness. Right upperand right lower quadrants are unremarkable. Back nontender. No reproducible back tenderness or any pain with movement. Moves all 4 extremities. Normal motor strength and sensation. Neurologically awake and alert with no acute neurological findings. Const Vital Signs: 11/24/22 19:28 Temperature 97.9 F Temperature Source Temporal Pulse Rate 97 Respiratory Rate 15 Blood Pressure 143/117 H Blood Pressure Mean 125 Pulse Ox 100 Oxygen Delivery Method Room Air Positive well nourished and well developed; Negative for cachectic, contracturesor unkempt General Appearance ED: well developed and NAD; Negative for unkempt, cachectic, contractures or pallor Nutritional Appearance: Negative for cachectic HEENT Reports moist mucous membranes normocephalic and atraumatic; Negative for trauma or tenderness Eyes PERRL and EOMs intact bilaterally General Eye ED: Negative for pale conjunctiva Neck no lymphadenopathy, supple and no JVD General: Negative for tenderness Carotids: Negative for other Lymph Lymphatic: Negative for other Resp normal respiratory effort and clear to auscultation bilaterally Effort and Inspection: Negative for respiratory distress Auscultation: Negative for rales, rhonchi or wheezes Cardio regular rate, regular rhythm, S1 normal heart sound, S2 normal heart sound and no murmurs Rate: Negative for bradycardia or tachycardic Rhythm: Negative for abnormal rhythm GI non-tender, non-distended and no masses Inspection: Negative for abdominal distention Auscultation: normoactive bowel sounds Palpation: soft; Negative for tender or guarding Back/Spine no CVA tenderness General Back: Negative for CVA tenderness Cervical Spine: Negative for cervical spine tenderness Thoracic Spine / Upper Back: Negative for thoracic spinal tenderness Lumbar Spine / Lower Back: Negative for lumbar spinal tenderness Coccyx: Negative for other Extremity full ROM General Extremety ED: Negative for edema General Extremity: Negative for edema Neuro CN's II-XII intact bilaterally, moves all extremities and no sensory deficits noted Sensorium / Orientation: alert, oriented to person, oriented to place and oriented to time; Negative for orientation impaired or confused Motor Exam: strength 5/5 throughout Psych mental status grossly normal and thought process normal Appearance: Negative for unkempt Attitude: No agitated Mood & Affect: Negative for depressed, anxious or tearful Skin no wounds General Skin Exam: Negative for jaundice or pallor Lesions: no lesions Rashes: no rashes Trauma: Negative for abrasion Nails: Negative for discolored MDM MDM MDM Narrative Medical decision making narrative: He [id number] female with right flank pain. Benign exam. No reproducible pain. Differential would include kidney stone, UTI versus other etiologies. I do not think is musculoskeletal because not reproducible nor does get worse withmovement. I do not think it is her appendix or gallbladder because her abdomen is completely nontender. CAT scan and labs are pending. She will be given IV Toradol for pain. She did not want a thing for nausea. Repeat exam doing well at 8:49 PM. and 9 PM. Pain resolved with Toradol alone. Patient be discharged home. She requested the Toradol because she thought it worked better than her [id number] medications. They know to return if intractable pain, intractable vomiting or fever or feeling worse. No urine culture was sent. History & Record Review Discussion w/independent historian: Patient and Family Additional record(s) reviewed:: Prior inpatient record, Prior outpatient record,Prior ED visit, Prior labs and Other Lab Data Attestation: I reviewed the patient's lab results. Lab results narrative: CBC normal. White count 8.9. H&H 14 and 43. Platelets 268. Chemistries potassium 3.0. Gap of 3. Normal BUN and creatinine. Liver enzymesare unremarkable. Serum test negative. Urinalysis 5-10 white cells. 2+ bacteria. No red cells. No nitrites. Urine culture sent. Not treated. CT flank shows a 4 mm right proximal third ureter stone with hydroureter nephrosis. Labs: Laboratory Results - last 24 hr 11/24/22 11/24/22 11/24/22 19:50 19:50 19:50 WBC 8.9 RBC 4.63 Hgb 14.5 Hct 43.8 MCV 94.6 MCH 31.3 MCHC 33.1 RDW Std Deviation 42.5 RDW Coeff of Alex 12.2 Plt Count 268 MPV 11.9 Immature Gran % (Auto) 0.100 Neut % (Auto) 44.8 L Lymph % (Auto) 42.2 H Stevens % (Auto) 10.8 H Eos % (Auto) 1.2 Baso % (Auto) 0.9 Absolute Neuts (auto) 4.0 Absolute Lymphs (auto) 3.75 Nucleated RBC % 0 Sodium 140 Potassium 3.0 L Chloride 111 H Carbon Dioxide 26.0 Anion Gap 3 L BUN 9 Creatinine 0.71 Estim Creat Clear Calc 104.60 Est GFR (MDRD) Af Amer 128 Est GFR (MDRD) Non-Af 106 BUN/Creatinine Ratio 12.6 Glucose 102 Calcium 9.1 Total Bilirubin 0.30 AST 12 L ALT 19 Alkaline Phosphatase 118 H Total Protein 7.4 Albumin 3.5 Globulin 3.9 Albumin/Globulin Ratio 0.9 Serum , Qual NEGATIVE Urine Color Urine Clarity Urine pH Ur Specific [place] Urine Protein Urine Glucose (UA) Urine Ketones Urine Occult Blood Urine Nitrite Urine Bilirubin Urine Urobilinogen Ur Leukocyte Esterase Urine RBC Urine WBC Ur Squamous Epith Cells Urine Bacteria Urine Mucus 11/24/22 19:50 WBC RBC Hgb Hct MCV MCH MCHC RDW Std Deviation RDW Coeff of Alex Plt Count MPV Immature Gran % (Auto) Neut % (Auto) Lymph % (Auto) Stevens % (Auto) Eos % (Auto) Baso % (Auto) Absolute Neuts (auto) Absolute Lymphs (auto) Nucleated RBC % Sodium Potassium Chloride Carbon Dioxide Anion Gap BUN Creatinine Estim Creat Clear Calc Est GFR (MDRD) Af Amer Est GFR (MDRD) Non-Af BUN/Creatinine Ratio Glucose Calcium Total Bilirubin AST ALT Alkaline Phosphatase Total Protein Albumin Globulin Albumin/Globulin Ratio Serum , Qual Urine Color Yellow Urine Clarity Clear Urine pH 6.0 Ur Specific [place] 1.020 Urine Protein 15 H Urine Glucose (UA) Normal Urine Ketones Negative Urine Occult Blood 25 H Urine Nitrite Negative Urine Bilirubin Negative Urine Urobilinogen Normal Ur Leukocyte Esterase 100 H Urine RBC 0 SEEN Urine WBC 5-10 SEEN Ur Squamous Epith Cells 0-5 SEEN Urine Bacteria 2+ Urine Mucus 0 SEEN Radiography Diagnostic Testing: Clinical Impression(s) from Imaging Studies Abdomen/Pelvis CT 11/24/22 19:39 IMPRESSION: 4 mm obstructing stone in the proximal right ureter with associated mild right hydroureteronephrosis. Electronically Signed: Yanni Pantoja MD at 20:52 EDT , Discharge Plan Triage Chief Complaint: Abd Pain ED Provider: Umberto Ruvalcaba Dx/Rx/DC Orders Clinical Impression: Acute right flank pain, Kidney stone on right side Instructions: ED Kidney Stone w/ Colic Prescriptions: New ketorolac 10 mg tablet 10 mg PO Q6H PRN (Reason: pain) 3 Days Qty: 10 0RF No Action losartan [Cozaar] 50 MG tablet 25 mg PO DAILY Label Comments: TAKE 2 TABLETS BY MOUTH ONCE DAILY atorvastatin [Lipitor] 10 MG tablet 20 mg PO DAILY montelukast [Singulair] 10 MG tablet 10 mg PO DAILY norethindrone-ethin estradiol 1 EACH tablet 1 tab PO DAILY Label Comments: TAKE 1 TABLET BY MOUTH EVERY DAY omega-3 fatty acids-fish oil 1 EACH capsule,delayed release(DR/EC) 1 ea PO DAILY melatonin 3 MG capsule 3 mg PO QHS lamotrigine [Lamictal] 25 MG tablet 200 mg PO DAILY bupropion HCl 75 MG tablet 75 mg DAILY Latuda 60 mg tablet 60 mg PO DAILY Label Comments: Take 1 Tablet By Oral Route 1 time per day with food (at least 350 calories) promethazine 25 MG tablet 25 mg PO Q6H PRN PRN (Reason: Nausea) Qty: 10 0RF lithium carbonate 300 MG tablet 300 mg PO DAILY pantoprazole [Protonix] 40 MG tablet,delayed release (DR/EC) 40 mg PO DAILY Primary Care Provider: Madeline Mcnally Referrals: Madeline Mcnally DO [Primary Care Provider] - 1 Week if not improving Activity Restrictions/Additional Instructions: Toradol for pain. If you are not having any pain you do not to take it. May also use Tylenol with it. Plenty of fluids to help flush out the stone. Return if intractable pain, intractable vomiting, fever or feeling worse. The stone is 4 mm and should pass. Disposition Disposition: Home, Self Care What to do if you have Problems For any increased pain, shortness of breath, bleeding, nausea or vomiting, chestpain, or any unexpected problems, contact your Primary Care Provider. Call [facility] ([phone]) or report to the closest Emergency Room. Call 911 if necessary. 11/24/222109 <Electronically signed by Umberto Ruvalcaba MD> Cosigner Signature (if applicable): CC: Dr. Madeline Mcnally DO ~ Signed [facility] Work Phone: [phone]) 909-562207-11-2022 Note Date of Service February 11 Procedure Name Head up tilt table test Referring Provider Dr. Mcnair Consent Informed consent was obtained by nursing and anesthesia personnel Indication Syncope and collapse Location Noninvasive cardiac testing Technique This is a 26-year-old male evaluated by Dr. Mcnair in office in December 2021 For syncope and collapse. Patient was planned for head up tilt table test for evaluation of possible dysautonomia. Home medications are significant for albuterol, Wellbutrin, Vistaril lithium and latuda Patient presented for upright tilt table test on February 12, 2020 treatment fasting well-hydrated state. Presenting vital signs with a heart rate of 83 bpm normal sinus rhythm. Borderline QTC. Blood pressure 126/90 Patient was then brought upright to a 70 degree position where the patient was continually monitored for the next 20 minutes with continuous EKG and routine blood pressure checks. Upon rising the patient's heart rate anupama to 95 bpm normal sinus rhythm with a blood pressure of 120/104 At the 4-minute woody patient's heart rate was 94 bpm normal sinus rhythm with a blood pressure of 116/110. Patient was noting blurry vision. At the 8-minute woody patient's heart rate was 113 bpm sinus tachycardia with a blood pressure of 144/84 At the 12-minute woody patient's heart rate was 102 bpm sinus tachycardia with a blood pressure of 145/78. Patient was experiencing lightheadedness and tiredness. At the 16-minute woody patient's heart rate was 108 bpm sinus tachycardia with a blood pressure of 125/98. At the 20-minute woody patient's heart was 109 bpm in sinus tachycardia with a blood pressure of 125/91 Bilateral sinus carotid massage was negative for change in EKG or symptoms. Assessment plan 1. Negative upright tilt table test. However given the patient's symptoms and comorbidities including syncope, vascular insufficiency/Raynaud's, migraine and headaches. Was likely the patient is suffering from some form of dysautonomia. Dietary lifestyle modifications were explained in detail. Patient's understanding and agreeable. Digitally Signed by TERRANCE FULTON on 02/11/2022 11:23 PM [id number] Discharge instructions Patient Education 12/28/2021 12:28:31 1- SDS General Discharge Guidelines (05/2018)(CUSTOM) General Outpatient Surgery or Procedure Discharge Information Sheet The following general post-operative or procedure guidelines provide helpful information to assist in your recovery. These are general guidelines. Any specific instructions provided by your surgeon should be followed. Diet Follow any your same dietary restrictions you have had in the past, unless otherwise instructed. Activity resume your previous activities as tolerated Hand washing Frequent hand washing is one of the best ways to prevent the spread of infecti Follow-up If a follow-up appointment has not been made, please call your dr's office. Document Released: 07/21/2006 Document Revised: 07/07/2013 Document Reviewed: 07/22/2014 ExitCare Patient Information 2015 [employer]. This information is not intended to replace advicegiven to you by your health care provider. Make sure you discuss any questions you have with your health care provider. Follow Up Care 12/27/2021 10:58:16 With:GABRIELLA MCNAIR MD Address: [address] [facility] [place] [address]- [phone] When: Unknown Comments:Follow-up as scheduled [facility] 01-14-2022 Hospital Discharge instructions Patient Education 08/17/2021 14:33:02 Neuropathy, Peripheral Peripheral Neuropathy Peripheral neuropathy is the result of damage to the peripheral nerves. It usually affects the armsor legs, and causes a change in physical feeling. Sometimes it causes weakness in the muscles. You may feel tingling, numbness or shooting pains. Symptoms may be more common at night. Skin may be extra sensitive to light touch or temperature changes. Neuropathy may be caused by a complication of a chronic disease such as diabetes, virus or bacterial infections, or physical injury. A ruptured disk with pressure on the spinal nerve may also lead tothe problem. Certain vitamin deficiencies may also lead to it. It may also be caused by exposure tocertain drugs or chemicals. Home care Tell the healthcare provider about all medicines you take. This includes prescription and wxxw-cgr-eyvwvwx medicines, vitamins, and herbs. Ask if any of the medicines may be causing your problems. Don't make any changes to prescription medicines without talking to your healthcare provider first. You may be prescribed medicines to help relieve the tingling feeling or for pain. Take all medicines as directed. A numb hand or foot may be more prone to injury. To help protect it: oAlways use oven mitts. oTest water with an unaffected hand or foot. oUse caution when trimming nails. File sharp areas. oWear shoes that fit well to avoid pressure points, blisters, and ulcers. oInspect your hands and feet carefully (including the soles of your feet and between your toes) at least once a week. If you see red areas, sores, or other problems, tell your healthcare provider. Follow-up care Follow up with your doctor or as advised by our staff. You may need further testing or evaluation. When to seek medical advice Call your healthcare provider right away if any of the following occur: Redness, swelling, cracking, or ulcer on any numb area, especially the feet New symptoms of numbness or muscle weakness numbness Loss of bowel or bladder control Slurred speech, confusion, or trouble speaking, walking, or seeing [phone] [employer] [place] [address]. All rights reserved. This information is not intended as a substitute for professional medical care. Always follow yourhealthcare professional's instructions. Follow Up Care 08/17/2021 14:14:26 With:RENUKA GRAYSON Address: When: Unknown Comments:follow-up Friday. [facility] Leap[facility]ation + Plan note Future Appointments Appointment Date:08/29/2021 09:00:00 AM Scheduled Provider:MADELINE MCNALLY DO Location:[facility] Appointment Type: OV [facility] Evaluation + Plan note Future Appointments Appointment Date:11/28/2021 09:00:00 AM Scheduled Provider:MADELINE MCNALLY DO Location:[facility] Appointment Type: OV Future Scheduled Tests Laboratory* Thyroid Stimulating Hormone 11/27/21 * Lipid Profile 11/27/21 * Vitamin D Level 11/27/21 * Complete Metabolic Panel 11/27/21 [facility] Evaluation + Plan note Future Appointments Appointment Date:11/28/2021 09:00:00 AM Scheduled Provider:MADELINE MCNALLY DO Location:[facility] Appointment Type: OV [facility] Evaluation + Plan note Future Appointments Appointment Date:02/26/2022 11:00:00 AM Scheduled Provider:MADELINE MCNALLY DO Location:[facility] Appointment Type: Wellness Annual Diagnostic Tests Pending * [place] Level 12/13/21 [facility] Evaluation + Plan note Future Appointments Appointment Date:02/26/2022 11:00:00 AM Scheduled Provider:MADELINE MCNALLY DO Location:[facility] Appointment Type: Wellness [facility] Evaluation + Plan note Future Appointments Appointment Date:01/03/2022 10:00:00 AM Scheduled Provider: Location:[facility] Appointment Type:MRI Brain w/o Contrast Appointment Date:01/24/2022 08:00:00 AM Scheduled Provider: Location:[facility] Appointment Type:CV Procedure - Echo (Adult) Appointment Date:02/12/2022 03:00:00 PM Scheduled Provider:TERRANCE FULTON Location:[facility] Appointment Type:CV OV Appointment Date:02/26/2022 11:00:00 AM Scheduled Provider:MADELINE MCNALLY DO Location:[facility] Appointment Type: Wellness Annual Future Scheduled Tests Radiology* MRI Brain w/o Contrast 01/03/22 [facility] Evaluation + Plan note Future Appointments Appointment Date:01/24/2022 08:00:00 AM Scheduled Provider: Location:[facility] Appointment Type:CV Procedure - Echo (Adult) Appointment Date:02/11/2022 01:30:00 PM Scheduled Provider: Location:[facility] Appointment Type:HL Tilt Table Appointment Date:02/12/2022 03:00:00 PM Scheduled Provider:TERRANCE FULTON Location:[facility] Appointment Type:CV OV Appointment Date:02/26/2022 11:00:00 AM Scheduled Provider:MADELINE MCNALLY DO Location:[facility] Appointment Type: Wellness [facility] evaluation + Plan note Future Appointments Appointment Date:02/11/2022 01:30:00 PM Scheduled Provider: Location:[facility] Appointment Type:HL Tilt Table Appointment Date:02/12/2022 03:00:00 PM Scheduled Provider:TERRANCE FULTON Location:[facility] Appointment Type:CV OV Appointment Date:02/26/2022 11:00:00 AM Scheduled Provider:MADELINE MCNALLY DO Location:[facility] Appointment Type:[facility] Evaluation + Plan note Future Appointments Appointment Date:02/12/2022 03:00:00 PM Scheduled Provider:TERRANCE FULTON Location:[facility] Appointment Type:CV OV Appointment Date:02/26/2022 11:00:00 AM Scheduled Provider:MADELINE MCNALLY DO Location:[facility] Appointment Type: Wellness [facility] Evaluation + Plan note Future Appointments Appointment Date:05/22/2022 11:00:00 AM Scheduled Provider:MADELINE MCNALLY DO Location:[facility] Appointment Type:PC OV Appointment Date:06/18/2022 02:00:00 PM Scheduled Provider:TERRANCE FULTON Location:[facility] Appointment Type:CV OV [facility] Evaluation + Plan note Future Appointments Appointment Date:09/17/2022 01:00:00 PM Scheduled Provider:TERRANCE FULTON Location:[facility] Appointment Type:CV OV Appointment Date:10/15/2022 08:00:00 PM Scheduled Provider: Location:[facility] Appointment Type:GABI Andrade Study Appointment Date:11/20/2022 10:30:00 AM Scheduled Provider:MADELINE MCNALLY DO Location:[facility] Appointment Type:PC OV [facility] Evaluation + Plan note Future Appointments Appointment Date:10/15/2022 08:00:00 PM Scheduled Provider: Location:[facility] Appointment Type:GABI Andrade Study Appointment Date:11/20/2022 10:30:00 AM Scheduled Provider:MADELINE MCNALLY DO Location:[facility] Appointment Type:PC OV Appointment Date:03/20/2023 10:45:00 AM Scheduled Provider:TERRANCE FULTON Location:[facility] Appointment Type:CV OV [facility] Evaluation + Plan note Future Appointments Appointment Date:11/20/2022 10:30:00 AM Scheduled Provider:MADELINE MCNALLY DO Location:[facility] Appointment Type:PC OV Appointment Date:03/20/2023 10:45:00 AM Scheduled Provider:TERRANCE FULTON Location:[facility] Appointment Type:CV OV Diagnostic Tests Pending * Vitamin B12 Level 11/07/22 [facility] Evaluation + Plan note Future Appointments Appointment Date:01/01/2023 01:00:00 PM Scheduled Provider: Location:[facility] Appointment Type:CR Phase 2 Initial Appointment Date:02/19/2023 11:00:00 AM Scheduled Provider:MADELINE MCNALLY DO Location:[facility] Appointment Type:PC Wellness Annual Appointment Date:03/20/2023 10:45:00 AM Scheduled Provider:TERRANCE FULTON Location:[facility] Appointment Type:CV OV [facility] Evaluation + Plan note Future Appointments Appointment Date:06/12/2023 10:45:00 AM Scheduled Provider:TERRANCE FULTON Location:[facility] Appointment Type:CV OV Appointment Date:07/30/2023 01:30:00 PM Scheduled Provider:MADELINE MCNALLY DO Location:[facility] Appointment Type:PC OV [facility] Evaluation + Plan note Future Appointments Appointment Date:12/11/2023 10:45:00 AM Scheduled Provider:TERRANCE FULTON Location:[facility] Appointment Type:CV OV Appointment Date:12/18/2023 10:30:00 AM Scheduled Provider:MADELINE MCNALLY DO Location:[facility] Appointment Type:PC OV [facility] Evaluation + Plan note Future Appointments Appointment Date:03/31/2024 10:00:00 AM Scheduled Provider:MADELINE MCNALLY DO Location:[facility] Appointment Type:PC Wellness Annual Appointment Date:12/10/2024 10:45:00 AM Scheduled Provider:TERRANCE FULTON Location:[facility] Appointment Type:CV OV Future Scheduled Tests Laboratory* Potassium Level 03/25/24 [facility] Evaluation + Plan note Future Appointments Appointment Date:03/31/2024 10:00:00 AM Scheduled Provider:MADELINE MCNALLY DO Location:[facility] Appointment Type:PC Wellness Annual Appointment Date:12/10/2024 10:45:00 AM Scheduled Provider:TERRANCE FULTON Location:[facility] Appointment Type:CV OV [facility] Evaluation + Plan note Future Appointments Appointment Date:09/29/2024 09:00:00 AM Scheduled Provider:MADELINE MCNALLY DO Location:[facility] Appointment Type:PC OV Appointment Date:12/10/2024 10:45:00 AM Scheduled Provider:TERRANCE FULTON Location:[facility] Appointment Type:CV OV Future Scheduled Tests Laboratory* Basic Metabolic Panel 04/14/24 [facility] Evaluation + Plan note Future Appointments Appointment Date:09/29/2024 09:00:00 AM Scheduled Provider:MADELINE MCNALLY DO Location:[facility] Appointment Type:PC OV Appointment Date:12/10/2024 10:45:00 AM Scheduled Provider:TERRANCE FULTON Location:[facility] Appointment Type:CV OV Diagnostic Tests Pending * Rheumatoid Factor 04/15/24 * .CCLANA by IFA Screen 04/15/24 Future Scheduled Tests Laboratory* Basic Metabolic Panel 04/14/24 [facility] Evaluation + Plan note Future Appointments Appointment Date:10/19/2024 08:30:00 AM Scheduled Provider:MADELINE MCNALLY DO Location:[facility] Appointment Type:PC OV Appointment Date:12/10/2024 10:45:00 AM Scheduled Provider:TERRANCE FULTON Location:[facility] Appointment Type:CV OV Future Scheduled Tests Laboratory* TSH with Reflex to FT4 09/29/24 * Basic Metabolic Panel 04/14/24 * Vitamin B12 Level 09/29/24 * Complete Blood Count 09/29/24 * Lipid Profile 09/29/24 * Vitamin D Level 09/29/24 * Complete Metabolic Panel 09/29/24 [facility] Evaluation + Plan note Future Appointments Appointment Date:10/19/2024 08:30:00 AM Scheduled Provider:MADELINE MCNALLY DO Location:[facility] Appointment Type:PC OV Appointment Date:12/10/2024 10:45:00 AM Scheduled Provider:TERRANCE FULTON Location:[facility] Appointment Type:CV OV Future Scheduled Tests Laboratory* Basic Metabolic Panel 04/14/24 [facility] Evaluation + Plan note Future Appointments Appointment Date:12/28/2024 12:30:00 PM Scheduled Provider:MADELINE MCNALLY DO Location:[facility] Appointment Type:PC OV Appointment Date:12/05/2025 09:45:00 AM Scheduled Provider:TERRANCE FULTON Location:[facility] Appointment Type:CV OV Future Scheduled Tests Laboratory* Basic Metabolic Panel 04/14/24 [facility] Evaluation noteNo assessment information available [facility] Work Phone: Evalujnjxi note* Diagnosis STEPHANIE (obstructive sleep apnea) Obstructive sleep apnea (adult) (pediatric) [facility] Diagnosis Obstructive sleep apnea- Primary Obstructive sleep apnea (adult) (pediatric) [facility] Diagnosis Hypersomnia, unspecified [facility] Diagnosis Omega-Danlos syndrome- Primary Positive PHI (antinuclear antibody) Other and unspecified nonspecific immunological findings [facility] Diagnosis Omega-Danlos syndrome- Primary [facility] Narrative No data available for this section [facility] Discharge instructions No data available for this section [facility] Discharge instructions Additional Instructions Your lithium level today is 1.4. Please discuss this with your doctor that prescribes your lithium.[facility] Work Phone: Hospital Discharge instructions Additional Instructions Toradol for pain. If you are not having any pain you do not to take it. May also use Tylenol with it. Plenty of fluids to help flush out the stone. Return if intractable pain, intractable vomiting, fever or feeling worse. The stone is 4 mm and should pass.[facility] Work Phone: Hospital Discharge instructions Additional Instructions Right septal abrasion noted no active bleeding. Rebleeds use nose clip to leave on for 30 minutes. Use humidifier at home. Do not pick or blow your nose on that side. Return if worsening symptoms.[facility] Work Phone: Hospital Discharge instructions Additional Instructions 1 to 2 mm left ureteral stone at the UVJ. No infection of the urine. Take medication as prescribed. Follow-up with your urologist.[facility] Work Phone: Progress note No data available for this section [facility] Reason for visit Narrative* Diagnostic Procedure Only (Routine) - Closed Specialty Diagnoses / Procedures Referred By Meg espinoza Referred To Contact [facility] Diagnoses Hypersomnia, unspecified Procedures MULTIPLE SLEEP LATENCY TEST STONE LATHE OPERATOR SLEEP LATENCY/MAINT OF WAKEFULNESS TSTG Wilver Chapman MD [address] [place] [address] [facility] [address] [place] [address] Referral ID Status Reason Start Date Expiration Date V isits Requested Visits Authorized [id number] Closed Auto-Generated Referral Clearance Not Met -Financial Clearance Bypassed 04/01/2023 08/03/2023 1 1 [facility] Summary Purpose Family History No Family History Records Found No data available for this section No data available for this section No data available for this section No data available for this section No Family History Records Found No data available for this section No Family History Records Found No data available for this section No data available for this section No Family History Records FoundNo Family History Records FoundNo Family History Records Found No data available for this section No data available for this section No data available for this section No Family History Records Found Advance Directives No Advanced Directives Records Found Advance Directive Response Recorded Date/ Time Living Will No December 17, 2021 9 :50pm Power of Pad Extractor Tender Yes December 17, 2021 9:50pm Advance Directive Response Recorded Date/ Time Living Will No November 24, 2022 7:37pm Power of Pad Extractor Tender Yes November 24 7:37pm Name of Medical Power of Pad Extractor Tender RUTH ANN VALDIVIA November 24, 2022 7:37pm Advance Directive Response Recorded Date/ Time Name of Medical Power of Pad Extractor Tender RUTH ANN VALDIVIA November 24, 2022 7:37pm Living Will No December 01, 2022 10:19pm Power of Pad Extractor Tender No December 01 10:19pm Advance Directive Response Recorded Date/ Time Name of Medical Power of Pad Extractor Tender RUTH ANN VALDIVIA November 24, 2022 7:37pm Living Will No January 20, 2023 11:27pm Power of Pad Extractor Tender No January 20 11:27pm Advance Directive Response Recorded Date/ Time Living Will No June 07 7:36pm Power of Pad Extractor Tender No June 07, 2023 7:36pm Advance Directive Response Recorded Date/ Time Living Will No June 30, 2 023 6:28pm Power of Pad Extractor Tender No June 30, 2023 6:28pm Advance Directive Response Recorded Date/ Time Living Will No June 30, 2 023 7:28pm Power of Pad Extractor Tender No June 30, 2023 7:28pm Chief Complaint and Reason for Visit Chief Complaint SYNCOPE Chief Complaint RIGHT ABD & FLANK PA IN Chief Complaint RIGHT ABD & FLANK PA IN Flank/ Abd pain Chief Complaint RIGHT ABD & FLANK PA IN Flank/ Abd pain Cysto, Ureteroscopy, Laser, Stent, Stone Basket NOSEBLEED Chief Complaint KNEE INJURY Chief Complaint KNEE INJURY abd pain Chief Complaint KNEE INJURY abd pain KIDNEY STONES Chief Complaint abd pain KIDNEY STONES RIGHT FLANK PAIN Reason for Referral Specialty Diagnoses / Procedures Referred By Meg espinoza Referred To Contact Diagnoses Omega-Danlos syndrome Procedures CONSULT TO MEDICAL GENETICS - CARDIOVASCULAR OFFICE/OUTPATIENT [facility] 60 MINUTES MEDICAL GENETICS COUNSELING EACH 30 MINUTES Emily Au MD [address] [place] [address] [employer] [facility] [place] [address] Referral ID Status Reason Start Date Expiration Date Visits Requested Visits Authorized [id number] Pending Review PCP Requested Referral Auto-Generate d Referral 08/26/2024 08/26/2025 1 1 Additional Source Comments INFORMATION SOURCE (unrecogn ized section and content) DATE CREATED AUTHOR 02/20/2019 [facility] DATE CREATED AUTHOR AUTHOR'S ORGANIZ ATION 03/30/2024 [facility] ([place]) DATE CREATED AUTHOR AUTHOR'S ORGANIZ ATION 05/22/2024 [facility] DATE CREATED AUTHOR AUTHOR'S ORGANIZ ATION 08/31/2024 [facility] DATE CREATED AUTHOR AUTHOR'S ORGANIZ ATION 09/09/2024 [facility] DATE CREATED AUTHOR AUTHOR'S ORGANIZ ATION 10/03/2024 [facility] DATE CREATED AUTHOR AUTHOR'S ORGANIZ ATION 12/28/2024 [facility] Care Team (unrecognized sect ion and content) Team Status: Active Member Role Status Dates Dr. Madeline Mcnally DO Family Provider Active Dr. Madeline Mcnally DO Primary Care Provider Active Team Status: Inactive Member Role Status Dates Dr. Madeline Mcnally DO Primary Care Provider Active Dr. Umberto Ruvalcaba MD Emergency Provider Active Team Status: Inactive Member Role Status Dates Dr. Madeline Mcnally DO Primary Care Provider Active Dr. Umberto Ruvalcaba MD Attending Provider, Emergency Pro vider Active Team Status: Inactive Member Role Status Dates Dr. Madeline Mcnally DO Primary Care Provider Active Dr. Arturo Whalen MD Referring Provider, Emergency Provider Active Work Distributor Relationship Specialty Start Date End Date Madeline Mcnally DO [address] [place] [address] PCP - General Family Medicine 09/09/20 Team Status: Inactive Member Role Status Dates Dr. Madeline Mcnally DO Primary Care Provider Active Dr. Arturo Whalen MD Attending Provid er, Referring Provider, Emergency Provider Active Team Status: Inactive Member Role Status Dates Dr. Madeline Mcnally DO Primary Care Provider Active Dr. Natali Alvarado MD Attending Provider, Referring Tabby henning Active Team Status: Inactive Member Role Status Dates Dr. Madeline Mcnally , Primary Care Provider Active Dr. Osvaldo Nagel DO Emergency Provider Active Work Distributor Relationship Specialty Start Date End Date Madeline Mcnally DO [address] [place] [address] PCP - General Family Medicine 09/09/20 Team Status: Inactive Member Role Status Dates Dr. Madeline Mcnally DO Primary Care Provider Active Dr. Boo Antunez , Emergency Provider Active Team Status: Inactive Member Role Status Dates Dr. Madeline Mcnally DO Primary Care Provider Active Dr. Boo Antunez DO Attending Provider, Emergency Pro vider Active Work Distributor Relationship Specialty Start Date End Date Madeline Mcnally DO [address] [place] [address] PCP - General Family Medicine 09/09/20 Team Status: Inactive Member Role Status Dates Dr. Madeline Mcnally DO Primary Care Provider Active Dr. Osvaldo Nagel DO Attending Provider, Emergency Provide r Active Work Distributor Relationship Specialty Start Date End Date Madeline Mcnally DO [address] [place] [address] PCP - General Family Medicine 09/09/20 Work Distributor Relationship Specialty Start Date End Date Madeline Mcnally DO [address] [place] [address] PCP - General Family Medicine 09/09/20 Work Distributor Relationship Specialty Start Date End Date Madeline Mcnally DO [address] [place] [address] PCP - General Family Medicine 09/09/20 Goals (unrecognized section and content) Goals may be documented in a n alternate section Care Team (unrecognized sect ion and content) Personnel Name: MADELINE MCNALLY DO Address: Address: [address] [place] [address]- Care Team Personnel Name: GABRIELLA MCNAIR MD Position: P4 Physician - Cardiology Med Service: Active Provider Member Role: Manufacturing Quality Engineer Address: Address: [address] [place] [address] [place] [address]- Name: MADELINE MCNALLY DO Position: P4 Physician - Primary Care Med Service: Active Provider Member Role: Primary Care Physician Address: Address: [address] [place] [address] Name: YANNI EUBANKS 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 Member Role: Psychiatrist Address: Address: [address] Care Team Related Persons Name: NKECHI CHRISTINE Address: Home [address] [place], [place] [id number] Name: RUTH ANN CHRISTINE Care Team Personnel Name: LINDA FRANKLIN Member Role: Psychologist Name: TERRANCE FULTON Position: P4 Physician Spareribs Trimmer Med Service: Active Provider Member Role: Certified Registered Nurse Practitioner Address: Address: [address] [place] [address] Name: GABRIELLA MCNAIR MD Position: P4 Physician - Cardiology Med Service: Active Provider Member Role: Certified Registered Nurse Practitioner Address: Address: [address] [place] [address] Name: MADELINE MCNALLY DO Position: P4 Physician - Primary Care Med Service: Active Provider Member Role: Primary Care Physician Address: Address: [address] [place] [address] Name: YANNI EUBANKS 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 Member Role: Psychiatrist Address: Address: [place] [id number] Care Team Related Persons Name: NKECHI CHRISTINE Address: Home [address] [place], [place] [id number] Name: EMMETT RUTH ANN Care Team Personnel Name: LINDA FRANKLIN Member Role: Psychologist Name: TERRANCE FULTON Position: P4 Physician Spareribs Trimmer Member Role: Certified Registered Nurse Practitioner Address: Address: [address] [place] [address] [place] [id number]- Name: GABRIELLA MCNAIR MD Position: P4 Physician - Cardiology Member Role: Certified Registered Nurse Practitioner Address: Address: [address] [place] [address] [address] [address]- Name: MADELINE MCNALLY DO Position: P4 Physician - Primary Care Member Role: Primary Care Physician Address: Address: [address] [place] [address]- Name: YANNI EUBANKS 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 Member Role: Psychiatrist Address: Address: [place] [address]- Care Team Related Persons Name: NKECHI CHRISTINE Address: Home [address] [place], [place] [id number] Name: EMMETT RUTH ANN Care Team Personnel Name: LINDA FRANKLIN Member Role: Psychologist Name: TERRANCE FULTON Position: P4 Physician Spareribs Trimmer Member Role: Certified Registered Nurse Practitioner Address: Address: [address] [place], [place] [id number]- Name: GABRIELLA MCNAIR MD Position: P4 Physician - Cardiology Member Role: Certified Registered Nurse Practitioner Address: Address: [address] [place] [address] [address] [address]- Name: MADELINE MCNALLY DO Position: P4 Physician - Primary Care Member Role: Primary Care Physician Address: Address: [address] [place] [id number]- Name: YANNI EUBANKS 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 Member Role: Psychiatrist Address: Address: [address] [address]- Care Team Related Persons Name: NKECHI CHRISTINE Address: Home [address] [place], [place] [id number] [place] Name: RUTH ANN CHRISTINE Source Comments (unrecognize d section and content) In the event this informatio n is protected by the Federal Confidentiality of Alcohol and Drug Abuse Patient Records regulations: The Federal rules restrict any use of the information to criminally investigate or prosecute any alcohol or drug abuse patient.[facility] the event this information is protected by the Federal Confidentiality of Alcohol and Drug Abuse Patient Records regulations: The Federal rules restrict any use of the information to criminally investigate or prosecute any alcohol or drug abuse patient.[facility] the event this information is protected by the Federal Confidentiality of Alcohol and Drug Abuse Patient Records regulations: The Federal rules restrict any use of the information to criminally investigate or prosecute any alcohol or drug abuse patient.[facility] the event this information is protected by the Federal Confidentiality of Alcohol and Drug Abuse Patient Records regulations: The Federal rules restrict any use of the information to criminally investigate or prosecute any alcohol or drug abuse patient.[facility] Center[facility] the event this information is protected by the Federal Confidentiality of Alcohol and Drug Abuse Patient Records regulations: The Federal rules restrict any use of the information to criminally investigate or prosecute any alcohol or drug abuse patient.[facility] Center[facility] the event this information is protected by the Federal Confidentiality of Alcohol and Drug Abuse Patient Records regulations: The Federal rules restrict any use of the information to criminally investigate or prosecute any alcohol or drug abuse patient.[facility] Reason for Visit (unrecogniz ed section and content) Reason Comments Abnormal Lab PCP ref records here . Reason Comments Consult FOR RECORDS PERTAINING TO PATIENTS WHO ARE OR HAVE BEEN ENROLLED IN A CHEMICAL DEPENDENCY/SUBSTANCEABUSE PROGRAM, SOME INFORMATION MAY BE OMITTED. This clinical summary was aggregated from multiple sources. Caution should be exercised in using it in the provision of clinical care. This summary normalizes information from multiple sources, and as a consequence, information in this document may materially change the coding, format and clinical context of patient data. In addition, data may be omitted in some cases. CLINICAL DECISIONS SHOULD BE BASED ON THE PRIMARY CLINICAL RECORDS. [facility]. provides no warranty or guarantee of the accuracy or completeness of information in this document.
[2025-01-21 21:49] VITALS: BP 151/109; PULSE 98; RESP 18; TEMP 36.8; O2SAT 100
[2025-01-21] MEDS: APIXABAN 5 MG TABLET 10 MG PO (22:12)
== END 2025-01-21 22:20 | disposition home or self-care (01) ==
PROVIDERS: Emergency Provider Emergency Medicine; PCP Family Medicine; Referring Provider Emergency Medicine; Visit Provider Emergency Medicine
DX: I82.411 Acute embolism and thrombosis of right femoral vein (principal); I10 Essential (primary) hypertension; K21.9 Gastro-esophageal reflux disease without esophagitis; F41.9 Anxiety disorder, unspecified; F90.9 Attention-deficit hyperactivity disorder, unspecified type; F32.A Depression, unspecified; E07.9 Disorder of thyroid, unspecified; E78.00 Pure hypercholesterolemia, unspecified; J45.909 Unspecified asthma, uncomplicated; G43.909 Migraine, unspecified, not intractable, without status migrainosus; Z79.51 Long term (current) use of inhaled steroids; Z79.899 Other long term (current) drug therapy
CPT/HCPCS: 93971; 99282